=== PATIENT | female | born 1930 | race Two or more races ===

== ENCOUNTER 2017-07-27 09:27 | Emergency (ER) | payer MEDICARE, OTHER ==
[~2017-07-27] VITALS: Ht 157.5 cm; Wt 56.7 kg
[2017-07-27 10:30] VITALS: BP 159/69
[2017-07-27] MEDS ORDERED: INSULIN ASPART 300 UNITS/3 ML INSULN.PEN SQ STA (11:00)
--- NOTE | 2017-07-27 11:08 | PHYS DOC ---
Past Medical History Past Medical History: Diabetes-Type II, Hypertension Past Surgical History: No Surgical History Alcohol Use: None Drug Use: None Adult General Chief Complaint Chief Complaint: MEDICATION REFILL HPI HPI Patient is a 86 year old female with history of hypertension and diabetes type 2 who presents today requesting a NovoLog pen from the ED. Patient states she has a prescription for Novolog but ran out of the medication this morning. Patient has no symptoms. Blood sugar was 174 on arrival to the ED. Review of Systems Review of Systems Constitutional: Denies fever or chills [] Eyes: Denies change in visual acuity, redness, or eye pain [] HENT: Denies nasal congestion or sore throat [] Respiratory: Denies cough or shortness of breath [] Cardiovascular: No additional information not addressed in HPI [] GI: Denies abdominal pain, nausea, vomiting, bloody stools or diarrhea [] : Denies dysuria or hematuria [] Musculoskeletal: Denies back pain or joint pain [] Integument: Denies rash or skin lesions [] Neurologic: novolog refill Current Medications Current Medications Current Medications Medications (Trade) Dose Ordered Sig/Sudeep Start Time Stop Time Status Last Admin Dose Admin Insulin Aspart (NovoLOG) 6 units 1X STAT 07/27/17 11:00 07/27/17 11:01 UNV Allergies Allergies Allergies Coded Allergies Type Severity Reaction Last Updated Verified No Known Drug Allergies 07/27/17 No Physical Exam Physical Exam Constitutional: Well developed, well nourished, no acute distress, non-toxic appearance. [] HENT: Normocephalic, atraumatic, bilateral external ears normal, oropharynx moist, no oral exudates, nose normal. [] Eyes: PERRLA, EOMI, conjunctiva normal, no discharge. [] Neck: Normal range of motion, no tenderness, supple, no stridor. [] Cardiovascular:Heart rate regular rhythm, no murmur [] Lungs & Thorax: Bilateral breath sounds clear to auscultation [] Abdomen: Bowel sounds normal, soft, no tenderness, no masses, no pulsatile masses. [] Skin: Warm, dry, no erythema, no rash. [] Back: No tenderness, no CVA tenderness. [] Extremities: No tenderness, no cyanosis, no clubbing, ROM intact, no edema. [] Neurologic: Alert and oriented X 3, normal motor function, normal sensory function, no focal deficits noted. [] Psychologic: Affect normal, judgement normal, mood normal. [] Current Patient Data Vital Signs Vital Signs Date Time Temp Pulse Resp B/P (MAP) Pulse Ox O2 Delivery O2 Flow Rate FiO2 07/27/17 10:30 98.2 94 16 97 Room Air 98.2 Lab Values Laboratory Tests Test 07/27/17 10:22 Glucose (Fingerstick) 174 mg/dL (70-99) H EKG EKG [] Radiology/Procedures Radiology/Procedures [] Course & Med Decision Making Course & Med Decision Making Pertinent Labs and Imaging studies reviewed. (See chart for details) Patient is in the ED requesting a refill for NovoLog pen. She has a prescription with multiple refills but is not able to go to the pharmacy today. NovoLog pain was provided to this patient. She is to ensure she refills her medication before they ran out. BG was 174 in the Ed Dragon Disclaimer Dragon Disclaimer This electronic medical record was generated, in whole or in part, using a voice recognition dictation system. Departure Departure Impression: Primary Impression: Encounter for medication refill Disposition: HOME, SELF-CARE Condition: STABLE Referrals: YORDY HARTMAN MD (PCP) follow up with your doctor this week Patient Instructions: Diabetes Meal Planning Guide, Diabetes and Exercise- SportsMed Additional Instructions: We gave you NovoLog pen in the ED. Ensure you always refill your prescriptions prior to completing your medications. Follow-up with your doctor this week. ELLIOT ROMO APRN Jul 27, 2017 11:08
== END 2017-07-27 11:33 | disposition home or self-care (01) ==
LOC: ER 09:27
DX: Z76.0 Encounter for issue of repeat prescription (principal); E11.9 Type 2 diabetes mellitus without complications; I10 Essential (primary) hypertension; Z79.4 Long term (current) use of insulin
CPT/HCPCS: 82962; 96372; 99283; J1815

== ENCOUNTER 2019-06-07 01:36 | Inpatient (IN) | payer MEDICARE, OTHER ==
[~2019-06-07] VITALS: Ht 152.4 cm; Wt 62.8 kg
[2019-06-07] VITALS (16 sets, daily range): BP systolic 102–178; BP diastolic 43–74
[2019-06-07 02:25] LABS: BASO % 0 % (0-3); EOS % 0 % (0-3); HEMATOCRIT 29.9 % (36.0-47.0); HEMOGLOBIN 10.5 g/dL (12.0-15.5); LYMPH % 9 % (24-48); MEAN CORPUSCULAR HEMOGLOBIN 29 pg (25-35); MEAN CORPUSCULAR HGB CONC 35 g/dL (31-37); MEAN CORPUSCULAR VOLUME 83 fL (79-100); MONO # 0.8 x10^3/uL (0.0-1.1); MONO % 7 % (0-9); NEUT # 9.4 x10^3/uL (1.8-7.7); NEUT % 83 % (31-73); PLATELET COUNT 297 x10^3/uL (140-400); RED BLOOD COUNT 3.59 x10^6/uL (3.50-5.40); RED CELL DISTRIBUTION WIDTH 12.9 % (11.5-14.5); WHITE BLOOD COUNT 11.2 x10^3/uL (4.0-11.0)
[2019-06-07 02:38] LABS: CALCIUM 8.9 mg/dL (8.5-10.1); GFR 52.3; POTASSIUM 4.3 mmol/L (3.5-5.1)
[2019-06-07 02:44] LABS: ALBUMIN 3.4 g/dL (3.4-5.0); ALBUMIN/GLOBULIN RATIO 0.9 (1.0-1.7); TOTAL BILIRUBIN 0.5 mg/dL (0.2-1.0); TOTAL PROTEIN 7.1 g/dL (6.4-8.2)
--- NOTE | 2019-06-07 03:28 | RAD ---
EXAM: CT HEAD WITHOUT CONTRAST. HISTORY: Dizziness, vertigo. TECHNIQUE: Computed tomography of the head was performed without intravenous contrast. COMPARISON: None. FINDINGS: There is no intracranial hemorrhage. Hypoattenuation within the white matter indicates moderate to severe chronic microangiopathic change. Prominence of the lateral ventricles and hemispheric sulci indicates moderate atrophy. The visualized paranasal sinuses appear clear. There are changes of bilateral cataract surgery. The temporal bones are unremarkable. The calvarium reveals no suspicious lesions. There are atherosclerotic calcifications of the internal carotid and vertebral arteries. IMPRESSION: 1. No acute intracranial findings. 2. 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 *One or more of the following individualized dose reduction techniques were utilized for this examination: 1. Automated exposure control. 2. Adjustment of the mA and/or kV according to patient size. 3. Use of iterative reconstruction technique. Electronically signed by: Jackie Jeter MD (06/07/2019 3:25 AM) [facility]
[2019-06-07] MEDS ORDERED: ASPIRIN ENTERIC COATED 81 MG TABLET.DR. PO ONE (03:30)
[2019-06-07] MEDS ORDERED: METF10007 PO (04:11)
[2019-06-07] MEDS ORDERED: ASPI325T11 PO (04:13)
[2019-06-07] MEDS ORDERED: LISI-377 PO (04:13)
[2019-06-07] MEDS ORDERED: AMLO5TAB10 PO (04:13)
[2019-06-07] MEDS ORDERED: MULT-129 PO (04:19)
[2019-06-07] MEDS ORDERED: UBID100C26 PO (04:19)
[2019-06-07] MEDS ORDERED: ACET325T9 PO (04:19)
[2019-06-07] MEDS ORDERED: CALC-450 PO (04:19)
[2019-06-07] MEDS ORDERED: VITA100T5 PO (04:19)
[2019-06-07] MEDS ORDERED: INSU100I13 SQ (04:19)
[2019-06-07] MEDS ORDERED: INSU100I17 SQ ×2 (04:20)
--- NOTE | 2019-06-07 04:24 | PHYS DOC ---
Past Medical History Past Medical History: CAD, Diabetes-Type II, High Cholesterol, Hypertension Past Surgical History: Cholecystectomy Alcohol Use: None Drug Use: None Adult General Chief Complaint Chief Complaint: DIZZY/LIGHT HEADED HPI HPI Patient is a 88 year old female presents with multiple medical complaints. Pa tient complaints of posterior chest pressure, dizziness upon standing is resolved when supine. Patient denies change of vision, neck pain, palpitations, focal extremity weakness or loss of sensation. Denies history of CAD. Patient also reports partial numbness in left arm and nausea. No vomiting. No other acute symptoms or complaints. Symptoms began several hours prior to ED arrival. History obtained from the patient's son. [] Review of Systems Review of Systems Review symptoms as per history of present illness. All other review symptoms are negative. All other systems were reviewed and found to be within normal limits, except as documented in this note. Allergies Allergies Allergies Coded Allergies Type Severity Reaction Last Updated Verified No Known Drug Allergies 07/27/17 No Physical Exam Physical Exam Constitutional: Well developed, well nourished, no acute distress, non-toxic appearance. [] HENT: Normocephalic, atraumatic, bilateral external ears normal, oropharynx moist, no oral exudates, nose normal. [] Eyes: PERRLA, EOMI, conjunctiva normal, no discharge. [] Neck: Normal range of motion, no tenderness, supple, no stridor. [] Cardiovascular:Heart rate regular rhythm, no murmur [] Lungs & Thorax: Bilateral breath sounds clear to auscultation [] Abdomen: Bowel sounds normal, soft, no tenderness. [] Skin: Warm, dry. [] Back: No tenderness, no CVA tenderness. [] Extremities: No tenderness, no cyanosis, no clubbing, ROM intact, no edema. [] Neurologic: Alert and oriented X 3, renal nerves II through XII grossly intact, normal motor function, normal sensory function, no focal deficits noted. NIH of 0.[] Psychologic: Affect normal, judgement normal, mood normal. [] Current Patient Data Vital Signs Vital Signs Date Time Temp Pulse Resp B/P (MAP) Pulse Ox O2 Delivery O2 Flow Rate FiO2 06/07/19 03:00 65 14 98 06/07/19 01:53 98.4 181/75 (110) Room Air 98.4 Lab Values Laboratory Tests Test 06/07/19 02:15 White Blood Count 11.2 x10^3/uL (4.0-11.0) H Red Blood Count 3.59 x10^6/uL (3.50-5.40) Hemoglobin 10.5 g/dL (12.0-15.5) L Hematocrit 29.9 % (36.0-47.0) L Mean Corpuscular Volume 83 fL (79-100) Mean Corpuscular Hemoglobin 29 pg (25-35) Mean Corpuscular Hemoglobin Concent 35 g/dL (31-37) Red Cell Distribution Width 12.9 % (11.5-14.5) Platelet Count 297 x10^3/uL (140-400) Neutrophils (%) (Auto) 83 % (31-73) H Lymphocytes (%) (Auto) 9 % (24-48) L Monocytes (%) (Auto) 7 % (0-9) Eosinophils (%) (Auto) 0 % (0-3) Basophils (%) (Auto) 0 % (0-3) Neutrophils # (Auto) 9.4 x10^3/uL (1.8-7.7) H Lymphocytes # (Auto) 1.0 x10^3/uL (1.0-4.8) Monocytes # (Auto) 0.8 x10^3/uL (0.0-1.1) Eosinophils # (Auto) 0.0 x10^3/uL (0.0-0.7) Basophils # (Auto) 0.0 x10^3/uL (0.0-0.2) Sodium Level 125 mmol/L (136-145) L Potassium Level 4.3 mmol/L (3.5-5.1) Chloride Level 92 mmol/L (98-107) L Carbon Dioxide Level 25 mmol/L (21-32) Anion Gap 8 (6-14) Blood Urea Nitrogen 18 mg/dL (7-20) Creatinine 1.0 mg/dL (0.6-1.0) Estimated GFR (Cockcroft-Gault) 52.3 BUN/Creatinine Ratio 18 (6-20) Glucose Level 103 mg/dL (70-99) H Calcium Level 8.9 mg/dL (8.5-10.1) Total Bilirubin 0.5 mg/dL (0.2-1.0) Aspartate Amino Transferase (AST) 22 U/L (15-37) Alanine Aminotransferase (ALT) 22 U/L (14-59) Alkaline Phosphatase 68 U/L (46-116) Creatine Kinase 137 U/L (26-192) Troponin I Quantitative 0.334 ng/mL (0.000-0.055) RH-Wne-Q-Type Natriuretic Peptide 857 pg/mL (0-449) H Total Protein 7.1 g/dL (6.4-8.2) Albumin 3.4 g/dL (3.4-5.0) Albumin/Globulin Ratio 0.9 (1.0-1.7) L Thyroid Stimulating Hormone (TSH) 5.277 uIU/mL (0.358-3.74) H Laboratory Tests 06/07/19 02:15 Laboratory Tests 06/07/19 02:15 EKG EKG [EKG: Reviewed, rhythm, rate 73, nonspecific ST-T wave changes.] Radiology/Procedures Radiology/Procedures [CT head: NAD per radiology report CXR: NAD] Course & Med Decision Making Course & Med Decision Making Pertinent Labs and Imaging studies reviewed. (See chart for details) [Patient with multiple symptoms, elevated troponin, left arm numbness, no acute ST elevation on EKG. CT head negative, and I stroke score 0. Aspirin given. Sodium 125. No prior labs Will admit to the hospitalist service for further eval uation and treatment with cardiology consult.] Dragon Disclaimer Dragon Disclaimer This electronic medical record was generated, in whole or in part, using a voice recognition dictation system. Departure Departure Impression: Primary Impression: Elevated troponin Additional Impressions: Hyponatremia Dizziness Disposition: ADMITTED INPATIENT Condition: STABLE Referrals: YORDY HARTMAN MD (PCP) Problem Qualifiers ALIN CARMONA DO Jun 07, 2019 04:24
[2019-06-07] MEDS ORDERED: ONDANSETRON PF 4 MG/2 ML VIAL. IV PRN (04:30)
[2019-06-07] MEDS: IV NORMAL SALINE 1000ML BAG 1,000 ML IV SCH ×2 (04:41→12:05)
--- NOTE | 2019-06-07 05:00 | EKG ---
[facility] [address] [place] [address] Test Date: 2019-06-07 Test Time: 05:52:22 Pat Name: JHONATAN VELOZ Department: Room: 260 1 Gender: F Asset Card Clerk: [facility] : 1930 Requested By: ALIN CARMONA Order Number: [id number] Reading MD: Jacek Hernandez MD Measurements Intervals [place] Rate: 68 P: 59 MA: 188 QRS: -33 QRSD: 88 T: 68 QT: 414 QTc: 445 Interpretive Statements SINUS RHYTHM Electronically Signed On 06-11-2019 9:53:18 CDT by Jacek Hernandez MD
--- NOTE | 2019-06-07 05:10 | RAD ---
EXAM: CHEST ONE VIEW. HISTORY: Chest pain. COMPARISON: None. FINDINGS: A frontal view of the chest is obtained. There are no confluent infiltrates. The lungs are expanded to the 11th posterior interspaces. There is no pneumothorax or pleural effusion. The heart is not enlarged. There are atherosclerotic calcifications of the aorta. IMPRESSION: 1. Hyperinflation. Correlate for chronic obstructive pulmonary disease. No confluent infiltrates. Electronically signed by: Jackie Jeter MD (06/07/2019 5:07 AM) [facility]
--- NOTE | 2019-06-07 06:39 | NUR ---
Patient arrived to unit at 0340 accompanied by son and ED nurse. VS stable, Assessment complete. No complaints of pain at this time. Patient stated that she has two lumps on the back of her head that are new within the last couple days but has not had any type of fall. per patient she has been dizzy for the past two days. Resting comfortably on RA. bed in low locked position, call light in reach. will continue to monitor patient.
--- NOTE | 2019-06-07 06:59 | EKG ---
[facility] [address] [place] [address] Test Date: 2019-06-07 Test Time: 02:06:06 Pat Name: JHONATAN VELOZ Department: Room: 260 1 Gender: F Bow Rehairer: : 1930 Requested By: JEANNETTE UNGER Order Number: [id number] Reading MD: Jacek Hernandez MD Measurements Intervals [place] Rate: 72 P: 151 AL: 182 QRS: -146 QRSD: 88 T: 130 QT: 392 QTc: 435 Interpretive Statements SINUS RHYTHM LIMB LEAD MISPLACEMENT Electronically Signed On 06-11-2019 9:52:34 CDT by Jacek Hernandez MD
--- NOTE | 2019-06-07 08:00 | NUR ---
Attempted to call nurse practitioner cardiology phone x2 without answer.
--- NOTE | 2019-06-07 08:05 | NUR ---
Call to answering service to inform of consult and elevated troponin. No one non acoustic operator at this time because nurse practitioner expected. Information given to answering service.
--- NOTE | 2019-06-07 08:25 | NUR ---
Dr. Mcghee returned phone call. Informed him that the Trop was 0.33 and has went up to 1.305 this morning for the second draw and that there is some elevation in EKG. Instructed RN to wait until nurse practitioner rounds.
[2019-06-07] MEDS ORDERED: LIDOCAINE 1% PF 2 ML VIAL. ONE (09:30)
[2019-06-07] MEDS ORDERED: IOHEXOL 300 MG/ML 100ML VIAL. ONE ×2 (09:30→10:24)
--- NOTE | 2019-06-07 09:34 | PDOC2 ---
CONSULT Date of Consult Date of Consult DATE: 06/07/19 TIME: 09:34 Reason for Consult Reason for Consult: Elevated troponin level Referring Physician Referring Physician: Dr. Bui Identification/Chief Complaint Chief Complaint Dizziness and shortness of breath Source Source: Chart review, Patient History of Present Illness Reason for Visit: 88-year-old female presented complaining of dizziness, dyspnea and retrosternal chest tightness. She denied any orthopnea/PND, palpitations or syncope. She denied any previous cardiac history other than 'heart murmur'. Past Medical History Past Medical History Hypertension Hypercholesterolemia Diabetes mellitus type 2 Past Surgical History Past Surgical History Cholecystectomy Family History Family History Negative for premature coronary artery disease Social History Social History Denied any smoking, alcohol or drug use Current Medications Current Medications Current Medications Aspirin (Ecotrin) 324 mg 1X ONCE PO Last administered on 06/07/19at 03:10; S tart 06/07/19 at 03:30; Stop 06/07/19 at 03:31; Status DC Ondansetron HCl (Zofran) 4 mg PRN Q8HRS PRN IV NAUSEA/VOMITING 1ST CHOICE; Start 06/07/19 at 04:30; Stop 06/08/19 at 04:29 Sodium Chloride 1,000 ml @ 75 mls/hr [id number] IV Last administered on 06/07/19at 04:41; Start 06/07/19 at 05:00; Stop 06/08/19 at 04:59 Lidocaine HCl (Xylocaine-Mpf 1% 2ml Vial) 2 ml STK-MED ONCE .ROUTE ; Start 06/07/19 at 09:30; Stop 06/07/19 at 09:31; Status DC Iohexol (Omnipaque 300 Mg/ml) 100 ml STK-MED ONCE .ROUTE ; Start 06/07/19 at 09:30; Stop 06/07/19 at 09:31; Status DC Heparin Sodium/ Sodium Chloride 500 ml @ As Directed STK-MED ONCE .ROUTE ; Start 06/07/19 at 09:30; Stop 06/07/19 at 09:31; Status DC Active Scripts Active Reported Novolog Flexpen (Insulin Aspart) 100 Unit/1 Ml Insuln.pen 10 Unit SQ DAILYWSUP Novolog Flexpen (Insulin Aspart) 100 Unit/1 Ml Insuln.pen 5 Unit SQ DAILYWBKFT Vitamin E (Vitamin E Acid Succinate) 100 Unit Tablet 100 Unit PO DAILY Coq-10 (Ubidecarenone) 100 Mg Capsule 100 Mg PO DAILY Lantus Solostar (Insulin Glargine,Hum.rec.anlog) 100 Unit/1 Ml Insuln.pen 17 Unit SQ QHS Caltrate 600 + D Soft Chew Tab (Calcium Carbonate/Vitamin D3) 1 Each Tab.chew 1 Each PO DAILY One Daily For Women 50+ Adv Tb (Multivitamins-Min/Fa/Ginkgo) 1 Each Tablet 1 Each PO DAILY Tylenol (Acetaminophen) 325 Mg Tablet 325 Mg PO DAILY Aspirin Ec (Aspirin) 325 Mg Tablet.dr 325 Mg PO DAILY Amlodipine Besylate 5 Mg Tablet 5 Mg PO DAILY Zestril (Lisinopril) 10 Mg Tablet 10 Mg PO BID Metformin Hcl 1,000 Mg Tablet 1,000 Mg PO BIDWMEALS Allergies Allergies: Coded Allergies: No Known Drug Allergies (Unverified , 07/27/17) ROS PSYCHOLOGICAL ROS: No: Hallucinations Eyes: No Loss of vision HEENT: No: Epistaxis Respiratory: YES: Shortness of breath; No: Hemoptysis Cardiovascular: yes Chest Pain Genitourinary: No Hematuria Neurological: No Seizures Skin: No Rash Physical Exam General: Alert, Oriented X3 HEENT: Atraumatic, PERRLA Lungs: Clear to auscultation Heart: Regular rate, Other (ESM LUPSB) Abdomen: Soft, No tenderness Extremities: No edema Neuro: Normal speech Psych/Mental Status: Mood NL Vitals VITALS Vital Signs Date Time Temp Pulse Resp B/P (MAP) Pulse Ox O2 Delivery O2 Flow Rate FiO2 06/07/19 07:00 98.5 62 18 139/63 (88) 97 Room Air 98.5 Labs Labs Laboratory Tests Test 06/07/19 02:15 06/07/19 07:22 06/07/19 07:25 White Blood Count 11.2 x10^3/uL (4.0-11.0) Red Blood Count 3.59 x10^6/uL (3.50-5.40) Hemoglobin 10.5 g/dL (12.0-15.5) Hematocrit 29.9 % (36.0-47.0) Mean Corpuscular Volume 83 fL (79-100) Mean Corpuscular Hemoglobin 29 pg (25-35) Mean Corpuscular Hemoglobin Concent 35 g/dL (31-37) Red Cell Distribution Width 12.9 % (11.5-14.5) Platelet Count 297 x10^3/uL (140-400) Neutrophils (%) (Auto) 83 % (31-73) Lymphocytes (%) (Auto) 9 % (24-48) Monocytes (%) (Auto) 7 % (0-9) Eosinophils (%) (Auto) 0 % (0-3) Basophils (%) (Auto) 0 % (0-3) Neutrophils # (Auto) 9.4 x10^3/uL (1.8-7.7) Lymphocytes # (Auto) 1.0 x10^3/uL (1.0-4.8) Monocytes # (Auto) 0.8 x10^3/uL (0.0-1.1) Eosinophils # (Auto) 0.0 x10^3/uL (0.0-0.7) Basophils # (Auto) 0.0 x10^3/uL (0.0-0.2) Sodium Level 125 mmol/L (136-145) Potassium Level 4.3 mmol/L (3.5-5.1) Chloride Level 92 mmol/L (98-107) Carbon Dioxide Level 25 mmol/L (21-32) Anion Gap 8 (6-14) Blood Urea Nitrogen 18 mg/dL (7-20) Creatinine 1.0 mg/dL (0.6-1.0) Estimated GFR (Cockcroft-Gault) 52.3 BUN/Creatinine Ratio 18 (6-20) Glucose Level 103 mg/dL (70-99) Calcium Level 8.9 mg/dL (8.5-10.1) Total Bilirubin 0.5 mg/dL (0.2-1.0) Aspartate Amino Transf (AST/SGOT) 22 U/L (15-37) Alanine Aminotransferase (ALT/SGPT) 22 U/L (14-59) Alkaline Phosphatase 68 U/L (46-116) Creatine Kinase 137 U/L (26-192) Troponin I Quantitative 0.334 ng/mL (0.000-0.055) 1.305 ng/mL (0.000-0.055) OY-Xjs-J-Type Natriuretic Peptide 857 pg/mL (0-449) Total Protein 7.1 g/dL (6.4-8.2) Albumin 3.4 g/dL (3.4-5.0) Albumin/Globulin Ratio 0.9 (1.0-1.7) Thyroid Stimulating Hormone (TSH) 5.277 uIU/mL (0.358-3.74) Glucose (Fingerstick) 89 mg/dL (70-99) Laboratory Tests Test 06/07/19 02:15 06/07/19 07:22 06/07/19 07:25 White Blood Count 11.2 x10^3/uL (4.0-11.0) Red Blood Count 3.59 x10^6/uL (3.50-5.40) Hemoglobin 10.5 g/dL (12.0-15.5) Hematocrit 29.9 % (36.0-47.0) Mean Corpuscular Volume 83 fL (79-100) Mean Corpuscular Hemoglobin 29 pg (25-35) Mean Corpuscular Hemoglobin Concent 35 g/dL (31-37) Red Cell Distribution Width 12.9 % (11.5-14.5) Platelet Count 297 x10^3/uL (140-400) Neutrophils (%) (Auto) 83 % (31-73) Lymphocytes (%) (Auto) 9 % (24-48) Monocytes (%) (Auto) 7 % (0-9) Eosinophils (%) (Auto) 0 % (0-3) Basophils (%) (Auto) 0 % (0-3) Neutrophils # (Auto) 9.4 x10^3/uL (1.8-7.7) Lymphocytes # (Auto) 1.0 x10^3/uL (1.0-4.8) Monocytes # (Auto) 0.8 x10^3/uL (0.0-1.1) Eosinophils # (Auto) 0.0 x10^3/uL (0.0-0.7) Basophils # (Auto) 0.0 x10^3/uL (0.0-0.2) Sodium Level 125 mmol/L (136-145) Potassium Level 4.3 mmol/L (3.5-5.1) Chloride Level 92 mmol/L (98-107) Carbon Dioxide Level 25 mmol/L (21-32) Anion Gap 8 (6-14) Blood Urea Nitrogen 18 mg/dL (7-20) Creatinine 1.0 mg/dL (0.6-1.0) Estimated GFR (Cockcroft-Gault) 52.3 BUN/Creatinine Ratio 18 (6-20) Glucose Level 103 mg/dL (70-99) Calcium Level 8.9 mg/dL (8.5-10.1) Total Bilirubin 0.5 mg/dL (0.2-1.0) Aspartate Amino Transf (AST/SGOT) 22 U/L (15-37) Alanine Aminotransferase (ALT/SGPT) 22 U/L (14-59) Alkaline Phosphatase 68 U/L (46-116) Creatine Kinase 137 U/L (26-192) Troponin I Quantitative 0.334 ng/mL (0.000-0.055) 1.305 ng/mL (0.000-0.055) MP-Ujg-H-Type Natriuretic Peptide 857 pg/mL (0-449) Total Protein 7.1 g/dL (6.4-8.2) Albumin 3.4 g/dL (3.4-5.0) Albumin/Globulin Ratio 0.9 (1.0-1.7) Thyroid Stimulating Hormone (TSH) 5.277 uIU/mL (0.358-3.74) Glucose (Fingerstick) 89 mg/dL (70-99) Assessment/Plan Assessment/Plan 1. Acute non-STEMI. Patient's shortness of breath is also probably anginal equivalent. Chest x-ray did not show any evidence of congestive heart failure. The option of cardiac catheterization for definitive evaluation was discussed in detail and she is agreeable. 2. Accelerated hypertension: Better controlled since admission 3. Diabetes mellitus type 2: Treat per IM. Hold metformin for cardiac cath. Thank you for your consultation DEBRA VALLEJO MD Jun 07, 2019 09:34
[2019-06-07] MEDS ORDERED: fentaNYL PF VIAL 100 MCG/2 ML VIAL ONE (09:48)
[2019-06-07] MEDS ORDERED: NITROGLYCERIN 200 MCG/2 ML SYRINGE FOR CATH/VASC LAB. ONE (09:48)
[2019-06-07] MEDS ORDERED: MIDAZOLAM HCL/PF 2 MG/2 ML VIAL. ONE (09:48)
[2019-06-07] MEDS ORDERED: HEPARIN for IV BOLUS 10,000 UNIT/10 ML VIAL. ONE (09:48)
[2019-06-07] MEDS ORDERED: VERAPAMIL 5 MG/2 ML VIAL. ONE (09:48)
--- NOTE | 2019-06-07 10:36 | PDOC1 ---
History and Physical Date of Admission Date of Admission DATE: 06/07/19 TIME: 10:35 Identification/Chief Complaint Chief Complaint 88 year old female presents to er with multiple medical complaints. Patient complaints of posterior chest pressure, dizziness upon standing is resolved when supine. Patient denies change of vision, neck pain, palpitations, focal extremity weakness or loss of sensation. Denies history of CAD. Patient also reports partial numbness in left arm and nausea. No vomiting. No other acute symptoms or complaints. Symptoms began several hours prior to ED arrival. Past Medical History Past Medical History Past Medical History Past Medical History Past Medical History: CAD, Diabetes-Type II, High Cholesterol, Hypertension Past Surgical History: Cholecystectomy Alcohol Use: None Drug Use: None fhx hyperlipidemia Cardiovascular: HTN Hepatobiliary: No pertinent hx Endocrine: Diabetes Family History Family History Past Medical History Past Medical History Hypertension Hypercholesterolemia Diabetes mellitus type 2 Past Surgical History Past Surgical History Cholecystectomy Family History Family History Negative for premature coronary artery disease Social History Social History Denied any smoking, alcohol or drug use Family History: High Cholestrol Social History Smoke: No ALCOHOL: none Drugs: None Current Medications Current Medications Current Medications Aspirin (Ecotrin) 324 mg 1X ONCE PO Last administered on 06/07/19at 03:10; Start 06/07/19 at 03:30; Stop 06/07/19 at 03:31; Status DC Ondansetron HCl (Zofran) 4 mg PRN Q8HRS PRN IV NAUSEA/VOMITING 1ST CHOICE; Start 06/07/19 at 04:30; Stop 06/08/19 at 04:29 Sodium Chloride 1,000 ml @ 75 mls/hr [id number] IV Last administered on 06/07/19at 04:41; Start 06/07/19 at 05:00; Stop 06/08/19 at 04:59 Lidocaine HCl (Xylocaine-Mpf 1% 2ml Vial) 2 ml STK-MED ONCE .ROUTE ; Start 06/07/19 at 09:30; Stop 06/07/19 at 09:31; Status DC Iohexol (Omnipaque 300 Mg/ml) 100 ml STK-MED ONCE .ROUTE ; Start 06/07/19 at 09:30; Stop 06/07/19 at 09:31; Status DC Heparin Sodium/ Sodium Chloride 500 ml @ As Directed STK-MED ONCE .ROUTE ; Start 06/07/19 at 09:30; Stop 06/07/19 at 09:31; Status DC Fentanyl Citrate (Fentanyl 2ml Vial) 100 mcg STK-MED ONCE .ROUTE ; Start 06/07/19 at 09:48; Stop 06/07/19 at 09:48; Status DC Midazolam HCl (Versed) 2 mg STK-MED ONCE .ROUTE ; Start 06/07/19 at 09:48; Stop 06/07/19 at 09:48; Status DC Heparin Sodium (Porcine) (Heparin Sodium) 10,000 unit STK-MED ONCE .ROUTE ; Start 06/07/19 at 09:48; Stop 06/07/19 at 09:48; Status DC Verapamil HCl (Verapamil) 5 mg STK-MED ONCE .ROUTE ; Start 06/07/19 at 09:48; Stop 06/07/19 at 09:48; Status DC Nitroglycerin (Nitroglycerin) 200 mcg STK-MED ONCE .ROUTE ; Start 06/07/19 at 09:48; Stop 06/07/19 at 09:49; Status DC Iohexol (Omnipaque 300 Mg/ml) 100 ml STK-MED ONCE .ROUTE ; Start 06/07/19 at 10:24; Stop 06/07/19 at 10:24; Status DC Active Scripts Active Reported Novolog Flexpen (Insulin Aspart) 100 Unit/1 Ml Insuln.pen 10 Unit SQ DAILYWSUP Novolog Flexpen (Insulin Aspart) 100 Unit/1 Ml Insuln.pen 5 Unit SQ DAILYWBKFT Vitamin E (Vitamin E Acid Succinate) 100 Unit Tablet 100 Unit PO DAILY Coq-10 (Ubidecarenone) 100 Mg Capsule 100 Mg PO DAILY Lantus Solostar (Insulin Glargine,Hum.rec.anlog) 100 Unit/1 Ml Insuln.pen 17 Unit SQ QHS Caltrate 600 + D Soft Chew Tab (Calcium Carbonate/Vitamin D3) 1 Each Tab.chew 1 Each PO DAILY One Daily For Women 50+ Adv Tb (Multivitamins-Min/Fa/Ginkgo) 1 Each Tablet 1 Each PO DAILY Tylenol (Acetaminophen) 325 Mg Tablet 325 Mg PO DAILY Aspirin Ec (Aspirin) 325 Mg Tablet.dr 325 Mg PO DAILY Amlodipine Besylate 5 Mg Tablet 5 Mg PO DAILY Zestril (Lisinopril) 10 Mg Tablet 10 Mg PO BID Metformin Hcl 1,000 Mg Tablet 1,000 Mg PO BIDWMEALS Allergies Allergies: Coded Allergies: No Known Drug Allergies (Unverified , 07/27/17) ROS Review of System Review of Systems Review of Systems Review symptoms as per history of present illness. All other review symptoms are negative. General: YES: Fatigue PSYCHOLOGICAL ROS: No: Anxiety, Behavioral Disorder, Concentration difficultie, Decreased libido, Depression, Disorientation, Hallucinations, Hostility, Irritablity, Memory difficulties, Mood Swings, Obsessive thoughts, Physical abuse, Sexual abuse, Sleep disturbances, Suicidal ideation, Other HEENT: No: Heacaches, Visual Changes, Hearing change, Nasal congestion, Nasal discharge, Oral lesions, Sinus pain, Sore Throat, Epistaxis, Sneezing, Snoring, Tinnitus, Vertigo, Vocal changes, Other ALLERGY AND IMMUNOLOGY: No: Hives, Insect Bite Sensitivity, Itchy/Watery Eyes, Nasal Congestion, Post Nasal Drip, Seasonal Allergies, Other Hematological and Lymphatic: No: Bleeding Problems, Blood Clots, Blood Transfusions, Brusing, Night Sweats, Pallor, Swollen Lymph Nodes, Other ENDOCRINE: No: Breast Changes, Galactorrhea, Hair Pattern Changes, Hot Flashes, Malaise/lethargy, Mood Swings, Palpitations, Polydipsia/polyuria, Skin Changes, Temperature Intolerance, Unexpected Weight Changes, Other Respiratory: No: Cough, Hemoptysis, Orthopnea, Pleuritic Pain, Shortness of breath, SOB with excertion, Sputum Changes, Stridor, Tachypnea, Wheezing, Other Cardiovascular: yes Paroxysmal Noc. Dyspnea Gastrointestinal: Yes Nausea Musculoskeletal: Yes Joint Stiffness Neurological: Yes Confusion, Yes Gait Disturbance Physical Exam Physical Exam Physical Exam Physical Exam Constitutional: Well developed, well nourished, no acute distress, non-toxic appearance. [] HENT: Normocephalic, atraumatic, bilateral external ears normal, oropharynx moist, no oral exudates, nose normal. [] Eyes: PERRLA, EOMI, conjunctiva normal, no discharge. [] Neck: Normal range of motion, no tenderness, supple, no stridor. [] Cardiovascular:Heart rate regular rhythm, no murmur [] Lungs & Thorax: Bilateral breath sounds clear to auscultation [] Abdomen: Bowel sounds normal, soft, no tenderness. [] Skin: Warm, dry. [] Back: No tenderness, no CVA tenderness. [] Extremities: No tenderness, no cyanosis, no clubbing, ROM intact, no edema. [] Neurologic: Alert and oriented X 3, renal nerves II through XII grossly intact, normal motor function, normal sensory function, no focal deficits noted. NIH of 0.[] Psychologic: Affect normal, judgement normal, mood normal. [] General: No acute distress Breasts: Not examined Abdomen: Normal bowel sounds, Soft Rectal Exam: not examined PELVIC: Examination not indicated Extremities: No cyanosis Neuro: Cranial nerves 3-12 NL Vitals Vitals Vital Signs Date Time Temp Pulse Resp B/P (MAP) Pulse Ox O2 Delivery O2 Flow Rate FiO2 06/07/19 08:00 Room Air 06/07/19 07:00 98.5 62 18 139/63 (88) 97 98.5 Labs Labs Laboratory Tests Test 06/07/19 02:15 06/07/19 07:22 06/07/19 07:25 White Blood Count 11.2 x10^3/uL (4.0-11.0) Red Blood Count 3.59 x10^6/uL (3.50-5.40) Hemoglobin 10.5 g/dL (12.0-15.5) Hematocrit 29.9 % (36.0-47.0) Mean Corpuscular Volume 83 fL (79-100) Mean Corpuscular Hemoglobin 29 pg (25-35) Mean Corpuscular Hemoglobin Concent 35 g/dL (31-37) Red Cell Distribution Width 12.9 % (11.5-14.5) Platelet Count 297 x10^3/uL (140-400) Neutrophils (%) (Auto) 83 % (31-73) Lymphocytes (%) (Auto) 9 % (24-48) Monocytes (%) (Auto) 7 % (0-9) Eosinophils (%) (Auto) 0 % (0-3) Basophils (%) (Auto) 0 % (0-3) Neutrophils # (Auto) 9.4 x10^3/uL (1.8-7.7) Lymphocytes # (Auto) 1.0 x10^3/uL (1.0-4.8) Monocytes # (Auto) 0.8 x10^3/uL (0.0-1.1) Eosinophils # (Auto) 0.0 x10^3/uL (0.0-0.7) Basophils # (Auto) 0.0 x10^3/uL (0.0-0.2) Sodium Level 125 mmol/L (136-145) Potassium Level 4.3 mmol/L (3.5-5.1) Chloride Level 92 mmol/L (98-107) Carbon Dioxide Level 25 mmol/L (21-32) Anion Gap 8 (6-14) Blood Urea Nitrogen 18 mg/dL (7-20) Creatinine 1.0 mg/dL (0.6-1.0) Estimated GFR (Cockcroft-Gault) 52.3 BUN/Creatinine Ratio 18 (6-20) Glucose Level 103 mg/dL (70-99) Calcium Level 8.9 mg/dL (8.5-10.1) Total Bilirubin 0.5 mg/dL (0.2-1.0) Aspartate Amino Transf (AST/SGOT) 22 U/L (15-37) Alanine Aminotransferase (ALT/SGPT) 22 U/L (14-59) Alkaline Phosphatase 68 U/L (46-116) Creatine Kinase 137 U/L (26-192) Troponin I Quantitative 0.334 ng/mL (0.000-0.055) 1.305 ng/mL (0.000-0.055) HI-Xxf-H-Type Natriuretic Peptide 857 pg/mL (0-449) Total Protein 7.1 g/dL (6.4-8.2) Albumin 3.4 g/dL (3.4-5.0) Albumin/Globulin Ratio 0.9 (1.0-1.7) Thyroid Stimulating Hormone (TSH) 5.277 uIU/mL (0.358-3.74) Glucose (Fingerstick) 89 mg/dL (70-99) Laboratory Tests Test 06/07/19 02:15 06/07/19 07:22 06/07/19 07:25 White Blood Count 11.2 x10^3/uL (4.0-11.0) Red Blood Count 3.59 x10^6/uL (3.50-5.40) Hemoglobin 10.5 g/dL (12.0-15.5) Hematocrit 29.9 % (36.0-47.0) Mean Corpuscular Volume 83 fL (79-100) Mean Corpuscular Hemoglobin 29 pg (25-35) Mean Corpuscular Hemoglobin Concent 35 g/dL (31-37) Red Cell Distribution Width 12.9 % (11.5-14.5) Platelet Count 297 x10^3/uL (140-400) Neutrophils (%) (Auto) 83 % (31-73) Lymphocytes (%) (Auto) 9 % (24-48) Monocytes (%) (Auto) 7 % (0-9) Eosinophils (%) (Auto) 0 % (0-3) Basophils (%) (Auto) 0 % (0-3) Neutrophils # (Auto) 9.4 x10^3/uL (1.8-7.7) Lymphocytes # (Auto) 1.0 x10^3/uL (1.0-4.8) Monocytes # (Auto) 0.8 x10^3/uL (0.0-1.1) Eosinophils # (Auto) 0.0 x10^3/uL (0.0-0.7) Basophils # (Auto) 0.0 x10^3/uL (0.0-0.2) Sodium Level 125 mmol/L (136-145) Potassium Level 4.3 mmol/L (3.5-5.1) Chloride Level 92 mmol/L (98-107) Carbon Dioxide Level 25 mmol/L (21-32) Anion Gap 8 (6-14) Blood Urea Nitrogen 18 mg/dL (7-20) Creatinine 1.0 mg/dL (0.6-1.0) Estimated GFR (Cockcroft-Gault) 52.3 BUN/Creatinine Ratio 18 (6-20) Glucose Level 103 mg/dL (70-99) Calcium Level 8.9 mg/dL (8.5-10.1) Total Bilirubin 0.5 mg/dL (0.2-1.0) Aspartate Amino Transf (AST/SGOT) 22 U/L (15-37) Alanine Aminotransferase (ALT/SGPT) 22 U/L (14-59) Alkaline Phosphatase 68 U/L (46-116) Creatine Kinase 137 U/L (26-192) Troponin I Quantitative 0.334 ng/mL (0.000-0.055) 1.305 ng/mL (0.000-0.055) XZ-Xdp-N-Type Natriuretic Peptide 857 pg/mL (0-449) Total Protein 7.1 g/dL (6.4-8.2) Albumin 3.4 g/dL (3.4-5.0) Albumin/Globulin Ratio 0.9 (1.0-1.7) Thyroid Stimulating Hormone (TSH) 5.277 uIU/mL (0.358-3.74) Glucose (Fingerstick) 89 mg/dL (70-99) Images Images TDI Medial E' P. V 5.28cm/s E/Medial E' 22.6 Tricuspid Valve TR P. Velocity 238cm/s RAP ESTIMATE 3mmHg TR Peak Gr. 23mmHg RVSP 26mmHg LEFT VENTRICLE The left ventricle is normal size. There is mild concentric left ventricular hypertrophy. The left ventricle is hyperdynamic. The Ejection Fraction is >65%. There is normal LV segmental wall motion. Transmitral Doppler flow pattern is abnormal. RIGHT VENTRICLE The right ventricle is normal size. There is normal right ventricular wall thickness. The right ventricular systolic function is normal. ATRIA The left atrium size is normal. The right atrium size is normal. The interatrial septum is intact with no evidence for an atrial septal defect or patent foramen ovale as noted on 2-D or Doppler imaging. AORTIC VALVE The aortic valve is mildly calcified. The aortic valve is trileaflet. Doppler and Color Flow revealed no significant aortic regurgitation. There is mild valvular aortic stenosis. Calculated aortic valve area is 1.4 cm2 with maximum pressure gradient of 14 mmHg and mean pressure gradient of 10 mmHg. MITRAL VALVE Mitral annular calcification is moderate. There is no evidence of mitral valve prolapse. There is no mitral valve stenosis. Doppler and Color-flow revealed trace to mild mitral regurgitation. TRICUSPID VALVE The tricuspid valve is normal in structure and function. Doppler and Color Flow revealed trace tricuspid regurgitation. The PA pressure was estimated at 26 mmHg. There is no tricuspid valve prolapse or vegetation. There is no tricuspid valve stenosis. PULMONIC VALVE The pulmonic valve is not well visualized. GREAT VESSELS The aortic root is normal in size. The ascending aorta is normal in size. The IVC is normal in size and collapses >50% with inspiration. PERICARDIAL EFFUSION There is no evidence of significant pericardial effusion. Critical Notification Critical Value: No <Conclusion> The left ventricle is normal size. The left ventricle is hyperdynamic. The Ejection Fraction is >65%. There is mild concentric left ventricular hypertrophy. There is mild valvular aortic stenosis. Calculated aortic valve area is 1.4 cm2 with maximum pressure gradient of 14 mmHg and mean pressure gradient of 10 mmHg. Doppler and Color Flow revealed no significant aortic regurgitation. Doppler and Color-flow revealed trace to mild mitral regurgitation. Doppler and Color Flow revealed trace tricuspid regurgitation. The PA pressure was estimated at 26 mmHg. Signed by : Jeannette Caballero MD Electronically Approved : 06/07/2019 13:21:40 DICTATED and SIGNED BY: JEANNETTE CABALLERO MD DATE: 06/07/19 1313 PROCEDURE: CT HEAD WO CONTRAST EXAM: CT HEAD WITHOUT CONTRAST. HISTORY: Dizziness, vertigo. TECHNIQUE: Computed tomography of the head was performed without intravenous contrast. COMPARISON: None. FINDINGS: There is no intracranial hemorrhage. Hypoattenuation within the white matter indicates moderate to severe chronic microangiopathic change. Prominence of the lateral ventricles and hemispheric sulci indicates moderate atrophy. The visualized paranasal sinuses appear clear. There are changes of bilateral cataract surgery. The temporal bones are unremarkable. The calvarium reveals no suspicious lesions. There are atherosclerotic calcifications of the internal carotid and vertebral arteries. IMPRESSION: 1. No acute intracranial findings. 2. 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 *One or more of the following individualized dose reduction techniques were utilized for this examination: 1. Automated exposure control. 2. Adjustment of the mA and/or kV according to patient size. 3. Use of iterative reconstruction technique. Electronically signed by: Jackie Jeter MD (06/07/2019 3:25 AM Technologist: ALBERT SALDAÑA RTR Nurse: Zina Vasquez R.N. Procedure(s) performed: Left heart catheterization, selective coronary angiography and left ventriculography via right transradial approach MODERATE SEDATION TIME: 31 MINUTES FLUORO TIME: 4.1 MIN DOSE: 24.1 GYCM2 CONTRAST: 94 INDICATION The indication(s) include : non-STEMI . C[facility] Clinical Frailty Scale HA Clinical Frailty Scale: Mildly Frail Heart Failure Heart Failure: No PROCEDURE NARRATIVE After explaining the risks, benefits and alternative options, informed consent was obtained from patient. Patient was brought to the cardiac [employer] and right wrist was prepped and draped in the usual fashion after confirming a positive modified Aj's test. Arterial access was obtained in the right radial artery and a 6 Taiwanese sheath was inserted. 6 [place]ese Rico catheter and 6 Taiwanese JL 3.5 catheter were used to perform selective angiography of the right and left coronary arteries. 6 Taiwanese pigtail catheter was used to perform left ventriculography. Patient tolerated the procedure well. Hemostasis was achieved using TR band. There were no immediate complications. The following findings were noted. FINDINGS 1. Hemodynamics: Left ventricular end-diastolic pressure of 23 mmHg. No pullback gradient across the aortic valve. 2. Left ventriculography: Hyperdynamic left ventricle systolic function with ejection fraction estimated at 80%. No significant mitral regurgitation seen. 3. Coronary angiography: a. The left main coronary artery arose from the left sinus of Valsalva, gave rise to the left anterior descending and left circumflex arteries and did not show any significant stenosis. b. The left anterior descending artery showed 30% stenosis in the midsegment. c. The left circumflex artery did not show any significant stenosis. d. The right coronary artery was a large and dominant vessel arising from the right sinus of Valsalva that did showed 40% stenosis in the posterior descending branch. Conclusion 1. Nonobstructive coronary artery disease 2. Hyperdynamic left ventricle systolic function with ejection fraction estimated at 80% Recommendations Patient's non-STEMI is most probably type 2/demand ischemia. Recommend medical management. VTE Prophylaxis Ordered VTE Prophylaxis Devices: No VTE Pharmacological Prophylaxi: Yes Assessment/Plan Assessment/Plan impression 1. Nonobstructive coronary artery disease 2. Hyperdynamic left ventricle systolic function with ejection fraction estimated at 80% 3. non-STEMI is most probably type 2/demand ischemia. 4. 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 5. diabetes 6. hypertension 7. dizziness 8. dyspnea 9. on echo Ejection Fraction is >65%. 10.There is mild concentric left ventricular hypertrophy. 11. mild valvular aortic stenosis. 12. shortness of breath //probably anginal equivalent. Chest x-ray did not show any evidence of congestive heart failure. plan admit cvc cardiac cath medical management. accuchecks risk reduction mgt cardiology consulted pt/ot 78 min pt exam, chart review, > 50% of time spent with exam, chart review, pt care coordination KATHERYN HALL MD Jun 07, 2019 10:36
[2019-06-07] MEDS ORDERED: NITROGLYCERIN 200 MCG/2 ML SYRINGE FOR CATH/VASC LAB. IART ONE (10:45)
[2019-06-07] MEDS ORDERED: LIDOCAINE 1% PF 2 ML VIAL. INJ ONE (10:45)
[2019-06-07] MEDS ORDERED: HEPARIN for IV BOLUS 10,000 UNIT/10 ML VIAL. IART ONE (10:45)
[2019-06-07] MEDS ORDERED: fentaNYL PF VIAL 100 MCG/2 ML VIAL IV ONE (10:45)
[2019-06-07] MEDS ORDERED: VERAPAMIL 5 MG/2 ML VIAL. IART ONE (10:45)
[2019-06-07] MEDS ORDERED: IOHEXOL 300 MG/ML 100ML VIAL. IART ONE (10:45)
[2019-06-07] MEDS ORDERED: MIDAZOLAM HCL/PF 2 MG/2 ML VIAL. IV ONE (10:45)
--- NOTE | 2019-06-07 10:49 | PDOC ---
MODERATE SEDATION ASSESSMENT RISKS/ALTERNATIVES Risks/Alternatives Risks and alternatives of this type of sedation and procedure discussed with: RISK/ALTERNATIVES: Patient H & P ON CHART H & P H & P on chart and reviewed for co-morbid conditions and appropriate labs. H&P ON CHART: Yes STATUS PREG STATUS ASSESSED: N/A MEDS/ALLERGIES REVIEWED Meds/Allergies Reviewed Medications and Allergies including time and route of recently administered narcotics and sedatives. MEDS/ALLERGIES REVIEWED: Yes ASA RATING ASA RATING: III AIRWAY ASSESSMENT Airway Assessment Airway patency, oral function limitations, presence of caps, crowns, dentures, partials, and ability to extend neck assessed. AIRWAY ASSESSMENT: Yes MALLAMPATI SCORE MALLAMPATI SCORE: II PRE-SEDATION ASSESSMENT PRE-SEDATION ASSESSMENT: Yes DEBRA VALLEJO MD Jun 07, 2019 10:48
[2019-06-07] MEDS ORDERED: CONTRAST GIVEN. MC PRN (11:00)
[2019-06-07] MEDS ORDERED: NITROGLYCERIN SUBLINGUAL 0.4 MG BOTTLE OF 25. SL PRN (11:00)
--- NOTE | 2019-06-07 11:03 | CARD ---
MR#: [id number] Date of Study: 06/07/2019 Ordering Physician: DEBRA VALLEJO, Referring Physician: DEBRA VALLEJO Tech: ALBERT SALDAÑA RTR APPROVED REPORT Technologist: ALBERT SALDAÑA RTR Nurse: Zina Vasquez R.N. Procedure(s) performed: Left heart catheterization, selective coronary angiography and left ventricul ography via right transradial approach MODERATE SEDATION TIME: 31 MINUTES FLUORO TIME: 4.1 MIN DOSE: 24.1 GYCM2 CONTRAST: 94 INDICATION The indication(s) include : non-STEMI . [facility] Clinical Frailty Scale [facility] Clinical Frailty Scale: Mildly Frail Heart Failure Heart Failure: No PROCEDURE NARRATIVE After explaining the risks, benefits and alternative options, informed consent was obtained from ruel ent. Patient was brought to the cardiac Child Care [employer] Leader and right wrist was prepped and draped in the usual fashion after confirming a positive modified Aj's test. Arterial access was obtained in the [facility] t radial artery and a 6 Mozambican sheath was inserted. 6 [place] Rico catheter and 6 [place] JL 3.5 cat heter were used to perform selective angiography of the right and left coronary arteries. 6 [place] p igtail catheter was used to perform left ventriculography. Patient tolerated the procedure well. He mostasis was achieved using TR band. There were no immediate complications. The following findings were noted. FINDINGS 1. Hemodynamics: Left ventricular end-diastolic pressure of 23 mmHg. No pullback gradient across th e aortic valve. 2. Left ventriculography: Hyperdynamic left ventricle systolic function with ejection fraction estim ated at 80%. No significant mitral regurgitation seen. 3. Coronary angiography: a. The left main coronary artery arose from the left sinus of Valsalva, gave rise to the left anteri or descending and left circumflex arteries and did not show any significant stenosis. b. The left anterior descending artery showed 30% stenosis in the midsegment. c. The left circumflex artery did not show any significant stenosis. d. The right coronary artery was a large and dominant vessel arising from the right sinus of Valsalv a that did showed 40% stenosis in the posterior descending branch. Conclusion 1. Nonobstructive coronary artery disease 2. Hyperdynamic left ventricle systolic function with ejection fraction estimated at 80% Recommendations Patient's non-STEMI is most probably type 2/demand ischemia. Recommend medical management. Signed by : Debra Vallejo, Electronically Approved : 06/07/2019 11:03:29
[2019-06-07] MEDS: IV 1/2 NORMAL SALINE 1,000 ML IV SCH ×2 (12:18→20:49)
--- NOTE | 2019-06-07 13:22 | CARD ---
MR#: [id number] Date of Study: 06/07/2019 Ordering Physician: DEBRA VALLEJO, Referring Physician: DEBRA VALLEJO Tech: Char Nick RDCS APPROVED REPORT EXAM: Two-dimensional and M-mode echocardiogram with Doppler and color Doppler. Other Information Quality : AverageHR: 60bpm Rhythm : NSR INDICATION Non STEMI 2D DIMENSIONS RVDd2.0 (2.9-3.5cm)Left Atrium(2D)3.5 (1.6-4.0cm) IVSd1.1 (0.7-1.1cm)Aortic Root(2D)2.6 (2.0-3.7cm) LVDd3.9 (3.9-5.9cm)LVOT Diameter1.7 (1.8-2.4cm) PWd0.8 (0.7-1.1cm)LVDs2.2 (2.5-4.0cm) FS (%) 43.8 %SV50.6 ml M-Mode DIMENSIONS Left Atrium(MM)3.95 (2.5-4.0cm)Aortic Root2.58 (2.2-3.7cm) Aortic Valve AoV Peak Dwayne.188.8cm/sAoV VTI49.5cm AO Peak GR.14.3mmHgLVOT VTI 25.78cm AO Mean GR.10mmHgAVA (VTI)1.40cm2 Mitral Valve MV E Bcorxjae986.5cm/sMV E Peak Gr.8mmHg MV DECEL [id number] A Xxplwfvt215.8cm/s MV E Mean Gr.3mmHgE/A Ratio0.9 MV A [id number] TDI Medial E' P. V5.28cm/sE/Medial E'22.6 Tricuspid Valve TR P. [id number]/sRAP [id number] TR Peak Gr.61qbFyZOEG52mfCr LEFT VENTRICLE The left ventricle is normal size. There is mild concentric left ventricular hypertrophy. The left ve ntricle is hyperdynamic. The Ejection Fraction is >65%. There is normal LV segmental wall motion. Tra nsmitral Doppler flow pattern is abnormal. RIGHT VENTRICLE The right ventricle is normal size. There is normal right ventricular wall thickness. The right ventr icular systolic function is normal. ATRIA The left atrium size is normal. The right atrium size is normal. The interatrial septum is intact wit h no evidence for an atrial septal defect or patent foramen ovale as noted on 2-D or Doppler imaging. AORTIC VALVE The aortic valve is mildly calcified. The aortic valve is trileaflet. Doppler and Color Flow revealed no significant aortic regurgitation. There is mild valvular aortic stenosis. Calculated aortic valve area is 1.4 cm2 with maximum pressure gradient of 14 mmHg and mean pressure gradient of 10 mmHg. MITRAL VALVE Mitral annular calcification is moderate. There is no evidence of mitral valve prolapse. There is no mitral valve stenosis. Doppler and Color-flow revealed trace to mild mitral regurgitation. TRICUSPID VALVE The tricuspid valve is normal in structure and function. Doppler and Color Flow revealed trace tricus pid regurgitation. The PA pressure was estimated at 26 mmHg. There is no tricuspid valve prolapse or vegetation. There is no tricuspid valve stenosis. PULMONIC VALVE The pulmonic valve is not well visualized. GREAT VESSELS The aortic root is normal in size. The ascending aorta is normal in size. The IVC is normal in size a nd collapses >50% with inspiration. PERICARDIAL EFFUSION There is no evidence of significant pericardial effusion. Critical Notification Critical Value: No <Conclusion> The left ventricle is normal size. The left ventricle is hyperdynamic. The Ejection Fraction is >65%. There is mild concentric left ventricular hypertrophy. There is mild valvular aortic stenosis. Calculated aortic valve area is 1.4 cm2 with maximum pressure gradient of 14 mmHg and mean pressure g radient of 10 mmHg. Doppler and Color Flow revealed no significant aortic regurgitation. Doppler and Color-flow revealed trace to mild mitral regurgitation. Doppler and Color Flow revealed trace tricuspid regurgitation. The PA pressure was estimated at 26 mmHg. Signed by : Leonel Caballero MD Electronically Approved : 06/07/2019 13:21:40
--- NOTE | 2019-06-07 15:16 | PDOC2 ---
NEUROLOGY CONSULT Date of Admission Date of Admission DATE: 06/07/19 TIME: 15:12 Reason for Consult Reason for Consult: Syncope Referring Physician Referring Physician: Dr. Bui Source Source: Caregiver (son and [id number]), Chart review History of Present Illness History of Present Illness The patient is an 88-year-old right-handed female whose son went over to her apartment yesterday about 6 PM because she was complaining of dizziness. She felt she got up too fast. He helped her with dinner and left, but then she called him back at 1 AM complaining that she didn�t know where she was, felt faint, and had some right occipital head pain. There is no prior history of stroke, seizure, or head injury, but she has had several episodes of syncope in the past. She had some chest pressure and tightness as well. She had a cardiac catheterization today. She does not remember events from 6 PM to 1 AM, she still feels out of sorts. Past Medical History Cardiovascular: Syncope, Other (heart murmur) Psych: Anxiety, Depression Musculoskeletal: low back pain, Osteoarthritis Endocrine: Diabetes Past Surgical History Past Surgical History: Cholecystectomy, Cataract Removal Family History Family History: No pertinent hx Social History Social History , no tobacco or alcohol, retired Current Medications Current Medications Current Medications Aspirin (Ecotrin) 324 mg 1X ONCE PO Last administered on 06/07/19at 03:10; Start 06/07/19 at 03:30; Stop 06/07/19 at 03:31; Status DC Ondansetron HCl (Zofran) 4 mg PRN Q8HRS PRN IV NAUSEA/VOMITING 1ST CHOICE; Start 06/07/19 at 04:30; Stop 06/08/19 at 04:29 Sodium Chloride 1,000 ml @ 75 mls/hr [id number] IV Last administered on 06/07/19at 04:41; Start 06/07/19 at 05:00; Stop 06/08/19 at 04:59 Lidocaine HCl (Xylocaine-Mpf 1% 2ml Vial) 2 ml STK-MED ONCE .ROUTE ; Start 06/07/19 at 09:30; Stop 06/07/19 at 09:31; Status DC Iohexol (Omnipaque 300 Mg/ml) 100 ml STK-MED ONCE .ROUTE ; Start 06/07/19 at 09:30; Stop 06/07/19 at 09:31; Status DC Heparin Sodium/ Sodium Chloride 500 ml @ As Directed STK-MED ONCE .ROUTE ; Start 06/07/19 at 09:30; Stop 06/07/19 at 09:31; Status DC Fentanyl Citrate (Fentanyl 2ml Vial) 100 mcg STK-MED ONCE .ROUTE ; Start 06/07/19 at 09:48; Stop 06/07/19 at 09:48; Status DC Midazolam HCl (Versed) 2 mg STK-MED ONCE .ROUTE ; Start 06/07/19 at 09:48; Stop 06/07/19 at 09:48; Status DC Heparin Sodium (Porcine) (Heparin Sodium) 10,000 unit STK-MED ONCE .ROUTE ; Start 06/07/19 at 09:48; Stop 06/07/19 at 09:48; Status DC Verapamil HCl (Verapamil) 5 mg STK-MED ONCE .ROUTE ; Start 06/07/19 at 09:48; Stop 06/07/19 at 09:48; Status DC Nitroglycerin (Nitroglycerin) 200 mcg STK-MED ONCE .ROUTE ; Start 06/07/19 at 09:48; Stop 06/07/19 at 09:49; Status DC Iohexol (Omnipaque 300 Mg/ml) 100 ml STK-MED ONCE .ROUTE ; Start 06/07/19 at 10:24; Stop 06/07/19 at 10:24; Status DC Nitroglycerin (Nitroglycerin) 200 mcg 1X ONCE IART Last administered on 06/07/19at 10:54; Start 06/07/19 at 10:45; Stop 06/07/19 at 10:46; Status DC Verapamil HCl (Verapamil) 2.5 mg 1X ONCE IART Last administered on 06/07/19at 10:54; Start 06/07/19 at 10:45; Stop 06/07/19 at 10:46; Status DC Heparin Sodium (Porcine) (Heparin Sodium) 2,500 unit 1X ONCE IART Last administered on 06/07/19at 10:54; Start 06/07/19 at 10:45; Stop 06/07/19 at 10:46; Status DC Heparin Sodium/ Sodium Chloride (HEPARIN for ARTERIAL LINE FLUSH) 1,000 unit 1X ONCE IART Last administered on 06/07/19at 10:54; Start 06/07/19 at 10:45; Stop 06/07/19 at 10:46; Status DC Midazolam HCl (Versed) 2 mg 1X ONCE IV Last administered on 06/07/19at 10:54; Start 06/07/19 at 10:45; Stop 06/07/19 at 10:46; Status DC Fentanyl Citrate (Fentanyl 2ml Vial) 100 mcg 1X ONCE IV Last administered on 06/07/19at 10:54; Start 06/07/19 at 10:45; Stop 06/07/19 at 10:46; Status DC Iohexol (Omnipaque 300 Mg/ml) 100 ml 1X ONCE IART Last administered on 06/07/19at 10:54; Start 06/07/19 at 10:45; Stop 06/07/19 at 10:46; Status DC Lidocaine HCl (Xylocaine-Mpf 1% 2ml Vial) 2 ml 1X ONCE INJ Last administered on 06/07/19at 10:54; Start 06/07/19 at 10:45; Stop 06/07/19 at 10:46; Status DC Info (CONTRAST GIVEN -- Rx MONITORING) 1 each PRN DAILY PRN MC SEE COMMENTS; Start 06/07/19 at 11:00; Stop 06/09/19 at 10:59 Sodium Chloride 1,000 ml @ 100 mls/hr Q10H IV Last administered on 06/07/19at 12:18; Start 06/07/19 at 10:49 Nitroglycerin (Nitrostat) 0.4 mg PRN Q5MIN PRN SL CHEST PAIN; Start 06/07/19 at 11:00 Acetaminophen (Tylenol) 325 mg DAILY PO ; Start 06/08/19 at 09:00 Amlodipine Besylate (Norvasc) 5 mg DAILY PO ; Start 06/08/19 at 09:00 Aspirin (Ecotrin) 325 mg DAILY PO ; Start 06/08/19 at 09:00 Insulin Glargine (Lantus) 17 units QHS SQ ; Start 06/07/19 at 21:00 Lisinopril (Prinivil) 10 mg BID PO ; Start 06/07/19 at 21:00 Calcium/Vitamin D (Oscal D 500mg/ 200uts) 1 tab DAILY PO ; Start 06/08/19 at 09:00 Insulin Human Lispro (HumaLOG) 5 units DAILYWBKFT SQ ; Start 06/07/19 at 17:00 Insulin Human Lispro (HumaLOG) 10 units DAILYWSUP SQ ; Start 06/07/19 at 17:00 Multivitamins (Thera M Plus) 1 tab DAILY PO ; Start 06/08/19 at 09:00 Non-Formulary Medication (Ubidecarenone (Coq-10)) 100 mg DAILY PO ; Start 06/08/19 at 09:00; Status UNV Vitamin E 200 unit DAILY PO ; Start 06/08/19 at 09:00 Active Scripts Active Reported Novolog Flexpen (Insulin Aspart) 100 Unit/1 Ml Insuln.pen 10 Unit SQ DAILYWSUP Novolog Flexpen (Insulin Aspart) 100 Unit/1 Ml Insuln.pen 5 Unit SQ DAILYWBKFT Vitamin E (Vitamin E Acid Succinate) 100 Unit Tablet 100 Unit PO DAILY Coq-10 (Ubidecarenone) 100 Mg Capsule 100 Mg PO DAILY Lantus Solostar (Insulin Glargine,Hum.rec.anlog) 100 Unit/1 Ml Insuln.pen 17 Unit SQ QHS Caltrate 600 + D Soft Chew Tab (Calcium Carbonate/Vitamin D3) 1 Each Tab.chew 1 Each PO DAILY One Daily For Women 50+ Adv Tb (Multivitamins-Min/Fa/Ginkgo) 1 Each Tablet 1 Each PO DAILY Tylenol (Acetaminophen) 325 Mg Tablet 325 Mg PO DAILY Aspirin Ec (Aspirin) 325 Mg Tablet.dr 325 Mg PO DAILY Amlodipine Besylate 5 Mg Tablet 5 Mg PO DAILY Zestril (Lisinopril) 10 Mg Tablet 10 Mg PO BID Metformin Hcl 1,000 Mg Tablet 1,000 Mg PO BIDWMEALS Allergies Allergies: Coded Allergies: No Known Drug Allergies (Unverified , 07/27/17) ROS Review of System Negative for fever, chills, weight loss, shortness of breath, chest pain, indigestion, hematochezia, melena, and dysuria. Full 14-point review of systems is negative. Physical Exam Physical Examination General: Well-developed, well-nourished female in no acute distress HEENT: Normocephalic and�atraumatic. Temporal arteries�pulsatile and nontender.� Neck: Supple without bruit, no meningismus� Musculoskeletal: Stability:�see neurologic. Gait exam:�see neurologic. Tone:�see neurologic.�Strength:�see neurologic.� Neurological: Mental Status:�intact, orientation, memory, attention span/concentration, language, fund of knowledge normal. Cranial Nerves:�Pupils equal and reactive to light, extraocular movements are�intact, visual reyes are full to confrontation. Facial sensation is normal. There is no facial asymmetry. Vestibulo-ocular reflex is intact. Palate elevates and tongue protrudes in midline. All other cranial related problems are negative except as mentioned before.�Reflexes:�2+ and symmetric with flexor plantar responses. Motor:�5/5 strength with normal tone and bulk. Coordination:�Finger-nose finger and ubsy-bf-juzw testing are normal. Rapid alternating movements and fine finger movements are intact. Gait:�apraxic. Sensory:�Normal pinprick, vibration, light touch, proprioception.� Vitals VITALS Vital Signs Date Time Temp Pulse Resp B/P (MAP) Pulse Ox O2 Delivery O2 Flow Rate FiO2 06/07/19 11:15 97.7 63 18 118/56 (76) 92 Room Air 97.7 06/07/19 10:54 2.0 Labs Labs Laboratory Tests Test 06/07/19 02:15 06/07/19 07:22 06/07/19 07:25 06/07/19 10:00 White Blood Count 11.2 x10^3/uL (4.0-11.0) Red Blood Count 3.59 x10^6/uL (3.50-5.40) Hemoglobin 10.5 g/dL (12.0-15.5) Hematocrit 29.9 % (36.0-47.0) Mean Corpuscular Volume 83 fL (79-100) Mean Corpuscular Hemoglobin 29 pg (25-35) Mean Corpuscular Hemoglobin Concent 35 g/dL (31-37) Red Cell Distribution Width 12.9 % (11.5-14.5) Platelet Count 297 x10^3/uL (140-400) Neutrophils (%) (Auto) 83 % (31-73) Lymphocytes (%) (Auto) 9 % (24-48) Monocytes (%) (Auto) 7 % (0-9) Eosinophils (%) (Auto) 0 % (0-3) Basophils (%) (Auto) 0 % (0-3) Neutrophils # (Auto) 9.4 x10^3/uL (1.8-7.7) Lymphocytes # (Auto) 1.0 x10^3/uL (1.0-4.8) Monocytes # (Auto) 0.8 x10^3/uL (0.0-1.1) Eosinophils # (Auto) 0.0 x10^3/uL (0.0-0.7) Basophils # (Auto) 0.0 x10^3/uL (0.0-0.2) Sodium Level 125 mmol/L (136-145) Potassium Level 4.3 mmol/L (3.5-5.1) Chloride Level 92 mmol/L (98-107) Carbon Dioxide Level 25 mmol/L (21-32) Anion Gap 8 (6-14) Blood Urea Nitrogen 18 mg/dL (7-20) Creatinine 1.0 mg/dL (0.6-1.0) Estimated GFR (Cockcroft-Gault) 52.3 BUN/Creatinine Ratio 18 (6-20) Glucose Level 103 mg/dL (70-99) Calcium Level 8.9 mg/dL (8.5-10.1) Total Bilirubin 0.5 mg/dL (0.2-1.0) Aspartate Amino Transf (AST/SGOT) 22 U/L (15-37) Alanine Aminotransferase (ALT/SGPT) 22 U/L (14-59) Alkaline Phosphatase 68 U/L (46-116) Creatine Kinase 137 U/L (26-192) Troponin I Quantitative 0.334 ng/mL (0.000-0.055) 1.305 ng/mL (0.000-0.055) 1.506 ng/mL (0.000-0.055) RA-Mjr-R-Type Natriuretic Peptide 857 pg/mL (0-449) Total Protein 7.1 g/dL (6.4-8.2) Albumin 3.4 g/dL (3.4-5.0) Albumin/Globulin Ratio 0.9 (1.0-1.7) Thyroid Stimulating Hormone (TSH) 5.277 uIU/mL (0.358-3.74) Glucose (Fingerstick) 89 mg/dL (70-99) Test 06/07/19 12:30 Glucose (Fingerstick) 96 mg/dL (70-99) Laboratory Tests Test 06/07/19 02:15 06/07/19 07:22 06/07/19 07:25 06/07/19 10:00 White Blood Count 11.2 x10^3/uL (4.0-11.0) Red Blood Count 3.59 x10^6/uL (3.50-5.40) Hemoglobin 10.5 g/dL (12.0-15.5) Hematocrit 29.9 % (36.0-47.0) Mean Corpuscular Volume 83 fL (79-100) Mean Corpuscular Hemoglobin 29 pg (25-35) Mean Corpuscular Hemoglobin Concent 35 g/dL (31-37) Red Cell Distribution Width 12.9 % (11.5-14.5) Platelet Count 297 x10^3/uL (140-400) Neutrophils (%) (Auto) 83 % (31-73) Lymphocytes (%) (Auto) 9 % (24-48) Monocytes (%) (Auto) 7 % (0-9) Eosinophils (%) (Auto) 0 % (0-3) Basophils (%) (Auto) 0 % (0-3) Neutrophils # (Auto) 9.4 x10^3/uL (1.8-7.7) Lymphocytes # (Auto) 1.0 x10^3/uL (1.0-4.8) Monocytes # (Auto) 0.8 x10^3/uL (0.0-1.1) Eosinophils # (Auto) 0.0 x10^3/uL (0.0-0.7) Basophils # (Auto) 0.0 x10^3/uL (0.0-0.2) Sodium Level 125 mmol/L (136-145) Potassium Level 4.3 mmol/L (3.5-5.1) Chloride Level 92 mmol/L (98-107) Carbon Dioxide Level 25 mmol/L (21-32) Anion Gap 8 (6-14) Blood Urea Nitrogen 18 mg/dL (7-20) Creatinine 1.0 mg/dL (0.6-1.0) Estimated GFR (Cockcroft-Gault) 52.3 BUN/Creatinine Ratio 18 (6-20) Glucose Level 103 mg/dL (70-99) Calcium Level 8.9 mg/dL (8.5-10.1) Total Bilirubin 0.5 mg/dL (0.2-1.0) Aspartate Amino Transf (AST/SGOT) 22 U/L (15-37) Alanine Aminotransferase (ALT/SGPT) 22 U/L (14-59) Alkaline Phosphatase 68 U/L (46-116) Creatine Kinase 137 U/L (26-192) Troponin I Quantitative 0.334 ng/mL (0.000-0.055) 1.305 ng/mL (0.000-0.055) 1.506 ng/mL (0.000-0.055) QR-Yeg-H-Type Natriuretic Peptide 857 pg/mL (0-449) Total Protein 7.1 g/dL (6.4-8.2) Albumin 3.4 g/dL (3.4-5.0) Albumin/Globulin Ratio 0.9 (1.0-1.7) Thyroid Stimulating Hormone (TSH) 5.277 uIU/mL (0.358-3.74) Glucose (Fingerstick) 89 mg/dL (70-99) Test 06/07/19 12:30 Glucose (Fingerstick) 96 mg/dL (70-99) Images Images CT HEAD WITHOUT CONTRAST. HISTORY: Dizziness, vertigo. TECHNIQUE: Computed tomography of the head was performed without intravenous contrast. COMPARISON: None. FINDINGS: There is no intracranial hemorrhage. Hypoattenuation within the white matter indicates moderate to severe chronic microangiopathic change. Prominence of the lateral ventricles and hemispheric sulci indicates moderate atrophy. The visualized paranasal sinuses appear clear. There are changes of bilateral cataract surgery. The temporal bones are unremarkable. The calvarium reveals no suspicious lesions. There are atherosclerotic calcifications of the internal carotid and vertebral arteries. IMPRESSION: 1. No acute intracranial findings. 2. 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 Assessment/Plan Assessment/Plan Impression: I suspect vasovagal syncope, some component of hypertensive encephalopathy, she may have fallen and hit her head as well, but I don�t find any evidence of stro ke or seizure. Recommendations: She doesn�t feel herself, still, so reasonable to check an MRI and EEG Fully discussed with patient and her family. Thank you for letting me help with the patient�s care. HUGH CRAMER MD Jun 07, 2019 15:16
--- NOTE | 2019-06-07 15:31 | NUR ---
SS following for discharge planning. SS reviewed pt chart. Pt is from home and is currently on room air. PT/OT ordered. SS will await PT/OT evaluations and recommendations and will proceed accordingly with discharge planning.
[2019-06-07] MEDS: INSULIN LISPRO 300 UNITS/3 ML VIAL. SQ SCH ×2 (17:00→17:30)
[2019-06-07] MEDS: LISINOPRIL 10 MG TABLET PO SCH (20:08)
[2019-06-07] MEDS ORDERED: MORPHINE SULFATE 2 MG/ML VIAL. IV PRN (20:15)
[2019-06-07] MEDS: INSULIN GLARGINE 300 UNITS/3 ML INSULN.PEN. SQ SCH (20:21)
[2019-06-07] MEDS: traMADol 50 MG TABLET PO PRN (20:26)
[2019-06-07 21:54] LABS: BILIRUBIN,URINE NEGATIVE (NEG); CLARITY,URINE CLEAR; NITRITE,URINE NEGATIVE (NEG); PH,URINE 6.5; PROTEIN,URINE 30 mg/dL (NEG-TRACE); UROBILINOGEN,URINE 0.2 mg/dL (0.2 mg/dL)
[2019-06-07 22:05] LABS: COLOR,URINE STRAW
[2019-06-07 22:07] LABS: BACTERIA,URINE FEW /HPF (0-FEW); RBC,URINE 0 /HPF (0-2); SQUAMOUS EPITHELIAL CELL,UR FEW /LPF; WBC,URINE RARE /HPF (0-4)
[2019-06-08 03:20] VITALS: BP 154/64
--- NOTE | 2019-06-08 05:04 | NUR ---
IVP are d/cd a per MD order. pmrn
[2019-06-08] MEDS: IV 1/2 NORMAL SALINE 1,000 ML IV SCH ×2 (06:49→12:57)
[2019-06-08 07:00] VITALS: BP 149/66
[2019-06-08 07:01] LABS: BASO % 0 % (0-3); EOS # 0.1 x10^3/uL (0.0-0.7); EOS % 1 % (0-3); HEMATOCRIT 31.3 % (36.0-47.0); HEMOGLOBIN 10.8 g/dL (12.0-15.5); LYMPH % 20 % (24-48); MEAN CORPUSCULAR HEMOGLOBIN 29 pg (25-35); MEAN CORPUSCULAR HGB CONC 34 g/dL (31-37); MEAN CORPUSCULAR VOLUME 84 fL (79-100); MONO # 0.9 x10^3/uL (0.0-1.1); MONO % 9 % (0-9); NEUT % 69 % (31-73); PLATELET COUNT 308 x10^3/uL (140-400); RED BLOOD COUNT 3.72 x10^6/uL (3.50-5.40); RED CELL DISTRIBUTION WIDTH 13.3 % (11.5-14.5); WHITE BLOOD COUNT 10.1 x10^3/uL (4.0-11.0)
[2019-06-08 07:15] LABS: CALCIUM 8.8 mg/dL (8.5-10.1); CREATININE 0.9 mg/dL (0.6-1.0); GFR 59.1
[2019-06-08] MEDS: INSULIN LISPRO 300 UNITS/3 ML VIAL. SQ SCH ×4 (08:00→18:01)
[2019-06-08] MEDS: ACETAMINOPHEN 325 MG TABLET. PO SCH (09:00)
[2019-06-08] MEDS ORDERED: NON FORMULARY ITEM (Ubidecarenone (Coq-10) 100 MG) PO SCH (09:00)
[2019-06-08] MEDS: MULTIVITAMIN with MINERAL TABLET. PO SCH (09:34)
[2019-06-08] MEDS: CALCIUM CARB/VIT D3 500/200 TABLET. PO SCH (09:34)
[2019-06-08] MEDS: VITAMIN E 200 UNIT CAPSULE. PO SCH (09:34)
[2019-06-08] MEDS: amLODIPine BESYLATE 5 MG TABLET PO SCH (09:35)
[2019-06-08] MEDS: ASPIRIN ENTERIC COATED 325 MG TABLET.DR. PO SCH (09:35)
[2019-06-08] MEDS: LISINOPRIL 10 MG TABLET PO SCH ×2 (09:38→21:13)
[2019-06-08] MEDS: traMADol 50 MG TABLET PO PRN ×2 (09:41→21:13)
--- NOTE | 2019-06-08 10:36 | EEG ---
DATE OF SERVICE: 06/08/2019 OBJECTIVE: The patient is an 88-year-old female with a loss of consciousness and some confusion. DESCRIPTION: This is a digital study. Electrodes are placed according to the international 10-20 system. Bipolar and referential montages are available. Activation procedures typically include hyperventilation and intermittent photic stimulation. INTERPRETATION: The waking background consists of 8-9 Hz, 50-100 microvolt activity, symmetrically distributed over parietooccipital regions and reactive to eye opening. Hyperventilation and intermittent photic stimulation are noncontributory. Stage 1 sleep is achieved with normal electroencephalogram patterns. IMPRESSION: This electroencephalogram with the patient awake and asleep is within normal limits. There is no focal, paroxysmal, or epileptiform activity. Thank you for letting us help with the patient's care. HUGH CRAMER MD DR: OSMAN/[place] JOB#: [id number] / [id number] MAXIMINO Quinn MD
--- NOTE | 2019-06-08 10:53 | PDOC ---
PROGRESS NOTES Assessment Vasovagal syncope, component of hypertensive encephalopathy, possible concussion No evidence of stroke or seizure. EEG is negative Family stress as described below Plan Await MRI brain, cardiac workup Discussed with patient son Subjective Still feels a little off, better than yesterday. Note that patient has been under stress, her son suddenly two weeks ago, she had a big family reunion and family wedding soon after Objective Vital Signs Date Time Temp Pulse Resp B/P (MAP) Pulse Ox O2 Delivery O2 Flow Rate FiO2 06/08/19 10:49 14 97 Room Air 06/08/19 09:42 64 149/66 06/08/19 07:00 98.6 98.6 06/07/19 10:54 2.0 Intake and Output 06/08/19 06:59 Intake Total 250 ml Output Total 2150 ml Balance -1900 ml Intake Oral 250 ml Output Urine Total 2150 ml # Bowel Movements 1 PHYSICAL EXAM Alert. Oriented to time, place and person. PERRL. EOMI. CN: no focal findings. Muscle tone: normal. Muscle strength: 5/5 DTR: 2+ Plantar reflex: flexor Gait: not examined in bed. Sensory exam: no abnormal findings. No cerebellar signs elicited. Review of Relevant I have reviewed the following items randa (where applicable) has been applied. Labs Laboratory Tests Test 06/07/19 02:15 06/07/19 07:22 06/07/19 07:25 06/07/19 10:00 White Blood Count 11.2 x10^3/uL (4.0-11.0) Red Blood Count 3.59 x10^6/uL (3.50-5.40) Hemoglobin 10.5 g/dL (12.0-15.5) Hematocrit 29.9 % (36.0-47.0) Mean Corpuscular Volume 83 fL (79-100) Mean Corpuscular Hemoglobin 29 pg (25-35) Mean Corpuscular Hemoglobin Concent 35 g/dL (31-37) Red Cell Distribution Width 12.9 % (11.5-14.5) Platelet Count 297 x10^3/uL (140-400) Neutrophils (%) (Auto) 83 % (31-73) Lymphocytes (%) (Auto) 9 % (24-48) Monocytes (%) (Auto) 7 % (0-9) Eosinophils (%) (Auto) 0 % (0-3) Basophils (%) (Auto) 0 % (0-3) Neutrophils # (Auto) 9.4 x10^3/uL (1.8-7.7) Lymphocytes # (Auto) 1.0 x10^3/uL (1.0-4.8) Monocytes # (Auto) 0.8 x10^3/uL (0.0-1.1) Eosinophils # (Auto) 0.0 x10^3/uL (0.0-0.7) Basophils # (Auto) 0.0 x10^3/uL (0.0-0.2) Sodium Level 125 mmol/L (136-145) Potassium Level 4.3 mmol/L (3.5-5.1) Chloride Level 92 mmol/L (98-107) Carbon Dioxide Level 25 mmol/L (21-32) Anion Gap 8 (6-14) Blood Urea Nitrogen 18 mg/dL (7-20) Creatinine 1.0 mg/dL (0.6-1.0) Estimated GFR (Cockcroft-Gault) 52.3 BUN/Creatinine Ratio 18 (6-20) Glucose Level 103 mg/dL (70-99) Calcium Level 8.9 mg/dL (8.5-10.1) Total Bilirubin 0.5 mg/dL (0.2-1.0) Aspartate Amino Transf (AST/SGOT) 22 U/L (15-37) Alanine Aminotransferase (ALT/SGPT) 22 U/L (14-59) Alkaline Phosphatase 68 U/L (46-116) Creatine Kinase 137 U/L (26-192) Troponin I Quantitative 0.334 ng/mL (0.000-0.055) 1.305 ng/mL (0.000-0.055) 1.506 ng/mL (0.000-0.055) DH-Fgw-J-Type Natriuretic Peptide 857 pg/mL (0-449) Total Protein 7.1 g/dL (6.4-8.2) Albumin 3.4 g/dL (3.4-5.0) Albumin/Globulin Ratio 0.9 (1.0-1.7) Thyroid Stimulating Hormone (TSH) 5.277 uIU/mL (0.358-3.74) Glucose (Fingerstick) 89 mg/dL (70-99) Test 06/07/19 12:30 06/07/19 17:22 06/07/19 20:10 06/07/19 21:30 Glucose (Fingerstick) 96 mg/dL (70-99) 135 mg/dL (70-99) 85 mg/dL (70-99) Urine Collection Type Unknown Urine Color Straw Urine Clarity Clear Urine pH 6.5 Urine Specific [place] 1.010 Urine Protein 30 mg/dL (NEG-TRACE) Urine Glucose (UA) Negative mg/dL (NEG) Urine Ketones (Stick) Negative mg/dL (NEG) Urine Blood Negative (NEG) Urine Nitrite Negative (NEG) Urine Bilirubin Negative (NEG) Urine Urobilinogen Dipstick 0.2 mg/dL (0.2 mg/dL) Urine Leukocyte Esterase Negative (NEG) Urine RBC 0 /HPF (0-2) Urine WBC Rare /HPF (0-4) Urine Squamous Epithelial Cells Few /LPF Urine Bacteria Few /HPF (0-FEW) Test 06/08/19 06:15 06/08/19 06:25 06/08/19 07:22 Sodium Level 130 mmol/L (136-145) Potassium Level 4.0 mmol/L (3.5-5.1) Chloride Level 96 mmol/L (98-107) Carbon Dioxide Level 25 mmol/L (21-32) Anion Gap 9 (6-14) Blood Urea Nitrogen 15 mg/dL (7-20) Creatinine 0.9 mg/dL (0.6-1.0) Estimated GFR (Cockcroft-Gault) 59.1 Glucose Level 67 mg/dL (70-99) Calcium Level 8.8 mg/dL (8.5-10.1) White Blood Count 10.1 x10^3/uL (4.0-11.0) Red Blood Count 3.72 x10^6/uL (3.50-5.40) Hemoglobin 10.8 g/dL (12.0-15.5) Hematocrit 31.3 % (36.0-47.0) Mean Corpuscular Volume 84 fL (79-100) Mean Corpuscular Hemoglobin 29 pg (25-35) Mean Corpuscular Hemoglobin Concent 34 g/dL (31-37) Red Cell Distribution Width 13.3 % (11.5-14.5) Platelet Count 308 x10^3/uL (140-400) Neutrophils (%) (Auto) 69 % (31-73) Lymphocytes (%) (Auto) 20 % (24-48) Monocytes (%) (Auto) 9 % (0-9) Eosinophils (%) (Auto) 1 % (0-3) Basophils (%) (Auto) 0 % (0-3) Neutrophils # (Auto) 7.0 x10^3/uL (1.8-7.7) Lymphocytes # (Auto) 2.0 x10^3/uL (1.0-4.8) Monocytes # (Auto) 0.9 x10^3/uL (0.0-1.1) Eosinophils # (Auto) 0.1 x10^3/uL (0.0-0.7) Basophils # (Auto) 0.0 x10^3/uL (0.0-0.2) Glucose (Fingerstick) 74 mg/dL (70-99) Laboratory Tests Test 06/07/19 12:30 06/07/19 17:22 06/07/19 20:10 06/07/19 21:30 Glucose (Fingerstick) 96 mg/dL (70-99) 135 mg/dL (70-99) 85 mg/dL (70-99) Urine Collection Type Unknown Urine Color Straw Urine Clarity Clear Urine pH 6.5 Urine Specific [place] 1.010 Urine Protein 30 mg/dL (NEG-TRACE) Urine Glucose (UA) Negative mg/dL (NEG) Urine Ketones (Stick) Negative mg/dL (NEG) Urine Blood Negative (NEG) Urine Nitrite Negative (NEG) Urine Bilirubin Negative (NEG) Urine Urobilinogen Dipstick 0.2 mg/dL (0.2 mg/dL) Urine Leukocyte Esterase Negative (NEG) Urine RBC 0 /HPF (0-2) Urine WBC Rare /HPF (0-4) Urine Squamous Epithelial Cells Few /LPF Urine Bacteria Few /HPF (0-FEW) Test 06/08/19 06:15 06/08/19 06:25 06/08/19 07:22 Sodium Level 130 mmol/L (136-145) Potassium Level 4.0 mmol/L (3.5-5.1) Chloride Level 96 mmol/L (98-107) Carbon Dioxide Level 25 mmol/L (21-32) Anion Gap 9 (6-14) Blood Urea Nitrogen 15 mg/dL (7-20) Creatinine 0.9 mg/dL (0.6-1.0) Estimated GFR (Cockcroft-Gault) 59.1 Glucose Level 67 mg/dL (70-99) Calcium Level 8.8 mg/dL (8.5-10.1) White Blood Count 10.1 x10^3/uL (4.0-11.0) Red Blood Count 3.72 x10^6/uL (3.50-5.40) Hemoglobin 10.8 g/dL (12.0-15.5) Hematocrit 31.3 % (36.0-47.0) Mean Corpuscular Volume 84 fL (79-100) Mean Corpuscular Hemoglobin 29 pg (25-35) Mean Corpuscular Hemoglobin Concent 34 g/dL (31-37) Red Cell Distribution Width 13.3 % (11.5-14.5) Platelet Count 308 x10^3/uL (140-400) Neutrophils (%) (Auto) 69 % (31-73) Lymphocytes (%) (Auto) 20 % (24-48) Monocytes (%) (Auto) 9 % (0-9) Eosinophils (%) (Auto) 1 % (0-3) Basophils (%) (Auto) 0 % (0-3) Neutrophils # (Auto) 7.0 x10^3/uL (1.8-7.7) Lymphocytes # (Auto) 2.0 x10^3/uL (1.0-4.8) Monocytes # (Auto) 0.9 x10^3/uL (0.0-1.1) Eosinophils # (Auto) 0.1 x10^3/uL (0.0-0.7) Basophils # (Auto) 0.0 x10^3/uL (0.0-0.2) Glucose (Fingerstick) 74 mg/dL (70-99) Medications Current Medications Aspirin (Ecotrin) 324 mg 1X ONCE PO Last administered on 06/07/19at 03:10; Start 06/07/19 at 03:30; Stop 06/07/19 at 03:31; Status DC Ondansetron HCl (Zofran) 4 mg PRN Q8HRS PRN IV NAUSEA/VOMITING 1ST CHOICE; Start 06/07/19 at 04:30; Stop 06/08/19 at 04:29; Status DC Sodium Chloride 1,000 ml @ 75 mls/hr [id number] IV Last administered on 06/07/19at 04:41; Start 06/07/19 at 05:00; Stop 06/08/19 at 04:59; Status DC Lidocaine HCl (Xylocaine-Mpf 1% 2ml Vial) 2 ml STK-MED ONCE .ROUTE ; Start 06/07/19 at 09:30; Stop 06/07/19 at 09:31; Status DC Iohexol (Omnipaque 300 Mg/ml) 100 ml STK-MED ONCE .ROUTE ; Start 06/07/19 at 09:30; Stop 06/07/19 at 09:31; Status DC Heparin Sodium/ Sodium Chloride 500 ml @ As Directed STK-MED ONCE .ROUTE ; Start 06/07/19 at 09:30; Stop 06/07/19 at 09:31; Status DC Fentanyl Citrate (Fentanyl 2ml Vial) 100 mcg STK-MED ONCE .ROUTE ; Start 06/07/19 at 09:48; Stop 06/07/19 at 09:48; Status DC Midazolam HCl (Versed) 2 mg STK-MED ONCE .ROUTE ; Start 06/07/19 at 09:48; Stop 06/07/19 at 09:48; Status DC Heparin Sodium (Porcine) (Heparin Sodium) 10,000 unit STK-MED ONCE .ROUTE ; Start 06/07/19 at 09:48; Stop 06/07/19 at 09:48; Status DC Verapamil HCl (Verapamil) 5 mg STK-MED ONCE .ROUTE ; Start 06/07/19 at 09:48; Stop 06/07/19 at 09:48; Status DC Nitroglycerin (Nitroglycerin) 200 mcg STK-MED ONCE .ROUTE ; Start 06/07/19 at 09:48; Stop 06/07/19 at 09:49; Status DC Iohexol (Omnipaque 300 Mg/ml) 100 ml STK-MED ONCE .ROUTE ; Start 06/07/19 at 10:24; Stop 06/07/19 at 10:24; Status DC Nitroglycerin (Nitroglycerin) 200 mcg 1X ONCE IART Last administered on 06/07/19at 10:54; Start 06/07/19 at 10:45; Stop 06/07/19 at 10:46; Status DC Verapamil HCl (Verapamil) 2.5 mg 1X ONCE IART Last administered on 06/07/19 10:54; Start 06/07/19 at 10:45; Stop 06/07/19 at 10:46; Status DC Heparin Sodium (Porcine) (Heparin Sodium) 2,500 unit 1X ONCE IART Last administered on 06/07/19 10:54; Start 06/07/19 at 10:45; Stop 06/07/19 at 10:46; Status DC Heparin Sodium/ Sodium Chloride (HEPARIN for ARTERIAL LINE FLUSH) 1,000 unit 1X ONCE IART Last administered on 06/07/19 10:54; Start 06/07/19 at 10:45; Stop 06/07/19 at 10:46; Status DC Midazolam HCl (Versed) 2 mg 1X ONCE IV Last administered on 06/07/19 10:54; Start 06/07/19 at 10:45; Stop 06/07/19 at 10:46; Status DC Fentanyl Citrate (Fentanyl 2ml Vial) 100 mcg 1X ONCE IV Last administered on 06/07/19 10:54; Start 06/07/19 at 10:45; Stop 06/07/19 at 10:46; Status DC Iohexol (Omnipaque 300 Mg/ml) 100 ml 1X ONCE IART Last administered on 06/07/19 10:54; Start 06/07/19 at 10:45; Stop 06/07/19 at 10:46; Status DC Lidocaine HCl (Xylocaine-Mpf 1% 2ml Vial) 2 ml 1X ONCE INJ Last administered on 06/07/19 10:54; Start 06/07/19 at 10:45; Stop 06/07/19 at 10:46; Status DC Info (CONTRAST GIVEN -- Rx MONITORING) 1 each PRN DAILY PRN MC SEE COMMENTS; Start 06/07/19 at 11:00; Stop 06/09/19 at 10:59 Sodium Chloride 1,000 ml @ 100 mls/hr Q10H IV Last administered on 06/07/19at 12:18; Start 06/07/19 at 10:49 Nitroglycerin (Nitrostat) 0.4 mg PRN Q5MIN PRN SL CHEST PAIN; Start 06/07/19 at 11:00 Acetaminophen (Tylenol) 325 mg DAILY PO ; Start 06/08/19 at 09:00 Amlodipine Besylate (Norvasc) 5 mg DAILY PO Last administered on 06/08/19 09:42; Start 06/08/19 at 09:00 Aspirin (Ecotrin) 325 mg DAILY PO Last administered on 06/08/19 09:42; Start 06/08/19 at 09:00 Insulin Glargine (Lantus) 17 units QHS SQ Last administered on 06/07/19 20:23; Start 06/07/19 at 21:00 Lisinopril (Prinivil) 10 mg BID PO Last administered on 06/08/19 09:42; Start 06/07/19 at 21:00 Calcium/Vitamin D (Oscal D 500mg/ 200uts) 1 tab DAILY PO Last administered on 06/08/19 09:42; Start 06/08/19 at 09:00 Insulin Human Lispro (HumaLOG) 5 units DAILYWBKFT SQ ; Start 06/07/19 at 17:00 Insulin Human Lispro (HumaLOG) 10 units DAILYWSUP SQ Last administered on 06/07/19 17:30; Start 06/07/19 at 17:00 Multivitamins (Thera M Plus) 1 tab DAILY PO Last administered on 06/08/19 09:42; Start 06/08/19 at 09:00 Non-Formulary Medication (Ubidecarenone (Coq-10)) 100 mg DAILY PO ; Start 06/08/19 at 09:00; Status UNV Vitamin E 200 unit DAILY PO Last administered on 06/08/19 09:42; Start 06/08/19 at 09:00 Morphine Sulfate (Morphine Sulfate) 2 mg PRN Q4HRS PRN IV PAIN; Start 06/07/19 at 20:15 Tramadol HCl (Ultram) 50 mg PRN Q6HRS PRN PO PAIN Last administered on 06/08/19 09:42; Start 06/07/19 at 20:15 Active Scripts Active Reported Novolog Flexpen (Insulin Aspart) 100 Unit/1 Ml Insuln.pen 10 Unit SQ DAILYWSUP Novolog Flexpen (Insulin Aspart) 100 Unit/1 Ml Insuln.pen 5 Unit SQ DAILYWBKFT Vitamin E (Vitamin E Acid Succinate) 100 Unit Tablet 100 Unit PO DAILY Coq-10 (Ubidecarenone) 100 Mg Capsule 100 Mg PO DAILY Lantus Solostar (Insulin Glargine,Hum.rec.anlog) 100 Unit/1 Ml Insuln.pen 17 Unit SQ QHS Caltrate 600 + D Soft Chew Tab (Calcium Carbonate/Vitamin D3) 1 Each Tab.chew 1 Each PO DAILY One Daily For Women 50+ Adv Tb (Multivitamins-Min/Fa/Ginkgo) 1 Each Tablet 1 Each PO DAILY Tylenol (Acetaminophen) 325 Mg Tablet 325 Mg PO DAILY Aspirin Ec (Aspirin) 325 Mg Tablet.dr 325 Mg PO DAILY Amlodipine Besylate 5 Mg Tablet 5 Mg PO DAILY Zestril (Lisinopril) 10 Mg Tablet 10 Mg PO BID Metformin Hcl 1,000 Mg Tablet 1,000 Mg PO BIDWMEALS Vitals/I & O Vital Sign - Last 24 Hours 06/07/19 06/07/19 06/07/19 06/07/19 10:54 10:54 10:54 11:01 Pulse 66 66 65 Resp 14 16 B/P (MAP) 102/43 118/56 (76) Pulse Ox 92 92 O2 Delivery Nasal Cannula Nasal Cannula O2 Flow Rate 2.0 2.0 06/07/19 06/07/19 06/07/19 06/07/19 11:15 11:16 11:31 11:46 Temp 97.7 97.7 Pulse 63 60 58 56 Resp 18 B/P (MAP) 118/56 (76) 114/56 (75) 114/54 (74) 119/57 (77) Pulse Ox 92 O2 Delivery Room Air 06/07/19 06/07/19 06/07/19 06/07/19 12:01 12:31 13:01 13:31 Pulse 58 54 56 64 B/P (MAP) 139/62 (87) 132/62 (85) 126/59 (81) 149/65 (93) 06/07/19 06/07/19 06/07/19 06/07/19 14:31 15:00 19:40 19:45 Temp 98.1 97.6 98.1 97.6 Pulse 62 67 73 Resp 18 20 B/P (MAP) 144/63 (90) 144/63 (90) 178/74 (108) Pulse Ox 98 95 O2 Delivery Room Air Room Air Room Air 06/07/19 06/07/19 06/07/19 06/08/19 20:23 20:26 22:50 03:20 Temp 98.4 98.2 98.4 98.2 Pulse 71 73 68 Resp 18 18 B/P (MAP) 178/74 144/64 (90) 154/64 (94) Pulse Ox 96 96 O2 Delivery Room Air Room Air Room Air 06/08/19 06/08/19 06/08/19 06/08/19 07:00 08:00 09:42 09:42 Temp 98.6 98.6 Pulse 64 64 64 Resp 16 B/P (MAP) 149/66 (93) 149/66 149/66 Pulse Ox 97 O2 Delivery Room Air Room Air 06/08/19 06/08/19 09:42 10:49 Resp 14 Pulse Ox 97 97 O2 Delivery Room Air Room Air Intake and Output 06/07/19 06/07/19 06/08/19 14:59 22:59 06:59 Intake Total 50 ml 200 ml Output Total 800 ml 600 ml 750 ml Balance -800 ml -550 ml -550 ml HUGH CRAMER MD Jun 08, 2019 10:53
--- NOTE | 2019-06-08 10:55 | PDOC ---
PROGRESS NOTES History of Present Illness History of Present Illness VTE Prophylaxis Ordered VTE Prophylaxis Devices: No VTE Pharmacological Prophylaxi: Yes Assessment/Plan Assessment/Plan impression 1. Nonobstructive coronary artery disease 2. Hyperdynamic left ventricle systolic function with ejection fraction estimated at 80% 3. non-STEMI is most probably type 2/demand ischemia. 4. 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 5. diabetes 6. hypertension 7. dizziness 8. dyspnea 9. on echo Ejection Fraction is >65%. 10.There is mild concentric left ventricular hypertrophy. 11. mild valvular aortic stenosis. by echo . Calculated aortic valve area is 1.4 cm2 with maximum pressure gradient of 14 mm Hg and mean pressure gradient of 10 mmHg. 12. shortness of breath //probably anginal equivalent. Chest x-ray did not show any evidence of congestive heart failure. 13. new onset confusion, memory loss, metabolic encephalopathy 14. component of hypertensive encephalopathy, possible concussion plan admit cvc cardiac cath medical management. accuchecks risk reduction mgt cardiology consulted pt/ot neurology consult mri head 36 min pt exam, chart review, > 50% of time spent with exam, chart review, pt care coordination Vitals Vitals Vital Signs Date Time Temp Pulse Resp B/P (MAP) Pulse Ox O2 Delivery O2 Flow Rate FiO2 06/08/19 10:49 14 97 Room Air 06/08/19 09:42 64 149/66 06/08/19 07:00 98.6 98.6 06/07/19 10:54 2.0 Physical Exam General: Alert, Cooperative, No acute distress Heart: Regular rate, Normal S1, Other (ESM LUPSB) Lungs: Clear Abdomen: Normal bowel sounds, Soft, No tenderness Extremities: No cyanosis Skin: No significant lesion Labs LABS OBJECTIVE: The patient is an 88-year-old female with a loss of consciousness and some confusion. DESCRIPTION: This is a digital study. Electrodes are placed according to the international 10-20 system. Bipolar and referential montages are available. Activation procedures typically include hyperventilation and intermittent photic stimulation. INTERPRETATION: The waking background consists of 8-9 Hz, 50-100 microvolt activity, symmetrically distributed over parietooccipital regions and reactive to eye opening. Hyperventilation and intermittent photic stimulation are noncontributory. Stage 1 sleep is achieved with normal electroencephalogram patterns. IMPRESSION: This electroencephalogram with the patient awake and asleep is within normal limits. There is no focal, paroxysmal, or epileptiform activity. Thank you for letting us help with the patient's care. HUGH CRAMER MD DR: OSMAN/[place] JOB#: [id number] / [id number] Laboratory Tests Test 06/07/19 12:30 06/07/19 17:22 06/07/19 20:10 06/07/19 21:30 Glucose (Fingerstick) 96 mg/dL (70-99) 135 mg/dL (70-99) 85 mg/dL (70-99) Urine Collection Type Unknown Urine Color Straw Urine Clarity Clear Urine pH 6.5 Urine Specific [place] 1.010 Urine Protein 30 mg/dL (NEG-TRACE) Urine Glucose (UA) Negative mg/dL (NEG) Urine Ketones (Stick) Negative mg/dL (NEG) Urine Blood Negative (NEG) Urine Nitrite Negative (NEG) Urine Bilirubin Negative (NEG) Urine Urobilinogen Dipstick 0.2 mg/dL (0.2 mg/dL) Urine Leukocyte Esterase Negative (NEG) Urine RBC 0 /HPF (0-2) Urine WBC Rare /HPF (0-4) Urine Squamous Epithelial Cells Few /LPF Urine Bacteria Few /HPF (0-FEW) Test 06/08/19 06:15 06/08/19 06:25 06/08/19 07:22 Sodium Level 130 mmol/L (136-145) Potassium Level 4.0 mmol/L (3.5-5.1) Chloride Level 96 mmol/L (98-107) Carbon Dioxide Level 25 mmol/L (21-32) Anion Gap 9 (6-14) Blood Urea Nitrogen 15 mg/dL (7-20) Creatinine 0.9 mg/dL (0.6-1.0) Estimated GFR (Cockcroft-Gault) 59.1 Glucose Level 67 mg/dL (70-99) Calcium Level 8.8 mg/dL (8.5-10.1) White Blood Count 10.1 x10^3/uL (4.0-11.0) Red Blood Count 3.72 x10^6/uL (3.50-5.40) Hemoglobin 10.8 g/dL (12.0-15.5) Hematocrit 31.3 % (36.0-47.0) Mean Corpuscular Volume 84 fL (79-100) Mean Corpuscular Hemoglobin 29 pg (25-35) Mean Corpuscular Hemoglobin Concent 34 g/dL (31-37) Red Cell Distribution Width 13.3 % (11.5-14.5) Platelet Count 308 x10^3/uL (140-400) Neutrophils (%) (Auto) 69 % (31-73) Lymphocytes (%) (Auto) 20 % (24-48) Monocytes (%) (Auto) 9 % (0-9) Eosinophils (%) (Auto) 1 % (0-3) Basophils (%) (Auto) 0 % (0-3) Neutrophils # (Auto) 7.0 x10^3/uL (1.8-7.7) Lymphocytes # (Auto) 2.0 x10^3/uL (1.0-4.8) Monocytes # (Auto) 0.9 x10^3/uL (0.0-1.1) Eosinophils # (Auto) 0.1 x10^3/uL (0.0-0.7) Basophils # (Auto) 0.0 x10^3/uL (0.0-0.2) Glucose (Fingerstick) 74 mg/dL (70-99) Assessment and Plan Assessmemt and Plan Past Medical History Cardiovascular: Syncope, Other (heart murmur) Psych: Anxiety, Depression Musculoskeletal: low back pain, Osteoarthritis Endocrine: Diabetes Past Surgical History Past Surgical History: Cholecystectomy, Cataract Removal Family History Family History: No pertinent hx Social History Social History , no tobacco or alcohol, retired Comment Review of Relevant I have reviewed the following items randa (where applicable) has been applied. Labs Laboratory Tests Test 06/07/19 02:15 06/07/19 07:22 06/07/19 07:25 06/07/19 10:00 White Blood Count 11.2 x10^3/uL (4.0-11.0) Red Blood Count 3.59 x10^6/uL (3.50-5.40) Hemoglobin 10.5 g/dL (12.0-15.5) Hematocrit 29.9 % (36.0-47.0) Mean Corpuscular Volume 83 fL (79-100) Mean Corpuscular Hemoglobin 29 pg (25-35) Mean Corpuscular Hemoglobin Concent 35 g/dL (31-37) Red Cell Distribution Width 12.9 % (11.5-14.5) Platelet Count 297 x10^3/uL (140-400) Neutrophils (%) (Auto) 83 % (31-73) Lymphocytes (%) (Auto) 9 % (24-48) Monocytes (%) (Auto) 7 % (0-9) Eosinophils (%) (Auto) 0 % (0-3) Basophils (%) (Auto) 0 % (0-3) Neutrophils # (Auto) 9.4 x10^3/uL (1.8-7.7) Lymphocytes # (Auto) 1.0 x10^3/uL (1.0-4.8) Monocytes # (Auto) 0.8 x10^3/uL (0.0-1.1) Eosinophils # (Auto) 0.0 x10^3/uL (0.0-0.7) Basophils # (Auto) 0.0 x10^3/uL (0.0-0.2) Sodium Level 125 mmol/L (136-145) Potassium Level 4.3 mmol/L (3.5-5.1) Chloride Level 92 mmol/L (98-107) Carbon Dioxide Level 25 mmol/L (21-32) Anion Gap 8 (6-14) Blood Urea Nitrogen 18 mg/dL (7-20) Creatinine 1.0 mg/dL (0.6-1.0) Estimated GFR (Cockcroft-Gault) 52.3 BUN/Creatinine Ratio 18 (6-20) Glucose Level 103 mg/dL (70-99) Calcium Level 8.9 mg/dL (8.5-10.1) Total Bilirubin 0.5 mg/dL (0.2-1.0) Aspartate Amino Transf (AST/SGOT) 22 U/L (15-37) Alanine Aminotransferase (ALT/SGPT) 22 U/L (14-59) Alkaline Phosphatase 68 U/L (46-116) Creatine Kinase 137 U/L (26-192) Troponin I Quantitative 0.334 ng/mL (0.000-0.055) 1.305 ng/mL (0.000-0.055) 1.506 ng/mL (0.000-0.055) MV-Jiv-T-Type Natriuretic Peptide 857 pg/mL (0-449) Total Protein 7.1 g/dL (6.4-8.2) Albumin 3.4 g/dL (3.4-5.0) Albumin/Globulin Ratio 0.9 (1.0-1.7) Thyroid Stimulating Hormone (TSH) 5.277 uIU/mL (0.358-3.74) Glucose (Fingerstick) 89 mg/dL (70-99) Test 06/07/19 12:30 06/07/19 17:22 06/07/19 20:10 06/07/19 21:30 Glucose (Fingerstick) 96 mg/dL (70-99) 135 mg/dL (70-99) 85 mg/dL (70-99) Urine Collection Type Unknown Urine Color Straw Urine Clarity Clear Urine pH 6.5 Urine Specific [place] 1.010 Urine Protein 30 mg/dL (NEG-TRACE) Urine Glucose (UA) Negative mg/dL (NEG) Urine Ketones (Stick) Negative mg/dL (NEG) Urine Blood Negative (NEG) Urine Nitrite Negative (NEG) Urine Bilirubin Negative (NEG) Urine Urobilinogen Dipstick 0.2 mg/dL (0.2 mg/dL) Urine Leukocyte Esterase Negative (NEG) Urine RBC 0 /HPF (0-2) Urine WBC Rare /HPF (0-4) Urine Squamous Epithelial Cells Few /LPF Urine Bacteria Few /HPF (0-FEW) Test 06/08/19 06:15 06/08/19 06:25 06/08/19 07:22 Sodium Level 130 mmol/L (136-145) Potassium Level 4.0 mmol/L (3.5-5.1) Chloride Level 96 mmol/L (98-107) Carbon Dioxide Level 25 mmol/L (21-32) Anion Gap 9 (6-14) Blood Urea Nitrogen 15 mg/dL (7-20) Creatinine 0.9 mg/dL (0.6-1.0) Estimated GFR (Cockcroft-Gault) 59.1 Glucose Level 67 mg/dL (70-99) Calcium Level 8.8 mg/dL (8.5-10.1) White Blood Count 10.1 x10^3/uL (4.0-11.0) Red Blood Count 3.72 x10^6/uL (3.50-5.40) Hemoglobin 10.8 g/dL (12.0-15.5) Hematocrit 31.3 % (36.0-47.0) Mean Corpuscular Volume 84 fL (79-100) Mean Corpuscular Hemoglobin 29 pg (25-35) Mean Corpuscular Hemoglobin Concent 34 g/dL (31-37) Red Cell Distribution Width 13.3 % (11.5-14.5) Platelet Count 308 x10^3/uL (140-400) Neutrophils (%) (Auto) 69 % (31-73) Lymphocytes (%) (Auto) 20 % (24-48) Monocytes (%) (Auto) 9 % (0-9) Eosinophils (%) (Auto) 1 % (0-3) Basophils (%) (Auto) 0 % (0-3) Neutrophils # (Auto) 7.0 x10^3/uL (1.8-7.7) Lymphocytes # (Auto) 2.0 x10^3/uL (1.0-4.8) Monocytes # (Auto) 0.9 x10^3/uL (0.0-1.1) Eosinophils # (Auto) 0.1 x10^3/uL (0.0-0.7) Basophils # (Auto) 0.0 x10^3/uL (0.0-0.2) Glucose (Fingerstick) 74 mg/dL (70-99) Laboratory Tests Test 06/07/19 12:30 06/07/19 17:22 06/07/19 20:10 06/07/19 21:30 Glucose (Fingerstick) 96 mg/dL (70-99) 135 mg/dL (70-99) 85 mg/dL (70-99) Urine Collection Type Unknown Urine Color Straw Urine Clarity Clear Urine pH 6.5 Urine Specific [place] 1.010 Urine Protein 30 mg/dL (NEG-TRACE) Urine Glucose (UA) Negative mg/dL (NEG) Urine Ketones (Stick) Negative mg/dL (NEG) Urine Blood Negative (NEG) Urine Nitrite Negative (NEG) Urine Bilirubin Negative (NEG) Urine Urobilinogen Dipstick 0.2 mg/dL (0.2 mg/dL) Urine Leukocyte Esterase Negative (NEG) Urine RBC 0 /HPF (0-2) Urine WBC Rare /HPF (0-4) Urine Squamous Epithelial Cells Few /LPF Urine Bacteria Few /HPF (0-FEW) Test 06/08/19 06:15 06/08/19 06:25 06/08/19 07:22 Sodium Level 130 mmol/L (136-145) Potassium Level 4.0 mmol/L (3.5-5.1) Chloride Level 96 mmol/L (98-107) Carbon Dioxide Level 25 mmol/L (21-32) Anion Gap 9 (6-14) Blood Urea Nitrogen 15 mg/dL (7-20) Creatinine 0.9 mg/dL (0.6-1.0) Estimated GFR (Cockcroft-Gault) 59.1 Glucose Level 67 mg/dL (70-99) Calcium Level 8.8 mg/dL (8.5-10.1) White Blood Count 10.1 x10^3/uL (4.0-11.0) Red Blood Count 3.72 x10^6/uL (3.50-5.40) Hemoglobin 10.8 g/dL (12.0-15.5) Hematocrit 31.3 % (36.0-47.0) Mean Corpuscular Volume 84 fL (79-100) Mean Corpuscular Hemoglobin 29 pg (25-35) Mean Corpuscular Hemoglobin Concent 34 g/dL (31-37) Red Cell Distribution Width 13.3 % (11.5-14.5) Platelet Count 308 x10^3/uL (140-400) Neutrophils (%) (Auto) 69 % (31-73) Lymphocytes (%) (Auto) 20 % (24-48) Monocytes (%) (Auto) 9 % (0-9) Eosinophils (%) (Auto) 1 % (0-3) Basophils (%) (Auto) 0 % (0-3) Neutrophils # (Auto) 7.0 x10^3/uL (1.8-7.7) Lymphocytes # (Auto) 2.0 x10^3/uL (1.0-4.8) Monocytes # (Auto) 0.9 x10^3/uL (0.0-1.1) Eosinophils # (Auto) 0.1 x10^3/uL (0.0-0.7) Basophils # (Auto) 0.0 x10^3/uL (0.0-0.2) Glucose (Fingerstick) 74 mg/dL (70-99) Medications Current Medications Aspirin (Ecotrin) 324 mg 1X ONCE PO Last administered on 06/07/19at 03:10; Start 06/07/19 at 03:30; Stop 06/07/19 at 03:31; Status DC Ondansetron HCl (Zofran) 4 mg PRN Q8HRS PRN IV NAUSEA/VOMITING 1ST CHOICE; Start 06/07/19 at 04:30; Stop 06/08/19 at 04:29; Status DC Sodium Chloride 1,000 ml @ 75 mls/hr [id number] IV Last administered on 06/07/19at 04:41; Start 06/07/19 at 05:00; Stop 06/08/19 at 04:59; Status DC Lidocaine HCl (Xylocaine-Mpf 1% 2ml Vial) 2 ml STK-MED ONCE .ROUTE ; Start 06/07/19 at 09:30; Stop 06/07/19 at 09:31; Status DC Iohexol (Omnipaque 300 Mg/ml) 100 ml STK-MED ONCE .ROUTE ; Start 06/07/19 at 09:30; Stop 06/07/19 at 09:31; Status DC Heparin Sodium/ Sodium Chloride 500 ml @ As Directed STK-MED ONCE .ROUTE ; Start 06/07/19 at 09:30; Stop 06/07/19 at 09:31; Status DC Fentanyl Citrate (Fentanyl 2ml Vial) 100 mcg STK-MED ONCE .ROUTE ; Start 06/07/19 at 09:48; Stop 06/07/19 at 09:48; Status DC Midazolam HCl (Versed) 2 mg STK-MED ONCE .ROUTE ; Start 06/07/19 at 09:48; Stop 06/07/19 at 09:48; Status DC Heparin Sodium (Porcine) (Heparin Sodium) 10,000 unit STK-MED ONCE .ROUTE ; Start 06/07/19 at 09:48; Stop 06/07/19 at 09:48; Status DC Verapamil HCl (Verapamil) 5 mg STK-MED ONCE .ROUTE ; Start 06/07/19 at 09:48; Stop 06/07/19 at 09:48; Status DC Nitroglycerin (Nitroglycerin) 200 mcg STK-MED ONCE .ROUTE ; Start 06/07/19 at 09:48; Stop 06/07/19 at 09:49; Status DC Iohexol (Omnipaque 300 Mg/ml) 100 ml STK-MED ONCE .ROUTE ; Start 06/07/19 at 10:24; Stop 06/07/19 at 10:24; Status DC Nitroglycerin (Nitroglycerin) 200 mcg 1X ONCE IART Last administered on 06/07/19 10:54; Start 06/07/19 at 10:45; Stop 06/07/19 at 10:46; Status DC Verapamil HCl (Verapamil) 2.5 mg 1X ONCE IART Last administered on 06/07/19 10:54; Start 06/07/19 at 10:45; Stop 06/07/19 at 10:46; Status DC Heparin Sodium (Porcine) (Heparin Sodium) 2,500 unit 1X ONCE IART Last administered on 06/07/19 10:54; Start 06/07/19 at 10:45; Stop 06/07/19 at 10:46; Status DC Heparin Sodium/ Sodium Chloride (HEPARIN for ARTERIAL LINE FLUSH) 1,000 unit 1X ONCE IART Last administered on 06/07/19 10:54; Start 06/07/19 at 10:45; Stop 06/07/19 at 10:46; Status DC Midazolam HCl (Versed) 2 mg 1X ONCE IV Last administered on 06/07/19 10:54; Start 06/07/19 at 10:45; Stop 06/07/19 at 10:46; Status DC Fentanyl Citrate (Fentanyl 2ml Vial) 100 mcg 1X ONCE IV Last administered on 06/07/19 10:54; Start 06/07/19 at 10:45; Stop 06/07/19 at 10:46; Status DC Iohexol (Omnipaque 300 Mg/ml) 100 ml 1X ONCE IART Last administered on 06/07/19 10:54; Start 06/07/19 at 10:45; Stop 06/07/19 at 10:46; Status DC Lidocaine HCl (Xylocaine-Mpf 1% 2ml Vial) 2 ml 1X ONCE INJ Last administered on 06/07/19 10:54; Start 06/07/19 at 10:45; Stop 06/07/19 at 10:46; Status DC Info (CONTRAST GIVEN -- Rx MONITORING) 1 each PRN DAILY PRN MC SEE COMMENTS; Start 06/07/19 at 11:00; Stop 06/09/19 at 10:59 Sodium Chloride 1,000 ml @ 100 mls/hr Q10H IV Last administered on 06/07/19at 12:18; Start 06/07/19 at 10:49 Nitroglycerin (Nitrostat) 0.4 mg PRN Q5MIN PRN SL CHEST PAIN; Start 06/07/19 at 11:00 Acetaminophen (Tylenol) 325 mg DAILY PO ; Start 06/08/19 at 09:00 Amlodipine Besylate (Norvasc) 5 mg DAILY PO Last administered on 06/08/19 09:42; Start 06/08/19 at 09:00 Aspirin (Ecotrin) 325 mg DAILY PO Last administered on 06/08/19 09:42; Start 06/08/19 at 09:00 Insulin Glargine (Lantus) 17 units QHS SQ Last administered on 06/07/19 20:23; Start 06/07/19 at 21:00 Lisinopril (Prinivil) 10 mg BID PO Last administered on 06/08/19 09:42; Start 06/07/19 at 21:00 Calcium/Vitamin D (Oscal D 500mg/ 200uts) 1 tab DAILY PO Last administered on 06/08/19 09:42; Start 06/08/19 at 09:00 Insulin Human Lispro (HumaLOG) 5 units DAILYWBKFT SQ ; Start 06/07/19 at 17:00 Insulin Human Lispro (HumaLOG) 10 units DAILYWSUP SQ Last administered on 06/07/19at 17:30; Start 06/07/19 at 17:00 Multivitamins (Thera M Plus) 1 tab DAILY PO Last administered on 06/08/19 09:42; Start 06/08/19 at 09:00 Non-Formulary Medication (Ubidecarenone (Coq-10)) 100 mg DAILY PO ; Start 06/08/19 at 09:00; Status UNV Vitamin E 200 unit DAILY PO Last administered on 06/08/19at 09:42; Start 06/08/19 at 09:00 Morphine Sulfate (Morphine Sulfate) 2 mg PRN Q4HRS PRN IV PAIN; Start 06/07/19 at 20:15 Tramadol HCl (Ultram) 50 mg PRN Q6HRS PRN PO PAIN Last administered on 06/08/19at 09:42; Start 06/07/19 at 20:15 Active Scripts Active Reported Novolog Flexpen (Insulin Aspart) 100 Unit/1 Ml Insuln.pen 10 Unit SQ DAILYWSUP Novolog Flexpen (Insulin Aspart) 100 Unit/1 Ml Insuln.pen 5 Unit SQ DAILYWBKFT Vitamin E (Vitamin E Acid Succinate) 100 Unit Tablet 100 Unit PO DAILY Coq-10 (Ubidecarenone) 100 Mg Capsule 100 Mg PO DAILY Lantus Solostar (Insulin Glargine,Hum.rec.anlog) 100 Unit/1 Ml Insuln.pen 17 Unit SQ QHS Caltrate 600 + D Soft Chew Tab (Calcium Carbonate/Vitamin D3) 1 Each Tab.chew 1 Each PO DAILY One Daily For Women 50+ Adv Tb (Multivitamins-Min/Fa/Ginkgo) 1 Each Tablet 1 Each PO DAILY Tylenol (Acetaminophen) 325 Mg Tablet 325 Mg PO DAILY Aspirin Ec (Aspirin) 325 Mg Tablet.dr 325 Mg PO DAILY Amlodipine Besylate 5 Mg Tablet 5 Mg PO DAILY Zestril (Lisinopril) 10 Mg Tablet 10 Mg PO BID Metformin Hcl 1,000 Mg Tablet 1,000 Mg PO BIDWMEALS Vitals/I & O Vital Sign - Last 24 Hours 06/07/19 06/07/19 06/07/19 06/07/19 11:01 11:15 11:16 11:31 Temp 97.7 97.7 Pulse 65 63 60 58 Resp 18 B/P (MAP) 118/56 (76) 118/56 (76) 114/56 (75) 114/54 (74) Pulse Ox 92 O2 Delivery Room Air 06/07/19 06/07/19 06/07/19 06/07/19 11:46 12:01 12:31 13:01 Pulse 56 58 54 56 B/P (MAP) 119/57 (77) 139/62 (87) 132/62 (85) 126/59 (81) 06/07/19 06/07/19 06/07/19 06/07/19 13:31 14:31 15:00 19:40 Temp 98.1 98.1 Pulse 64 62 67 Resp 18 B/P (MAP) 149/65 (93) 144/63 (90) 144/63 (90) Pulse Ox 98 O2 Delivery Room Air Room Air 06/07/19 06/07/19 06/07/19 06/07/19 19:45 20:23 20:26 22:50 Temp 97.6 98.4 97.6 98.4 Pulse 73 71 73 Resp 20 18 B/P (MAP) 178/74 (108) 178/74 144/64 (90) Pulse Ox 95 96 O2 Delivery Room Air Room Air Room Air 06/08/19 06/08/19 06/08/19 06/08/19 03:20 07:00 08:00 09:42 Temp 98.2 98.6 98.2 98.6 Pulse 68 64 64 Resp 18 16 B/P (MAP) 154/64 (94) 149/66 (93) 149/66 Pulse Ox 96 97 O2 Delivery Room Air Room Air Room Air 06/08/19 06/08/19 06/08/19 09:42 09:42 10:49 Pulse 64 Resp 14 B/P (MAP) 149/66 Pulse Ox 97 97 O2 Delivery Room Air Room Air Intake and Output 06/07/19 06/07/19 06/08/19 14:59 22:59 06:59 Intake Total 50 ml 200 ml Output Total 800 ml 600 ml 750 ml Balance -800 ml -550 ml -550 ml KATHERYN HALL MD Jun 08, 2019 10:55
[2019-06-08 11:00] VITALS: BP_SYST 139; BP_SYST 149; BP_DIAS 63; BP_DIAS 67
[2019-06-08] MEDS ORDERED: DEXTROSE 50% 25 GM / 50ML DISP.SYRIN. IV PRN (12:15)
[2019-06-08] MEDS ORDERED: IV DEXTROSE 5% 250 ML BAG. IV PRN (12:15)
--- NOTE | 2019-06-08 14:39 | RAD ---
MRI Brain without contrast History: Syncope, confusion, decreased hearing Technique: Multiplanar, multisequential noncontrast MR imaging was performed of the brain. Comparison: None other than CT head exam June 07, 2019 Findings: There is focus of restricted diffusion of the anterior left cerebellum about 1 cm in size, corresponding T2 and FLAIR hyperintense signal. There is also small focus of restricted diffusion of the posterior medial left cerebellum about 0.6 cm in size, hypointense on ADC map. There could be a very small focus of restricted diffusion of the right occipital lobe about 0.4 cm although limited evaluation due to artifact in this region. There is a small focus of restricted diffusion of the left temporal lobe along the periventricular white matter about 0.5 cm. There is a 0.4 cm focus of restricted diffusion of the posterior right centrum semiovale. There is probable very small focus of restricted diffusion right parietal cortical surface about 0.2 cm otherwise difficult to characterize given small size. There is small 0.3 cm focus of somewhat faint restricted diffusion of the right frontal lobe and also separate small focus of the right frontal cortical surface about 0.3 cm in size. There is preservation of the major arterial intracranial flow voids the skull base. There is no midline shift or intra-axial mass effect. There are old lacunar infarcts of the left montes de oca radiata/centrum semiovale. There is other multifocal moderate to severe T2 and FLAIR hyperintense signal abnormality of the supratentorial parenchyma bilaterally. There is mild to moderate lateral ventriculomegaly and mild third ventriculomegaly probably due to atrophy as there is [id number] generalized atrophy present. There is no significant hemosiderin deposition of the brain parenchyma. Mastoid air cells are mostly aerated, small focus of fluid on the left. There is patchy minimal ethmoid air cell mucosal thickening. There has been lens surgery bilaterally. Cerebellar tonsils are normal in location. There is preservation of marrow signal of the clivus. There is no abnormality of pineal gland or pituitary gland. Impression: 1. There are some scattered small recent acute or subacute infarcts bilaterally as stated, largest of the anterior left cerebellum. Given bilateral distribution, embolic source should be considered. 2. Other scattered multifocal T2 and FLAIR hyperintense signal abnormality of the supratentorial parenchyma bilaterally is nonspecific, most commonly due to chronic microvascular ischemic disease in a patient this age. 3. There is [id number] generalized supratentorial atrophy. Findings discussed with patient's nurse Belkys at 06/08/2019 2:33 PM. FOR INTERNAL CODING PURPOSES RESULT CODE: (C) Electronically signed by: Anatoly Barton MD (06/08/2019 2:37 PM) [id number]
[2019-06-08] MEDS ORDERED: ASPIRIN RECTAL 300 MG SUPP. PR PRN (14:45)
[2019-06-08] MEDS ORDERED: ACETAMINOPHEN 325 MG TABLET. PO PRN (14:45)
[2019-06-08] MEDS ORDERED: ACETAMINOPHEN 650 MG SUPP.RECT. PR PRN (14:45)
[2019-06-08 15:00] VITALS: BP 146/67
--- NOTE | 2019-06-08 15:48 | RAD ---
EXAM: Carotid Doppler sonogram. HISTORY: Cerebral infarction. TECHNIQUE: Dowd scale and color Doppler sonographic evaluation of the neck with spectral waveform analysis was performed and static images are submitted for review. FINDINGS: The peak systolic velocity within the right common carotid artery is 75 cm/sec. The peak systolic velocity within the right internal carotid artery is 111 cm/sec and the end diastolic velocity within the right internal carotid artery is 27 cm/sec. The right ICA/CCA ratio is 1.50. The peak systolic velocity within the left common carotid artery is 1 heart and 14 cm/sec. The peak systolic velocity within the left internal carotid artery is 98 cm/sec and the end diastolic velocity within the left internal carotid artery is 20 cm/sec. The left ICA/CCA ratio is 1.05. There is normal antegrade flow within both vertebral arteries. IMPRESSION: No Doppler evidence of hemodynamically significant stenosis within the carotid or vertebral arteries. PQRS Compliance Statement - Stenosis calculations for CT, MR and conventional angiography are based upon measurement of the distal ICA diameter in accordance with the NASCET methodology. Stenosis calculations for carotid ultrasound studies are derived from validated velocity criteria which are known to correlate with the NASCET methodology. Electronically signed by: Karen Wilson MD (06/08/2019 3:45 PM) [place] [id number]
--- NOTE | 2019-06-08 16:36 | PDOC ---
PROGRESS NOTES Subjective Subjective Feeling slightly better today. Denied any chest pain. Objective Objective Vital Signs Date Time Temp Pulse Resp B/P (MAP) Pulse Ox O2 Delivery O2 Flow Rate FiO2 06/08/19 15:00 97.9 60 16 146/67 (93) 95 Room Air 97.9 06/07/19 10:54 2.0 Intake and Output 06/08/19 06:59 Intake Total 250 ml Output Total 2150 ml Balance -1900 ml Intake Oral 250 ml Output Urine Total 2150 ml # Bowel Movements 1 Physical Exam Abdomen: Normal bowel sounds, Soft, No tenderness Heart: Regular rate, Normal S1, Other (ESM LUPSB) Extremities: No cyanosis General: Alert, Cooperative, No acute distress HEENT: Atraumatic, PERRLA Lungs: Clear to auscultation Neck: No JVD Psych/Mental Status: Mood NL Skin: No significant lesion Assessment Assessment 1. Non-STEMI most probably type 2/demand ischemia secondary to uncontrolled hypertension. Cardiac catheterization showed nonobstructive coronary disease. 2- D echo showed hyperdynamic left ventricle systolic function. 2. Accelerated hypertension: Better controlled since admission 3. Diabetes mellitus type 2: Treat per IM. 4. 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 Neurology team following. Comment Review of Relevant I have reviewed the following items randa (where applicable) has been applied. Labs Laboratory Tests Test 06/07/19 17:22 06/07/19 20:10 06/07/19 21:30 06/08/19 06:15 Glucose (Fingerstick) 135 mg/dL (70-99) 85 mg/dL (70-99) Urine Collection Type Unknown Urine Color Straw Urine Clarity Clear Urine pH 6.5 Urine Specific [place] 1.010 Urine Protein 30 mg/dL (NEG-TRACE) Urine Glucose (UA) Negative mg/dL (NEG) Urine Ketones (Stick) Negative mg/dL (NEG) Urine Blood Negative (NEG) Urine Nitrite Negative (NEG) Urine Bilirubin Negative (NEG) Urine Urobilinogen Dipstick 0.2 mg/dL (0.2 mg/dL) Urine Leukocyte Esterase Negative (NEG) Urine RBC 0 /HPF (0-2) Urine WBC Rare /HPF (0-4) Urine Squamous Epithelial Cells Few /LPF Urine Bacteria Few /HPF (0-FEW) Sodium Level 130 mmol/L (136-145) Potassium Level 4.0 mmol/L (3.5-5.1) Chloride Level 96 mmol/L (98-107) Carbon Dioxide Level 25 mmol/L (21-32) Anion Gap 9 (6-14) Blood Urea Nitrogen 15 mg/dL (7-20) Creatinine 0.9 mg/dL (0.6-1.0) Estimated GFR (Cockcroft-Gault) 59.1 Glucose Level 67 mg/dL (70-99) Calcium Level 8.8 mg/dL (8.5-10.1) Test 06/08/19 06:25 06/08/19 07:22 06/08/19 11:36 White Blood Count 10.1 x10^3/uL (4.0-11.0) Red Blood Count 3.72 x10^6/uL (3.50-5.40) Hemoglobin 10.8 g/dL (12.0-15.5) Hematocrit 31.3 % (36.0-47.0) Mean Corpuscular Volume 84 fL (79-100) Mean Corpuscular Hemoglobin 29 pg (25-35) Mean Corpuscular Hemoglobin Concent 34 g/dL (31-37) Red Cell Distribution Width 13.3 % (11.5-14.5) Platelet Count 308 x10^3/uL (140-400) Neutrophils (%) (Auto) 69 % (31-73) Lymphocytes (%) (Auto) 20 % (24-48) Monocytes (%) (Auto) 9 % (0-9) Eosinophils (%) (Auto) 1 % (0-3) Basophils (%) (Auto) 0 % (0-3) Neutrophils # (Auto) 7.0 x10^3/uL (1.8-7.7) Lymphocytes # (Auto) 2.0 x10^3/uL (1.0-4.8) Monocytes # (Auto) 0.9 x10^3/uL (0.0-1.1) Eosinophils # (Auto) 0.1 x10^3/uL (0.0-0.7) Basophils # (Auto) 0.0 x10^3/uL (0.0-0.2) Glucose (Fingerstick) 74 mg/dL (70-99) 249 mg/dL (70-99) Medications Current Medications Acetaminophen (Tylenol Supp) 650 mg PRN Q4HRS PRN [place] TEMP > 100.4F; Start 06/08/19 at 14:45 Acetaminophen (Tylenol) 325 mg DAILY PO ; Start 06/08/19 at 09:00 Acetaminophen (Tylenol) 650 mg PRN Q6HRS PRN PO TEMP > 100.4F; Start 06/08/19 at 14:45 Amlodipine Besylate (Norvasc) 5 mg DAILY PO Last administered on 06/08/19at 09:42; Start 06/08/19 at 09:00 Aspirin (Aspirin Rectal Supp) 300 mg PRN DAILY PRN [place] IF UNABLE TO TAKE PO; Start 06/08/19 at 14:45 Aspirin (Ecotrin) 325 mg DAILY PO Last administered on 06/08/19at 09:42; Start 06/08/19 at 09:00 Aspirin (Ecotrin) 325 mg DAILYWBKFT PO ; Start 06/09/19 at 08:00; Status Cancel Calcium/Vitamin D (Oscal D 500mg/ 200uts) 1 tab DAILY PO Last administered on 06/08/19 09:42; Start 06/08/19 at 09:00 Dextrose 250 ml PRN Q15MIN PRN IV SEE COMMENTS; Start 06/08/19 at 12:15; Stop 06/08/19 at 12:11; Status DC Dextrose (Dextrose 50%-Water Syringe) 12.5 gm PRN Q15MIN PRN IV SEE COMMENTS; Start 06/08/19 at 12:15 Insulin Glargine (Lantus) 17 units QHS SQ Last administered on 06/07/19at 20:23; Start 06/07/19 at 21:00 Insulin Human Lispro (HumaLOG) 0-5 UNITS TIDWMEALS SQ Last administered on 06/08/19at 12:15; Start 06/08/19 at 12:00 Insulin Human Lispro (HumaLOG) 5 units DAILYWBKFT SQ ; Start 06/07/19 at 17:00 Insulin Human Lispro (HumaLOG) 10 units DAILYWSUP SQ Last administered on at 17:30; Start 06/07/19 at 17:00 Lisinopril (Prinivil) 10 mg BID PO Last administered on 06/08/19at 09:42; Start 06/07/19 at 21:00 Morphine Sulfate (Morphine Sulfate) 2 mg PRN Q4HRS PRN IV PAIN; Start 06/07/19 at 20:15 Multivitamins (Thera M Plus) 1 tab DAILY PO Last administered on 06/08/19 09:42; Start 06/08/19 at 09:00 Non-Formulary Medication (Ubidecarenone (Coq-10)) 100 mg DAILY PO ; Start 06/08/19 at 09:00; Status UNV Tramadol HCl (Ultram) 50 mg PRN Q6HRS PRN PO PAIN Last administered on 09:42; Start 06/07/19 at 20:15 Vitamin E 200 unit DAILY PO Last administered on 06/08/19 09:42; Start 06/08/19 at 09:00 Vitals/I & O Vital Sign - Last 24 Hours 06/07/19 06/07/19 06/07/19 06/07/19 19:40 19:45 20:23 20:26 Temp 97.6 97.6 Pulse 73 71 Resp 20 B/P (MAP) 178/74 (108) 178/74 Pulse Ox 95 O2 Delivery Room Air Room Air Room Air 06/07/19 06/08/19 06/08/19 06/08/19 22:50 03:20 07:00 08:00 Temp 98.4 98.2 98.6 98.4 98.2 98.6 Pulse 73 68 64 Resp 18 18 16 B/P (MAP) 144/64 (90) 154/64 (94) 149/66 (93) Pulse Ox 96 96 97 O2 Delivery Room Air Room Air Room Air Room Air 06/08/19 06/08/19 06/08/19 06/08/19 09:42 09:42 09:42 10:49 Pulse 64 64 Resp 14 B/P (MAP) 149/66 149/66 Pulse Ox 97 97 O2 Delivery Room Air Room Air 06/08/19 06/08/19 11:00 15:00 Temp 98.2 97.9 98.2 97.9 Pulse 75 60 Resp 16 16 B/P (MAP) 139/63 (88) 146/67 (93) Pulse Ox 96 95 O2 Delivery Room Air Room Air Intake and Output 8/19/19 8/19/19 8/20/19 14:59 22:59 06:59 Intake Total 50 ml 200 ml Output Total 800 ml 600 ml 750 ml Balance -800 ml -550 ml -550 ml DEBRA VALLEJO MD Jun 08, 2019 16:36
[2019-06-08 19:15] VITALS: BP 148/67
[2019-06-08] MEDS: INSULIN GLARGINE 300 UNITS/3 ML INSULN.PEN. SQ SCH (21:19)
[2019-06-08 22:55] VITALS: BP 148/67
[2019-06-09] VITALS (7 sets, daily range): BP systolic 135–167; BP diastolic 61–74
[2019-06-09] MEDS: IV 1/2 NORMAL SALINE 1,000 ML IV SCH ×2 (02:49→10:45)
[2019-06-09 04:58] LABS: BASO % 0 % (0-3); EOS # 0.2 x10^3/uL (0.0-0.7); EOS % 2 % (0-3); HEMATOCRIT 30.9 % (36.0-47.0); HEMOGLOBIN 10.6 g/dL (12.0-15.5); LYMPH # 1.7 x10^3/uL (1.0-4.8); LYMPH % 20 % (24-48); MEAN CORPUSCULAR HEMOGLOBIN 29 pg (25-35); MEAN CORPUSCULAR HGB CONC 34 g/dL (31-37); MEAN CORPUSCULAR VOLUME 84 fL (79-100); MONO # 0.8 x10^3/uL (0.0-1.1); MONO % 10 % (0-9); NEUT # 5.8 x10^3/uL (1.8-7.7); NEUT % 68 % (31-73); PLATELET COUNT 292 x10^3/uL (140-400); RED BLOOD COUNT 3.69 x10^6/uL (3.50-5.40); RED CELL DISTRIBUTION WIDTH 13.2 % (11.5-14.5); WHITE BLOOD COUNT 8.6 x10^3/uL (4.0-11.0)
[2019-06-09 05:24] LABS: ALBUMIN/GLOBULIN RATIO 0.8 (1.0-1.7); CALCIUM 8.7 mg/dL (8.5-10.1); GFR 52.3; POTASSIUM 3.9 mmol/L (3.5-5.1); TOTAL BILIRUBIN 0.5 mg/dL (0.2-1.0); TOTAL PROTEIN 6.6 g/dL (6.4-8.2)
[2019-06-09 05:25] LABS: CHOLESTEROL/HDL RATIO 3.7
[2019-06-09] MEDS: INSULIN LISPRO 300 UNITS/3 ML VIAL. SQ SCH ×5 (07:48→18:04)
[2019-06-09] MEDS ORDERED: ASPIRIN ENTERIC COATED 325 MG TABLET.DR. PO SCH ×2 (08:00→09:00)
[2019-06-09] MEDS: ACETAMINOPHEN 325 MG TABLET. PO SCH (08:13)
[2019-06-09] MEDS: ASPIRIN ENTERIC COATED 325 MG TABLET.DR. PO SCH (08:16)
[2019-06-09] MEDS: traMADol 50 MG TABLET PO PRN ×2 (08:16→21:20)
[2019-06-09] MEDS: MULTIVITAMIN with MINERAL TABLET. PO SCH (08:16)
[2019-06-09] MEDS: VITAMIN E 200 UNIT CAPSULE. PO SCH (08:16)
[2019-06-09] MEDS: CALCIUM CARB/VIT D3 500/200 TABLET. PO SCH (08:16)
[2019-06-09] MEDS: LISINOPRIL 10 MG TABLET PO SCH ×2 (08:17→21:20)
[2019-06-09] MEDS: amLODIPine BESYLATE 5 MG TABLET PO SCH (08:17)
--- NOTE | 2019-06-09 08:43 | PDOC ---
PROGRESS NOTES Assessment Problems Medical Problems: (1) Diabetes Status: Chronic (2) Dyspnea Status: Acute (3) HTN (hypertension) Status: Chronic (4) Hypertensive encephalopathy Status: Acute (5) Metabolic encephalopathy Status: Acute (6) NSTEMI (non-ST elevated myocardial infarction) Status: Acute (7) Valvular stenosis, aortic Status: Chronic Multiple embolic strokes: anterior left cerebellum, posterior medial left cerebellum, right occipital lobe, left temporal lobe, posterior right centrum semiovale, right parietal cortical surface, right frontal lobe, right frontal cortical surface. Vasovagal syncope, component of hypertensive encephalopathy, possible concussion No evidence of seizure, EEG is negative Family stress Note hyperlipidemia, is on a statin Plan Discussed with cardiology, needs event monitor, possible [place] Add clopidogrel, discontinue aspirin after a week Possible discharge today Follow up with neurology PRN Follow up with PCP re cholesterol Discussed with patient son, especially stroke precautions. Subjective No complaints, now adds that she had some left hand numbness on 06/06 Objective Vital Signs Date Time Temp Pulse Resp B/P (MAP) Pulse Ox O2 Delivery O2 Flow Rate FiO2 06/09/19 08:19 67 135/61 06/09/19 08:19 96 Room Air 2.0 06/09/19 07:00 97.9 16 97.9 Intake and Output 06/09/19 06:59 Intake Total 200 ml Output Total 550 ml Balance -350 ml Intake Oral 200 ml Output Urine Total 550 ml # Voids 1 PHYSICAL EXAM Alert. Oriented to time, place and person. PERRL. EOMI. CN: no focal findings. Muscle tone: normal. Muscle strength: 5/5 DTR: 2+ Plantar reflex: flexor Gait: not examined in bed. Sensory exam: no abnormal findings. No cerebellar signs elicited. Review of Relevant I have reviewed the following items randa (where applicable) has been applied. Labs Laboratory Tests Test 06/07/19 10:00 06/07/19 12:30 06/07/19 17:22 06/07/19 20:10 Troponin I Quantitative 1.506 ng/mL (0.000-0.055) Glucose (Fingerstick) 96 mg/dL (70-99) 135 mg/dL (70-99) 85 mg/dL (70-99) Test 06/07/19 21:30 06/08/19 06:15 8/20/19 06:25 06/08/19 07:22 Urine Collection Type Unknown Urine Color Straw Urine Clarity Clear Urine pH 6.5 Urine Specific Diamond 1.010 Urine Protein 30 mg/dL (NEG-TRACE) Urine Glucose (UA) Negative mg/dL (NEG) Urine Ketones (Stick) Negative mg/dL (NEG) Urine Blood Negative (NEG) Urine Nitrite Negative (NEG) Urine Bilirubin Negative (NEG) Urine Urobilinogen Dipstick 0.2 mg/dL (0.2 mg/dL) Urine Leukocyte Esterase Negative (NEG) Urine RBC 0 /HPF (0-2) Urine WBC Rare /HPF (0-4) Urine Squamous Epithelial Cells Few /LPF Urine Bacteria Few /HPF (0-FEW) Sodium Level 130 mmol/L (136-145) Potassium Level 4.0 mmol/L (3.5-5.1) Chloride Level 96 mmol/L (98-107) Carbon Dioxide Level 25 mmol/L (21-32) Anion Gap 9 (6-14) Blood Urea Nitrogen 15 mg/dL (7-20) Creatinine 0.9 mg/dL (0.6-1.0) Estimated GFR (Cockcroft-Gault) 59.1 Glucose Level 67 mg/dL (70-99) Calcium Level 8.8 mg/dL (8.5-10.1) White Blood Count 10.1 x10^3/uL (4.0-11.0) Red Blood Count 3.72 x10^6/uL (3.50-5.40) Hemoglobin 10.8 g/dL (12.0-15.5) Hematocrit 31.3 % (36.0-47.0) Mean Corpuscular Volume 84 fL (79-100) Mean Corpuscular Hemoglobin 29 pg (25-35) Mean Corpuscular Hemoglobin Concent 34 g/dL (31-37) Red Cell Distribution Width 13.3 % (11.5-14.5) Platelet Count 308 x10^3/uL (140-400) Neutrophils (%) (Auto) 69 % (31-73) Lymphocytes (%) (Auto) 20 % (24-48) Monocytes (%) (Auto) 9 % (0-9) Eosinophils (%) (Auto) 1 % (0-3) Basophils (%) (Auto) 0 % (0-3) Neutrophils # (Auto) 7.0 x10^3/uL (1.8-7.7) Lymphocytes # (Auto) 2.0 x10^3/uL (1.0-4.8) Monocytes # (Auto) 0.9 x10^3/uL (0.0-1.1) Eosinophils # (Auto) 0.1 x10^3/uL (0.0-0.7) Basophils # (Auto) 0.0 x10^3/uL (0.0-0.2) Glucose (Fingerstick) 74 mg/dL (70-99) Test 06/08/19 11:36 06/08/19 16:35 06/08/19 17:17 06/08/19 21:05 Glucose (Fingerstick) 249 mg/dL (70-99) 178 mg/dL (70-99) 148 mg/dL (70-99) Urine Random Sodium <60 mmol/L (Not Estab.) Test 06/09/19 04:30 06/09/19 07:38 White Blood Count 8.6 x10^3/uL (4.0-11.0) Red Blood Count 3.69 x10^6/uL (3.50-5.40) Hemoglobin 10.6 g/dL (12.0-15.5) Hematocrit 30.9 % (36.0-47.0) Mean Corpuscular Volume 84 fL (79-100) Mean Corpuscular Hemoglobin 29 pg (25-35) Mean Corpuscular Hemoglobin Concent 34 g/dL (31-37) Red Cell Distribution Width 13.2 % (11.5-14.5) Platelet Count 292 x10^3/uL (140-400) Neutrophils (%) (Auto) 68 % (31-73) Lymphocytes (%) (Auto) 20 % (24-48) Monocytes (%) (Auto) 10 % (0-9) Eosinophils (%) (Auto) 2 % (0-3) Basophils (%) (Auto) 0 % (0-3) Neutrophils # (Auto) 5.8 x10^3/uL (1.8-7.7) Lymphocytes # (Auto) 1.7 x10^3/uL (1.0-4.8) Monocytes # (Auto) 0.8 x10^3/uL (0.0-1.1) Eosinophils # (Auto) 0.2 x10^3/uL (0.0-0.7) Basophils # (Auto) 0.0 x10^3/uL (0.0-0.2) Sodium Level 130 mmol/L (136-145) Potassium Level 3.9 mmol/L (3.5-5.1) Chloride Level 96 mmol/L (98-107) Carbon Dioxide Level 25 mmol/L (21-32) Anion Gap 9 (6-14) Blood Urea Nitrogen 19 mg/dL (7-20) Creatinine 1.0 mg/dL (0.6-1.0) Estimated GFR (Cockcroft-Gault) 52.3 BUN/Creatinine Ratio 19 (6-20) Glucose Level 119 mg/dL (70-99) Calcium Level 8.7 mg/dL (8.5-10.1) Total Bilirubin 0.5 mg/dL (0.2-1.0) Aspartate Amino Transf (AST/SGOT) 20 U/L (15-37) Alanine Aminotransferase (ALT/SGPT) 21 U/L (14-59) Alkaline Phosphatase 65 U/L (46-116) Total Protein 6.6 g/dL (6.4-8.2) Albumin 3.0 g/dL (3.4-5.0) Albumin/Globulin Ratio 0.8 (1.0-1.7) Triglycerides Level 134 mg/dL (0-150) Cholesterol Level 183 mg/dL (0-200) LDL Cholesterol, Calculated 107 mg/dL (0-100) VLDL Cholesterol, Calculated 27 mg/dL (0-40) Non-HDL Cholesterol Calculated 134 mg/dL (0-129) HDL Cholesterol 49 mg/dL (40-60) Cholesterol/HDL Ratio 3.7 Glucose (Fingerstick) 113 mg/dL (70-99) Laboratory Tests Test 06/08/19 11:36 06/08/19 16:35 06/08/19 17:17 06/08/19 21:05 Glucose (Fingerstick) 249 mg/dL (70-99) 178 mg/dL (70-99) 148 mg/dL (70-99) Urine Random Sodium <60 mmol/L (Not Estab.) Test 06/09/19 04:30 06/09/19 07:38 White Blood Count 8.6 x10^3/uL (4.0-11.0) Red Blood Count 3.69 x10^6/uL (3.50-5.40) Hemoglobin 10.6 g/dL (12.0-15.5) Hematocrit 30.9 % (36.0-47.0) Mean Corpuscular Volume 84 fL (79-100) Mean Corpuscular Hemoglobin 29 pg (25-35) Mean Corpuscular Hemoglobin Concent 34 g/dL (31-37) Red Cell Distribution Width 13.2 % (11.5-14.5) Platelet Count 292 x10^3/uL (140-400) Neutrophils (%) (Auto) 68 % (31-73) Lymphocytes (%) (Auto) 20 % (24-48) Monocytes (%) (Auto) 10 % (0-9) Eosinophils (%) (Auto) 2 % (0-3) Basophils (%) (Auto) 0 % (0-3) Neutrophils # (Auto) 5.8 x10^3/uL (1.8-7.7) Lymphocytes # (Auto) 1.7 x10^3/uL (1.0-4.8) Monocytes # (Auto) 0.8 x10^3/uL (0.0-1.1) Eosinophils # (Auto) 0.2 x10^3/uL (0.0-0.7) Basophils # (Auto) 0.0 x10^3/uL (0.0-0.2) Sodium Level 130 mmol/L (136-145) Potassium Level 3.9 mmol/L (3.5-5.1) Chloride Level 96 mmol/L (98-107) Carbon Dioxide Level 25 mmol/L (21-32) Anion Gap 9 (6-14) Blood Urea Nitrogen 19 mg/dL (7-20) Creatinine 1.0 mg/dL (0.6-1.0) Estimated GFR (Cockcroft-Gault) 52.3 BUN/Creatinine Ratio 19 (6-20) Glucose Level 119 mg/dL (70-99) Calcium Level 8.7 mg/dL (8.5-10.1) Total Bilirubin 0.5 mg/dL (0.2-1.0) Aspartate Amino Transf (AST/SGOT) 20 U/L (15-37) Alanine Aminotransferase (ALT/SGPT) 21 U/L (14-59) Alkaline Phosphatase 65 U/L (46-116) Total Protein 6.6 g/dL (6.4-8.2) Albumin 3.0 g/dL (3.4-5.0) Albumin/Globulin Ratio 0.8 (1.0-1.7) Triglycerides Level 134 mg/dL (0-150) Cholesterol Level 183 mg/dL (0-200) LDL Cholesterol, Calculated 107 mg/dL (0-100) VLDL Cholesterol, Calculated 27 mg/dL (0-40) Non-HDL Cholesterol Calculated 134 mg/dL (0-129) HDL Cholesterol 49 mg/dL (40-60) Cholesterol/HDL Ratio 3.7 Glucose (Fingerstick) 113 mg/dL (70-99) Medications Current Medications Aspirin (Ecotrin) 324 mg 1X ONCE PO Last administered on 06/07/19at 03:10; Start 06/07/19 at 03:30; Stop 06/07/19 at 03:31; Status DC Ondansetron HCl (Zofran) 4 mg PRN Q8HRS PRN IV NAUSEA/VOMITING 1ST CHOICE; Start 06/07/19 at 04:30; Stop 06/08/19 at 04:29; Status DC Sodium Chloride 1,000 ml @ 75 mls/hr [id number] IV Last administered on 06/07/19at 04:41; Start 06/07/19 at 05:00; Stop 06/08/19 at 04:59; Status DC Lidocaine HCl (Xylocaine-Mpf 1% 2ml Vial) 2 ml STK-MED ONCE .ROUTE ; Start 06/07/19 at 09:30; Stop 06/07/19 at 09:31; Status DC Iohexol (Omnipaque 300 Mg/ml) 100 ml STK-MED ONCE .ROUTE ; Start 06/07/19 at 09:30; Stop 06/07/19 at 09:31; Status DC Heparin Sodium/ Sodium Chloride 500 ml @ As Directed STK-MED ONCE .ROUTE ; Start 06/07/19 at 09:30; Stop 06/07/19 at 09:31; Status DC Fentanyl Citrate (Fentanyl 2ml Vial) 100 mcg STK-MED ONCE .ROUTE ; Start 06/07/19 at 09:48; Stop 06/07/19 at 09:48; Status DC Midazolam HCl (Versed) 2 mg STK-MED ONCE .ROUTE ; Start 06/07/19 at 09:48; Stop 06/07/19 at 09:48; Status DC Heparin Sodium (Porcine) (Heparin Sodium) 10,000 unit STK-MED ONCE .ROUTE ; Start 06/07/19 at 09:48; Stop 06/07/19 at 09:48; Status DC Verapamil HCl (Verapamil) 5 mg STK-MED ONCE .ROUTE ; Start 06/07/19 at 09:48; Stop 06/07/19 at 09:48; Status DC Nitroglycerin (Nitroglycerin) 200 mcg STK-MED ONCE .ROUTE ; Start 06/07/19 at 09:48; Stop 06/07/19 at 09:49; Status DC Iohexol (Omnipaque 300 Mg/ml) 100 ml STK-MED ONCE .ROUTE ; Start 06/07/19 at 10:24; Stop 06/07/19 at 10:24; Status DC Nitroglycerin (Nitroglycerin) 200 mcg 1X ONCE IART Last administered on 10:54; Start 06/07/19 at 10:45; Stop 06/07/19 at 10:46; Status DC Verapamil HCl (Verapamil) 2.5 mg 1X ONCE IART Last administered on 06/07/19 10:54; Start 06/07/19 at 10:45; Stop 06/07/19 at 10:46; Status DC Heparin Sodium (Porcine) (Heparin Sodium) 2,500 unit 1X ONCE IART Last administered on 06/07/19 10:54; Start 06/07/19 at 10:45; Stop 06/07/19 at 10:46; Status DC Heparin Sodium/ Sodium Chloride (HEPARIN for ARTERIAL LINE FLUSH) 1,000 unit 1X ONCE IART Last administered on 06/07/19 10:54; Start 06/07/19 at 10:45; Stop 06/07/19 at 10:46; Status DC Midazolam HCl (Versed) 2 mg 1X ONCE IV Last administered on 06/07/19 10:54; Start 06/07/19 at 10:45; Stop 06/07/19 at 10:46; Status DC Fentanyl Citrate (Fentanyl 2ml Vial) 100 mcg 1X ONCE IV Last administered on 8/19/19at 10:54; Start 06/07/19 at 10:45; Stop 06/07/19 at 10:46; Status DC Iohexol (Omnipaque 300 Mg/ml) 100 ml 1X ONCE IART Last administered on 06/07/19at 10:54; Start 06/07/19 at 10:45; Stop 06/07/19 at 10:46; Status DC Lidocaine HCl (Xylocaine-Mpf 1% 2ml Vial) 2 ml 1X ONCE INJ Last administered on 06/07/19at 10:54; Start 06/07/19 at 10:45; Stop 06/07/19 at 10:46; Status DC Info (CONTRAST GIVEN -- Rx MONITORING) 1 each PRN DAILY PRN MC SEE COMMENTS; Start 06/07/19 at 11:00; Stop 06/09/19 at 10:59 Sodium Chloride 1,000 ml @ 100 mls/hr Q10H IV Last administered on 06/07/19at 12:18; Start 06/07/19 at 10:49 Nitroglycerin (Nitrostat) 0.4 mg PRN Q5MIN PRN SL CHEST PAIN; Start 06/07/19 at 11:00 Acetaminophen (Tylenol) 325 mg DAILY PO ; Start 06/08/19 at 09:00 Amlodipine Besylate (Norvasc) 5 mg DAILY PO Last administered on 06/09/19at 08:19; Start 06/08/19 at 09:00 Aspirin (Ecotrin) 325 mg DAILY PO Last administered on 06/09/19at 08:19; Start 06/08/19 at 09:00 Insulin Glargine (Lantus) 17 units QHS SQ Last administered on 06/08/19at 21:19; Start 06/07/19 at 21:00 Lisinopril (Prinivil) 10 mg BID PO Last administered on 06/09/19at 08:19; Start 06/07/19 at 21:00 Calcium/Vitamin D (Oscal D 500mg/ 200uts) 1 tab DAILY PO Last administered on 06/09/19at 08:19; Start 06/08/19 at 09:00 Insulin Human Lispro (HumaLOG) 5 units DAILYWBKFT SQ ; Start 06/07/19 at 17:00 Insulin Human Lispro (HumaLOG) 10 units DAILYWSUP SQ Last administered on 06/08/19at 18:01; Start 06/07/19 at 17:00 Multivitamins (Thera M Plus) 1 tab DAILY PO Last administered on 06/09/19at 08:19; Start 06/08/19 at 09:00 Non-Formulary Medication (Ubidecarenone (Coq-10)) 100 mg DAILY PO ; Start 06/08/19 at 09:00; Status UNV Vitamin E 200 unit DAILY PO Last administered on 06/09/19at 08:19; Start 06/08/19 at 09:00 Morphine Sulfate (Morphine Sulfate) 2 mg PRN Q4HRS PRN IV PAIN; Start 06/07/19 at 20:15 Tramadol HCl (Ultram) 50 mg PRN Q6HRS PRN PO PAIN Last administered on 06/09/19at 08:19; Start 06/07/19 at 20:15 Insulin Human Lispro (HumaLOG) 0-5 UNITS TIDWMEALS SQ Last administered on 06/08/19at 18:01; Start 06/08/19 at 12:00 Dextrose (Dextrose 50%-Water Syringe) 12.5 gm PRN Q15MIN PRN IV SEE COMMENTS; Start 06/08/19 at 12:15 Dextrose 250 ml PRN Q15MIN PRN IV SEE COMMENTS; Start 06/08/19 at 12:15; Stop 06/08/19 at 12:11; Status DC Acetaminophen (Tylenol) 650 mg PRN Q6HRS PRN PO TEMP > 100.4F; Start 06/08/19 at 14:45 Acetaminophen (Tylenol Supp) 650 mg PRN Q4HRS PRN TN TEMP > 100.4F; Start 06/08/19 at 14:45 Aspirin (Ecotrin) 325 mg DAILYWBKFT PO ; Start 06/09/19 at 08:00; Status Cancel Aspirin (Aspirin Rectal Supp) 300 mg PRN DAILY PRN TN IF UNABLE TO TAKE PO; Start 06/08/19 at 14:45 Atorvastatin Calcium (Lipitor) 20 mg QHS PO ; Start 06/09/19 at 21:00 Active Scripts Active Reported Novolog Flexpen (Insulin Aspart) 100 Unit/1 Ml Insuln.pen 10 Unit SQ DAILYWSUP Novolog Flexpen (Insulin Aspart) 100 Unit/1 Ml Insuln.pen 5 Unit SQ DAILYWBKFT Vitamin E (Vitamin E Acid Succinate) 100 Unit Tablet 100 Unit PO DAILY Coq-10 (Ubidecarenone) 100 Mg Capsule 100 Mg PO DAILY Lantus Solostar (Insulin Glargine,Hum.rec.anlog) 100 Unit/1 Ml Insuln.pen 17 Unit SQ QHS Caltrate 600 + D Soft Chew Tab (Calcium Carbonate/Vitamin D3) 1 Each Tab.chew 1 Each PO DAILY One Daily For Women 50+ Adv Tb (Multivitamins-Min/Fa/Ginkgo) 1 Each Tablet 1 Each PO DAILY Tylenol (Acetaminophen) 325 Mg Tablet 325 Mg PO DAILY Aspirin Ec (Aspirin) 325 Mg Tablet.dr 325 Mg PO DAILY Amlodipine Besylate 5 Mg Tablet 5 Mg PO DAILY Zestril (Lisinopril) 10 Mg Tablet 10 Mg PO BID Metformin Hcl 1,000 Mg Tablet 1,000 Mg PO BIDWMEALS Vitals/I & O Vital Sign - Last 24 Hours 06/08/19 06/08/19 06/08/19 06/08/19 09:42 09:42 09:42 10:49 Pulse 64 64 Resp 14 B/P (MAP) 149/66 149/66 Pulse Ox 97 97 O2 Delivery Room Air Room Air 06/08/19 06/08/19 06/08/19 06/08/19 11:00 15:00 19:15 19:45 Temp 98.2 97.9 98.3 98.2 97.9 98.3 Pulse 75 60 83 Resp 16 16 20 B/P (MAP) 139/63 (88) 146/67 (93) 148/67 (94) Pulse Ox 96 95 96 O2 Delivery Room Air Room Air Room Air Room Air 06/08/19 06/08/19 06/09/19 06/09/19 21:19 22:55 01:22 03:11 Temp 98.6 98.3 98.6 98.3 Pulse 86 75 72 Resp 18 20 B/P (MAP) 148/67 148/67 (94) 138/65 (89) Pulse Ox 96 96 O2 Delivery Room Air Room Air Room Air 06/09/19 06/09/19 06/09/19 06/09/19 07:00 08:19 08:19 08:19 Temp 97.9 97.9 Pulse 67 67 67 Resp 16 B/P (MAP) 135/61 (85) 135/61 135/61 Pulse Ox 96 O2 Delivery Room Air Room Air O2 Flow Rate 2.0 Intake and Output 06/08/19 06/08/19 06/09/19 14:59 22:59 06:59 Intake Total 200 ml Output Total 200 ml 150 ml 200 ml Balance -200 ml -150 ml 0 ml Images MRI Brain without contrast History: Syncope, confusion, decreased hearing Technique: Multiplanar, multisequential noncontrast MR imaging was performed of the brain. Comparison: None other than CT head exam June 07, 2019 Findings: There is focus of restricted diffusion of the anterior left cerebellum about 1 cm in size, corresponding T2 and FLAIR hyperintense signal. There is also small focus of restricted diffusion of the posterior medial left cerebellum about 0.6 cm in size, hypointense on ADC map. There could be a very small focus of restricted diffusion of the right occipital lobe about 0.4 cm although limited evaluation due to artifact in this region. There is a small focus of restricted diffusion of the left temporal lobe along the periventricular white matter about 0.5 cm. There is a 0.4 cm focus of restricted diffusion of the posterior right centrum semiovale. There is probable very small focus of restricted diffusion right parietal cortical surface about 0.2 cm otherwise difficult to characterize given small size. There is small 0.3 cm focus of somewhat faint restricted diffusion of the right frontal lobe and also separate small focus of the right frontal cortical surface about 0.3 cm in size. There is preservation of the major arterial intracranial flow voids the skull base. There is no midline shift or intra-axial mass effect. There are old lacunar infarcts of the left montes de oca radiata/centrum semiovale. There is other multifocal moderate to severe T2 and FLAIR hyperintense signal abnormality of the supratentorial parenchyma bilaterally. There is mild to moderate lateral ventriculomegaly and mild third ventriculomegaly probably due to atrophy as there is [id number] generalized atrophy present. There is no significant hemosiderin deposition of the brain parenchyma. Mastoid air cells are mostly aerated, small focus of fluid on the left. There is patchy minimal ethmoid air cell mucosal thickening. There has been lens surgery bilaterally. Cerebellar tonsils are normal in location. There is preservation of marrow signal of the clivus. There is no abnormality of pineal gland or pituitary gland. Impression: 1. There are some scattered small recent acute or subacute infarcts bilaterally as stated, largest of the anterior left cerebellum. Given bilateral distribution, embolic source should be considered. 2. Other scattered multifocal T2 and FLAIR hyperintense signal abnormality of the supratentorial parenchyma bilaterally is nonspecific, most commonly due to chronic microvascular ischemic disease in a patient this age. 3. There is [id number] generalized supratentorial atrophy. Carotids: The peak systolic velocity within the right common carotid artery is 75 cm/sec. The peak systolic velocity within the right internal carotid artery is 111 cm/sec and the end diastolic velocity within the right internal carotid artery is 27 cm/sec. The right ICA/CCA ratio is 1.50. The peak systolic velocity within the left common carotid artery is 1 heart and 14 cm/sec. The peak systolic velocity within the left internal carotid artery is 98 cm/sec and the end diastolic velocity within the left internal carotid artery is 20 cm/sec. The left ICA/CCA ratio is 1.05. There is normal antegrade flow within both vertebral arteries. IMPRESSION: No Doppler evidence of hemodynamically significant stenosis within the carotid or vertebral arteries. Echo: LEFT VENTRICLE The left ventricle is normal size. There is mild concentric left ventricular hypertrophy. The left ventricle is hyperdynamic. The Ejection Fraction is >65%. There is normal LV segmental wall motion. Transmitral Doppler flow pattern is abnormal. RIGHT VENTRICLE The right ventricle is normal size. There is normal right ventricular wall thickness. The right ventricular systolic function is normal. ATRIA The left atrium size is normal. The right atrium size is normal. The interatrial septum is intact with no evidence for an atrial septal defect or patent foramen ovale as noted on 2-D or Doppler imaging. AORTIC VALVE The aortic valve is mildly calcified. The aortic valve is trileaflet. Doppler and Color Flow revealed no significant aortic regurgitation. There is mild valvular aortic stenosis. Calculated aortic valve area is 1.4 cm2 with maximum pressure gradient of 14 mmHg and mean pressure gradient of 10 mmHg. MITRAL VALVE Mitral annular calcification is moderate. There is no evidence of mitral valve prolapse. There is no mitral valve stenosis. Doppler and Color-flow revealed trace to mild mitral regurgitation. TRICUSPID VALVE The tricuspid valve is normal in structure and function. Doppler and Color Flow revealed trace tricuspid regurgitation. The PA pressure was estimated at 26 mmHg. There is no tricuspid valve prolapse or vegetation. There is no tricuspid valve stenosis. PULMONIC VALVE The pulmonic valve is not well visualized. GREAT VESSELS The aortic root is normal in size. The ascending aorta is normal in size. The IVC is normal in size and collapses >50% with inspiration. PERICARDIAL EFFUSION There is no evidence of significant pericardial effusion. Critical Notification Critical Value: No <Conclusion> The left ventricle is normal size. The left ventricle is hyperdynamic. The Ejection Fraction is >65%. There is mild concentric left ventricular hypertrophy. There is mild valvular aortic stenosis. Calculated aortic valve area is 1.4 cm2 with maximum pressure gradient of 14 mmHg and mean pressure gradient of 10 mmHg. Doppler and Color Flow revealed no significant aortic regurgitation. Doppler and Color-flow revealed trace to mild mitral regurgitation. Doppler and Color Flow revealed trace tricuspid regurgitation. The PA pressure was estimated at 26 mmHg. HUGH CRAMER MD Jun 09, 2019 08:43
[2019-06-09] MEDS: CLOPIDOGREL BISULFATE 75 MG TABLET PO SCH (09:18)
[2019-06-09] MEDS ORDERED: LIDOCAINE 2% TOPICAL JELLY 30GM TUBE. TP ONE ×2 (10:15→14:54)
[2019-06-09] MEDS ORDERED: BENZOCAINE ONE 20% MUCOSAL SPRAY. MM (10:15)
[2019-06-09] MEDS ORDERED: LIDOCAINE 2% VISCOUS 15 ML SOLUTION. SWSW ONE (10:15)
--- NOTE | 2019-06-09 10:33 | NUR ---
SS following up with discharge planning. PT/OT recommending [facility]. SS met with pt to discuss discharge planning and [facility]. Pt deferred SS to her son, Devon, for decision making. SS contacted pt's son Devon and discussed [facility] and discharge planning. SS discussed [facility]. Pt's son declined [facility] as a first choice and stated that he wants the referral to be phoned and faxed to [facility], ; fax [phone]. He stated that if they cannot accept he would consider other options. SS phoned and faxed referral. SS will await acceptance decision and will proceed accordingly.
[2019-06-09] MEDS ORDERED: IV RINGERS,LACTATED 1000ML 1,000 ML IV SCH (10:41)
[2019-06-09] MEDS ORDERED: MORPHINE SULFATE 2 MG/ML VIAL. IV PRN (10:45)
[2019-06-09] MEDS ORDERED: HYDROmorphone 2 MG/ML VIAL IV PRN (10:45)
[2019-06-09] MEDS ORDERED: ONDANSETRON PF 4 MG/2 ML VIAL. IV PRN (10:45)
[2019-06-09] MEDS ORDERED: LIDOCAINE 1% PF 2 ML VIAL. ID PRN (10:45)
[2019-06-09] MEDS ORDERED: fentaNYL PF VIAL 100 MCG/2 ML VIAL IV PRN ×2 (10:45)
[2019-06-09] MEDS ORDERED: PROCHLORPERAZINE 10 MG/2 ML VIAL. IV PRN (10:45)
--- NOTE | 2019-06-09 11:11 | PDOC ---
PROGRESS NOTES History of Present Illness History of Present Illness VTE Prophylaxis Ordered VTE Prophylaxis Devices: No VTE Pharmacological Prophylaxi: Yes Assessment/Plan Assessment/Plan impression 1. Nonobstructive coronary artery disease 2. Hyperdynamic left ventricle systolic function with ejection fraction estimated at 80% 3. non-STEMI is most probably type 2/demand ischemia. 4. 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 5. diabetes 6. hypertension 7. dizziness 8. dyspnea 9. on echo Ejection Fraction is >65%. 10.There is mild concentric left ventricular hypertrophy. 11. mild valvular aortic stenosis. by echo . Calculated aortic valve area is 1.4 cm2 with maximum pressure gradient of 14 mm Hg and mean pressure gradient of 10 mmHg. 12. shortness of breath //probably anginal equivalent. Chest x-ray did not show any evidence of congestive heart failure. 13. new onset confusion, memory loss, metabolic encephalopathy 14. component of hypertensive encephalopathy, possible concussion 15, CVA, MULTIPLE areas focus of restricted diffusion of the anterior left cerebellum about 1 cm in size, corresponding T2 and FLAIR hyperintense signal. There is also small focus of restricted diffusion of the posterior medial left cerebellum about 0.6 cm in size, hypointense on ADC map. There could be a very small focus of restricted diffusion of the right occipital lobe about 0.4 cm although limited evaluation due to artifact in this region. There is a small focus of restricted diffusion of the left temporal lobe along the periventricular white matter about 0.5 cm. There is a 0.4 cm focus of restricted diffusion of the posterior right centrum semiovale. There is probable very small focus of restricted diffusion right parietal cortical surface about 0.2 cm otherwise difficult to characterize given small size. There is small 0.3 cm focus of somewhat faint restricted diffusion of the right frontal lobe and also separate small focus of the right frontal cortical surface about 0.3 cm in size. plan cont cvc cardiac cath reviewed medical management. accuchecks risk reduction mgt cardiology consulted pt/ot neurology consult mri head event monitor, possible [facility] Add clopidogrel, discontinue aspirin after a week Discharge Recommendations * Residential Unit 41 min pt exam, chart review, > 50% of time spent with exam, chart review, pt care coordination Vitals Vitals Vital Signs Date Time Temp Pulse Resp B/P (MAP) Pulse Ox O2 Delivery O2 Flow Rate FiO2 06/09/19 10:52 98.0 71 16 167/74 (105) 95 Room Air 98.0 06/09/19 09:21 2.0 Physical Exam General: Alert, Cooperative, No acute distress Heart: Regular rate, Normal S1, Other (ESM LUPSB) Lungs: Clear Abdomen: Normal bowel sounds, Soft, No tenderness Extremities: No cyanosis Skin: No significant lesion Labs LABS Laboratory Tests Test 06/08/19 11:36 06/08/19 16:35 06/08/19 17:17 06/08/19 21:05 Glucose (Fingerstick) 249 mg/dL (70-99) 178 mg/dL (70-99) 148 mg/dL (70-99) Urine Random Sodium <60 mmol/L (Not Estab.) Test 06/09/19 04:30 06/09/19 07:38 White Blood Count 8.6 x10^3/uL (4.0-11.0) Red Blood Count 3.69 x10^6/uL (3.50-5.40) Hemoglobin 10.6 g/dL (12.0-15.5) Hematocrit 30.9 % (36.0-47.0) Mean Corpuscular Volume 84 fL (79-100) Mean Corpuscular Hemoglobin 29 pg (25-35) Mean Corpuscular Hemoglobin Concent 34 g/dL (31-37) Red Cell Distribution Width 13.2 % (11.5-14.5) Platelet Count 292 x10^3/uL (140-400) Neutrophils (%) (Auto) 68 % (31-73) Lymphocytes (%) (Auto) 20 % (24-48) Monocytes (%) (Auto) 10 % (0-9) Eosinophils (%) (Auto) 2 % (0-3) Basophils (%) (Auto) 0 % (0-3) Neutrophils # (Auto) 5.8 x10^3/uL (1.8-7.7) Lymphocytes # (Auto) 1.7 x10^3/uL (1.0-4.8) Monocytes # (Auto) 0.8 x10^3/uL (0.0-1.1) Eosinophils # (Auto) 0.2 x10^3/uL (0.0-0.7) Basophils # (Auto) 0.0 x10^3/uL (0.0-0.2) Sodium Level 130 mmol/L (136-145) Potassium Level 3.9 mmol/L (3.5-5.1) Chloride Level 96 mmol/L (98-107) Carbon Dioxide Level 25 mmol/L (21-32) Anion Gap 9 (6-14) Blood Urea Nitrogen 19 mg/dL (7-20) Creatinine 1.0 mg/dL (0.6-1.0) Estimated GFR (Cockcroft-Gault) 52.3 BUN/Creatinine Ratio 19 (6-20) Glucose Level 119 mg/dL (70-99) Calcium Level 8.7 mg/dL (8.5-10.1) Total Bilirubin 0.5 mg/dL (0.2-1.0) Aspartate Amino Transf (AST/SGOT) 20 U/L (15-37) Alanine Aminotransferase (ALT/SGPT) 21 U/L (14-59) Alkaline Phosphatase 65 U/L (46-116) Total Protein 6.6 g/dL (6.4-8.2) Albumin 3.0 g/dL (3.4-5.0) Albumin/Globulin Ratio 0.8 (1.0-1.7) Triglycerides Level 134 mg/dL (0-150) Cholesterol Level 183 mg/dL (0-200) LDL Cholesterol, Calculated 107 mg/dL (0-100) VLDL Cholesterol, Calculated 27 mg/dL (0-40) Non-HDL Cholesterol Calculated 134 mg/dL (0-129) HDL Cholesterol 49 mg/dL (40-60) Cholesterol/HDL Ratio 3.7 Glucose (Fingerstick) 113 mg/dL (70-99) Assessment and Plan Assessmemt and Plan Problems Medical Problems: (1) Diabetes Status: Chronic (2) Dyspnea Status: Acute (3) HTN (hypertension) Status: Chronic (4) Hypertensive encephalopathy Status: Acute (5) Metabolic encephalopathy Status: Acute (6) NSTEMI (non-ST elevated myocardial infarction) Status: Acute (7) Valvular stenosis, aortic Status: Chronic * Yes Patient condition at conclusion of therapy * Pt in bed * Bed alarm on * Call light in reach * PtIn no apparent distress * Pt denies further needs * Visitor with patient Communicated Patient Care With (Name, Title) * Belkys RN; TOMMY Joe Goal 1 - Bed Mobility Assistance Required * Independent Goal 2 - Transfers Assistance Required * Independent Goal 2 - Transfer Type * Sit to Stand Goal 3 - Ambulation Assistance Required * Independent Goal 3 - Ambulation Distance * 250' Goal 3 - Ambulation Device * Cane Goal 4 - Stairs Assistance Required * Independent Goal 4 - Number of Stairs * 2-4 Goal 4 - Device on Stairs * Cane Treatment Plan * Therapeutic Exercise * Bed Mobility Training * Transfer training * Gait Training * Dynamic Balance Training Frequency of Treatment Expected * 10 visits/week Duration of Treatment Expected * 2 weeks Discharge Recommendations * Residential Unit Comment Review of Relevant I have reviewed the following items randa (where applicable) has been applied. Labs Laboratory Tests Test 06/07/19 12:30 06/07/19 17:22 06/07/19 20:10 06/07/19 21:30 Glucose (Fingerstick) 96 mg/dL (70-99) 135 mg/dL (70-99) 85 mg/dL (70-99) Urine Collection Type Unknown Urine Color Straw Urine Clarity Clear Urine pH 6.5 Urine Specific [place] 1.010 Urine Protein 30 mg/dL (NEG-TRACE) Urine Glucose (UA) Negative mg/dL (NEG) Urine Ketones (Stick) Negative mg/dL (NEG) Urine Blood Negative (NEG) Urine Nitrite Negative (NEG) Urine Bilirubin Negative (NEG) Urine Urobilinogen Dipstick 0.2 mg/dL (0.2 mg/dL) Urine Leukocyte Esterase Negative (NEG) Urine RBC 0 /HPF (0-2) Urine WBC Rare /HPF (0-4) Urine Squamous Epithelial Cells Few /LPF Urine Bacteria Few /HPF (0-FEW) Test 06/08/19 06:15 06/08/19 06:25 06/08/19 07:22 06/08/19 11:36 Sodium Level 130 mmol/L (136-145) Potassium Level 4.0 mmol/L (3.5-5.1) Chloride Level 96 mmol/L (98-107) Carbon Dioxide Level 25 mmol/L (21-32) Anion Gap 9 (6-14) Blood Urea Nitrogen 15 mg/dL (7-20) Creatinine 0.9 mg/dL (0.6-1.0) Estimated GFR (Cockcroft-Gault) 59.1 Glucose Level 67 mg/dL (70-99) Calcium Level 8.8 mg/dL (8.5-10.1) White Blood Count 10.1 x10^3/uL (4.0-11.0) Red Blood Count 3.72 x10^6/uL (3.50-5.40) Hemoglobin 10.8 g/dL (12.0-15.5) Hematocrit 31.3 % (36.0-47.0) Mean Corpuscular Volume 84 fL (79-100) Mean Corpuscular Hemoglobin 29 pg (25-35) Mean Corpuscular Hemoglobin Concent 34 g/dL (31-37) Red Cell Distribution Width 13.3 % (11.5-14.5) Platelet Count 308 x10^3/uL (140-400) Neutrophils (%) (Auto) 69 % (31-73) Lymphocytes (%) (Auto) 20 % (24-48) Monocytes (%) (Auto) 9 % (0-9) Eosinophils (%) (Auto) 1 % (0-3) Basophils (%) (Auto) 0 % (0-3) Neutrophils # (Auto) 7.0 x10^3/uL (1.8-7.7) Lymphocytes # (Auto) 2.0 x10^3/uL (1.0-4.8) Monocytes # (Auto) 0.9 x10^3/uL (0.0-1.1) Eosinophils # (Auto) 0.1 x10^3/uL (0.0-0.7) Basophils # (Auto) 0.0 x10^3/uL (0.0-0.2) Glucose (Fingerstick) 74 mg/dL (70-99) 249 mg/dL (70-99) Test 06/08/19 16:35 06/08/19 17:17 06/08/19 21:05 06/09/19 04:30 Urine Random Sodium <60 mmol/L (Not Estab.) Glucose (Fingerstick) 178 mg/dL (70-99) 148 mg/dL (70-99) White Blood Count 8.6 x10^3/uL (4.0-11.0) Red Blood Count 3.69 x10^6/uL (3.50-5.40) Hemoglobin 10.6 g/dL (12.0-15.5) Hematocrit 30.9 % (36.0-47.0) Mean Corpuscular Volume 84 fL (79-100) Mean Corpuscular Hemoglobin 29 pg (25-35) Mean Corpuscular Hemoglobin Concent 34 g/dL (31-37) Red Cell Distribution Width 13.2 % (11.5-14.5) Platelet Count 292 x10^3/uL (140-400) Neutrophils (%) (Auto) 68 % (31-73) Lymphocytes (%) (Auto) 20 % (24-48) Monocytes (%) (Auto) 10 % (0-9) Eosinophils (%) (Auto) 2 % (0-3) Basophils (%) (Auto) 0 % (0-3) Neutrophils # (Auto) 5.8 x10^3/uL (1.8-7.7) Lymphocytes # (Auto) 1.7 x10^3/uL (1.0-4.8) Monocytes # (Auto) 0.8 x10^3/uL (0.0-1.1) Eosinophils # (Auto) 0.2 x10^3/uL (0.0-0.7) Basophils # (Auto) 0.0 x10^3/uL (0.0-0.2) Sodium Level 130 mmol/L (136-145) Potassium Level 3.9 mmol/L (3.5-5.1) Chloride Level 96 mmol/L (98-107) Carbon Dioxide Level 25 mmol/L (21-32) Anion Gap 9 (6-14) Blood Urea Nitrogen 19 mg/dL (7-20) Creatinine 1.0 mg/dL (0.6-1.0) Estimated GFR (Cockcroft-Gault) 52.3 BUN/Creatinine Ratio 19 (6-20) Glucose Level 119 mg/dL (70-99) Calcium Level 8.7 mg/dL (8.5-10.1) Total Bilirubin 0.5 mg/dL (0.2-1.0) Aspartate Amino Transf (AST/SGOT) 20 U/L (15-37) Alanine Aminotransferase (ALT/SGPT) 21 U/L (14-59) Alkaline Phosphatase 65 U/L (46-116) Total Protein 6.6 g/dL (6.4-8.2) Albumin 3.0 g/dL (3.4-5.0) Albumin/Globulin Ratio 0.8 (1.0-1.7) Triglycerides Level 134 mg/dL (0-150) Cholesterol Level 183 mg/dL (0-200) LDL Cholesterol, Calculated 107 mg/dL (0-100) VLDL Cholesterol, Calculated 27 mg/dL (0-40) Non-HDL Cholesterol Calculated 134 mg/dL (0-129) HDL Cholesterol 49 mg/dL (40-60) Cholesterol/HDL Ratio 3.7 Test 06/09/19 07:38 Glucose (Fingerstick) 113 mg/dL (70-99) Laboratory Tests Test 06/08/19 11:36 06/08/19 16:35 06/08/19 17:17 06/08/19 21:05 Glucose (Fingerstick) 249 mg/dL (70-99) 178 mg/dL (70-99) 148 mg/dL (70-99) Urine Random Sodium <60 mmol/L (Not Estab.) Test 06/09/19 04:30 06/09/19 07:38 White Blood Count 8.6 x10^3/uL (4.0-11.0) Red Blood Count 3.69 x10^6/uL (3.50-5.40) Hemoglobin 10.6 g/dL (12.0-15.5) Hematocrit 30.9 % (36.0-47.0) Mean Corpuscular Volume 84 fL (79-100) Mean Corpuscular Hemoglobin 29 pg (25-35) Mean Corpuscular Hemoglobin Concent 34 g/dL (31-37) Red Cell Distribution Width 13.2 % (11.5-14.5) Platelet Count 292 x10^3/uL (140-400) Neutrophils (%) (Auto) 68 % (31-73) Lymphocytes (%) (Auto) 20 % (24-48) Monocytes (%) (Auto) 10 % (0-9) Eosinophils (%) (Auto) 2 % (0-3) Basophils (%) (Auto) 0 % (0-3) Neutrophils # (Auto) 5.8 x10^3/uL (1.8-7.7) Lymphocytes # (Auto) 1.7 x10^3/uL (1.0-4.8) Monocytes # (Auto) 0.8 x10^3/uL (0.0-1.1) Eosinophils # (Auto) 0.2 x10^3/uL (0.0-0.7) Basophils # (Auto) 0.0 x10^3/uL (0.0-0.2) Sodium Level 130 mmol/L (136-145) Potassium Level 3.9 mmol/L (3.5-5.1) Chloride Level 96 mmol/L (98-107) Carbon Dioxide Level 25 mmol/L (21-32) Anion Gap 9 (6-14) Blood Urea Nitrogen 19 mg/dL (7-20) Creatinine 1.0 mg/dL (0.6-1.0) Estimated GFR (Cockcroft-Gault) 52.3 BUN/Creatinine Ratio 19 (6-20) Glucose Level 119 mg/dL (70-99) Calcium Level 8.7 mg/dL (8.5-10.1) Total Bilirubin 0.5 mg/dL (0.2-1.0) Aspartate Amino Transf (AST/SGOT) 20 U/L (15-37) Alanine Aminotransferase (ALT/SGPT) 21 U/L (14-59) Alkaline Phosphatase 65 U/L (46-116) Total Protein 6.6 g/dL (6.4-8.2) Albumin 3.0 g/dL (3.4-5.0) Albumin/Globulin Ratio 0.8 (1.0-1.7) Triglycerides Level 134 mg/dL (0-150) Cholesterol Level 183 mg/dL (0-200) LDL Cholesterol, Calculated 107 mg/dL (0-100) VLDL Cholesterol, Calculated 27 mg/dL (0-40) Non-HDL Cholesterol Calculated 134 mg/dL (0-129) HDL Cholesterol 49 mg/dL (40-60) Cholesterol/HDL Ratio 3.7 Glucose (Fingerstick) 113 mg/dL (70-99) Medications Current Medications Aspirin (Ecotrin) 324 mg 1X ONCE PO Last administered on 06/07/19at 03:10; Start 06/07/19 at 03:30; Stop 06/07/19 at 03:31; Status DC Ondansetron HCl (Zofran) 4 mg PRN Q8HRS PRN IV NAUSEA/VOMITING 1ST CHOICE; Start 06/07/19 at 04:30; Stop 06/08/19 at 04:29; Status DC Sodium Chloride 1,000 ml @ 75 mls/hr [id number] IV Last administered on 06/07/19at 04:41; Start 06/07/19 at 05:00; Stop 06/08/19 at 04:59; Status DC Lidocaine HCl (Xylocaine-Mpf 1% 2ml Vial) 2 ml STK-MED ONCE .ROUTE ; Start 06/07/19 at 09:30; Stop 06/07/19 at 09:31; Status DC Iohexol (Omnipaque 300 Mg/ml) 100 ml STK-MED ONCE .ROUTE ; Start 06/07/19 at 09:30; Stop 06/07/19 at 09:31; Status DC Heparin Sodium/ Sodium Chloride 500 ml @ As Directed STK-MED ONCE .ROUTE ; Start 06/07/19 at 09:30; Stop 06/07/19 at 09:31; Status DC Fentanyl Citrate (Fentanyl 2ml Vial) 100 mcg STK-MED ONCE .ROUTE ; Start 06/07/19 at 09:48; Stop 06/07/19 at 09:48; Status DC Midazolam HCl (Versed) 2 mg STK-MED ONCE .ROUTE ; Start 06/07/19 at 09:48; Stop 06/07/19 at 09:48; Status DC Heparin Sodium (Porcine) (Heparin Sodium) 10,000 unit STK-MED ONCE .ROUTE ; Start 06/07/19 at 09:48; Stop 06/07/19 at 09:48; Status DC Verapamil HCl (Verapamil) 5 mg STK-MED ONCE .ROUTE ; Start 06/07/19 at 09:48; Stop 06/07/19 at 09:48; Status DC Nitroglycerin (Nitroglycerin) 200 mcg STK-MED ONCE .ROUTE ; Start 06/07/19 at 09:48; Stop 06/07/19 at 09:49; Status DC Iohexol (Omnipaque 300 Mg/ml) 100 ml STK-MED ONCE .ROUTE ; Start 06/07/19 at 10:24; Stop 06/07/19 at 10:24; Status DC Nitroglycerin (Nitroglycerin) 200 mcg 1X ONCE IART Last administered on 06/07/19at 10:54; Start 06/07/19 at 10:45; Stop 06/07/19 at 10:46; Status DC Verapamil HCl (Verapamil) 2.5 mg 1X ONCE IART Last administered on 06/07/19 10:54; Start 06/07/19 at 10:45; Stop 06/07/19 at 10:46; Status DC Heparin Sodium (Porcine) (Heparin Sodium) 2,500 unit 1X ONCE IART Last administered on 06/07/19 10:54; Start 06/07/19 at 10:45; Stop 06/07/19 at 10:46; Status DC Heparin Sodium/ Sodium Chloride (HEPARIN for ARTERIAL LINE FLUSH) 1,000 unit 1X ONCE IART Last administered on 06/07/19 10:54; Start 06/07/19 at 10:45; Stop 06/07/19 at 10:46; Status DC Midazolam HCl (Versed) 2 mg 1X ONCE IV Last administered on 06/07/19 10:54; Start 06/07/19 at 10:45; Stop 06/07/19 at 10:46; Status DC Fentanyl Citrate (Fentanyl 2ml Vial) 100 mcg 1X ONCE IV Last administered on 06/07/19 10:54; Start 06/07/19 at 10:45; Stop 06/07/19 at 10:46; Status DC Iohexol (Omnipaque 300 Mg/ml) 100 ml 1X ONCE IART Last administered on 06/07/19 10:54; Start 06/07/19 at 10:45; Stop 06/07/19 at 10:46; Status DC Lidocaine HCl (Xylocaine-Mpf 1% 2ml Vial) 2 ml 1X ONCE INJ Last administered on 06/07/19 10:54; Start 06/07/19 at 10:45; Stop 06/07/19 at 10:46; Status DC Info (CONTRAST GIVEN -- Rx MONITORING) 1 each PRN DAILY PRN MC SEE COMMENTS; Start 06/07/19 at 11:00; Stop 06/09/19 at 10:59; Status DC Sodium Chloride 1,000 ml @ 100 mls/hr Q10H IV Last administered on 06/07/19at 12:18; Start 06/07/19 at 10:49 Nitroglycerin (Nitrostat) 0.4 mg PRN Q5MIN PRN SL CHEST PAIN; Start 06/07/19 at 11:00 Acetaminophen (Tylenol) 325 mg DAILY PO ; Start 06/08/19 at 09:00 Amlodipine Besylate (Norvasc) 5 mg DAILY PO Last administered on 06/09/19 08:19; Start 06/08/19 at 09:00 Aspirin (Ecotrin) 325 mg DAILY PO Last administered on 06/09/19 08:19; Start 06/08/19 at 09:00; Stop 06/09/19 at 09:00; Status DC Insulin Glargine (Lantus) 17 units QHS SQ Last administered on 06/08/19 21:19; Start 06/07/19 at 21:00 Lisinopril (Prinivil) 10 mg BID PO Last administered on 06/09/19 08:19; Start 06/07/19 at 21:00 Calcium/Vitamin D (Oscal D 500mg/ 200uts) 1 tab DAILY PO Last administered on 06/09/19 08:19; Start 06/08/19 at 09:00 Insulin Human Lispro (HumaLOG) 5 units DAILYWBKFT SQ ; Start 06/07/19 at 17:00 Insulin Human Lispro (HumaLOG) 10 units DAILYWSUP SQ Last administered on 06/08/19at 18:01; Start 06/07/19 at 17:00 Multivitamins (Thera M Plus) 1 tab DAILY PO Last administered on 06/09/19 08:19; Start 06/08/19 at 09:00 Non-Formulary Medication (Ubidecarenone (Coq-10)) 100 mg DAILY PO ; Start 06/08/19 at 09:00; Status UNV Vitamin E 200 unit DAILY PO Last administered on 06/09/19at 08:19; Start 06/08/19 at 09:00 Morphine Sulfate (Morphine Sulfate) 2 mg PRN Q4HRS PRN IV PAIN; Start 06/07/19 at 20:15 Tramadol HCl (Ultram) 50 mg PRN Q6HRS PRN PO PAIN Last administered on 06/09/19at 08:19; Start 06/07/19 at 20:15 Insulin Human Lispro (HumaLOG) 0-5 UNITS TIDWMEALS SQ Last administered on 06/08/19at 18:01; Start 06/08/19 at 12:00 Dextrose (Dextrose 50%-Water Syringe) 12.5 gm PRN Q15MIN PRN IV SEE COMMENTS; Start 06/08/19 at 12:15 Dextrose 250 ml PRN Q15MIN PRN IV SEE COMMENTS; Start 06/08/19 at 12:15; Stop 06/08/19 at 12:11; Status DC Acetaminophen (Tylenol) 650 mg PRN Q6HRS PRN PO TEMP > 100.4F; Start 06/08/19 at 14:45 Acetaminophen (Tylenol Supp) 650 mg PRN Q4HRS PRN RI TEMP > 100.4F; Start 06/08/19 at 14:45 Aspirin (Ecotrin) 325 mg DAILYWBKFT PO ; Start 06/09/19 at 08:00; Status Cancel Aspirin (Aspirin Rectal Supp) 300 mg PRN DAILY PRN RI IF UNABLE TO TAKE PO; Start 06/08/19 at 14:45; Stop 06/09/19 at 09:00; Status DC Atorvastatin Calcium (Lipitor) 20 mg QHS PO ; Start 06/09/19 at 21:00 Aspirin (Ecotrin) 81 mg DAILY PO ; Start 06/09/19 at 09:00 Clopidogrel Bisulfate (Plavix) 75 mg DAILYWBKFT PO Last administered on 06/09/19at 09:21; Start 06/09/19 at 09:00 Benzocaine (Hurricaine One) 3 spray 1X ONCE MM ; Start 06/09/19 at 10:15; Stop 06/09/19 at 10:19; Status DC Lidocaine HCl (Xylocaine 2% Topical 30gm Tube) 1 cricket 1X ONCE TP ; Start 06/09/19 at 10:15; Stop 06/09/19 at 10:19; Status DC Lidocaine HCl (Viscous Lidocaine) 15 ml 1X ONCE SWSW ; Start 06/09/19 at 10:15; Stop 06/09/19 at 10:19; Status DC Ondansetron HCl (Zofran) 4 mg PRN Q6HRS PRN IV NAUSEA/VOMITING; Start 06/09/19 at 10:45; Stop 06/10/19 at 10:44 Fentanyl Citrate (Fentanyl 2ml Vial) 25 mcg PRN Q5MIN PRN IV MILD PAIN 1-3; Start 06/09/19 at 10:45; Stop 06/10/19 at 10:44 Fentanyl Citrate (Fentanyl 2ml Vial) 50 mcg PRN Q5MIN PRN IV MODERATE TO SEVERE PAIN; Start 06/09/19 at 10:45; Stop 06/10/19 at 10:44 Morphine Sulfate (Morphine Sulfate) 1 mg PRN Q10MIN PRN IV SEVERE PAIN 7-10; Start 06/09/19 at 10:45; Stop 06/10/19 at 10:44 Ringer's Solution 1,000 ml @ 30 mls/hr Q24H IV ; Start 06/09/19 at 10:41; Stop 06/09/19 at 22:40 Lidocaine HCl (Xylocaine-Mpf 1% 2ml Vial) 2 ml PRN 1X PRN ID PRIOR TO IV START; Start 06/09/19 at 10:45; Stop 06/10/19 at 10:44 Hydromorphone HCl (Dilaudid) 0.5 mg PRN Q10MIN PRN IV SEV PAIN, Second choice; Start 06/09/19 at 10:45; Stop 06/10/19 at 10:44 Prochlorperazine Edisylate (Compazine) 5 mg PACU PRN PRN IV NAUSEA, MRX1; Start 06/09/19 at 10:45; Stop 06/10/19 at 10:44 Active Scripts Active Reported Novolog Flexpen (Insulin Aspart) 100 Unit/1 Ml Insuln.pen 10 Unit SQ DAILYWSUP Novolog Flexpen (Insulin Aspart) 100 Unit/1 Ml Insuln.pen 5 Unit SQ DAILYWBKFT Vitamin E (Vitamin E Acid Succinate) 100 Unit Tablet 100 Unit PO DAILY Coq-10 (Ubidecarenone) 100 Mg Capsule 100 Mg PO DAILY Lantus Solostar (Insulin Glargine,Hum.rec.anlog) 100 Unit/1 Ml Insuln.pen 17 Unit SQ QHS Caltrate 600 + D Soft Chew Tab (Calcium Carbonate/Vitamin D3) 1 Each Tab.chew 1 Each PO DAILY One Daily For Women 50+ Adv Tb (Multivitamins-Min/Fa/Ginkgo) 1 Each Tablet 1 Each PO DAILY Tylenol (Acetaminophen) 325 Mg Tablet 325 Mg PO DAILY Aspirin Ec (Aspirin) 325 Mg Tablet.dr 325 Mg PO DAILY Amlodipine Besylate 5 Mg Tablet 5 Mg PO DAILY Zestril (Lisinopril) 10 Mg Tablet 10 Mg PO BID Metformin Hcl 1,000 Mg Tablet 1,000 Mg PO BIDWMEALS Vitals/I & O Vital Sign - Last 24 Hours 06/08/19 06/08/19 06/08/19 06/08/19 15:00 19:15 19:45 21:19 Temp 97.9 98.3 97.9 98.3 Pulse 60 83 86 Resp 16 20 B/P (MAP) 146/67 (93) 148/67 (94) 148/67 Pulse Ox 95 96 O2 Delivery Room Air Room Air Room Air 06/08/19 06/09/19 06/09/19 06/09/19 22:55 01:22 03:11 07:00 Temp 98.6 98.3 97.9 98.6 98.3 97.9 Pulse 75 72 67 Resp 18 20 16 B/P (MAP) 148/67 (94) 138/65 (89) 135/61 (85) Pulse Ox 96 96 O2 Delivery Room Air Room Air Room Air Room Air 06/09/19 06/09/19 06/09/19 06/09/19 08:00 08:19 08:19 08:19 Pulse 67 67 B/P (MAP) 135/61 135/61 Pulse Ox 96 O2 Delivery Room Air Room Air O2 Flow Rate 2.0 2.0 06/09/19 06/09/19 09:21 10:52 Temp 98.0 98.0 Pulse 71 Resp 16 B/P (MAP) 167/74 (105) Pulse Ox 96 95 O2 Delivery Room Air Room Air O2 Flow Rate 2.0 Intake and Output 06/08/19 06/08/19 06/09/19 15:00 23:00 07:00 Intake Total 200 ml Output Total 200 ml 150 ml 200 ml Balance -200 ml -150 ml 0 ml KATHERYN HALL MD Jun 09, 2019 11:11
--- NOTE | 2019-06-09 12:20 | PDOC ---
Provider Note Provider Note [facility] this afternoon to rule out any cardiac source in regards to his stroke.. Risks and benefits explained and agreeable top proceed. FARIBA FERNANDEZ ENGAGEMENT MANAGER Jun 09, 2019 12:20
--- NOTE | 2019-06-09 12:31 | NUR ---
SS following up with discharge planning. Pt accepted at [facility]. SS will continue to follow for discharge planning.
[2019-06-09] MEDS ORDERED: BENZOCAINE ONE 20% MUCOSAL SPRAY. (14:53)
[2019-06-09] MEDS ORDERED: LIDOCAINE 2% VISCOUS 15 ML SOLUTION. ONE (14:53)
[2019-06-09] MEDS ORDERED: PROPOFOL 20 ML IV ONE ×2 (15:12)
[2019-06-09] MEDS ORDERED: LIDOCAINE 2% PF 5 ML VIAL. ONE (15:12)
--- NOTE | 2019-06-09 16:37 | PDOC ---
Provider Note Provider Note Transesophageal echocardiogram did not show any evidence of intracardiac thro mbus. Plan for event monitor to rule out atrial fibrillation as an outpatient. DEBRA VALLEJO MD Jun 09, 2019 16:37
[2019-06-09] MEDS ORDERED: ATORVASTATIN CALCIUM 20 MG TABLET PO SCH (21:00)
[2019-06-09] MEDS: INSULIN GLARGINE 300 UNITS/3 ML INSULN.PEN. SQ SCH (21:19)
[2019-06-10 03:33] VITALS: BP 152/67
[2019-06-10 03:59] LABS: BASO % 0 % (0-3); EOS # 0.1 x10^3/uL (0.0-0.7); EOS % 2 % (0-3); HEMATOCRIT 30.7 % (36.0-47.0); HEMOGLOBIN 10.6 g/dL (12.0-15.5); LYMPH # 1.1 x10^3/uL (1.0-4.8); LYMPH % 14 % (24-48); MEAN CORPUSCULAR HEMOGLOBIN 29 pg (25-35); MEAN CORPUSCULAR HGB CONC 35 g/dL (31-37); MEAN CORPUSCULAR VOLUME 84 fL (79-100); MONO # 0.7 x10^3/uL (0.0-1.1); MONO % 9 % (0-9); NEUT # 5.8 x10^3/uL (1.8-7.7); NEUT % 75 % (31-73); PLATELET COUNT 292 x10^3/uL (140-400); RED BLOOD COUNT 3.65 x10^6/uL (3.50-5.40); RED CELL DISTRIBUTION WIDTH 13.3 % (11.5-14.5); WHITE BLOOD COUNT 7.8 x10^3/uL (4.0-11.0)
[2019-06-10 04:16] LABS: ALBUMIN/GLOBULIN RATIO 0.8 (1.0-1.7); CALCIUM 8.6 mg/dL (8.5-10.1); GFR 52.3; POTASSIUM 4.1 mmol/L (3.5-5.1); TOTAL BILIRUBIN 0.5 mg/dL (0.2-1.0); TOTAL PROTEIN 6.6 g/dL (6.4-8.2)
[2019-06-10 07:00] VITALS: BP 150/65
--- NOTE | 2019-06-10 07:01 | CARD ---
MR#: [id number] Date of Study: 06/09/2019 Ordering Physician: FARIBA FERNANDEZ, Referring Physician: FARIBA FERNANDEZ, Tech: Ruby Bill APPROVED REPORT EXAM: Transesophageal echocardiogram with color flow Doppler. INDICATION CVA/TIA Mitral Valve Disease Mitral Valve MV DECEL [id number] E Mean Gr.4mmHg MV [id number] (PHT)3.04cm2 Reason For Test : Rule out Intracardiac Thrombus. PROCEDURE After obtaining informed consent, patient underwent transesophageal echo in the PACU. Type of Sedation : General Anesthesia Sedation was administered by Mercedes Johnson CRNA. Sedation was achieved with Propofol 100mg intravenously. Transesophageal probe was inserted and advanced into esophagus by Josh Mcghee MD. The TRINITY was performed without complications. Throughout the procedure, the blood pressure, pulse oximetry, cardiac rhythm, and rate were monitored . The patient tolerated the procedure without adverse effects. Recovery from general anesthesia was une ventful and vital signs were stable. LEFT VENTRICLE The left ventricle is normal size. There is mild concentric left ventricular hypertrophy. The left ve ntricular systolic function is hyperdynamic. The ejection fraction is >65%. There is normal LV segmen rony wall motion. No left ventricle thrombus noted on this study. RIGHT VENTRICLE The right ventricle is normal size. There is normal right ventricular wall thickness. The right ventr icular systolic function is normal. ATRIA The left atrium size is normal. The right atrium size is normal. The interatrial septum is intact wit h no evidence for an atrial septal defect or patent foramen ovale as noted on 2-D or Doppler imaging. There is no thrombus noted in the left atrial appendage. AORTIC VALVE The aortic valve is mildly calcified. Doppler and Color Flow revealed no significant aortic regurgita tion. MITRAL VALVE Mitral annular calcification is mild to moderate. There is no evidence of mitral valve prolapse. Ther e is a mean pressure gradient of 4 mmHg. Doppler and Color-flow revealed trace to mild mitral regurgi tation. TRICUSPID VALVE The tricuspid valve is normal in structure and function. Doppler and Color Flow revealed trace tricus pid regurgitation. There is no tricuspid valve stenosis. PULMONIC VALVE The pulmonary valve is normal in structure and function. Doppler and Color Flow revealed trace to mil d pulmonic valvular regurgitation. GREAT VESSELS The aortic root is normal in size. Normal pulmonary venous flow (Doppler). PERICARDIAL EFFUSION There is no evidence of significant pericardial effusion. Critical Notification Critical Value: No <Conclusion> The left ventricular systolic function is hyperdynamic. The ejection fraction is >65%. There is normal LV segmental wall motion. Trace to mild mitral regurgitation. Trace tricuspid regurgitation. There is no evidence of significant pericardial effusion. No intracardiac vegetation or thrombus. Signed by : Josh Mcghee, Electronically Approved : 06/10/2019 07:01:11
[2019-06-10] MEDS ORDERED: ASPIRIN ENTERIC COATED 81 MG TABLET.DR. PO SCH (08:00)
[2019-06-10] MEDS: INSULIN LISPRO 300 UNITS/3 ML VIAL. SQ SCH ×3 (08:00→12:36)
[2019-06-10] MEDS: CLOPIDOGREL BISULFATE 75 MG TABLET PO SCH (08:49)
[2019-06-10] MEDS: VITAMIN E 200 UNIT CAPSULE. PO SCH (08:49)
[2019-06-10] MEDS: CALCIUM CARB/VIT D3 500/200 TABLET. PO SCH (08:49)
[2019-06-10] MEDS: amLODIPine BESYLATE 5 MG TABLET PO SCH (08:50)
[2019-06-10] MEDS: MULTIVITAMIN with MINERAL TABLET. PO SCH (08:50)
[2019-06-10] MEDS: ACETAMINOPHEN 325 MG TABLET. PO SCH (08:50)
[2019-06-10] MEDS: LISINOPRIL 10 MG TABLET PO SCH (08:51)
[2019-06-10] MEDS: IV 1/2 NORMAL SALINE 1,000 ML IV SCH (08:52)
[2019-06-10] MEDS: traMADol 50 MG TABLET PO PRN (08:55)
--- NOTE | 2019-06-10 10:23 | PDOC ---
PROGRESS NOTES History of Present Illness History of Present Illness VTE Prophylaxis Ordered VTE Prophylaxis Devices: No VTE Pharmacological Prophylaxi: Yes discharge dx Assessment/Plan impression 1. Nonobstructive coronary artery disease 2. Hyperdynamic left ventricle systolic function with ejection fraction estimated at 80% 3. non-STEMI is most probably type 2/demand ischemia. 4. 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 5. diabetes 6. hypertension 7. dizziness 8. dyspnea 9. on echo Ejection Fraction is >65%. 10.There is mild concentric left ventricular hypertrophy. 11. mild valvular aortic stenosis. by echo . Calculated aortic valve area is 1.4 cm2 with maximum pressure gradient of 14 mmHg and mean pressure gradient of 10 mmHg. 12. shortness of breath //probably anginal equivalent. Chest x-ray did not show any evidence of congestive heart failure. 13. new onset confusion, memory loss, metabolic encephalopathy 14. component of hypertensive encephalopathy, possible concussion 15, CVA, MULTIPLE areas focus of restricted diffusion of the anterior left cerebellum about 1 cm in size, corresponding T2 and FLAIR hyperintense signal. There is also small focus of restricted diffusion of the posterior medial left cerebellum about 0.6 cm in size, hypointense on ADC map. There could be a very small focus of restricted diffusion of the right occipital lobe about 0.4 cm although limited evaluation due to artifact in this region. There is a small focus of restricted diffusion of the left temporal lobe along the periventricular white matter about 0.5 cm. There is a 0.4 cm focus of restricted diffusion of the posterior right centrum semiovale. There is probable very small focus of restricted diffusion right parietal cortical surface about 0.2 cm otherwise difficult to characterize given small size. There is small 0.3 cm focus of somewhat faint restricted diffusion of the right frontal lobe and also separate small focus of the right frontal cortical surface about 0.3 cm in size. plan cont cvc cardiac cath reviewed medical management. accuchecks risk reduction mgt cardiology consulted pt/ot neurology consult mri head event monitor, possible TRINITY Add clopidogrel, discontinue aspirin after a week Discharge Recommendations * Jail [facility] 31 min pt exam, chart review d/c planning , > 50% of time spent with exam, chart review, pt care coordination Vitals Vitals Vital Signs Date Time Temp Pulse Resp B/P (MAP) Pulse Ox O2 Delivery O2 Flow Rate FiO2 06/10/19 08:59 97 Room Air 06/10/19 08:59 77 150/65 06/10/19 07:00 97.8 18 97.8 06/09/19 16:31 2.0 Physical Exam General: Alert, Cooperative, No acute distress Heart: Regular rate, Normal S1, Normal S2, Other (ESM LUPSB) Lungs: Clear Abdomen: Normal bowel sounds, Soft, No tenderness Extremities: No clubbing, No cyanosis Skin: No significant lesion Labs LABS Laboratory Tests Test 06/09/19 12:41 06/09/19 17:36 06/09/19 20:47 06/10/19 03:40 Glucose (Fingerstick) 162 mg/dL (70-99) 160 mg/dL (70-99) 144 mg/dL (70-99) White Blood Count 7.8 x10^3/uL (4.0-11.0) Red Blood Count 3.65 x10^6/uL (3.50-5.40) Hemoglobin 10.6 g/dL (12.0-15.5) Hematocrit 30.7 % (36.0-47.0) Mean Corpuscular Volume 84 fL (79-100) Mean Corpuscular Hemoglobin 29 pg (25-35) Mean Corpuscular Hemoglobin Concent 35 g/dL (31-37) Red Cell Distribution Width 13.3 % (11.5-14.5) Platelet Count 292 x10^3/uL (140-400) Neutrophils (%) (Auto) 75 % (31-73) Lymphocytes (%) (Auto) 14 % (24-48) Monocytes (%) (Auto) 9 % (0-9) Eosinophils (%) (Auto) 2 % (0-3) Basophils (%) (Auto) 0 % (0-3) Neutrophils # (Auto) 5.8 x10^3/uL (1.8-7.7) Lymphocytes # (Auto) 1.1 x10^3/uL (1.0-4.8) Monocytes # (Auto) 0.7 x10^3/uL (0.0-1.1) Eosinophils # (Auto) 0.1 x10^3/uL (0.0-0.7) Basophils # (Auto) 0.0 x10^3/uL (0.0-0.2) Test 06/10/19 03:45 06/10/19 07:22 Sodium Level 134 mmol/L (136-145) Potassium Level 4.1 mmol/L (3.5-5.1) Chloride Level 100 mmol/L (98-107) Carbon Dioxide Level 25 mmol/L (21-32) Anion Gap 9 (6-14) Blood Urea Nitrogen 19 mg/dL (7-20) Creatinine 1.0 mg/dL (0.6-1.0) Estimated GFR (Cockcroft-Gault) 52.3 BUN/Creatinine Ratio 19 (6-20) Glucose Level 118 mg/dL (70-99) Calcium Level 8.6 mg/dL (8.5-10.1) Total Bilirubin 0.5 mg/dL (0.2-1.0) Aspartate Amino Transf (AST/SGOT) 21 U/L (15-37) Alanine Aminotransferase (ALT/SGPT) 20 U/L (14-59) Alkaline Phosphatase 64 U/L (46-116) Total Protein 6.6 g/dL (6.4-8.2) Albumin 3.0 g/dL (3.4-5.0) Albumin/Globulin Ratio 0.8 (1.0-1.7) Glucose (Fingerstick) 121 mg/dL (70-99) Assessment and Plan Assessmemt and Plan Problems Medical Problems: (1) Diabetes Status: Chronic (2) Dyspnea Status: Acute (3) HTN (hypertension) Status: Chronic (4) Hypertensive encephalopathy Status: Acute (5) Metabolic encephalopathy Status: Acute (6) NSTEMI (non-ST elevated myocardial infarction) Status: Acute (7) Valvular stenosis, aortic Status: Chronic Comment Review of Relevant I have reviewed the following items randa (where applicable) has been applied. Labs Laboratory Tests Test 06/08/19 11:36 06/08/19 16:35 06/08/19 17:17 06/08/19 21:05 Glucose (Fingerstick) 249 mg/dL (70-99) 178 mg/dL (70-99) 148 mg/dL (70-99) Urine Random Sodium <60 mmol/L (Not Estab.) Test 06/09/19 04:30 06/09/19 07:38 06/09/19 12:41 06/09/19 17:36 White Blood Count 8.6 x10^3/uL (4.0-11.0) Red Blood Count 3.69 x10^6/uL (3.50-5.40) Hemoglobin 10.6 g/dL (12.0-15.5) Hematocrit 30.9 % (36.0-47.0) Mean Corpuscular Volume 84 fL (79-100) Mean Corpuscular Hemoglobin 29 pg (25-35) Mean Corpuscular Hemoglobin Concent 34 g/dL (31-37) Red Cell Distribution Width 13.2 % (11.5-14.5) Platelet Count 292 x10^3/uL (140-400) Neutrophils (%) (Auto) 68 % (31-73) Lymphocytes (%) (Auto) 20 % (24-48) Monocytes (%) (Auto) 10 % (0-9) Eosinophils (%) (Auto) 2 % (0-3) Basophils (%) (Auto) 0 % (0-3) Neutrophils # (Auto) 5.8 x10^3/uL (1.8-7.7) Lymphocytes # (Auto) 1.7 x10^3/uL (1.0-4.8) Monocytes # (Auto) 0.8 x10^3/uL (0.0-1.1) Eosinophils # (Auto) 0.2 x10^3/uL (0.0-0.7) Basophils # (Auto) 0.0 x10^3/uL (0.0-0.2) Sodium Level 130 mmol/L (136-145) Potassium Level 3.9 mmol/L (3.5-5.1) Chloride Level 96 mmol/L (98-107) Carbon Dioxide Level 25 mmol/L (21-32) Anion Gap 9 (6-14) Blood Urea Nitrogen 19 mg/dL (7-20) Creatinine 1.0 mg/dL (0.6-1.0) Estimated GFR (Cockcroft-Gault) 52.3 BUN/Creatinine Ratio 19 (6-20) Glucose Level 119 mg/dL (70-99) Calcium Level 8.7 mg/dL (8.5-10.1) Total Bilirubin 0.5 mg/dL (0.2-1.0) Aspartate Amino Transf (AST/SGOT) 20 U/L (15-37) Alanine Aminotransferase (ALT/SGPT) 21 U/L (14-59) Alkaline Phosphatase 65 U/L (46-116) Total Protein 6.6 g/dL (6.4-8.2) Albumin 3.0 g/dL (3.4-5.0) Albumin/Globulin Ratio 0.8 (1.0-1.7) Triglycerides Level 134 mg/dL (0-150) Cholesterol Level 183 mg/dL (0-200) LDL Cholesterol, Calculated 107 mg/dL (0-100) VLDL Cholesterol, Calculated 27 mg/dL (0-40) Non-HDL Cholesterol Calculated 134 mg/dL (0-129) HDL Cholesterol 49 mg/dL (40-60) Cholesterol/HDL Ratio 3.7 Glucose (Fingerstick) 113 mg/dL (70-99) 162 mg/dL (70-99) 160 mg/dL (70-99) Test 06/09/19 20:47 06/10/19 03:40 06/10/19 03:45 06/10/19 07:22 Glucose (Fingerstick) 144 mg/dL (70-99) 121 mg/dL (70-99) White Blood Count 7.8 x10^3/uL (4.0-11.0) Red Blood Count 3.65 x10^6/uL (3.50-5.40) Hemoglobin 10.6 g/dL (12.0-15.5) Hematocrit 30.7 % (36.0-47.0) Mean Corpuscular Volume 84 fL (79-100) Mean Corpuscular Hemoglobin 29 pg (25-35) Mean Corpuscular Hemoglobin Concent 35 g/dL (31-37) Red Cell Distribution Width 13.3 % (11.5-14.5) Platelet Count 292 x10^3/uL (140-400) Neutrophils (%) (Auto) 75 % (31-73) Lymphocytes (%) (Auto) 14 % (24-48) Monocytes (%) (Auto) 9 % (0-9) Eosinophils (%) (Auto) 2 % (0-3) Basophils (%) (Auto) 0 % (0-3) Neutrophils # (Auto) 5.8 x10^3/uL (1.8-7.7) Lymphocytes # (Auto) 1.1 x10^3/uL (1.0-4.8) Monocytes # (Auto) 0.7 x10^3/uL (0.0-1.1) Eosinophils # (Auto) 0.1 x10^3/uL (0.0-0.7) Basophils # (Auto) 0.0 x10^3/uL (0.0-0.2) Sodium Level 134 mmol/L (136-145) Potassium Level 4.1 mmol/L (3.5-5.1) Chloride Level 100 mmol/L (98-107) Carbon Dioxide Level 25 mmol/L (21-32) Anion Gap 9 (6-14) Blood Urea Nitrogen 19 mg/dL (7-20) Creatinine 1.0 mg/dL (0.6-1.0) Estimated GFR (Cockcroft-Gault) 52.3 BUN/Creatinine Ratio 19 (6-20) Glucose Level 118 mg/dL (70-99) Calcium Level 8.6 mg/dL (8.5-10.1) Total Bilirubin 0.5 mg/dL (0.2-1.0) Aspartate Amino Transf (AST/SGOT) 21 U/L (15-37) Alanine Aminotransferase (ALT/SGPT) 20 U/L (14-59) Alkaline Phosphatase 64 U/L (46-116) Total Protein 6.6 g/dL (6.4-8.2) Albumin 3.0 g/dL (3.4-5.0) Albumin/Globulin Ratio 0.8 (1.0-1.7) Laboratory Tests Test 06/09/19 12:41 06/09/19 17:36 06/09/19 20:47 06/10/19 03:40 Glucose (Fingerstick) 162 mg/dL (70-99) 160 mg/dL (70-99) 144 mg/dL (70-99) White Blood Count 7.8 x10^3/uL (4.0-11.0) Red Blood Count 3.65 x10^6/uL (3.50-5.40) Hemoglobin 10.6 g/dL (12.0-15.5) Hematocrit 30.7 % (36.0-47.0) Mean Corpuscular Volume 84 fL (79-100) Mean Corpuscular Hemoglobin 29 pg (25-35) Mean Corpuscular Hemoglobin Concent 35 g/dL (31-37) Red Cell Distribution Width 13.3 % (11.5-14.5) Platelet Count 292 x10^3/uL (140-400) Neutrophils (%) (Auto) 75 % (31-73) Lymphocytes (%) (Auto) 14 % (24-48) Monocytes (%) (Auto) 9 % (0-9) Eosinophils (%) (Auto) 2 % (0-3) Basophils (%) (Auto) 0 % (0-3) Neutrophils # (Auto) 5.8 x10^3/uL (1.8-7.7) Lymphocytes # (Auto) 1.1 x10^3/uL (1.0-4.8) Monocytes # (Auto) 0.7 x10^3/uL (0.0-1.1) Eosinophils # (Auto) 0.1 x10^3/uL (0.0-0.7) Basophils # (Auto) 0.0 x10^3/uL (0.0-0.2) Test 06/10/19 03:45 06/10/19 07:22 Sodium Level 134 mmol/L (136-145) Potassium Level 4.1 mmol/L (3.5-5.1) Chloride Level 100 mmol/L (98-107) Carbon Dioxide Level 25 mmol/L (21-32) Anion Gap 9 (6-14) Blood Urea Nitrogen 19 mg/dL (7-20) Creatinine 1.0 mg/dL (0.6-1.0) Estimated GFR (Cockcroft-Gault) 52.3 BUN/Creatinine Ratio 19 (6-20) Glucose Level 118 mg/dL (70-99) Calcium Level 8.6 mg/dL (8.5-10.1) Total Bilirubin 0.5 mg/dL (0.2-1.0) Aspartate Amino Transf (AST/SGOT) 21 U/L (15-37) Alanine Aminotransferase (ALT/SGPT) 20 U/L (14-59) Alkaline Phosphatase 64 U/L (46-116) Total Protein 6.6 g/dL (6.4-8.2) Albumin 3.0 g/dL (3.4-5.0) Albumin/Globulin Ratio 0.8 (1.0-1.7) Glucose (Fingerstick) 121 mg/dL (70-99) Medications Current Medications Aspirin (Ecotrin) 324 mg 1X ONCE PO Last administered on 06/07/19at 03:10; Start 06/07/19 at 03:30; Stop 06/07/19 at 03:31; Status DC Ondansetron HCl (Zofran) 4 mg PRN Q8HRS PRN IV NAUSEA/VOMITING 1ST CHOICE; Start 06/07/19 at 04:30; Stop 06/08/19 at 04:29; Status DC Sodium Chloride 1,000 ml @ 75 mls/hr [id number] IV Last administered on 06/07/19at 04:41; Start 06/07/19 at 05:00; Stop 06/08/19 at 04:59; Status DC Lidocaine HCl (Xylocaine-Mpf 1% 2ml Vial) 2 ml STK-MED ONCE .ROUTE ; Start 05/20 07/08 at 09:30; Stop 06/07/19 at 09:31; Status DC Iohexol (Omnipaque 300 Mg/ml) 100 ml STK-MED ONCE .ROUTE ; Start 06/07/19 at 0 9:30; Stop 06/07/19 at 09:31; Status DC Heparin Sodium/ Sodium Chloride 500 ml @ As Directed STK-MED ONCE .ROUTE ; Start 06/07/19 at 09:30; Stop 06/07/19 at 09:31; Status DC Fentanyl Citrate (Fentanyl 2ml Vial) 100 mcg STK-MED ONCE .ROUTE ; Start at 09:48; Stop 06/07/19 at 09:48; Status DC Midazolam HCl (Versed) 2 mg STK-MED ONCE .ROUTE ; Start 06/07/19 at 09:48; Stop 06/07/19 at 09:48; Status DC Heparin Sodium (Porcine) (Heparin Sodium) 10,000 unit STK-MED ONCE .ROUTE ; Start 06/07/19 at 09:48; Stop 06/07/19 at 09:48; Status DC Verapamil HCl (Verapamil) 5 mg STK-MED ONCE .ROUTE ; Start 06/07/19 at 09:48; Stop 06/07/19 at 09:48; Status DC Nitroglycerin (Nitroglycerin) 200 mcg STK-MED ONCE .ROUTE ; Start 06/07/19 at 09:48; Stop 06/07/19 at 09:49; Status DC Iohexol (Omnipaque 300 Mg/ml) 100 ml STK-MED ONCE .ROUTE ; Start 06/07/19 at 10:24; Stop 06/07/19 at 10:24; Status DC Nitroglycerin (Nitroglycerin) 200 mcg 1X ONCE IART Last administered on 06/07/19 10:54; Start 06/07/19 at 10:45; Stop 06/07/19 at 10:46; Status DC Verapamil HCl (Verapamil) 2.5 mg 1X ONCE IART Last administered on 06/07/19 10:54; Start 06/07/19 at 10:45; Stop 06/07/19 at 10:46; Status DC Heparin Sodium (Porcine) (Heparin Sodium) 2,500 unit 1X ONCE IART Last administered on 06/07/19 10:54; Start 06/07/19 at 10:45; Stop 06/07/19 at 10:46; Status DC Heparin Sodium/ Sodium Chloride (HEPARIN for ARTERIAL LINE FLUSH) 1,000 unit 1X ONCE IART Last administered on 06/07/19 10:54; Start 06/07/19 at 10:45; Stop 06/07/19 at 10:46; Status DC Midazolam HCl (Versed) 2 mg 1X ONCE IV Last administered on 06/07/19 10:54; Start 06/07/19 at 10:45; Stop 06/07/19 at 10:46; Status DC Fentanyl Citrate (Fentanyl 2ml Vial) 100 mcg 1X ONCE IV Last administered on 06/07/19 10:54; Start 06/07/19 at 10:45; Stop 06/07/19 at 10:46; Status DC Iohexol (Omnipaque 300 Mg/ml) 100 ml 1X ONCE IART Last administered on 06/07/19 10:54; Start 06/07/19 at 10:45; Stop 06/07/19 at 10:46; Status DC Lidocaine HCl (Xylocaine-Mpf 1% 2ml Vial) 2 ml 1X ONCE INJ Last administered on 06/07/19 10:54; Start 06/07/19 at 10:45; Stop 06/07/19 at 10:46; Status DC Info (CONTRAST GIVEN -- Rx MONITORING) 1 each PRN DAILY PRN MC SEE COMMENTS; Start 06/07/19 at 11:00; Stop 06/09/19 at 10:59; Status DC Sodium Chloride 1,000 ml @ 100 mls/hr Q10H IV Last administered on 06/10/19 08:59; Start 06/07/19 at 10:49 Nitroglycerin (Nitrostat) 0.4 mg PRN Q5MIN PRN SL CHEST PAIN; Start 06/07/19 at 11:00 Acetaminophen (Tylenol) 325 mg DAILY PO Last administered on 06/10/19 08:59; Start 06/08/19 at 09:00 Amlodipine Besylate (Norvasc) 5 mg DAILY PO Last administered on 06/10/19 08:59; Start 06/08/19 at 09:00 Aspirin (Ecotrin) 325 mg DAILY PO Last administered on 06/09/19 08:19; Start 06/08/19 at 09:00; Stop 06/09/19 at 09:00; Status DC Insulin Glargine (Lantus) 17 units QHS SQ Last administered on 06/09/19 21:20; Start 06/07/19 at 21:00 Lisinopril (Prinivil) 10 mg BID PO Last administered on 06/10/19 08:59; Start 06/07/19 at 21:00 Calcium/Vitamin D (Oscal D 500mg/ 200uts) 1 tab DAILY PO Last administered on 06/10/19 08:59; Start 06/08/19 at 09:00 Insulin Human Lispro (HumaLOG) 5 units DAILYWBKFT SQ Last administered on 06/10/19 09:10; Start 06/07/19 at 17:00 Insulin Human Lispro (HumaLOG) 10 units DAILYWSUP SQ Last administered on 06/09/19 18:04; Start 06/07/19 at 17:00 Multivitamins (Thera M Plus) 1 tab DAILY PO Last administered on 06/10/19 08:59; Start 06/08/19 at 09:00 Non-Formulary Medication (Ubidecarenone (Coq-10)) 100 mg DAILY PO ; Start 06/08/19 at 09:00; Status UNV Vitamin E 200 unit DAILY PO Last administered on 8/22/19at 08:59; Start 06/08/19 at 09:00 Morphine Sulfate (Morphine Sulfate) 2 mg PRN Q4HRS PRN IV PAIN; Start 06/07/19 at 20:15 Tramadol HCl (Ultram) 50 mg PRN Q6HRS PRN PO PAIN Last administered on 06/10/19at 08:59; Start 06/07/19 at 20:15 Insulin Human Lispro (HumaLOG) 0-5 UNITS TIDWMEALS SQ Last administered on 06/09/19at 18:04; Start 06/08/19 at 12:00 Dextrose (Dextrose 50%-Water Syringe) 12.5 gm PRN Q15MIN PRN IV SEE COMMENTS; Start 06/08/19 at 12:15 Dextrose 250 ml PRN Q15MIN PRN IV SEE COMMENTS; Start 06/08/19 at 12:15; Stop 06/08/19 at 12:11; Status DC Acetaminophen (Tylenol) 650 mg PRN Q6HRS PRN PO TEMP > 100.4F; Start 06/08/19 at 14:45 Acetaminophen (Tylenol Supp) 650 mg PRN Q4HRS PRN [place] TEMP > 100.4F; Start 06/08/19 at 14:45 Aspirin (Ecotrin) 325 mg DAILYWBKFT PO ; Start 06/09/19 at 08:00; Status Cancel Aspirin (Aspirin Rectal Supp) 300 mg PRN DAILY PRN [place] IF UNABLE TO TAKE PO; Start 06/08/19 at 14:45; Stop 06/09/19 at 09:00; Status DC Atorvastatin Calcium (Lipitor) 20 mg QHS PO Last administered on 06/09/19at 21:20; Start 06/09/19 at 21:00 Aspirin (Ecotrin) 81 mg DAILY PO ; Start 06/09/19 at 09:00; Stop 06/09/19 at 12:51; Status DC Clopidogrel Bisulfate (Plavix) 75 mg DAILYWBKFT PO Last administered on 06/10/19at 08:59; Start 06/09/19 at 09:00 Benzocaine (Hurricaine One) 3 spray 1X ONCE MM Last administered on 06/09/19at 15:45; Start 06/09/19 at 10:15; Stop 06/09/19 at 10:19; Status DC Lidocaine HCl (Xylocaine 2% Topical 30gm Tube) 1 cricket 1X ONCE TP Last administered on 06/09/19at 15:45; Start 06/09/19 at 10:15; Stop 06/09/19 at 10:19; Status DC Lidocaine HCl (Viscous Lidocaine) 15 ml 1X ONCE SWSW ; Start 06/09/19 at 10:15; Stop 06/09/19 at 10:19; Status DC Ondansetron HCl (Zofran) 4 mg PRN Q6HRS PRN IV NAUSEA/VOMITING; Start 06/09/19 at 10:45; Stop 06/10/19 at 10:44 Fentanyl Citrate (Fentanyl 2ml Vial) 25 mcg PRN Q5MIN PRN IV MILD PAIN 1-3; Start 06/09/19 at 10:45; Stop 06/10/19 at 10:44 Fentanyl Citrate (Fentanyl 2ml Vial) 50 mcg PRN Q5MIN PRN IV MODERATE TO SEVERE PAIN; Start 06/09/19 at 10:45; Stop 06/10/19 at 10:44 Morphine Sulfate (Morphine Sulfate) 1 mg PRN Q10MIN PRN IV SEVERE PAIN 7-10; Start 06/09/19 at 10:45; Stop 06/10/19 at 10:44 Ringer's Solution 1,000 ml @ 30 mls/hr Q24H IV Last administered on 06/09/19at 15:47; Start 06/09/19 at 10:41; Stop 06/09/19 at 22:40; Status DC Lidocaine HCl (Xylocaine-Mpf 1% 2ml Vial) 2 ml PRN 1X PRN ID PRIOR TO IV START; Start 06/09/19 at 10:45; Stop 06/10/19 at 10:44 Hydromorphone HCl (Dilaudid) 0.5 mg PRN Q10MIN PRN IV SEV PAIN, Second choice; Start 06/09/19 at 10:45; Stop 06/10/19 at 10:44 Prochlorperazine Edisylate (Compazine) 5 mg PACU PRN PRN IV NAUSEA, MRX1; Start 06/09/19 at 10:45; Stop 06/10/19 at 10:44 Aspirin (Ecotrin) 81 mg DAILYWBKFT PO Last administered on 06/10/19at 08:59; Start 06/10/19 at 08:00 Lidocaine HCl (Viscous Lidocaine) 15 ml STK-MED ONCE .ROUTE ; Start 06/09/19 at 14:53; Stop 06/09/19 at 14:53; Status DC Benzocaine (Hurricaine One) 1 spray STK-MED ONCE .ROUTE ; Start 06/09/19 at 14:53; Stop 06/09/19 at 14:54; Status DC Lidocaine HCl (Xylocaine 2% Topical 30gm Tube) 30 cricket STK-MED ONCE TP ; Start 06/09/19 at 14:54; Stop 06/09/19 at 14:55; Status DC Propofol 20 ml @ As Directed STK-MED ONCE IV ; Start 06/09/19 at 15:12; Stop 06/09/19 at 15:13; Status DC Propofol 20 ml @ As Directed STK-MED ONCE IV ; Start 06/09/19 at 15:12; Stop 06/09/19 at 15:13; Status DC Lidocaine HCl (Lidocaine Pf 2% Vial) 5 ml STK-MED ONCE .ROUTE ; Start 06/09/19 at 15:12; Stop 06/09/19 at 15:13; Status DC Active Scripts Active Reported Novolog Flexpen (Insulin Aspart) 100 Unit/1 Ml Insuln.pen 10 Unit SQ DAILYWSUP Novolog Flexpen (Insulin Aspart) 100 Unit/1 Ml Insuln.pen 5 Unit SQ DAILYWBKFT Vitamin E (Vitamin E Acid Succinate) 100 Unit Tablet 100 Unit PO DAILY Coq-10 (Ubidecarenone) 100 Mg Capsule 100 Mg PO DAILY Lantus Solostar (Insulin Glargine,Hum.rec.anlog) 100 Unit/1 Ml Insuln.pen 17 Unit SQ QHS Caltrate 600 + D Soft Chew Tab (Calcium Carbonate/Vitamin D3) 1 Each Tab.chew 1 Each PO DAILY One Daily For Women 50+ Adv Tb (Multivitamins-Min/Fa/Ginkgo) 1 Each Tablet 1 Each PO DAILY Tylenol (Acetaminophen) 325 Mg Tablet 325 Mg PO DAILY Aspirin Ec (Aspirin) 325 Mg Tablet.dr 325 Mg PO DAILY Amlodipine Besylate 5 Mg Tablet 5 Mg PO DAILY Zestril (Lisinopril) 10 Mg Tablet 10 Mg PO BID Metformin Hcl 1,000 Mg Tablet 1,000 Mg PO BIDWMEALS Vitals/I & O Vital Sign - Last 24 Hours 8/21/19 8/21/19 8/21/19 8/21/19 10:52 15:00 15:09 15:53 Temp 98.0 98.0 97.6 98.0 98.0 97.6 Pulse 71 68 68 60 Resp 16 15 20 18 B/P (MAP) 167/74 (105) 160/67 (98) 173/67 132/52 Pulse Ox 95 100 99 O2 Delivery Room Air Room Air Room Air Simple Mask Nasal Cannula O2 Flow Rate 2 12 06/09/19 06/09/19 06/09/19 06/09/19 15:53 16:00 16:15 16:31 Temp 97.6 97.6 98.5 97.6 97.6 98.5 Pulse 60 68 16 Resp 18 18 16 B/P (MAP) 118/44 156/59 150/69 (96) Pulse Ox 99 98 98 O2 Delivery Mask Nasal Cannula Nasal Cannula Nasal Cannula O2 Flow Rate 12 3 3 2.0 06/09/19 06/09/19 06/09/19 06/09/19 19:50 20:20 21:20 21:20 Temp 98.1 98.1 Pulse 73 73 Resp 19 B/P (MAP) 157/70 (99) 157/70 Pulse Ox 97 O2 Delivery Room Air Room Air Nasal Cannula 06/09/19 06/09/19 06/10/19 06/10/19 23:45 23:50 03:33 07:00 Temp 98.3 98.1 97.8 98.3 98.1 97.8 Pulse 70 81 66 Resp 18 19 18 B/P (MAP) 152/66 (94) 152/67 (95) 150/65 (93) Pulse Ox 96 96 97 O2 Delivery Room Air Room Air Room Air Room Air 06/10/19 06/10/19 06/10/19 08:59 08:59 08:59 Pulse 77 77 B/P (MAP) 150/65 150/65 Pulse Ox 97 O2 Delivery Room Air Intake and Output 06/09/19 06/09/19 06/10/19 14:59 22:59 06:59 Intake Total 160 ml 300 ml Output Total 200 ml 250 ml Balance -40 ml 50 ml KATHERYN HALL MD Jun 10, 2019 10:23
[2019-06-10 10:56] VITALS: BP 152/58
[2019-06-10 15:00] VITALS: BP 161/59
[2019-06-10] MEDS ORDERED: ASPI-612 PO (15:44)
[2019-06-10] MEDS ORDERED: CLOP75TA PO (15:44)
[2019-06-10] MEDS ORDERED: ATOR20TA58 PO (15:44)
--- NOTE | 2019-06-10 15:46 | SNU/HH DC ---
DISCHARGE ORDERS DISCHARGE INFORMATION: FINAL DIAGNOSIS Problems Medical Problems: (1) Diabetes Status: Chronic (2) Dyspnea Status: Acute (3) HTN (hypertension) Status: Chronic (4) Hypertensive encephalopathy Status: Acute (5) Metabolic encephalopathy Status: Acute (6) NSTEMI (non-ST elevated myocardial infarction) Status: Acute (7) Valvular stenosis, aortic Status: Chronic CONDITION ON DISCHARGE: Stable CODE STATUS: Code Status: Full PENITENTIARY: SNF STAY <30 DAYS: Yes HOSPICE: HOSPICE: No HOSPICE EVAL & TREAT: No LTAC: ADMIT TO LTAC: No TREATMENT/EQUIPMENT ORDERS: ADAPTIVE EQUIPMENT NEEDED: Front wheeled walker Physical Therapy For: Evalulation/Treatment Occupational Therapy For: Evaluation/Treatment Speech Language Pathology For: Evaluation/Treatment DISCHARGE MEDICATIONS: Home Meds Active Scripts Aspirin (ASPIRIN EC) 81 Mg Tablet.dr, 81 MG PO DAILYWBKFT for cva for 30 Days, #30 TAB.SR Prov:KATHERYN HALL MD 06/10/19 Atorvastatin Calcium (ATORVASTATIN CALCIUM) 20 Mg Tablet, 20 MG PO QHS for cholesterol for 30 Days, #30 TAB Prov:KATHERYN HALL MD 06/10/19 Clopidogrel Bisulfate (CLOPIDOGREL) 75 Mg Tablet, 75 MG PO DAILYWBKFT for cva for 30 Days, #30 TAB Prov:KATHERYN HALL MD 06/10/19 Reported Medications Insulin Aspart (NOVOLOG FLEXPEN) 100 Unit/1 Ml Insuln.pen, 10 UNIT SQ DAILYWSUP for , SYR 06/07/19 Insulin Aspart (NOVOLOG FLEXPEN) 100 Unit/1 Ml Insuln.pen, 5 UNIT SQ DAILYWBKFT for , SYR 06/07/19 Vitamin E Acid Succinate (VITAMIN E) 100 Unit Tablet, 100 UNIT PO DAILY for , TAB 06/07/19 Ubidecarenone (COQ-10) 100 Mg Capsule, 100 MG PO DAILY for , CAP 06/07/19 Insulin Glargine,Hum.rec.anlog (LANTUS SOLOSTAR) 100 Unit/1 Ml Insuln.pen, 17 UNIT SQ QHS for , #15 ML 3 Refills 06/07/19 Calcium Carbonate/Vitamin D3 (CALTRATE 600 + D SOFT CHEW TAB) 1 Each Tab.chew, 1 EACH PO DAILY for , TAB.CHEW 06/07/19 Multivitamins-Min/Fa/Ginkgo (ONE DAILY FOR WOMEN 50+ ADV TB) 1 Each Tablet, 1 EACH PO DAILY for , TAB 06/07/19 Acetaminophen (TYLENOL) 325 Mg Tablet, 325 MG PO DAILY for , TAB 06/07/19 Amlodipine Besylate (AMLODIPINE BESYLATE) 5 Mg Tablet, 5 MG PO DAILY for , TAB 06/07/19 Lisinopril (ZESTRIL) 10 Mg Tablet, 10 MG PO BID for FOR HYPERTENSION, #30 TAB 0 Refills 06/07/19 Discontinued Reported Medications Aspirin (ASPIRIN EC) 325 Mg Tablet., 325 MG PO DAILY for , TAB.SR 06/07/19 Metformin Hcl (METFORMIN HCL) 1,000 Mg Tablet, 1000 MG PO BIDWMEALS for , TAB 06/07/19 KATHERYN HALL MD Jun 10, 2019 15:45
--- NOTE | 2019-06-10 15:49 | PDOC ---
PROGRESS NOTES Assessment Problems Medical Problems: (1) Diabetes Status: Chronic (2) Dyspnea Status: Acute (3) HTN (hypertension) Status: Chronic (4) Hypertensive encephalopathy Status: Acute (5) Metabolic encephalopathy Status: Acute (6) NSTEMI (non-ST elevated myocardial infarction) Status: Acute (7) Valvular stenosis, aortic Status: Chronic Multiple embolic strokes: anterior left cerebellum, posterior medial left cerebellum, right occipital lobe, left temporal lobe, posterior right centrum semiovale, right parietal cortical surface, right frontal lobe, right frontal cortical surface. Vasovagal syncope, component of hypertensive encephalopathy, possible concussion No evidence of seizure, EEG is negative Family stress Note hyperlipidemia, is on a statin Plan Event monitor, possible TRINITY Add clopidogrel, discontinue aspirin after a week Discharge to [facility] given gait disorder Follow up with neurology PRN Follow up with PCP re cholesterol Discussed with patient son, especially stroke precautions. Subjective Feels back to herself Objective Vital Signs Date Time Temp Pulse Resp B/P (MAP) Pulse Ox O2 Delivery O2 Flow Rate FiO2 06/10/19 15:00 98.0 75 18 161/59 (93) 97 Room Air 98.0 06/09/19 16:31 2.0 Intake and Output 06/10/19 07:00 Intake Total 460 ml Output Total 450 ml Balance 10 ml Intake Oral 360 ml IV Total 100 ml Output Urine Total 450 ml PHYSICAL EXAM Alert. Oriented to time, place and person. PERRL. EOMI. CN: no focal findings. Muscle tone: normal. Muscle strength: 5/5 DTR: 2+ Plantar reflex: flexor Gait: not examined in bed. Sensory exam: no abnormal findings. No cerebellar signs elicited. Review of Relevant I have reviewed the following items randa (where applicable) has been applied. Labs Laboratory Tests Test 06/08/19 16:35 06/08/19 17:17 06/08/19 21:05 06/09/19 04:30 Urine Random Sodium <60 mmol/L (Not Estab.) Glucose (Fingerstick) 178 mg/dL (70-99) 148 mg/dL (70-99) White Blood Count 8.6 x10^3/uL (4.0-11.0) Red Blood Count 3.69 x10^6/uL (3.50-5.40) Hemoglobin 10.6 g/dL (12.0-15.5) Hematocrit 30.9 % (36.0-47.0) Mean Corpuscular Volume 84 fL (79-100) Mean Corpuscular Hemoglobin 29 pg (25-35) Mean Corpuscular Hemoglobin Concent 34 g/dL (31-37) Red Cell Distribution Width 13.2 % (11.5-14.5) Platelet Count 292 x10^3/uL (140-400) Neutrophils (%) (Auto) 68 % (31-73) Lymphocytes (%) (Auto) 20 % (24-48) Monocytes (%) (Auto) 10 % (0-9) Eosinophils (%) (Auto) 2 % (0-3) Basophils (%) (Auto) 0 % (0-3) Neutrophils # (Auto) 5.8 x10^3/uL (1.8-7.7) Lymphocytes # (Auto) 1.7 x10^3/uL (1.0-4.8) Monocytes # (Auto) 0.8 x10^3/uL (0.0-1.1) Eosinophils # (Auto) 0.2 x10^3/uL (0.0-0.7) Basophils # (Auto) 0.0 x10^3/uL (0.0-0.2) Sodium Level 130 mmol/L (136-145) Potassium Level 3.9 mmol/L (3.5-5.1) Chloride Level 96 mmol/L (98-107) Carbon Dioxide Level 25 mmol/L (21-32) Anion Gap 9 (6-14) Blood Urea Nitrogen 19 mg/dL (7-20) Creatinine 1.0 mg/dL (0.6-1.0) Estimated GFR (Cockcroft-Gault) 52.3 BUN/Creatinine Ratio 19 (6-20) Glucose Level 119 mg/dL (70-99) Calcium Level 8.7 mg/dL (8.5-10.1) Total Bilirubin 0.5 mg/dL (0.2-1.0) Aspartate Amino Transf (AST/SGOT) 20 U/L (15-37) Alanine Aminotransferase (ALT/SGPT) 21 U/L (14-59) Alkaline Phosphatase 65 U/L (46-116) Total Protein 6.6 g/dL (6.4-8.2) Albumin 3.0 g/dL (3.4-5.0) Albumin/Globulin Ratio 0.8 (1.0-1.7) Triglycerides Level 134 mg/dL (0-150) Cholesterol Level 183 mg/dL (0-200) LDL Cholesterol, Calculated 107 mg/dL (0-100) VLDL Cholesterol, Calculated 27 mg/dL (0-40) Non-HDL Cholesterol Calculated 134 mg/dL (0-129) HDL Cholesterol 49 mg/dL (40-60) Cholesterol/HDL Ratio 3.7 Test 06/09/19 07:38 06/09/19 12:41 06/09/19 17:36 06/09/19 20:47 Glucose (Fingerstick) 113 mg/dL (70-99) 162 mg/dL (70-99) 160 mg/dL (70-99) 144 mg/dL (70-99) Test 06/10/19 03:40 06/10/19 03:45 06/10/19 07:22 06/10/19 11:46 White Blood Count 7.8 x10^3/uL (4.0-11.0) Red Blood Count 3.65 x10^6/uL (3.50-5.40) Hemoglobin 10.6 g/dL (12.0-15.5) Hematocrit 30.7 % (36.0-47.0) Mean Corpuscular Volume 84 fL (79-100) Mean Corpuscular Hemoglobin 29 pg (25-35) Mean Corpuscular Hemoglobin Concent 35 g/dL (31-37) Red Cell Distribution Width 13.3 % (11.5-14.5) Platelet Count 292 x10^3/uL (140-400) Neutrophils (%) (Auto) 75 % (31-73) Lymphocytes (%) (Auto) 14 % (24-48) Monocytes (%) (Auto) 9 % (0-9) Eosinophils (%) (Auto) 2 % (0-3) Basophils (%) (Auto) 0 % (0-3) Neutrophils # (Auto) 5.8 x10^3/uL (1.8-7.7) Lymphocytes # (Auto) 1.1 x10^3/uL (1.0-4.8) Monocytes # (Auto) 0.7 x10^3/uL (0.0-1.1) Eosinophils # (Auto) 0.1 x10^3/uL (0.0-0.7) Basophils # (Auto) 0.0 x10^3/uL (0.0-0.2) Sodium Level 134 mmol/L (136-145) Potassium Level 4.1 mmol/L (3.5-5.1) Chloride Level 100 mmol/L (98-107) Carbon Dioxide Level 25 mmol/L (21-32) Anion Gap 9 (6-14) Blood Urea Nitrogen 19 mg/dL (7-20) Creatinine 1.0 mg/dL (0.6-1.0) Estimated GFR (Cockcroft-Gault) 52.3 BUN/Creatinine Ratio 19 (6-20) Glucose Level 118 mg/dL (70-99) Calcium Level 8.6 mg/dL (8.5-10.1) Total Bilirubin 0.5 mg/dL (0.2-1.0) Aspartate Amino Transf (AST/SGOT) 21 U/L (15-37) Alanine Aminotransferase (ALT/SGPT) 20 U/L (14-59) Alkaline Phosphatase 64 U/L (46-116) Total Protein 6.6 g/dL (6.4-8.2) Albumin 3.0 g/dL (3.4-5.0) Albumin/Globulin Ratio 0.8 (1.0-1.7) Glucose (Fingerstick) 121 mg/dL (70-99) 212 mg/dL (70-99) Laboratory Tests Test 06/09/19 17:36 06/09/19 20:47 06/10/19 03:40 06/10/19 03:45 Glucose (Fingerstick) 160 mg/dL (70-99) 144 mg/dL (70-99) White Blood Count 7.8 x10^3/uL (4.0-11.0) Red Blood Count 3.65 x10^6/uL (3.50-5.40) Hemoglobin 10.6 g/dL (12.0-15.5) Hematocrit 30.7 % (36.0-47.0) Mean Corpuscular Volume 84 fL (79-100) Mean Corpuscular Hemoglobin 29 pg (25-35) Mean Corpuscular Hemoglobin Concent 35 g/dL (31-37) Red Cell Distribution Width 13.3 % (11.5-14.5) Platelet Count 292 x10^3/uL (140-400) Neutrophils (%) (Auto) 75 % (31-73) Lymphocytes (%) (Auto) 14 % (24-48) Monocytes (%) (Auto) 9 % (0-9) Eosinophils (%) (Auto) 2 % (0-3) Basophils (%) (Auto) 0 % (0-3) Neutrophils # (Auto) 5.8 x10^3/uL (1.8-7.7) Lymphocytes # (Auto) 1.1 x10^3/uL (1.0-4.8) Monocytes # (Auto) 0.7 x10^3/uL (0.0-1.1) Eosinophils # (Auto) 0.1 x10^3/uL (0.0-0.7) Basophils # (Auto) 0.0 x10^3/uL (0.0-0.2) Sodium Level 134 mmol/L (136-145) Potassium Level 4.1 mmol/L (3.5-5.1) Chloride Level 100 mmol/L (98-107) Carbon Dioxide Level 25 mmol/L (21-32) Anion Gap 9 (6-14) Blood Urea Nitrogen 19 mg/dL (7-20) Creatinine 1.0 mg/dL (0.6-1.0) Estimated GFR (Cockcroft-Gault) 52.3 BUN/Creatinine Ratio 19 (6-20) Glucose Level 118 mg/dL (70-99) Calcium Level 8.6 mg/dL (8.5-10.1) Total Bilirubin 0.5 mg/dL (0.2-1.0) Aspartate Amino Transf (AST/SGOT) 21 U/L (15-37) Alanine Aminotransferase (ALT/SGPT) 20 U/L (14-59) Alkaline Phosphatase 64 U/L (46-116) Total Protein 6.6 g/dL (6.4-8.2) Albumin 3.0 g/dL (3.4-5.0) Albumin/Globulin Ratio 0.8 (1.0-1.7) Test 06/10/19 07:22 06/10/19 11:46 Glucose (Fingerstick) 121 mg/dL (70-99) 212 mg/dL (70-99) Medications Current Medications Aspirin (Ecotrin) 324 mg 1X ONCE PO Last administered on 06/07/19at 03:10; Start 06/07/19 at 03:30; Stop 06/07/19 at 03:31; Status DC Ondansetron HCl (Zofran) 4 mg PRN Q8HRS PRN IV NAUSEA/VOMITING 1ST CHOICE; Start 06/07/19 at 04:30; Stop 06/08/19 at 04:29; Status DC Sodium Chloride 1,000 ml @ 75 mls/hr [id number] IV Last administered on 06/07/19at 04:41; Start 06/07/19 at 05:00; Stop 06/08/19 at 04:59; Status DC Lidocaine HCl (Xylocaine-Mpf 1% 2ml Vial) 2 ml STK-MED ONCE .ROUTE ; Start 06/07/19 at 09:30; Stop 06/07/19 at 09:31; Status DC Iohexol (Omnipaque 300 Mg/ml) 100 ml STK-MED ONCE .ROUTE ; Start 06/07/19 at 09:30; Stop 06/07/19 at 09:31; Status DC Heparin Sodium/ Sodium Chloride 500 ml @ As Directed STK-MED ONCE .ROUTE ; Start 06/07/19 at 09:30; Stop 06/07/19 at 09:31; Status DC Fentanyl Citrate (Fentanyl 2ml Vial) 100 mcg STK-MED ONCE .ROUTE ; Start 06/07/19 at 09:48; Stop 06/07/19 at 09:48; Status DC Midazolam HCl (Versed) 2 mg STK-MED ONCE .ROUTE ; Start 06/07/19 at 09:48; Stop 06/07/19 at 09:48; Status DC Heparin Sodium (Porcine) (Heparin Sodium) 10,000 unit STK-MED ONCE .ROUTE ; Start 06/07/19 at 09:48; Stop 06/07/19 at 09:48; Status DC Verapamil HCl (Verapamil) 5 mg STK-MED ONCE .ROUTE ; Start 06/07/19 at 09:48; Stop 06/07/19 at 09:48; Status DC Nitroglycerin (Nitroglycerin) 200 mcg STK-MED ONCE .ROUTE ; Start 06/07/19 at 09:48; Stop 06/07/19 at 09:49; Status DC Iohexol (Omnipaque 300 Mg/ml) 100 ml STK-MED ONCE .ROUTE ; Start 06/07/19 at 10:24; Stop 06/07/19 at 10:24; Status DC Nitroglycerin (Nitroglycerin) 200 mcg 1X ONCE IART Last administered on 06/07/19at 10:54; Start 06/07/19 at 10:45; Stop 06/07/19 at 10:46; Status DC Verapamil HCl (Verapamil) 2.5 mg 1X ONCE IART Last administered on 06/07/19 10:54; Start 06/07/19 at 10:45; Stop 06/07/19 at 10:46; Status DC Heparin Sodium (Porcine) (Heparin Sodium) 2,500 unit 1X ONCE IART Last administered on 06/07/19 10:54; Start 06/07/19 at 10:45; Stop 06/07/19 at 10:46; Status DC Heparin Sodium/ Sodium Chloride (HEPARIN for ARTERIAL LINE FLUSH) 1,000 unit 1X ONCE IART Last administered on 06/07/19 10:54; Start 06/07/19 at 10:45; Stop 06/07/19 at 10:46; Status DC Midazolam HCl (Versed) 2 mg 1X ONCE IV Last administered on 06/07/19 10:54; Start 06/07/19 at 10:45; Stop 06/07/19 at 10:46; Status DC Fentanyl Citrate (Fentanyl 2ml Vial) 100 mcg 1X ONCE IV Last administered on 06/07/19 10:54; Start 06/07/19 at 10:45; Stop 06/07/19 at 10:46; Status DC Iohexol (Omnipaque 300 Mg/ml) 100 ml 1X ONCE IART Last administered on 06/07/19at 10:54; Start 06/07/19 at 10:45; Stop 06/07/19 at 10:46; Status DC Lidocaine HCl (Xylocaine-Mpf 1% 2ml Vial) 2 ml 1X ONCE INJ Last administered on 06/07/19 10:54; Start 06/07/19 at 10:45; Stop 06/07/19 at 10:46; Status DC Info (CONTRAST GIVEN -- Rx MONITORING) 1 each PRN DAILY PRN MC SEE COMMENTS; Start 06/07/19 at 11:00; Stop 06/09/19 at 10:59; Status DC Sodium Chloride 1,000 ml @ 100 mls/hr Q10H IV Last administered on 06/10/19 08:59; Start 06/07/19 at 10:49; Stop 06/10/19 at 10:59; Status DC Nitroglycerin (Nitrostat) 0.4 mg PRN Q5MIN PRN SL CHEST PAIN; Start 06/07/19 at 11:00 Acetaminophen (Tylenol) 325 mg DAILY PO Last administered on 06/10/19 08:59; Start 06/08/19 at 09:00 Amlodipine Besylate (Norvasc) 5 mg DAILY PO Last administered on 06/10/19 08:59; Start 06/08/19 at 09:00 Aspirin (Ecotrin) 325 mg DAILY PO Last administered on 06/09/19 08:19; Start 06/08/19 at 09:00; Stop 06/09/19 at 09:00; Status DC Insulin Glargine (Lantus) 17 units QHS SQ Last administered on 06/09/19 21:20; Start 06/07/19 at 21:00 Lisinopril (Prinivil) 10 mg BID PO Last administered on 06/10/19 08:59; Start 06/07/19 at 21:00 Calcium/Vitamin D (Oscal D 500mg/ 200uts) 1 tab DAILY PO Last administered on 06/10/19 08:59; Start 06/08/19 at 09:00 Insulin Human Lispro (HumaLOG) 5 units DAILYWBKFT SQ Last administered on 06/10/19 09:10; Start 06/07/19 at 17:00 Insulin Human Lispro (HumaLOG) 10 units DAILYWSUP SQ Last administered on 06/09/19 18:04; Start 06/07/19 at 17:00 Multivitamins (Thera M Plus) 1 tab DAILY PO Last administered on 06/10/19 08 :59; Start 06/08/19 at 09:00 Non-Formulary Medication (Ubidecarenone (Coq-10)) 100 mg DAILY PO ; Start 06/08/19 at 09:00; Status UNV Vitamin E 200 unit DAILY PO Last administered on 06/10/19 08:59; Start 06/08/19 at 09:00 Morphine Sulfate (Morphine Sulfate) 2 mg PRN Q4HRS PRN IV PAIN; Start 06/07/19 at 20:15 Tramadol HCl (Ultram) 50 mg PRN Q6HRS PRN PO PAIN Last administered on 06/10/19at 08:59; Start 06/07/19 at 20:15 Insulin Human Lispro (HumaLOG) 0-5 UNITS TIDWMEALS SQ Last administered on 06/10/19at 12:37; Start 06/08/19 at 12:00 Dextrose (Dextrose 50%-Water Syringe) 12.5 gm PRN Q15MIN PRN IV SEE COMMENTS; Start 06/08/19 at 12:15 Dextrose 250 ml PRN Q15MIN PRN IV SEE COMMENTS; Start 06/08/19 at 12:15; Stop 06/08/19 at 12:11; Status DC Acetaminophen (Tylenol) 650 mg PRN Q6HRS PRN PO TEMP > 100.4F; Start 06/08/19 at 14:45 Acetaminophen (Tylenol Supp) 650 mg PRN Q4HRS PRN LA TEMP > 100.4F; Start 06/08/19 at 14:45 Aspirin (Ecotrin) 325 mg DAILYWBKFT PO ; Start 06/09/19 at 08:00; Status Cancel Aspirin (Aspirin Rectal Supp) 300 mg PRN DAILY PRN LA IF UNABLE TO TAKE PO; Start 06/08/19 at 14:45; Stop 06/09/19 at 09:00; Status DC Atorvastatin Calcium (Lipitor) 20 mg QHS PO Last administered on 06/09/19at 21:20; Start 06/09/19 at 21:00 Aspirin (Ecotrin) 81 mg DAILY PO ; Start 06/09/19 at 09:00; Stop 06/09/19 at 12:51; Status DC Clopidogrel Bisulfate (Plavix) 75 mg DAILYWBKFT PO Last administered on 06/10/19at 08:59; Start 06/09/19 at 09:00 Benzocaine (Hurricaine One) 3 spray 1X ONCE MM Last administered on 06/09/19at 15:45; Start 06/09/19 at 10:15; Stop 06/09/19 at 10:19; Status DC Lidocaine HCl (Xylocaine 2% Topical 30gm Tube) 1 cricket 1X ONCE TP Last administered on 06/09/19at 15:45; Start 06/09/19 at 10:15; Stop 06/09/19 at 10:19; Status DC Lidocaine HCl (Viscous Lidocaine) 15 ml 1X ONCE SWSW ; Start 06/09/19 at 10:15; Stop 06/09/19 at 10:19; Status DC Ondansetron HCl (Zofran) 4 mg PRN Q6HRS PRN IV NAUSEA/VOMITING; Start 06/09/19 at 10:45; Stop 06/10/19 at 10:44; Status DC Fentanyl Citrate (Fentanyl 2ml Vial) 25 mcg PRN Q5MIN PRN IV MILD PAIN 1-3; Start 06/09/19 at 10:45; Stop 06/10/19 at 10:44; Status DC Fentanyl Citrate (Fentanyl 2ml Vial) 50 mcg PRN Q5MIN PRN IV MODERATE TO SEVERE PAIN; Start 06/09/19 at 10:45; Stop 06/10/19 at 10:44; Status DC Morphine Sulfate (Morphine Sulfate) 1 mg PRN Q10MIN PRN IV SEVERE PAIN 7-10; Start 06/09/19 at 10:45; Stop 06/10/19 at 10:44; Status DC Ringer's Solution 1,000 ml @ 30 mls/hr Q24H IV Last administered on 06/09/19at 15:47; Start 06/09/19 at 10:41; Stop 06/09/19 at 22:40; Status DC Lidocaine HCl (Xylocaine-Mpf 1% 2ml Vial) 2 ml PRN 1X PRN ID PRIOR TO IV START; Start 06/09/19 at 10:45; Stop 06/10/19 at 10:44; Status DC Hydromorphone HCl (Dilaudid) 0.5 mg PRN Q10MIN PRN IV SEV PAIN, Second choice; Start 06/09/19 at 10:45; Stop 06/10/19 at 10:44; Status DC Prochlorperazine Edisylate (Compazine) 5 mg PACU PRN PRN IV NAUSEA, MRX1; Start 06/09/19 at 10:45; Stop 06/10/19 at 10:44; Status DC Aspirin (Ecotrin) 81 mg DAILYWBKFT PO Last administered on 06/10/19at 08:59; Start 06/10/19 at 08:00 Lidocaine HCl (Viscous Lidocaine) 15 ml STK-MED ONCE .ROUTE ; Start 06/09/19 at 14:53; Stop 06/09/19 at 14:53; Status DC Benzocaine (Hurricaine One) 1 spray STK-MED ONCE .ROUTE ; Start 06/09/19 at 14:53; Stop 06/09/19 at 14:54; Status DC Lidocaine HCl (Xylocaine 2% Topical 30gm Tube) 30 cricket STK-MED ONCE TP ; Start 06/09/19 at 14:54; Stop 06/09/19 at 14:55; Status DC Propofol 20 ml @ As Directed STK-MED ONCE IV ; Start 06/09/19 at 15:12; Stop 06/09/19 at 15:13; Status DC Propofol 20 ml @ As Directed STK-MED ONCE IV ; Start 06/09/19 at 15:12; Stop 06/09/19 at 15:13; Status DC Lidocaine HCl (Lidocaine Pf 2% Vial) 5 ml STK-MED ONCE .ROUTE ; Start 06/09/19 at 15:12; Stop 06/09/19 at 15:13; Status DC Active Scripts Active Aspirin Ec (Aspirin) 81 Mg Tablet.dr 81 Mg PO DAILYWBKFT 30 Days Atorvastatin Calcium 20 Mg Tablet 20 Mg PO QHS 30 Days Clopidogrel (Clopidogrel Bisulfate) 75 Mg Tablet 75 Mg PO DAILYWBKFT 30 Days Reported Novolog Flexpen (Insulin Aspart) 100 Unit/1 Ml Insuln.pen 10 Unit SQ DAILYWSUP Novolog Flexpen (Insulin Aspart) 100 Unit/1 Ml Insuln.pen 5 Unit SQ DAILYWBKFT Vitamin E (Vitamin E Acid Succinate) 100 Unit Tablet 100 Unit PO DAILY Coq-10 (Ubidecarenone) 100 Mg Capsule 100 Mg PO DAILY Lantus Solostar (Insulin Glargine,Hum.rec.anlog) 100 Unit/1 Ml Insuln.pen 17 Unit SQ QHS Caltrate 600 + D Soft Chew Tab (Calcium Carbonate/Vitamin D3) 1 Each Tab.chew 1 Each PO DAILY One Daily For Women 50+ Adv Tb (Multivitamins-Min/Fa/Ginkgo) 1 Each Tablet 1 Each PO DAILY Tylenol (Acetaminophen) 325 Mg Tablet 325 Mg PO DAILY Amlodipine Besylate 5 Mg Tablet 5 Mg PO DAILY Zestril (Lisinopril) 10 Mg Tablet 10 Mg PO BID Vitals/I & O Vital Sign - Last 24 Hours 06/09/19 06/09/19 06/09/19 06/09/19 15:53 15:53 16:00 16:15 Temp 97.6 97.6 97.6 97.6 97.6 97.6 Pulse 60 60 68 Resp 18 18 18 B/P (MAP) 132/52 118/44 156/59 Pulse Ox 99 99 98 O2 Delivery Simple Mask Mask Nasal Cannula Nasal Cannula O2 Flow Rate 12 12 3 3 06/09/19 06/09/19 06/09/19 06/09/19 16:31 19:50 20:20 21:20 Temp 98.5 98.1 98.5 98.1 Pulse 16 73 73 Resp 16 19 B/P (MAP) 150/69 (96) 157/70 (99) 157/70 Pulse Ox 98 97 O2 Delivery Nasal Cannula Room Air Room Air O2 Flow Rate 2.0 06/09/19 06/09/19 06/09/19 06/10/19 21:20 23:45 23:50 03:33 Temp 98.3 98.1 98.3 98.1 Pulse 70 81 Resp 19 B/P (MAP) 152/66 (94) 152/67 (95) Pulse Ox 96 96 O2 Delivery Nasal Cannula Room Air Room Air Room Air 06/10/19 06/10/19 06/10/19 06/10/19 07:00 08:00 08:59 08:59 Temp 97.8 97.8 Pulse 66 77 77 Resp 18 B/P (MAP) 150/65 (93) 150/65 150/65 Pulse Ox 97 O2 Delivery Room Air Room Air 06/10/19 06/10/19 06/10/19 06/10/19 08:59 10:56 11:23 15:00 Temp 98.2 98.0 98.2 98.0 Pulse 78 75 Resp 18 18 B/P (MAP) 152/58 (89) 161/59 (93) Pulse Ox 97 97 97 O2 Delivery Room Air Room Air Room Air Room Air Intake and Output 06/09/19 06/09/19 06/10/19 15:00 23:00 07:00 Intake Total 160 ml 300 ml Output Total 200 ml 250 ml Balance -40 ml 50 ml Images TRINITY: LEFT VENTRICLE The left ventricle is normal size. There is mild concentric left ventricular hypertrophy. The left ventricular systolic function is hyperdynamic. The ejection fraction is >65%. There is normal LV segmental wall motion. No left ventricle thrombus noted on this study. RIGHT VENTRICLE The right ventricle is normal size. There is normal right ventricular wall thickness. The right ventricular systolic function is normal. ATRIA The left atrium size is normal. The right atrium size is normal. The interatrial septum is intact with no evidence for an atrial septal defect or patent foramen ovale as noted on 2-D or Doppler imaging. There is no thrombus noted in the left atrial appendage. AORTIC VALVE The aortic valve is mildly calcified. Doppler and Color Flow revealed no significant aortic regurgitation. MITRAL VALVE Mitral annular calcification is mild to moderate. There is no evidence of mitral valve prolapse. There is a mean pressure gradient of 4 mmHg. Doppler and Color- flow revealed trace to mild mitral regurgitation. TRICUSPID VALVE The tricuspid valve is normal in structure and function. Doppler and Color Flow revealed trace tricuspid regurgitation. There is no tricuspid valve stenosis. PULMONIC VALVE The pulmonary valve is normal in structure and function. Doppler and Color Flow revealed trace to mild pulmonic valvular regurgitation. GREAT VESSELS The aortic root is normal in size. Normal pulmonary venous flow (Doppler). PERICARDIAL EFFUSION There is no evidence of significant pericardial effusion. Critical Notification Critical Value: No <Conclusion> The left ventricular systolic function is hyperdynamic. The ejection fraction is >65%. There is normal LV segmental wall motion. Trace to mild mitral regurgitation. Trace tricuspid regurgitation. There is no evidence of significant pericardial effusion. No intracardiac vegetation or thrombus. HUGH CRAMER MD Jun 10, 2019 15:49
--- NOTE | 2019-06-10 16:03 | NUR ---
SS following up with discharge planning. Discharge orders received for long term unit. SS phoned and faxed discharge orders to [facility], ; fax [phone]. Pt will discharge today and go to [facility] between 1730 and 1800. Pt, pt's son, and pt's RN notified.
--- NOTE | 2019-06-10 17:28 | NUR ---
Discharge Note: COSME VELOZ [facility] Discharge instructions and discharge home medications reviewed with Other facility and a copy given. All questions have been answered and understanding verbalized. The following instructions and handouts were given: Patient package given to facility transport. Discontinued iv lines and catheter intact. Patient discharged to [facility] with with assist care.
[2019-06-10] MEDS ORDERED: DEXTROSE 25% 10 ML DISP.SYRIN. IV ONE (19:00)
--- NOTE | 2019-06-11 08:21 | PDOC ---
PROGRESS NOTES History of Present Illness History of Present Illness VTE Prophylaxis Ordered VTE Prophylaxis Devices: No VTE Pharmacological Prophylaxi: Yes discharge dx Assessment/Plan impression 1. Nonobstructive coronary artery disease 2. Hyperdynamic left ventricle systolic function with ejection fraction estimated at 80% 3. non-STEMI is most probably type 2/demand ischemia. 4. 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 5. diabetes 6. hypertension 7. dizziness 8. dyspnea 9. on echo Ejection Fraction is >65%. 10.There is mild concentric left ventricular hypertrophy. 11. mild valvular aortic stenosis. by echo . Calculated aortic valve area is 1.4 cm2 with maximum pressure gradient of 14 mmHg and mean pressure gradient of 10 mmHg. 12. shortness of breath //probably anginal equivalent. Chest x-ray did not show any evidence of congestive heart failure. 13. new onset confusion, memory loss, metabolic encephalopathy 14. component of hypertensive encephalopathy, possible concussion 15, CVA, MULTIPLE areas focus of restricted diffusion of the anterior left cerebellum about 1 cm in size, corresponding T2 and FLAIR hyperintense signal. There is also small focus of restricted diffusion of the posterior medial left cerebellum about 0.6 cm in size, hypointense on ADC map. There could be a very small focus of restricted diffusion of the right occipital lobe about 0.4 cm although limited evaluation due to artifact in this region. There is a small focus of restricted diffusion of the left temporal lobe along the periventricular white matter about 0.5 cm. There is a 0.4 cm focus of restricted diffusion of the posterior right centrum semiovale. There is probable very small focus of restricted diffusion right parietal cortical surface about 0.2 cm otherwise difficult to characterize given small size. There is small 0.3 cm focus of somewhat faint restricted diffusion of the right frontal lobe and also separate small focus of the right frontal cortical surface about 0.3 cm in size. plan cont cvc cardiac cath reviewed medical management. accuchecks risk reduction mgt cardiology consulted pt/ot neurology consult mri head event monitor, possible [facility] Add clopidogrel, discontinue aspirin after a week Discharge Recommendations * [facility] 13 min pt exam, chart review d/c planning , > 50% of time spent with exam, chart review, pt care coordination Vitals Vitals Vital Signs Date Time Temp Pulse Resp B/P (MAP) Pulse Ox O2 Delivery O2 Flow Rate FiO2 06/10/19 15:00 98.0 75 18 161/59 (93) 97 Room Air 98.0 Physical Exam General: Alert, Cooperative, No acute distress Heart: Regular rate, Normal S1, Normal S2, Other (ESM LUPSB) Lungs: Clear Abdomen: Normal bowel sounds, Soft, No tenderness Extremities: No clubbing, No cyanosis Skin: No significant lesion Labs LABS Laboratory Tests Test 06/10/19 11:46 Glucose (Fingerstick) 212 mg/dL (70-99) Assessment and Plan Assessmemt and Plan Problems Medical Problems: (1) Diabetes Status: Chronic (2) Dyspnea Status: Acute (3) HTN (hypertension) Status: Chronic (4) Hypertensive encephalopathy Status: Acute (5) Metabolic encephalopathy Status: Acute (6) NSTEMI (non-ST elevated myocardial infarction) Status: Acute (7) Valvular stenosis, aortic Status: Chronic Comment Review of Relevant I have reviewed the following items randa (where applicable) has been applied. Labs Laboratory Tests Test 06/09/19 12:41 06/09/19 17:36 06/09/19 20:47 06/10/19 03:40 Glucose (Fingerstick) 162 mg/dL (70-99) 160 mg/dL (70-99) 144 mg/dL (70-99) White Blood Count 7.8 x10^3/uL (4.0-11.0) Red Blood Count 3.65 x10^6/uL (3.50-5.40) Hemoglobin 10.6 g/dL (12.0-15.5) Hematocrit 30.7 % (36.0-47.0) Mean Corpuscular Volume 84 fL (79-100) Mean Corpuscular Hemoglobin 29 pg (25-35) Mean Corpuscular Hemoglobin Concent 35 g/dL (31-37) Red Cell Distribution Width 13.3 % (11.5-14.5) Platelet Count 292 x10^3/uL (140-400) Neutrophils (%) (Auto) 75 % (31-73) Lymphocytes (%) (Auto) 14 % (24-48) Monocytes (%) (Auto) 9 % (0-9) Eosinophils (%) (Auto) 2 % (0-3) Basophils (%) (Auto) 0 % (0-3) Neutrophils # (Auto) 5.8 x10^3/uL (1.8-7.7) Lymphocytes # (Auto) 1.1 x10^3/uL (1.0-4.8) Monocytes # (Auto) 0.7 x10^3/uL (0.0-1.1) Eosinophils # (Auto) 0.1 x10^3/uL (0.0-0.7) Basophils # (Auto) 0.0 x10^3/uL (0.0-0.2) Test 06/10/19 03:45 06/10/19 07:22 06/10/19 11:46 Sodium Level 134 mmol/L (136-145) Potassium Level 4.1 mmol/L (3.5-5.1) Chloride Level 100 mmol/L (98-107) Carbon Dioxide Level 25 mmol/L (21-32) Anion Gap 9 (6-14) Blood Urea Nitrogen 19 mg/dL (7-20) Creatinine 1.0 mg/dL (0.6-1.0) Estimated GFR (Cockcroft-Gault) 52.3 BUN/Creatinine Ratio 19 (6-20) Glucose Level 118 mg/dL (70-99) Calcium Level 8.6 mg/dL (8.5-10.1) Total Bilirubin 0.5 mg/dL (0.2-1.0) Aspartate Amino Transf (AST/SGOT) 21 U/L (15-37) Alanine Aminotransferase (ALT/SGPT) 20 U/L (14-59) Alkaline Phosphatase 64 U/L (46-116) Total Protein 6.6 g/dL (6.4-8.2) Albumin 3.0 g/dL (3.4-5.0) Albumin/Globulin Ratio 0.8 (1.0-1.7) Glucose (Fingerstick) 121 mg/dL (70-99) 212 mg/dL (70-99) Laboratory Tests Test 06/10/19 11:46 Glucose (Fingerstick) 212 mg/dL (70-99) Medications Current Medications Aspirin (Ecotrin) 324 mg 1X ONCE PO Last administered on 06/07/19at 03:10; Start 06/07/19 at 03:30; Stop 06/07/19 at 03:31; Status DC Ondansetron HCl (Zofran) 4 mg PRN Q8HRS PRN IV NAUSEA/VOMITING 1ST CHOICE; Start 06/07/19 at 04:30; Stop 06/08/19 at 04:29; Status DC Sodium Chloride 1,000 ml @ 75 mls/hr [id number] IV Last administered on 06/07/19at 04:41; Start 06/07/19 at 05:00; Stop 06/08/19 at 04:59; Status DC Lidocaine HCl (Xylocaine-Mpf 1% 2ml Vial) 2 ml STK-MED ONCE .ROUTE ; Start 06/07 at 09:30; Stop 06/07/19 at 09:31; Status DC Iohexol (Omnipaque 300 Mg/ml) 100 ml STK-MED ONCE .ROUTE ; Start 06/07/19 at 09 :30; Stop 06/07/19 at 09:31; Status DC Heparin Sodium/ Sodium Chloride 500 ml @ As Directed STK-MED ONCE .ROUTE ; Start 06/07/19 at 09:30; Stop 06/07/19 at 09:31; Status DC Fentanyl Citrate (Fentanyl 2ml Vial) 100 mcg STK-MED ONCE .ROUTE ; Start 9 at 09:48; Stop 06/07/19 at 09:48; Status DC Midazolam HCl (Versed) 2 mg STK-MED ONCE .ROUTE ; Start 06/07/19 at 09:48; Stop 06/07/19 at 09:48; Status DC Heparin Sodium (Porcine) (Heparin Sodium) 10,000 unit STK-MED ONCE .ROUTE ; Start 06/07/19 at 09:48; Stop 06/07/19 at 09:48; Status DC Verapamil HCl (Verapamil) 5 mg STK-MED ONCE .ROUTE ; Start 06/07/19 at 09:48; Stop 06/07/19 at 09:48; Status DC Nitroglycerin (Nitroglycerin) 200 mcg STK-MED ONCE .ROUTE ; Start 06/07/19 at 09:48; Stop 06/07/19 at 09:49; Status DC Iohexol (Omnipaque 300 Mg/ml) 100 ml STK-MED ONCE .ROUTE ; Start 06/07/19 at 10:24; Stop 06/07/19 at 10:24; Status DC Nitroglycerin (Nitroglycerin) 200 mcg 1X ONCE IART Last administered on 06/07/19 10:54; Start 06/07/19 at 10:45; Stop 06/07/19 at 10:46; Status DC Verapamil HCl (Verapamil) 2.5 mg 1X ONCE IART Last administered on 06/07/19 10:54; Start 06/07/19 at 10:45; Stop 06/07/19 at 10:46; Status DC Heparin Sodium (Porcine) (Heparin Sodium) 2,500 unit 1X ONCE IART Last administered on 06/07/19 10:54; Start 06/07/19 at 10:45; Stop 06/07/19 at 10:46; Status DC Heparin Sodium/ Sodium Chloride (HEPARIN for ARTERIAL LINE FLUSH) 1,000 unit 1X ONCE IART Last administered on 06/07/19 10:54; Start 06/07/19 at 10:45; Stop 06/07/19 at 10:46; Status DC Midazolam HCl (Versed) 2 mg 1X ONCE IV Last administered on 06/07/19 10:54; Start 06/07/19 at 10:45; Stop 06/07/19 at 10:46; Status DC Fentanyl Citrate (Fentanyl 2ml Vial) 100 mcg 1X ONCE IV Last administered on 06/07/19 10:54; Start 06/07/19 at 10:45; Stop 06/07/19 at 10:46; Status DC Iohexol (Omnipaque 300 Mg/ml) 100 ml 1X ONCE IART Last administered on 06/07/19 10:54; Start 06/07/19 at 10:45; Stop 06/07/19 at 10:46; Status DC Lidocaine HCl (Xylocaine-Mpf 1% 2ml Vial) 2 ml 1X ONCE INJ Last administered on 06/07/19 10:54; Start 06/07/19 at 10:45; Stop 06/07/19 at 10:46; Status DC Info (CONTRAST GIVEN -- Rx MONITORING) 1 each PRN DAILY PRN MC SEE COMMENTS; Start 06/07/19 at 11:00; Stop 06/09/19 at 10:59; Status DC Sodium Chloride 1,000 ml @ 100 mls/hr Q10H IV Last administered on 06/10/19at 08:59; Start 06/07/19 at 10:49; Stop 06/10/19 at 10:59; Status DC Nitroglycerin (Nitrostat) 0.4 mg PRN Q5MIN PRN SL CHEST PAIN; Start 06/07/19 at 11:00 Acetaminophen (Tylenol) 325 mg DAILY PO Last administered on 06/10/19 08:59; Start 06/08/19 at 09:00 Amlodipine Besylate (Norvasc) 5 mg DAILY PO Last administered on 06/10/19 08:59; Start 06/08/19 at 09:00 Aspirin (Ecotrin) 325 mg DAILY PO Last administered on 06/09/19 08:19; Start 06/08/19 at 09:00; Stop 06/09/19 at 09:00; Status DC Insulin Glargine (Lantus) 17 units QHS SQ Last administered on 06/09/19 21:20; Start 06/07/19 at 21:00 Lisinopril (Prinivil) 10 mg BID PO Last administered on 06/10/19 08:59; Start 06/07/19 at 21:00 Calcium/Vitamin D (Oscal D 500mg/ 200uts) 1 tab DAILY PO Last administered on 06/10/19 08:59; Start 06/08/19 at 09:00 Insulin Human Lispro (HumaLOG) 5 units DAILYWBKFT SQ Last administered on 06/10/19 09:10; Start 06/07/19 at 17:00 Insulin Human Lispro (HumaLOG) 10 units DAILYWSUP SQ Last administered on 06/09/19 18:04; Start 06/07/19 at 17:00 Multivitamins (Thera M Plus) 1 tab DAILY PO Last administered on 06/10/19 08:59; Start 06/08/19 at 09:00 Non-Formulary Medication (Ubidecarenone (Coq-10)) 100 mg DAILY PO ; Start 06/08/19 at 09:00; Status UNV Vitamin E 200 unit DAILY PO Last administered on 06/10/19 08:59; Start 06/08/19 at 09:00 Morphine Sulfate (Morphine Sulfate) 2 mg PRN Q4HRS PRN IV PAIN; Start 06/07/19 at 20:15 Tramadol HCl (Ultram) 50 mg PRN Q6HRS PRN PO PAIN Last administered on 8/22/19at 08:59; Start 06/07/19 at 20:15 Insulin Human Lispro (HumaLOG) 0-5 UNITS TIDWMEALS SQ Last administered on 06/10/19at 12:37; Start 06/08/19 at 12:00 Dextrose (Dextrose 50%-Water Syringe) 12.5 gm PRN Q15MIN PRN IV SEE COMMENTS; Start 06/08/19 at 12:15 Dextrose 250 ml PRN Q15MIN PRN IV SEE COMMENTS; Start 06/08/19 at 12:15; Stop 06/08/19 at 12:11; Status DC Acetaminophen (Tylenol) 650 mg PRN Q6HRS PRN PO TEMP > 100.4F; Start 06/08/19 at 14:45 Acetaminophen (Tylenol Supp) 650 mg PRN Q4HRS PRN NV TEMP > 100.4F; Start 06/08/19 at 14:45 Aspirin (Ecotrin) 325 mg DAILYWBKFT PO ; Start 06/09/19 at 08:00; Status Cancel Aspirin (Aspirin Rectal Supp) 300 mg PRN DAILY PRN NV IF UNABLE TO TAKE PO; Start 06/08/19 at 14:45; Stop 06/09/19 at 09:00; Status DC Atorvastatin Calcium (Lipitor) 20 mg QHS PO Last administered on 06/09/19at 21:20; Start 06/09/19 at 21:00 Aspirin (Ecotrin) 81 mg DAILY PO ; Start 06/09/19 at 09:00; Stop 06/09/19 at 12:51; Status DC Clopidogrel Bisulfate (Plavix) 75 mg DAILYWBKFT PO Last administered on 06/10/19at 08:59; Start 06/09/19 at 09:00 Benzocaine (Hurricaine One) 3 spray 1X ONCE MM Last administered on 06/09/19at 15:45; Start 06/09/19 at 10:15; Stop 06/09/19 at 10:19; Status DC Lidocaine HCl (Xylocaine 2% Topical 30gm Tube) 1 cricket 1X ONCE TP Last administered on 06/09/19at 15:45; Start 06/09/19 at 10:15; Stop 06/09/19 at 10:19; Status DC Lidocaine HCl (Viscous Lidocaine) 15 ml 1X ONCE SWSW ; Start 06/09/19 at 10:15; Stop 06/09/19 at 10:19; Status DC Ondansetron HCl (Zofran) 4 mg PRN Q6HRS PRN IV NAUSEA/VOMITING; Start 06/09/19 at 10:45; Stop 06/10/19 at 10:44; Status DC Fentanyl Citrate (Fentanyl 2ml Vial) 25 mcg PRN Q5MIN PRN IV MILD PAIN 1-3; Start 06/09/19 at 10:45; Stop 06/10/19 at 10:44; Status DC Fentanyl Citrate (Fentanyl 2ml Vial) 50 mcg PRN Q5MIN PRN IV MODERATE TO SEVERE PAIN; Start 06/09/19 at 10:45; Stop 06/10/19 at 10:44; Status DC Morphine Sulfate (Morphine Sulfate) 1 mg PRN Q10MIN PRN IV SEVERE PAIN 7-10; Start 06/09/19 at 10:45; Stop 06/10/19 at 10:44; Status DC Ringer's Solution 1,000 ml @ 30 mls/hr Q24H IV Last administered on 06/09/19at 15:47; Start 06/09/19 at 10:41; Stop 06/09/19 at 22:40; Status DC Lidocaine HCl (Xylocaine-Mpf 1% 2ml Vial) 2 ml PRN 1X PRN ID PRIOR TO IV START; Start 06/09/19 at 10:45; Stop 06/10/19 at 10:44; Status DC Hydromorphone HCl (Dilaudid) 0.5 mg PRN Q10MIN PRN IV SEV PAIN, Second choice; Start 06/09/19 at 10:45; Stop 06/10/19 at 10:44; Status DC Prochlorperazine Edisylate (Compazine) 5 mg PACU PRN PRN IV NAUSEA, MRX1; Start 06/09/19 at 10:45; Stop 06/10/19 at 10:44; Status DC Aspirin (Ecotrin) 81 mg DAILYWBKFT PO Last administered on 06/10/19at 08:59; Start 06/10/19 at 08:00 Lidocaine HCl (Viscous Lidocaine) 15 ml STK-MED ONCE .ROUTE ; Start 06/09/19 at 14:53; Stop 06/09/19 at 14:53; Status DC Benzocaine (Hurricaine One) 1 spray STK-MED ONCE .ROUTE ; Start 06/09/19 at 14:53; Stop 06/09/19 at 14:54; Status DC Lidocaine HCl (Xylocaine 2% Topical 30gm Tube) 30 cricket STK-MED ONCE TP ; Start 06/09/19 at 14:54; Stop 06/09/19 at 14:55; Status DC Propofol 20 ml @ As Directed STK-MED ONCE IV ; Start 06/09/19 at 15:12; Stop 06/09/19 at 15:13; Status DC Propofol 20 ml @ As Directed STK-MED ONCE IV ; Start 06/09/19 at 15:12; Stop 06/09/19 at 15:13; Status DC Lidocaine HCl (Lidocaine Pf 2% Vial) 5 ml STK-MED ONCE .ROUTE ; Start 06/09/19 at 15:12; Stop 06/09/19 at 15:13; Status DC Active Scripts Active Aspirin Ec (Aspirin) 81 Mg Tablet.dr 81 Mg PO DAILYWBKFT 30 Days Atorvastatin Calcium 20 Mg Tablet 20 Mg PO QHS 30 Days Clopidogrel (Clopidogrel Bisulfate) 75 Mg Tablet 75 Mg PO DAILYWBKFT 30 Days Reported Novolog Flexpen (Insulin Aspart) 100 Unit/1 Ml Insuln.pen 10 Unit SQ DAILYWSUP Novolog Flexpen (Insulin Aspart) 100 Unit/1 Ml Insuln.pen 5 Unit SQ DAILYWBKFT Vitamin E (Vitamin E Acid Succinate) 100 Unit Tablet 100 Unit PO DAILY Coq-10 (Ubidecarenone) 100 Mg Capsule 100 Mg PO DAILY Lantus Solostar (Insulin Glargine,Hum.rec.anlog) 100 Unit/1 Ml Insuln.pen 17 Unit SQ QHS Caltrate 600 + D Soft Chew Tab (Calcium Carbonate/Vitamin D3) 1 Each Tab.chew 1 Each PO DAILY One Daily For Women 50+ Adv Tb (Multivitamins-Min/Fa/Ginkgo) 1 Each Tablet 1 Each PO DAILY Tylenol (Acetaminophen) 325 Mg Tablet 325 Mg PO DAILY Amlodipine Besylate 5 Mg Tablet 5 Mg PO DAILY Zestril (Lisinopril) 10 Mg Tablet 10 Mg PO BID Vitals/I & O Vital Sign - Last 24 Hours 06/10/19 06/10/19 06/10/19 06/10/19 08:59 08:59 08:59 10:56 Temp 98.2 98.2 Pulse 77 77 78 Resp 18 B/P (MAP) 150/65 150/65 152/58 (89) Pulse Ox 97 97 O2 Delivery Room Air Room Air 06/10/19 06/10/19 11:23 15:00 Temp 98.0 98.0 Pulse 75 Resp 18 B/P (MAP) 161/59 (93) Pulse Ox 97 O2 Delivery Room Air Room Air Intake and Output 06/10/19 06/10/19 06/11/19 15:00 23:00 07:00 Output Total 200 ml Balance -200 ml KATHERYN HALL MD Jun 11, 2019 08:21
== END 2019-06-10 17:15 | DRG 64 ==
LOC: ER 01:36 → 2 SOUTH 03:20
PROVIDERS: ADMIT Internal Medicine; ATTEND Internal Medicine
PROC: 4A023N7 Measurement of Cardiac Sampling and Pressure, Left Heart, Percutaneous Approach (ICD-10-PCS; principal; 2019-06-07)
PROC: B2111ZZ Fluoroscopy of Multiple Coronary Arteries using Low Osmolar Contrast (ICD-10-PCS; 2019-06-07)
PROC: B2151ZZ Fluoroscopy of Left Heart using Low Osmolar Contrast (ICD-10-PCS; 2019-06-07)
DX: I63.40 Cerebral infarction due to embolism of unspecified cerebral artery (principal); I21.A1 Myocardial infarction type 2; G93.41 Metabolic encephalopathy; E87.1 Hypo-osmolality and hyponatremia; E78.00 Pure hypercholesterolemia, unspecified; E78.5 Hyperlipidemia, unspecified; I10 Essential (primary) hypertension; I25.10 Atherosclerotic heart disease of native coronary artery without angina pectoris; I35.0 Nonrheumatic aortic (valve) stenosis; E11.9 Type 2 diabetes mellitus without complications; F32.9 Major depressive disorder, single episode, unspecified; F41.9 Anxiety disorder, unspecified; Z90.49 Acquired absence of other specified parts of digestive tract
CPT/HCPCS: 36415; 70450; 70551; 71045; 80048; 80053; 80061; 81001; 82550; 82962; 83880; 84300; 84443; 84484; 85025; 93005; 93306; 93312; 93320; 93325; 93458; 93880; 95816; 99152; 99153; C1769; C1892; J1644; J1815; J2001; J2250; J2704; J3010; J3490; J7030; J7120; Q9967; 92610; 97110; 97116; 97530; 97535; 99285-25; G0378

== ENCOUNTER 2019-08-13 11:17 | Emergency (ER) | payer MEDICARE, OTHER ==
[~2019-08-13] VITALS: Ht 152.4 cm; Wt 58.1 kg
[~2019-08-13 11:17] MED LIST: ACET325T9 PO; AMLO5TAB10 PO; ASPI-612 PO; ASPI325T11 PO; ATOR20TA58 PO; CALC-450 PO; CLOP75TA PO; INSU100I13 SQ; INSU100I17 SQ; LISI-377 PO; METF10007 PO; MULT-129 PO; UBID100C26 PO; VITA100T5 PO
--- NOTE | 2019-08-13 11:38 | PHYS DOC ---
Past Medical History Past Medical History: CAD, Diabetes-Type II, High Cholesterol, Hypertension Past Surgical History: Cholecystectomy Alcohol Use: None Drug Use: None Adult General Chief Complaint Chief Complaint: MECHANICAL FALL HPI HPI 88-year-old female presents to the emergency Department complaints of fall. Kimi ent has a history of diabetes, hypertension, history of urinary tract infection. She was seen her primary care physician's office today and referred to the emergency department for further evaluation. Patient fell yesterday hitting her head, unknown loss of consciousness. She's had increasing drowsiness over the last 24 hours compared to normal. She denies any chest pain, shortness of breath, nausea or vomiting. She does complain of headache. Review of Systems Review of Systems Constitutional: Denies fever or chills [] Respiratory: Denies cough or shortness of breath [] Cardiovascular: No additional information not addressed in HPI [] GI: Denies abdominal pain, nausea, vomiting, bloody stools or diarrhea [] : Denies dysuria or hematuria [] Musculoskeletal: Denies back pain or joint pain [] Integument: Denies rash or skin lesions [] Neurologic: Denies headache, focal weakness or sensory changes [] All other systems were reviewed and found to be within normal limits, except as documented in this note. Allergies Allergies Allergies Coded Allergies Type Severity Reaction Last Updated Verified No Known Drug Allergies 07/27/17 No Physical Exam Physical Exam Constitutional: Well developed, well nourished, no acute distress, non-toxic appearance. [] HENT: Normocephalic, atraumatic, bilateral external ears normal, oropharynx moist, no oral exudates, nose normal. [] Eyes: PERRLA, EOMI, conjunctiva normal, no discharge. [] Neck: Normal range of motion, no tenderness, supple, no stridor. [] Cardiovascular:Heart rate regular rhythm, no murmur [] Lungs & Thorax: Bilateral breath sounds clear to auscultation [] Abdomen: Bowel sounds normal, soft, no pulsatile masses. [] Skin: Warm, dry, no erythema, no rash. [] Back: No tenderness, no CVA tenderness. [] Extremities: No tenderness, no edema. [] Neurologic: Alert and oriented X 3, no focal deficits noted. [] Psychologic: Affect normal, judgement normal, mood normal. [] Current Patient Data Vital Signs Vital Signs Date Time Temp Pulse Resp B/P (MAP) Pulse Ox O2 Delivery O2 Flow Rate FiO2 08/13/19 11:32 98.9 80 18 167/69 (101) 99 Room Air 98.9 Lab Values Laboratory Tests Test 08/13/19 11:55 08/13/19 12:05 Urine Collection Type Unknown Urine Color Yellow Urine Clarity Clear Urine pH 6.0 Urine Specific [place] 1.015 Urine Protein 100 mg/dL (NEG-TRACE) Urine Glucose (UA) Negative mg/dL (NEG) Urine Ketones (Stick) Negative mg/dL (NEG) Urine Blood Negative (NEG) Urine Nitrite Negative (NEG) Urine Bilirubin Negative (NEG) Urine Urobilinogen Dipstick 1.0 mg/dL (0.2 mg/dL) Urine Leukocyte Esterase Trace (NEG) Urine RBC 0 /HPF (0-2) Urine WBC 5-10 /HPF (0-4) Urine Squamous Epithelial Cells Mod /LPF Urine Transitional Epithelial Cells Few /LPF Urine Bacteria Few /HPF (0-FEW) Urine Mucus Mod /LPF White Blood Count 10.8 x10^3/uL (4.0-11.0) Red Blood Count 3.73 x10^6/uL (3.50-5.40) Hemoglobin 10.8 g/dL (12.0-15.5) L Hematocrit 30.5 % (36.0-47.0) L Mean Corpuscular Volume 82 fL (79-100) Mean Corpuscular Hemoglobin 29 pg (25-35) Mean Corpuscular Hemoglobin Concent 35 g/dL (31-37) Red Cell Distribution Width 12.9 % (11.5-14.5) Platelet Count 376 x10^3/uL (140-400) Neutrophils (%) (Auto) 86 % (31-73) H Lymphocytes (%) (Auto) 7 % (24-48) L Monocytes (%) (Auto) 7 % (0-9) Eosinophils (%) (Auto) 0 % (0-3) Basophils (%) (Auto) 0 % (0-3) Neutrophils # (Auto) 9.3 x10^3/uL (1.8-7.7) H Lymphocytes # (Auto) 0.8 x10^3/uL (1.0-4.8) L Monocytes # (Auto) 0.7 x10^3/uL (0.0-1.1) Eosinophils # (Auto) 0.0 x10^3/uL (0.0-0.7) Basophils # (Auto) 0.0 x10^3/uL (0.0-0.2) Segmented Neutrophils % 82 % (35-66) H Band Neutrophils % 3 % (0-9) Lymphocytes % 7 % (24-48) L Atypical Lymphocytes % (Manual) 1 % (0-0) H Monocytes % 7 % (0-10) Platelet Estimate Adequate (ADEQUATE) Sodium Level 127 mmol/L (136-145) L Potassium Level 4.5 mmol/L (3.5-5.1) Chloride Level 90 mmol/L (98-107) L Carbon Dioxide Level 26 mmol/L (21-32) Anion Gap 11 (6-14) Blood Urea Nitrogen 18 mg/dL (7-20) Creatinine 0.9 mg/dL (0.6-1.0) Estimated GFR (Cockcroft-Gault) 59.1 BUN/Creatinine Ratio 20 (6-20) Glucose Level 131 mg/dL (70-99) H Calcium Level 9.7 mg/dL (8.5-10.1) Total Bilirubin 0.9 mg/dL (0.2-1.0) Aspartate Amino Transferase (AST) 20 U/L (15-37) Alanine Aminotransferase (ALT) 22 U/L (14-59) Alkaline Phosphatase 69 U/L (46-116) Total Protein 7.6 g/dL (6.4-8.2) Albumin 3.6 g/dL (3.4-5.0) Albumin/Globulin Ratio 0.9 (1.0-1.7) L Laboratory Tests 08/13/19 12:05 Laboratory Tests 08/13/19 12:05 EKG EKG [] Radiology/Procedures Radiology/Procedures [facility] [address] [place] [address] IMAGING REPORT Signed PATIENT: JHONATAN VELOZ ACCOUNT: [id number] : 1930 LOCATION: ER AGE: 88 SEX: F EXAM STATUS: REG ER ORD. PHYSICIAN: DEBI HARPER MD REASON: fall, head injury PROCEDURE: CT HEAD WO CONTRAST CT HEAD WO CONTRAST History: Fall. Head injury. Comparison: June 07, 2019 Technique: Noncontrast CT imaging was performed of the head. Exposure: One or more of the following individualized dose reduction techniques were utilized for this examination: 1. Automated exposure control 2. Adjustment of the mA and/or kV according to patient size 3. Use of iterative reconstruction technique. Findings: No intracranial hemorrhage. No mass effect. Mild brain parenchymal volume loss. Mildly prominent lateral ventricles, likely related to central brain parenchymal volume loss. Moderate foci of decreased attenuation within the hemispheric white matter, most often due to chronic microvascular ischemia. Imaged orbits are unremarkable. Imaged paranasal sinuses and mastoid air cells are clear. No acute calvarial fracture. Impression: 1. No acute intracranial abnormality. 2. Moderate sequela chronic microvascular ischemia. 3. Mild brain parenchymal volume loss. Electronically signed by: Bello Bell DO (08/13/2019 12:25 PM) [facility] DICTATED and SIGNED BY: BELLO BELL DO DATE: 08/13/19 1225 [] Course & Med Decision Making Course & Med Decision Making Pertinent Labs and Imaging studies reviewed. (See chart for details) []88-year-old female presents to the emergency Department complaints of fall. Patient has a history of diabetes, hypertension, history of urinary tract infection. She was seen her primary care physician's office today and referred to the emergency department for further evaluation. Patient fell yesterday hitting her head, unknown loss of consciousness. She's had increasing drowsiness over the last 24 hours compared to normal. She denies any chest pain, shortness of breath, nausea or vomiting. She does complain of headache. Labs/Imaging reviewed No UTI appreciated Discussed dc with patient and family at bedside Dragon Disclaimer Dragon Disclaimer This electronic medical record was generated, in whole or in part, using a voice recognition dictation system. Departure Departure Impression: Primary Impression: Fall Additional Impression: Hyponatremia Disposition: 01 HOME, SELF-CARE Condition: STABLE Referrals: YORDY HARTMAN MD (PCP) Patient Instructions: Fall Prevention and Home Safety, [id number], Hyponatremia, [id number] Additional Instructions: Recommend follow up with PCP 3 - 5 days Return to the ER with worsening symptoms, intractable pain, fever, altered mental status Tylenol/Motrin as needed for pain Take salt tabs daily x 3 days Take steroid rx as prescribed for 5 days Scripts [prednisone] No Conflict Check TAB PO DAILY for 10 Days Prov: DEBI HARPER MD 08/13/19 [sodium chloride] No Conflict Check GM PO DAILY for 3 Days, #3 Prov: DEBI HARPER MD 08/13/19 [sodium] No Conflict Check Prov: DEBI HARPER MD 08/13/19 Problem Qualifiers Primary Impression: Fall Encounter type: initial encounter Qualified Codes: W19.XXXA - Unspecified fall, initial encounter DEBI HARPER MD Aug 13, 2019 11:38
[2019-08-13 12:04] LABS: BILIRUBIN,URINE NEGATIVE (NEG); CLARITY,URINE CLEAR; COLOR,URINE YELLOW; NITRITE,URINE NEGATIVE (NEG); PROTEIN,URINE 100 mg/dL (NEG-TRACE)
[2019-08-13 12:10] LABS: BACTERIA,URINE FEW /HPF (0-FEW); RBC,URINE 0 /HPF (0-2); SQUAMOUS EPITHELIAL CELL,UR MOD /LPF
[2019-08-13 12:13] LABS: BASO % 0 % (0-3); EOS % 0 % (0-3); HEMATOCRIT 30.5 % (36.0-47.0); HEMOGLOBIN 10.8 g/dL (12.0-15.5); LYMPH # 0.8 x10^3/uL (1.0-4.8); LYMPH % 7 % (24-48); MEAN CORPUSCULAR HEMOGLOBIN 29 pg (25-35); MEAN CORPUSCULAR HGB CONC 35 g/dL (31-37); MEAN CORPUSCULAR VOLUME 82 fL (79-100); MONO # 0.7 x10^3/uL (0.0-1.1); MONO % 7 % (0-9); NEUT # 9.3 x10^3/uL (1.8-7.7); NEUT % 86 % (31-73); PLATELET COUNT 376 x10^3/uL (140-400); RED BLOOD COUNT 3.73 x10^6/uL (3.50-5.40); RED CELL DISTRIBUTION WIDTH 12.9 % (11.5-14.5); WHITE BLOOD COUNT 10.8 x10^3/uL (4.0-11.0)
[2019-08-13 12:25] LABS: CALCIUM 9.7 mg/dL (8.5-10.1); CREATININE 0.9 mg/dL (0.6-1.0); GFR 59.1; POTASSIUM 4.5 mmol/L (3.5-5.1)
--- NOTE | 2019-08-13 12:27 | RAD ---
CT HEAD WO CONTRAST History: Fall. Head injury. Comparison: June 07, 2019 Technique: Noncontrast CT imaging was performed of the head. Exposure: One or more of the following individualized dose reduction techniques were utilized for this examination: 1. Automated exposure control 2. Adjustment of the mA and/or kV according to patient size 3. Use of iterative reconstruction technique. Findings: No intracranial hemorrhage. No mass effect. Mild brain parenchymal volume loss. Mildly prominent lateral ventricles, likely related to central brain parenchymal volume loss. Moderate foci of decreased attenuation within the hemispheric white matter, most often due to chronic microvascular ischemia. Imaged orbits are unremarkable. Imaged paranasal sinuses and mastoid air cells are clear. No acute calvarial fracture. Impression: 1. No acute intracranial abnormality. 2. Moderate sequela chronic microvascular ischemia. 3. Mild brain parenchymal volume loss. Electronically signed by: Bello Bell DO (08/13/2019 12:25 PM) [facility]
[2019-08-13 12:30] LABS: ALBUMIN 3.6 g/dL (3.4-5.0); ALBUMIN/GLOBULIN RATIO 0.9 (1.0-1.7); TOTAL BILIRUBIN 0.9 mg/dL (0.2-1.0); TOTAL PROTEIN 7.6 g/dL (6.4-8.2)
[2019-08-13 13:00] LABS: % ATYL 1 % (0-0); % BANDS 3 % (0-9); % LYMPHS 7 % (24-48); % MONOS 7 % (0-10); % SEGS 82 % (35-66); PLT ESTIMATE ADEQUATE (ADEQUATE)
[2019-08-13] MEDS ORDERED: sodium (13:17)
[2019-08-13] MEDS ORDERED: sodium chloride PO (13:17)
[2019-08-13] MEDS ORDERED: prednisone PO (13:18)
[2019-08-13 13:54] VITALS: BP 162/66
== END 2019-08-13 13:56 | disposition home or self-care (01) ==
LOC: ER 11:17
DX: E87.1 Hypo-osmolality and hyponatremia (principal); R51 Headache; R42 Dizziness and giddiness; E11.9 Type 2 diabetes mellitus without complications; I25.10 Atherosclerotic heart disease of native coronary artery without angina pectoris; E78.00 Pure hypercholesterolemia, unspecified; Z90.49 Acquired absence of other specified parts of digestive tract; W18.39XA Other fall on same level, initial encounter; Y93.89 Activity, other specified; Y92.89 Other specified places as the place of occurrence of the external cause; Y99.8 Other external cause status
CPT/HCPCS: 36415; 70450; 80053; 81001; 85007; 85025; 87086; 99285-25

== ENCOUNTER 2019-08-22 01:36 | Inpatient (IN) | payer MEDICARE, OTHER ==
[~2019-08-22] VITALS: Ht 152.4 cm; Wt 54.0 kg
[~2019-08-22 01:36] MED LIST changes: +prednisone PO; +sodium; +sodium chloride PO
--- NOTE | 2019-08-22 02:06 | PHYS DOC ---
Past Medical History Past Medical History: CAD, CVA, Depression, Diabetes-Type II, High Cholesterol, Hypertension, UTI Additional Past Medical Histor: HEART MURMUR Past Surgical History: Cholecystectomy Alcohol Use: None Drug Use: None Adult General Chief Complaint Chief Complaint: ALTERED MENTAL STATUS HPI HPI 88-year-old female presents to the emergency department with increased confusion, family states she's been confused between day and night. She's had no fever, nausea, vomiting, diarrhea. She slowly respond has had evidence of weakness as well as gait disturbance. Patient's underlying history of hypertension, hyperlipidemia, chronic hyponatremia. She is responding appropriately to questions however is slow to respond. She denies any acute complaints of pain on examination. Family is concerned about acute infection at this time. She has recently been evaluated per her primary care physician on Friday and was doing well. They recently has changes over the last 1-2 days. Review of Systems Review of Systems Constitutional: Denies fever or chills [] Respiratory: Denies cough or shortness of breath [] Cardiovascular: No additional information not addressed in HPI [] GI: Denies abdominal pain, nausea, vomiting, bloody stools or diarrhea [] : Denies dysuria or hematuria [] Neurologic: Denies headache, focal weakness or sensory changes [] All other systems were reviewed and found to be within normal limits, except as documented in this note. Allergies Allergies Allergies Coded Allergies Type Severity Reaction Last Updated Verified No Known Drug Allergies 07/27/17 No Physical Exam Physical Exam Constitutional: Well developed, well nourished, no acute distress, non-toxic appearance. [] HENT: Normocephalic, atraumatic, bilateral external ears normal, oropharynx [address], no oral exudates, nose normal. [] Eyes: PERRLA, EOMI, conjunctiva normal, no discharge. [] Cardiovascular:Heart rate regular rhythm, no murmur [] Lungs & Thorax: Bilateral breath sounds clear to auscultation [] Abdomen: Bowel sounds normal, soft, no tenderness, no masses, no pulsatile masses. [] Skin: Warm, dry, no erythema, no rash. [] Back: No tenderness, no CVA tenderness. [] Extremities: No tenderness, no edema. [] Neurologic: Alert and oriented X 3, no focal deficits noted. [] Psychologic: Affect normal, judgement normal, mood normal. [] Current Patient Data Vital Signs Vital Signs Date Time Temp Pulse Resp B/P (MAP) Pulse Ox O2 Delivery O2 Flow Rate FiO2 08/22/19 01:40 97.8 77 22 173/75 (107) 99 Room Air 97.8 Lab Values Laboratory Tests Test 08/22/19 02:05 08/22/19 02:15 White Blood Count 9.4 x10^3/uL (4.0-11.0) Red Blood Count 3.64 x10^6/uL (3.50-5.40) Hemoglobin 10.5 g/dL (12.0-15.5) L Hematocrit 30.3 % (36.0-47.0) L Mean Corpuscular Volume 83 fL (79-100) Mean Corpuscular Hemoglobin 29 pg (25-35) Mean Corpuscular Hemoglobin Concent 35 g/dL (31-37) Red Cell Distribution Width 13.2 % (11.5-14.5) Platelet Count 439 x10^3/uL (140-400) H Neutrophils (%) (Auto) 77 % (31-73) H Lymphocytes (%) (Auto) 13 % (24-48) L Monocytes (%) (Auto) 9 % (0-9) Eosinophils (%) (Auto) 1 % (0-3) Basophils (%) (Auto) 1 % (0-3) Neutrophils # (Auto) 7.2 x10^3/uL (1.8-7.7) Lymphocytes # (Auto) 1.2 x10^3/uL (1.0-4.8) Monocytes # (Auto) 0.8 x10^3/uL (0.0-1.1) Eosinophils # (Auto) 0.1 x10^3/uL (0.0-0.7) Basophils # (Auto) 0.0 x10^3/uL (0.0-0.2) Sodium Level 134 mmol/L (136-145) L Potassium Level 3.9 mmol/L (3.5-5.1) Chloride Level 97 mmol/L (98-107) L Carbon Dioxide Level 29 mmol/L (21-32) Anion Gap 8 (6-14) Blood Urea Nitrogen 22 mg/dL (7-20) H Creatinine 0.8 mg/dL (0.6-1.0) Estimated GFR (Cockcroft-Gault) 67.7 BUN/Creatinine Ratio 28 (6-20) H Glucose Level 55 mg/dL (70-99) L Calcium Level 9.0 mg/dL (8.5-10.1) Total Bilirubin 0.5 mg/dL (0.2-1.0) Aspartate Amino Transferase (AST) 18 U/L (15-37) Alanine Aminotransferase (ALT) 20 U/L (14-59) Alkaline Phosphatase 65 U/L (46-116) Ammonia < 10 mcmol/L (11-34) L Total Protein 7.2 g/dL (6.4-8.2) Albumin 3.6 g/dL (3.4-5.0) Albumin/Globulin Ratio 1.0 (1.0-1.7) Urine Collection Type U cath Urine Color Yellow Urine Clarity Clear Urine pH 6.5 Urine Specific [place] 1.010 Urine Protein 100 mg/dL (NEG-TRACE) Urine Glucose (UA) Negative mg/dL (NEG) Urine Ketones (Stick) Negative mg/dL (NEG) Urine Blood Negative (NEG) Urine Nitrite Negative (NEG) Urine Bilirubin Negative (NEG) Urine Urobilinogen Dipstick 1.0 mg/dL (0.2 mg/dL) Urine Leukocyte Esterase Negative (NEG) Urine RBC 1-2 /HPF (0-2) Urine WBC 1-4 /HPF (0-4) Urine Squamous Epithelial Cells Mod /LPF Urine Bacteria Few /HPF (0-FEW) Urine Hyaline Casts Occasional /HPF Laboratory Tests 08/22/19 02:05 Laboratory Tests 08/22/19 02:05 EKG EKG [] Radiology/Procedures Radiology/Procedures [] Course & Med Decision Making Course & Med Decision Making Pertinent Labs and Imaging studies reviewed. (See chart for details) []88-year-old female presents to the emergency department with increased confusion, family states she's been confused between day and night. She's had no fever, nausea, vomiting, diarrhea. She slowly respond has had evidence of weakness as well as gait disturbance. Patient's underlying history of hypertension, hyperlipidemia, chronic hyponatremia. She is responding appropriately to questions however is slow to respond. She denies any acute complaints of pain on examination. Family is concerned about acute infection at this time. She has recently been evaluated per her primary care physician on Friday and was doing well. They recently has changes over the last 1-2 days. Labs/imaging reviewed. Patient with evidence of hyponatremia however currently 134. CT reveals no evidence of acute intracranial process. Given patient's confusion, altered mental status, gait disturbance will plan admission and further evaluation neuro consultation. Discussed with family at bedside and they agree. Dragon Disclaimer Dragon Disclaimer This electronic medical record was generated, in whole or in part, using a voice recognition dictation system. NIHSS Stroke Scale NIH Stroke Scale: NIH Stroke Scale Response (Comments) Value Level of Consciousness: 0 Alert/Responsive 0 LOC Questions: 0 Answers both correctly 0 LOC Commands: 0 Performs both tasks 0 Best Gaze: 0 Normal 0 Visual: 0 No visual loss 0 Facial Palsy: 0 Normal, symmetrical 0 Motor - Left Arm 0 No drift 0 Motor - Right Arm 0 No drift 0 Motor - Left Leg 0 No drift 0 Motor: Right Leg 0 No drift 0 Limb Ataxia: 0 Absent 0 Sensory: 0 No loss 0 Best Language: 0 Normal 0 Dysathria: 0 Normal 0 Extinction and Inattention: 0 Normal 0 Total 0 Departure Departure Impression: Primary Impression: Altered mental status Additional Impression: Gait disturbance Disposition: ADMITTED INPATIENT Admitting Physician: NEAL Condition: STABLE Referrals: YORDY HARTMAN MD (PCP) Problem Qualifiers Primary Impression: Altered mental status Altered mental status type: unspecified Qualified Codes: R41.82 - Altered mental status, unspecified DEBI HARPER MD Aug 22, 2019 02:06
[2019-08-22 02:26] LABS: BASO % 1 % (0-3); EOS # 0.1 x10^3/uL (0.0-0.7); EOS % 1 % (0-3); HEMATOCRIT 30.3 % (36.0-47.0); HEMOGLOBIN 10.5 g/dL (12.0-15.5); LYMPH # 1.2 x10^3/uL (1.0-4.8); LYMPH % 13 % (24-48); MEAN CORPUSCULAR HEMOGLOBIN 29 pg (25-35); MEAN CORPUSCULAR HGB CONC 35 g/dL (31-37); MEAN CORPUSCULAR VOLUME 83 fL (79-100); MONO # 0.8 x10^3/uL (0.0-1.1); MONO % 9 % (0-9); NEUT # 7.2 x10^3/uL (1.8-7.7); NEUT % 77 % (31-73); PLATELET COUNT 439 x10^3/uL (140-400); RED BLOOD COUNT 3.64 x10^6/uL (3.50-5.40); RED CELL DISTRIBUTION WIDTH 13.2 % (11.5-14.5); WHITE BLOOD COUNT 9.4 x10^3/uL (4.0-11.0)
[2019-08-22 02:30] LABS: BILIRUBIN,URINE NEGATIVE (NEG); CLARITY,URINE CLEAR; COLOR,URINE YELLOW; NITRITE,URINE NEGATIVE (NEG); PH,URINE 6.5; PROTEIN,URINE 100 mg/dL (NEG-TRACE)
--- NOTE | 2019-08-22 02:42 | RAD ---
CT brain without contrast. HISTORY: Confusion, unsteady gait CT scan of brain was done without contrast. Comparison is made with a study from August 13. There is mild diffuse atrophy. There is no intracranial hemorrhage or subdural hematoma. There is no mass or shift of the midline. Ventricles are mildly dilated probably related to atrophy without change. There is decreased density in the periventricular white matter suggesting chronic microvascular changes. IMPRESSION: 1. Atrophy and chronic white matter changes. 2. No intracranial hemorrhage or acute CVA noted. RS Compliance Statement: One or more of the following individualized dose reduction techniques were utilized for this examination: 1. Automated exposure control 2. Adjustment of the mA and/or kV according to patient size 3. Use of iterative reconstruction technique Electronically signed by: Niles Monk MD (08/22/2019 2:39 AM) [facility]
[2019-08-22 02:43] LABS: CREATININE 0.8 mg/dL (0.6-1.0); GFR 67.7; POTASSIUM 3.9 mmol/L (3.5-5.1)
[2019-08-22 02:46] LABS: BACTERIA,URINE FEW /HPF (0-FEW); HYALINE CASTS, URINE OCCASIONAL /HPF; SQUAMOUS EPITHELIAL CELL,UR MOD /LPF
[2019-08-22 02:51] LABS: ALBUMIN 3.6 g/dL (3.4-5.0); TOTAL BILIRUBIN 0.5 mg/dL (0.2-1.0); TOTAL PROTEIN 7.2 g/dL (6.4-8.2)
--- NOTE | 2019-08-22 05:00 | NUR ---
ADMIT NOTE The patient, JHONATAN VELOZ, 88 y/o, F admitted by MAXIMINO MATA MD, was given written information regarding hospital policies, unit procedures and contact persons. Patient A&O x2, afebrile, with elevated BP upon admission, all other vitals stable. Admit packet, home medication list, allergy list, and plan of care discussed with patient and family. Patient's admission assessment complete, call light within reach, and bed in lowest/locked position, will continue to monitor.
[2019-08-22 05:30] VITALS: BP 165/57
[2019-08-22 07:00] VITALS: BP 152/51
[2019-08-22] MEDS ORDERED: CHOL100014 PO (07:16)
[2019-08-22] MEDS ORDERED: ESCITALOPRAM OX10 MG PO (07:16)
[2019-08-22] MEDS ORDERED: METF500T16 PO (07:16)
[2019-08-22] MEDS ORDERED: CALC600T4 PO (07:16)
[2019-08-22] MEDS ORDERED: LISI10TA2 PO (07:16)
[2019-08-22] MEDS ORDERED: INSU100I13 SQ (07:16)
[2019-08-22] MEDS ORDERED: INSU100I17 SQ ×2 (07:16)
[2019-08-22] MEDS ORDERED: ACETAMINOPHEN 500 MG TABLET PO PRN (08:15)
[2019-08-22] MEDS ORDERED: ACETAMINOPHEN/CODEINE 300/30MG TABLET. PO PRN (08:15)
[2019-08-22] MEDS ORDERED: cloNIDine HCL 0.1 MG TABLET PO PRN (08:15)
[2019-08-22] MEDS ORDERED: DEXTROSE 50% 25 GM / 50ML DISP.SYRIN. IV PRN (08:15)
[2019-08-22] MEDS ORDERED: CALCIUM CARBONATE 500 MG TAB.CHEW PO PRN (08:15)
[2019-08-22] MEDS ORDERED: ONDANSETRON PF 4 MG/2 ML VIAL. IVP PRN (08:15)
[2019-08-22] MEDS: INSULIN LISPRO 300 UNITS/3 ML VIAL. SQ SCH ×4 (08:30→17:00)
[2019-08-22] MEDS ORDERED: NON FORMULARY ITEM (Ubidecarenone (Coq-10) 100 MG) PO SCH (09:00)
[2019-08-22] MEDS: metFORMIN 500 MG TABLET PO SCH ×2 (09:08→17:00)
[2019-08-22] MEDS: ASPIRIN ENTERIC COATED 81 MG TABLET.DR. PO SCH (09:08)
[2019-08-22] MEDS: CHOLECALCIFEROL (VITAMIN D3) 1,000 UNIT TABLET PO SCH (09:08)
[2019-08-22] MEDS: CLOPIDOGREL BISULFATE 75 MG TABLET PO SCH (09:08)
[2019-08-22] MEDS: CITALOPRAM 20 MG TABLET. PO SCH (09:09)
[2019-08-22] MEDS: amLODIPine BESYLATE 5 MG TABLET PO SCH (09:09)
[2019-08-22] MEDS: CALCIUM CARBONATE 500 MG TABLET PO SCH (09:09)
[2019-08-22] MEDS: LISINOPRIL 10 MG TABLET PO SCH (09:13)
--- NOTE | 2019-08-22 10:35 | PDOC1 ---
History and Physical Date of Admission Date of Admission DATE: 08/22/19 TIME: 10:29 Identification/Chief Complaint Chief Complaint confusion at home Source Source: Caregiver, Chart review, Patient History of Present Illness History of Present Illness SHe lives at home and has family, she has normal BMI< confusion that family got concerned, SHe seems back to baseline, oriented to place and self but still feels "off". There were reports of gait instability, she has not ambulated here yet. HEr labs are reassuring including imaging,. I consulted neuro who has ordered CT cervical spine, I also added echo bec pt claims she syncopized but th e details are unclear, She is not the best historian and no family at bedside, I added some TSH, cpk, esr and blood tests, FULL CODE BP was a little bit high on arrival, Past Medical History Cardiovascular: HTN, Syncope, Other Hepatobiliary: No pertinent hx Psych: Anxiety, Depression Musculoskeletal: low back pain, Osteoarthritis Endocrine: Diabetes Past Surgical History Past Surgical History: Cholecystectomy, Cataract Removal Family History Family History: High Cholestrol Social History Smoke: No ALCOHOL: none Drugs: None Current Problem List Problem List Problems Medical Problems: (1) Altered mental status Status: Acute (2) Gait disturbance Status: Acute Current Medications Current Medications Current Medications Clonidine HCl (Catapres) 0.1 mg PRN Q1HR PRN PO HYPERTENSION; Start 08/22/19 at 08:15 Acetaminophen (Tylenol) 500 mg PRN Q6HRS PRN PO MILD PAIN / TEMP; Start 08/22/19 at 08:15 Acetaminophen/ Codeine Phosphate (Tylenol #3) 1 tab PRN Q6HRS PRN PO MODERATE PAIN; Start 08/22/19 at 08:15 Ondansetron HCl (Zofran) 4 mg PRN Q6HRS PRN IVP NAUSEA/VOMITING; Start 08/22/19 at 08:15 Calcium Carbonate/ Glycine (Tums) 500 mg PRN AFTMEALHC PRN PO INDIGESTION; Start 08/22/19 at 08:15 Amlodipine Besylate (Norvasc) 5 mg DAILY PO Last administered on 08/22/19at 09:09; Start 08/22/19 at 09:00 Aspirin (Ecotrin) 81 mg DAILYWBKFT PO Last administered on 08/22/19at 09:08; Start 08/22/19 at 08:30 Atorvastatin Calcium (Lipitor) 20 mg QHS PO ; Start 08/22/19 at 21:00 Clopidogrel Bisulfate (Plavix) 75 mg DAILYWBKFT PO Last administered on 08/22/19at 09:08; Start 08/22/19 at 08:30 Lisinopril (Prinivil) 10 mg DAILY PO Last administered on 08/22/19at 09:13; Start 08/22/19 at 09:00 Metformin HCl (Glucophage) 500 mg BIDWMEALS PO Last administered on 08/22/19at 09:08; Start 08/22/19 at 08:30 Calcium Carbonate/ Glycine (Oscal) 500 mg DAILY PO Last administered on 08/22/19at 09:09; Start 08/22/19 at 09:00 Vitamin D (Vitamin D3) 1,000 unit DAILY PO Last administered on 08/22/19at 09:08; Start 08/22/19 at 09:00 Citalopram Hydrobromide (CeleXA) 20 mg DAILY PO Last administered on 08/22/19at 09:09; Start 08/22/19 at 09:00 Insulin Human Lispro (HumaLOG) 4 units DAILYWBKFT SQ ; Start 08/22/19 at 08:30 Insulin Human Lispro (HumaLOG) 7 units DAILYWSUP SQ ; Start 08/22/19 at 17:00 Insulin Glargine (Lantus Syringe) 12 unit QHS SQ ; Start 08/22/19 at 21:00 Non-Formulary Medication (Ubidecarenone (Coq-10)) 100 mg DAILY PO ; Start 08/22/19 at 09:00; Status UNV Insulin Human Lispro (HumaLOG) 0-9 UNITS TIDWMEALS SQ ; Start 08/22/19 at 12:00 Dextrose (Dextrose 50%-Water Syringe) 12.5 gm PRN Q15MIN PRN IV SEE COMMENTS; Start 08/22/19 at 08:15 Active Scripts Active Aspirin Ec (Aspirin) 81 Mg Tablet. 81 Mg PO DAILYWBKFT 30 Days Atorvastatin Calcium 20 Mg Tablet 20 Mg PO QHS 30 Days Clopidogrel (Clopidogrel Bisulfate) 75 Mg Tablet 75 Mg PO DAILYWBKFT 30 Days Reported Lantus Solostar (Insulin Glargine,Hum.rec.anlog) 100 Unit/1 Ml Insuln.pen 12 Unit SQ QHS Novolog Flexpen (Insulin Aspart) 100 Unit/1 Ml Insuln.pen 7 Unit SQ DAILYWSUP Novolog Flexpen (Insulin Aspart) 100 Unit/1 Ml Insuln.pen 4 Unit SQ DAILYWBKFT Calcium (Calcium Carbonate) 600 Mg Tablet 600 Mg PO DAILY Escitalopram Oxalate 10 Mg Tablet 1 Tab PO DAILY Vitamin D3 (Cholecalciferol (Vitamin D3)) 1,000 Unit Capsule 1 Cap PO DAILY 30 Days Lisinopril 10 Mg Tablet 1 Tab PO DAILY Metformin Hcl 500 Mg Tablet 500 Mg PO BIDWMEALS Coq-10 (Ubidecarenone) 100 Mg Capsule 100 Mg PO DAILY Amlodipine Besylate 5 Mg Tablet 5 Mg PO DAILY Allergies Allergies: Coded Allergies: No Known Drug Allergies (Unverified , 07/27/17) ROS Review of System weak, "off" all else is neg Physical Exam General: Alert, Oriented X3, Cooperative, No acute distress, Other (weak looking but not in distress) HEENT: Atraumatic, PERRLA, EOMI Lungs: Clear to auscultation, Normal air movement Heart: S1S2, RRR, no thrills, no rubs, no gallops, no murmurs Cardiovascular: S1 Breasts: Normal, Rt breast nml w/o mass, Lt breast nml w/o mass, Nipples normal Abdomen: Normal bowel sounds, Soft, No tenderness, No hepatosplenomegaly, No masses Rectal Exam: not examined PELVIC: Nml ext genitalia Extremities: No clubbing, No cyanosis, No edema, Normal pulses, No tenderness/swelling Skin: No rashes, No breakdown, No significant lesion Neuro: Normal gait, Normal speech, Strength at 5/5 X4 ext, Normal tone, Sensation intact, Cranial nerves 3-12 NL, Reflexes 2+ Psych/Mental Status: Mental status NL, Mood NL Vitals Vitals Vital Signs Date Time Temp Pulse Resp B/P (MAP) Pulse Ox O2 Delivery O2 Flow Rate FiO2 08/22/19 09:13 92 152/51 08/22/19 08:00 Room Air 08/22/19 07:00 97.8 16 98 97.8 Labs Labs Laboratory Tests Test 08/22/19 02:05 08/22/19 02:15 08/22/19 04:18 White Blood Count 9.4 x10^3/uL (4.0-11.0) Red Blood Count 3.64 x10^6/uL (3.50-5.40) Hemoglobin 10.5 g/dL (12.0-15.5) Hematocrit 30.3 % (36.0-47.0) Mean Corpuscular Volume 83 fL (79-100) Mean Corpuscular Hemoglobin 29 pg (25-35) Mean Corpuscular Hemoglobin Concent 35 g/dL (31-37) Red Cell Distribution Width 13.2 % (11.5-14.5) Platelet Count 439 x10^3/uL (140-400) Neutrophils (%) (Auto) 77 % (31-73) Lymphocytes (%) (Auto) 13 % (24-48) Monocytes (%) (Auto) 9 % (0-9) Eosinophils (%) (Auto) 1 % (0-3) Basophils (%) (Auto) 1 % (0-3) Neutrophils # (Auto) 7.2 x10^3/uL (1.8-7.7) Lymphocytes # (Auto) 1.2 x10^3/uL (1.0-4.8) Monocytes # (Auto) 0.8 x10^3/uL (0.0-1.1) Eosinophils # (Auto) 0.1 x10^3/uL (0.0-0.7) Basophils # (Auto) 0.0 x10^3/uL (0.0-0.2) Sodium Level 134 mmol/L (136-145) Potassium Level 3.9 mmol/L (3.5-5.1) Chloride Level 97 mmol/L (98-107) Carbon Dioxide Level 29 mmol/L (21-32) Anion Gap 8 (6-14) Blood Urea Nitrogen 22 mg/dL (7-20) Creatinine 0.8 mg/dL (0.6-1.0) Estimated GFR (Cockcroft-Gault) 67.7 BUN/Creatinine Ratio 28 (6-20) Glucose Level 55 mg/dL (70-99) Calcium Level 9.0 mg/dL (8.5-10.1) Total Bilirubin 0.5 mg/dL (0.2-1.0) Aspartate Amino Transf (AST/SGOT) 18 U/L (15-37) Alanine Aminotransferase (ALT/SGPT) 20 U/L (14-59) Alkaline Phosphatase 65 U/L (46-116) Ammonia < 10 mcmol/L (11-34) Total Protein 7.2 g/dL (6.4-8.2) Albumin 3.6 g/dL (3.4-5.0) Albumin/Globulin Ratio 1.0 (1.0-1.7) Urine Collection Type U cath Urine Color Yellow Urine Clarity Clear Urine pH 6.5 Urine Specific [place] 1.010 Urine Protein 100 mg/dL (NEG-TRACE) Urine Glucose (UA) Negative mg/dL (NEG) Urine Ketones (Stick) Negative mg/dL (NEG) Urine Blood Negative (NEG) Urine Nitrite Negative (NEG) Urine Bilirubin Negative (NEG) Urine Urobilinogen Dipstick 1.0 mg/dL (0.2 mg/dL) Urine Leukocyte Esterase Negative (NEG) Urine RBC 1-2 /HPF (0-2) Urine WBC 1-4 /HPF (0-4) Urine Squamous Epithelial Cells Mod /LPF Urine Bacteria Few /HPF (0-FEW) Urine Hyaline Casts Occasional /HPF Glucose (Fingerstick) 92 mg/dL (70-99) Laboratory Tests Test 08/22/19 02:05 08/22/19 02:15 08/22/19 04:18 White Blood Count 9.4 x10^3/uL (4.0-11.0) Red Blood Count 3.64 x10^6/uL (3.50-5.40) Hemoglobin 10.5 g/dL (12.0-15.5) Hematocrit 30.3 % (36.0-47.0) Mean Corpuscular Volume 83 fL (79-100) Mean Corpuscular Hemoglobin 29 pg (25-35) Mean Corpuscular Hemoglobin Concent 35 g/dL (31-37) Red Cell Distribution Width 13.2 % (11.5-14.5) Platelet Count 439 x10^3/uL (140-400) Neutrophils (%) (Auto) 77 % (31-73) Lymphocytes (%) (Auto) 13 % (24-48) Monocytes (%) (Auto) 9 % (0-9) Eosinophils (%) (Auto) 1 % (0-3) Basophils (%) (Auto) 1 % (0-3) Neutrophils # (Auto) 7.2 x10^3/uL (1.8-7.7) Lymphocytes # (Auto) 1.2 x10^3/uL (1.0-4.8) Monocytes # (Auto) 0.8 x10^3/uL (0.0-1.1) Eosinophils # (Auto) 0.1 x10^3/uL (0.0-0.7) Basophils # (Auto) 0.0 x10^3/uL (0.0-0.2) Sodium Level 134 mmol/L (136-145) Potassium Level 3.9 mmol/L (3.5-5.1) Chloride Level 97 mmol/L (98-107) Carbon Dioxide Level 29 mmol/L (21-32) Anion Gap 8 (6-14) Blood Urea Nitrogen 22 mg/dL (7-20) Creatinine 0.8 mg/dL (0.6-1.0) Estimated GFR (Cockcroft-Gault) 67.7 BUN/Creatinine Ratio 28 (6-20) Glucose Level 55 mg/dL (70-99) Calcium Level 9.0 mg/dL (8.5-10.1) Total Bilirubin 0.5 mg/dL (0.2-1.0) Aspartate Amino Transf (AST/SGOT) 18 U/L (15-37) Alanine Aminotransferase (ALT/SGPT) 20 U/L (14-59) Alkaline Phosphatase 65 U/L (46-116) Ammonia < 10 mcmol/L (11-34) Total Protein 7.2 g/dL (6.4-8.2) Albumin 3.6 g/dL (3.4-5.0) Albumin/Globulin Ratio 1.0 (1.0-1.7) Urine Collection Type U cath Urine Color Yellow Urine Clarity Clear Urine pH 6.5 Urine Specific [place] 1.010 Urine Protein 100 mg/dL (NEG-TRACE) Urine Glucose (UA) Negative mg/dL (NEG) Urine Ketones (Stick) Negative mg/dL (NEG) Urine Blood Negative (NEG) Urine Nitrite Negative (NEG) Urine Bilirubin Negative (NEG) Urine Urobilinogen Dipstick 1.0 mg/dL (0.2 mg/dL) Urine Leukocyte Esterase Negative (NEG) Urine RBC 1-2 /HPF (0-2) Urine WBC 1-4 /HPF (0-4) Urine Squamous Epithelial Cells Mod /LPF Urine Bacteria Few /HPF (0-FEW) Urine Hyaline Casts Occasional /HPF Glucose (Fingerstick) 92 mg/dL (70-99) VTE Prophylaxis Ordered VTE Prophylaxis Devices: Yes VTE Pharmacological Prophylaxi: Yes Assessment/Plan Assessment/Plan TRAnsient confusion - added neuro, esr, b12, tsh check etc reported syncope, - NO evidence acute CVA or infection HTN, accelerated pOA - i resumed home bp meds and added prn cloniidine DM 2 on OHA plus insulin - resumed Depression nos on meds OA- chronic stable FULL CODE PLAN: 2 mN, non tele bed Add pt ot COntrol BP CT cervical spine check echo re "syncope" I have resumed meds FUll code further recs pending above REGGIE JUAREZ MD Aug 22, 2019 10:35
[2019-08-22 11:00] VITALS: BP 197/70
[2019-08-22] MEDS ORDERED: CYCLOBENZAPRINE 10 MG TABLET. PO PRN (12:45)
[2019-08-22] MEDS ORDERED: ACETAMINOPHEN 325 MG TABLET. PO PRN (12:45)
--- NOTE | 2019-08-22 13:31 | RAD ---
CT cervical spine without contrast PQRS statement: CT scans at this facility use dose reduction including either automated exposure control, iterative reconstructions, and /or weight based radiation dosing via mA and kV modification when appropriate to reduce radiation dose to as low as reasonably achievable. HISTORY: Gait instability. FINDINGS: Craniocervical junction intact. Cervical vertebral body height and alignment intact. No fracture of the cervical spine. Asymmetric enlargement of the left lower thyroid lobe could represent an isodense 3 cm nodule. Paraspinal tissues and lung apices are unremarkable. There are multiple levels of disc protrusions as well as endplate spurring and uncovertebral and facet spurring with spinal canal and neural foraminal stenoses. Particularly there is a large disc protrusion contributing to severe spinal canal stenosis at C3-C4 although there are likely moderate to severe spinal canal stenoses at the lower levels of C4-C5 through C6-C7 as well. There are multiple levels of neural foraminal stenoses with the greatest extent of foraminal stenotic disease a moderate to severe at the left C3-C4 foramen and the bilateral C5-C6 and C6-C7 foramina. IMPRESSION: No acute osseous injury of the cervical spine. Cervical disc disease and arthritic change as described above. Asymmetric enlargement left thyroid lobe could be due to a heterogeneous isodense 3 cm nodule. Electronically signed by: Luc Gaspar MD (08/22/2019 1:28 PM) [facility]
[2019-08-22] MEDS ORDERED: quiNINE 324 MG CAPSULE. PO PRN (14:00)
--- NOTE | 2019-08-22 14:22 | PDOC ---
PROGRESS NOTES Assessment Assessment IMPRESSION: Metabolic encephalopathy. Confusion x 2 days. Gait problem. Generalized weakness. HTN. HLD. DM. CAD. Anxiety. 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 Continue Lipitor HS. Brain MRI w/o contrast. EEG. Lab: see orders. OT/PT. Discussed with her son and [id number] at bedside on 08/22/19. History of Present Illness This is an 88-year-old [place] origin female patient with above medical diseases and stroke in 06/07. She was noted to have mental status changes, confusion, decreased speech and decreased activity for about 2 days to be brought to the ER of [facility] for further evaluation. She also was noted gait problems. She had stroke in 06/07 and had rehab and she covered well post stroke, but her mentation, speech and gait changed since the day before yesterday per her family. Past Medical History Cardiovascular: HTN, Syncope, HLD, CAD. Hepatobiliary: No pertinent hx Psych: Anxiety, Depression Musculoskeletal: low back pain, Osteoarthritis Endocrine: Diabetes Past Surgical History Cholecystectomy, Cataract Removal Family History High Cholesterol ALLERGY: NKDA MEDICATIONS: Refer to MAR SOCIAL HISTORY: Lives at home with her son and [id number]. Denies smoking, drinking, and illicit drug use. REVIEW OF SYSTEMS: Constitutional: No malnutrition, weight loss, cachexia. Head: No traumatic brain or head injury. Skin: No edema, or rash. Ear: No infection. Eyes: No vision loss or color blindness. Nose: No bleeding or purulent discharges. Hearing: No hearing decrease. Neck: No injury. Breast: No history of cancer, masses,or discharges. Cardiac: CAD, HTN, HLD. Pulmonary: No COPD. GI: No GI ulcer, GI bleeding. Urinary/genital: UTI. Endocrinologic: Diabetes Mellitus. Skeletomuscular: Generalized weakness. Neurological: see HP. Psychiatric: Denies drug use/abuse. Otherwise, not [id number] review of systems. PHYSICAL EXAMINATION: General appearance is in subacute distress. HEENT: Normocephalic and nontraumatic. Eyes, nose, ears, and throat are unremarkable. Neck is supple. No lymphadenopathy. No bruits are heard over the carotid artery. No crepitus. Cardiovascular: S1, S2, regular rate and rhythm. Pulmonary: Clear to auscultation bilaterally. Abdomen: Bowel sounds are positive. Abdomen is soft, nontender, and nondistended. Extremities: No rash, lesions, or edema. No restriction of range of motion NEUROLOGICAL EXAMINATION: Alert Not oriented to time, place but knew person. PERRL. EOMI. CN: no focal findings. Muscle tone: within normal. Muscle strength: 4+ DTR: 2 Plantar reflex: Flexor response bilaterally Gait: not examined in bed. Sensory exam: no abnormal findings. No cerebellar signs elicited. F-T-N test fine. Objective Objective Vital Signs Date Time Temp Pulse Resp B/P (MAP) Pulse Ox O2 Delivery O2 Flow Rate FiO2 08/22/19 11:00 98.6 114 20 197/70 (112) 96 Room Air 98.6 Intake and Output 08/22/19 07:00 # Voids 2 Vitals Signs Vitals VS - Last 72 Hours, by Label Date Time Temp Pulse Resp B/P (MAP) Pulse Ox O2 Delivery O2 Flow Rate FiO2 08/22/19 11:00 98.6 114 20 197/70 (112) 96 Room Air 98.6 08/22/19 09:13 92 152/51 08/22/19 09:09 92 152/51 08/22/19 08:00 Room Air 08/22/19 07:00 97.8 92 16 152/51 (84) 98 Room Air 97.8 08/22/19 05:30 98.1 84 16 165/57 (93) 96 Room Air 98.1 08/22/19 04:30 Room Air 08/22/19 04:26 98.5 84 16 97 98.5 08/22/19 01:40 97.8 77 22 173/75 (107) 99 Room Air 97.8 Laboratory Laboratory Laboratory Tests Test 08/22/19 02:05 08/22/19 02:15 08/22/19 04:18 08/22/19 08:13 White Blood Count 9.4 x10^3/uL (4.0-11.0) Red Blood Count 3.64 x10^6/uL (3.50-5.40) Hemoglobin 10.5 g/dL (12.0-15.5) Hematocrit 30.3 % (36.0-47.0) Mean Corpuscular Volume 83 fL (79-100) Mean Corpuscular Hemoglobin 29 pg (25-35) Mean Corpuscular Hemoglobin Concent 35 g/dL (31-37) Red Cell Distribution Width 13.2 % (11.5-14.5) Platelet Count 439 x10^3/uL (140-400) Neutrophils (%) (Auto) 77 % (31-73) Lymphocytes (%) (Auto) 13 % (24-48) Monocytes (%) (Auto) 9 % (0-9) Eosinophils (%) (Auto) 1 % (0-3) Basophils (%) (Auto) 1 % (0-3) Neutrophils # (Auto) 7.2 x10^3/uL (1.8-7.7) Lymphocytes # (Auto) 1.2 x10^3/uL (1.0-4.8) Monocytes # (Auto) 0.8 x10^3/uL (0.0-1.1) Eosinophils # (Auto) 0.1 x10^3/uL (0.0-0.7) Basophils # (Auto) 0.0 x10^3/uL (0.0-0.2) Sodium Level 134 mmol/L (136-145) Potassium Level 3.9 mmol/L (3.5-5.1) Chloride Level 97 mmol/L (98-107) Carbon Dioxide Level 29 mmol/L (21-32) Anion Gap 8 (6-14) Blood Urea Nitrogen 22 mg/dL (7-20) Creatinine 0.8 mg/dL (0.6-1.0) Estimated GFR (Cockcroft-Gault) 67.7 BUN/Creatinine Ratio 28 (6-20) Glucose Level 55 mg/dL (70-99) Calcium Level 9.0 mg/dL (8.5-10.1) Total Bilirubin 0.5 mg/dL (0.2-1.0) Aspartate Amino Transf (AST/SGOT) 18 U/L (15-37) Alanine Aminotransferase (ALT/SGPT) 20 U/L (14-59) Alkaline Phosphatase 65 U/L (46-116) Ammonia < 10 mcmol/L (11-34) Total Protein 7.2 g/dL (6.4-8.2) Albumin 3.6 g/dL (3.4-5.0) Albumin/Globulin Ratio 1.0 (1.0-1.7) Urine Collection Type U cath Urine Color Yellow Urine Clarity Clear Urine pH 6.5 Urine Specific [place] 1.010 Urine Protein 100 mg/dL (NEG-TRACE) Urine Glucose (UA) Negative mg/dL (NEG) Urine Ketones (Stick) Negative mg/dL (NEG) Urine Blood Negative (NEG) Urine Nitrite Negative (NEG) Urine Bilirubin Negative (NEG) Urine Urobilinogen Dipstick 1.0 mg/dL (0.2 mg/dL) Urine Leukocyte Esterase Negative (NEG) Urine RBC 1-2 /HPF (0-2) Urine WBC 1-4 /HPF (0-4) Urine Squamous Epithelial Cells Mod /LPF Urine Bacteria Few /HPF (0-FEW) Urine Hyaline Casts Occasional /HPF Glucose (Fingerstick) 92 mg/dL (70-99) 109 mg/dL (70-99) Test 08/22/19 09:30 08/22/19 11:01 Erythrocyte Sedimentation Rate 31 (0-25) Magnesium Level 1.5 mg/dL (1.8-2.4) Creatine Kinase 79 U/L (26-192) Thyroid Stimulating Hormone (TSH) 0.045 uIU/mL (0.358-3.74) Glucose (Fingerstick) 264 mg/dL (70-99) Medication Medications Current Medications Acetaminophen (Tylenol) 500 mg PRN Q6HRS PRN PO MILD PAIN / TEMP Last administered on 08/22/19at 13:01; Start 08/22/19 at 08:15 Acetaminophen (Tylenol) 650 mg PRN Q6HRS PRN PO PAIN; Start 08/22/19 at 12:45 Acetaminophen/ Codeine Phosphate (Tylenol #3) 1 tab PRN Q6HRS PRN PO MODERATE PAIN; Start 08/22/19 at 08:15 Amlodipine Besylate (Norvasc) 5 mg DAILY PO Last administered on 08/22/19at 09:09; Start 08/22/19 at 09:00 Aspirin (Ecotrin) 81 mg DAILYWBKFT PO Last administered on 08/22/19at 09:08; Start 08/22/19 at 08:30 Atorvastatin Calcium (Lipitor) 20 mg QHS PO ; Start 08/22/19 at 21:00 Calcium Carbonate/ Glycine (Oscal) 500 mg DAILY PO Last administered on 08/22/19at 09:09; Start 08/22/19 at 09:00 Calcium Carbonate/ Glycine (Tums) 500 mg PRN AFTMEALHC PRN PO INDIGESTION; Start 08/22/19 at 08:15 Citalopram Hydrobromide (CeleXA) 20 mg DAILY PO Last administered on 08/22/19at 09:09; Start 08/22/19 at 09:00 Clonidine HCl (Catapres) 0.1 mg PRN Q1HR PRN PO HYPERTENSION; Start 08/22/19 at 08:15 Clopidogrel Bisulfate (Plavix) 75 mg DAILYWBKFT PO Last administered on 08/22/19at 09:08; Start 08/22/19 at 08:30 Cyclobenzaprine HCl (Flexeril) 10 mg PRN Q6HRS PRN PO MUSCLE SPASMS Last administered on 08/22/19at 13:01; Start 08/22/19 at 12:45 Dextrose (Dextrose 50%-Water Syringe) 12.5 gm PRN Q15MIN PRN IV SEE COMMENTS; Start 08/22/19 at 08:15 Insulin Glargine (Lantus Syringe) 12 unit QHS SQ ; Start 08/22/19 at 21:00 Insulin Human Lispro (HumaLOG) 0-9 UNITS TIDWMEALS SQ Last administered on 08/22/19at 13:08; Start 08/22/19 at 12:00 Insulin Human Lispro (HumaLOG) 4 units DAILYWBKFT SQ ; Start 08/22/19 at 08:30 Insulin Human Lispro (HumaLOG) 7 units DAILYWSUP SQ ; Start 08/22/19 at 17:00 Lisinopril (Prinivil) 10 mg DAILY PO Last administered on 08/22/19at 09:13; Start 08/22/19 at 09:00 Metformin HCl (Glucophage) 500 mg BIDWMEALS PO Last administered on 08/22/19at 09:08; Start 08/22/19 at 08:30 Non-Formulary Medication (Ubidecarenone (Coq-10)) 100 mg DAILY PO ; Start 08/22/19 at 09:00; Status UNV Ondansetron HCl (Zofran) 4 mg PRN Q6HRS PRN IVP NAUSEA/VOMITING; Start 08/22/19 at 08:15 Quinine Sulfate (Qualaquin) 324 mg PRN Q8HRS PRN PO MUSCLE CRAMPS; Start 08/22/19 at 14:00 Vitamin D (Vitamin D3) 1,000 unit DAILY PO Last administered on 08/22/19at 09:08; Start 08/22/19 at 09:00 Comment Review of Relevant I have reviewed the following items randa (where applicable) has been applied. ANDI ZHANG MD Aug 22, 2019 14:22
[2019-08-22] MEDS ORDERED: MAGNESIUM SULFATE 1GM 100 ML IV ONE (14:30)
[2019-08-22 15:00] VITALS: BP 157/58
[2019-08-22 15:53] LABS: INFLUENZA A PATIENT NEGATIVE (NEGATIVE); INFLUENZA B PATIENT NEGATIVE (NEGATIVE)
[2019-08-22 19:00] VITALS: BP 156/61
[2019-08-22] MEDS: ATORVASTATIN CALCIUM 20 MG TABLET PO SCH (21:06)
[2019-08-22] MEDS: INSULIN GLARGINE SYRINGE. SQ SCH (21:10)
[2019-08-22 23:00] VITALS: BP 144/58
[2019-08-22 23:08] LABS: HEMOGLOBIN A1C 6.8 % (4.8-5.6)
[2019-08-23 03:00] VITALS: BP 149/71
[2019-08-23 07:00] VITALS: BP 149/62
[2019-08-23] MEDS: metFORMIN 500 MG TABLET PO SCH ×2 (08:00→17:37)
[2019-08-23] MEDS: INSULIN LISPRO 300 UNITS/3 ML VIAL. SQ SCH ×5 (08:00→17:40)
[2019-08-23] MEDS ORDERED: MAGN400T5 PO (08:14)
[2019-08-23] MEDS ORDERED: CYCL10TA2 PO (08:14)
--- NOTE | 2019-08-23 08:15 | SNU/HH DC ---
DISCHARGE ORDERS DISCHARGE INFORMATION: DISCHARGE DATE: Aug 23, 2019 FINAL DIAGNOSIS Problems Medical Problems: (1) Altered mental status Status: Acute (2) Anxiety Status: Acute (3) CAD (coronary artery disease) Status: Chronic (4) Depression Status: Chronic (5) Gait abnormality Status: Chronic (6) Gait disturbance Status: Acute (7) Generalized weakness Status: Acute (8) HLD (hyperlipidemia) Status: Chronic (9) HTN (hypertension) Status: Chronic (10) Metabolic encephalopathy Status: Chronic (11) Syncope Status: Acute (12) T2DM (type 2 diabetes mellitus) Status: Chronic (13) Transient confusion Status: Acute CONDITION ON DISCHARGE: Stable CODE STATUS: Code Status: Full HALF-WAY: SNF STAY <30 DAYS: Yes HOSPICE: HOSPICE: No HOSPICE EVAL & TREAT: No LTAC: ADMIT TO LTAC: No POST DISCHARGE ORDERS: ACTIVITY ORDERS: Resume previous activity DIET AFTER DISCHARGE: Regular CHECKS AFTER DISCHARGE: CHECKS AFTER DISCHARGE: Check blood press - daily FOLLOW-UP: PHYSICIAN FOLLOW-UP: pcp upon snu dc for regular check up TREATMENT/EQUIPMENT ORDERS: ADAPTIVE EQUIPMENT NEEDED: Front wheeled walker Physical Therapy For: Evalulation/Treatment Occupational Therapy For: Evaluation/Treatment Speech Language Pathology For: Evaluation/Treatment DISCHARGE MEDICATIONS: Home Meds Active Scripts Magnesium Oxide (MAGNESIUM OXIDE) 400 Mg Tablet, 400 MG PO DAILY for low mag for 14 Days, #14 TAB Prov:REGGIE JUAREZ MD 08/23/19 Cyclobenzaprine Hcl (CYCLOBENZAPRINE HCL) 10 Mg Tablet, 10 MG PO PRN Q6HRS PRN for MUSCLE SPASMS, #30 TAB Prov:REGGIE JUAREZ MD 08/23/19 Aspirin (ASPIRIN EC) 81 Mg Tablet.dr, 81 MG PO DAILYWBKFT for cva for 30 Days, #30 TAB.SR Prov:KATHERYN HALL MD 06/10/19 Atorvastatin Calcium (ATORVASTATIN CALCIUM) 20 Mg Tablet, 20 MG PO QHS for cholesterol for 30 Days, #30 TAB Prov:KATHERYN HALL MD 06/10/19 Clopidogrel Bisulfate (CLOPIDOGREL) 75 Mg Tablet, 75 MG PO DAILYWBKFT for cva for 30 Days, #30 TAB Prov:KATHERYN HALL MD 06/10/19 Reported Medications Insulin Glargine,Hum.rec.anlog (LANTUS SOLOSTAR) 100 Unit/1 Ml Insuln.pen, 12 UNIT SQ QHS for antidiabetic, #15 ML 3 Refills 08/22/19 Insulin Aspart (NOVOLOG FLEXPEN) 100 Unit/1 Ml Insuln.pen, 7 UNIT SQ DAILYWSUP for antidiabetic, SYR 08/22/19 Insulin Aspart (NOVOLOG FLEXPEN) 100 Unit/1 Ml Insuln.pen, 4 UNIT SQ DAILYWBKFT for antidiabetic, SYR 08/22/19 Calcium Carbonate (CALCIUM) 600 Mg Tablet, 600 MG PO DAILY for supplement, TAB 08/22/19 Escitalopram Oxalate (ESCITALOPRAM OXALATE) 10 Mg Tablet, 1 TAB PO DAILY for depression, #30 TAB 3 Refills 08/22/19 Cholecalciferol (Vitamin D3) (VITAMIN D3) 1,000 Unit Capsule, 1 CAP PO DAILY for SUPPLEMENT for 30 Days, #30 CAP 0 Refills 08/22/19 Lisinopril (LISINOPRIL) 10 Mg Tablet, 1 TAB PO DAILY for HTN, #30 TAB 5 Refills 08/22/19 Metformin Hcl (METFORMIN HCL) 500 Mg Tablet, 500 MG PO BIDWMEALS for ANTI-DIABE TIC, TAB 0 Refills 08/22/19 Ubidecarenone (COQ-10) 100 Mg Capsule, 100 MG PO DAILY for , CAP 06/07/19 Amlodipine Besylate (AMLODIPINE BESYLATE) 5 Mg Tablet, 5 MG PO DAILY for , TAB 06/07/19 Discontinued Reported Medications Insulin Aspart (NOVOLOG FLEXPEN) 100 Unit/1 Ml Insuln.pen, 10 UNIT SQ DAILYWSUP for , SYR 06/07/19 Insulin Aspart (NOVOLOG FLEXPEN) 100 Unit/1 Ml Insuln.pen, 5 UNIT SQ DAILYWBKFT for , SYR 06/07/19 Vitamin E Acid Succinate (VITAMIN E) 100 Unit Tablet, 100 UNIT PO DAILY for , TAB 06/07/19 Insulin Glargine,Hum.rec.anlog (LANTUS SOLOSTAR) 100 Unit/1 Ml Insuln.pen, 17 UNIT SQ QHS for , #15 ML 3 Refills 06/07/19 Calcium Carbonate/Vitamin D3 (CALTRATE 600 + D SOFT CHEW TAB) 1 Each Tab.chew, 1 EACH PO DAILY for , TAB.CHEW 06/07/19 Multivitamins-Min/Fa/Ginkgo (ONE DAILY FOR WOMEN 50+ ADV TB) 1 Each Tablet, 1 EACH PO DAILY for , TAB 06/07/19 Acetaminophen (TYLENOL) 325 Mg Tablet, 325 MG PO DAILY for , TAB 06/07/19 Lisinopril (ZESTRIL) 10 Mg Tablet, 10 MG PO BID for FOR HYPERTENSION, #30 TAB 0 Refills 06/07/19 REGGIE JUAREZ MD Aug 23, 2019 08:15
[2019-08-23] MEDS: LISINOPRIL 10 MG TABLET PO SCH (10:27)
[2019-08-23] MEDS: CHOLECALCIFEROL (VITAMIN D3) 1,000 UNIT TABLET PO SCH (10:27)
[2019-08-23] MEDS: CALCIUM CARBONATE 500 MG TABLET PO SCH (10:27)
[2019-08-23] MEDS: CLOPIDOGREL BISULFATE 75 MG TABLET PO SCH (10:27)
[2019-08-23] MEDS: amLODIPine BESYLATE 5 MG TABLET PO SCH (10:27)
[2019-08-23] MEDS: ASPIRIN ENTERIC COATED 81 MG TABLET.DR. PO SCH (10:28)
[2019-08-23] MEDS: CITALOPRAM 20 MG TABLET. PO SCH (10:28)
--- NOTE | 2019-08-23 10:31 | PDOC ---
PROGRESS NOTES Chief Complaint Chief Complaint TRAnsient confusion - added neuro, esr, b12, tsh check etc reported syncope, - NO evidence acute CVA or infection HTN, accelerated pOA - i resumed home bp meds and added prn cloniidine DM 2 on OHA plus insulin - resumed Depression nos on meds OA- chronic stable HYpomagnesemia FULL CODE History of Present Illness History of Present Illness Oriented to self and place, needed coaxing re time/day of the week Citizen of [place] descent CT cervical spine unimpressive FOr EEG and mRI brain today per neuro. CT head ok PT resc SNU - i consulted SW FAmily requested some herbal mag supplements yesterday and that is fine MAg low yesterday - i replaced IV NOw mag is normal 1.,8 PLAN: SNU MRI brain, EEG TRaget dc to snu tmr FULL CODE COnt other supportive meds Fall risk Vitals Vitals Vital Signs Date Time Temp Pulse Resp B/P (MAP) Pulse Ox O2 Delivery O2 Flow Rate FiO2 08/23/19 07:10 Room Air 08/23/19 07:00 98.0 84 18 149/62 (91) 97 98.0 Physical Exam General: Alert, Oriented X3, Cooperative, No acute distress, Other (weak looking but not in distress) Lungs: Clear Abdomen: Normal bowel sounds, Soft, No tenderness, No hepatosplenomegaly, No masses Extremities: No clubbing, No cyanosis, No edema, Normal pulses, No tenderness/swelling Skin: No rashes, No breakdown, No significant lesion Labs LABS Laboratory Tests Test 08/22/19 11:01 08/22/19 15:30 08/22/19 17:06 08/22/19 19:29 Glucose (Fingerstick) 264 mg/dL (70-99) 66 mg/dL (70-99) 140 mg/dL (70-99) Influenza Type A Antigen Negative (NEGATIVE) Influenza Type B Antigen Negative (NEGATIVE) Test 08/22/19 20:25 08/23/19 03:35 08/23/19 07:26 Glucose (Fingerstick) 151 mg/dL (70-99) 120 mg/dL (70-99) Magnesium Level 1.8 mg/dL (1.8-2.4) Review of Systems Review of Systems weak, calm, all else she denies 14 pt Assessment and Plan Assessmemt and Plan Problems Medical Problems: (1) Altered mental status Status: Acute (2) Anxiety Status: Acute (3) CAD (coronary artery disease) Status: Chronic (4) Depression Status: Chronic (5) Gait abnormality Status: Chronic (6) Gait disturbance Status: Acute (7) Generalized weakness Status: Acute (8) HLD (hyperlipidemia) Status: Chronic (9) HTN (hypertension) Status: Chronic (10) Metabolic encephalopathy Status: Chronic (11) Syncope Status: Acute (12) T2DM (type 2 diabetes mellitus) Status: Chronic (13) Transient confusion Status: Acute Comment Review of Relevant I have reviewed the following items randa (where applicable) has been applied. Labs Laboratory Tests Test 08/22/19 02:05 08/22/19 02:15 08/22/19 04:18 08/22/19 04:46 White Blood Count 9.4 x10^3/uL (4.0-11.0) Red Blood Count 3.64 x10^6/uL (3.50-5.40) Hemoglobin 10.5 g/dL (12.0-15.5) Hematocrit 30.3 % (36.0-47.0) Mean Corpuscular Volume 83 fL (79-100) Mean Corpuscular Hemoglobin 29 pg (25-35) Mean Corpuscular Hemoglobin Concent 35 g/dL (31-37) Red Cell Distribution Width 13.2 % (11.5-14.5) Platelet Count 439 x10^3/uL (140-400) Neutrophils (%) (Auto) 77 % (31-73) Lymphocytes (%) (Auto) 13 % (24-48) Monocytes (%) (Auto) 9 % (0-9) Eosinophils (%) (Auto) 1 % (0-3) Basophils (%) (Auto) 1 % (0-3) Neutrophils # (Auto) 7.2 x10^3/uL (1.8-7.7) Lymphocytes # (Auto) 1.2 x10^3/uL (1.0-4.8) Monocytes # (Auto) 0.8 x10^3/uL (0.0-1.1) Eosinophils # (Auto) 0.1 x10^3/uL (0.0-0.7) Basophils # (Auto) 0.0 x10^3/uL (0.0-0.2) Sodium Level 134 mmol/L (136-145) Potassium Level 3.9 mmol/L (3.5-5.1) Chloride Level 97 mmol/L (98-107) Carbon Dioxide Level 29 mmol/L (21-32) Anion Gap 8 (6-14) Blood Urea Nitrogen 22 mg/dL (7-20) Creatinine 0.8 mg/dL (0.6-1.0) Estimated GFR (Cockcroft-Gault) 67.7 BUN/Creatinine Ratio 28 (6-20) Glucose Level 55 mg/dL (70-99) Hemoglobin A1c 6.8 % (4.8-5.6) Calcium Level 9.0 mg/dL (8.5-10.1) Total Bilirubin 0.5 mg/dL (0.2-1.0) Aspartate Amino Transf (AST/SGOT) 18 U/L (15-37) Alanine Aminotransferase (ALT/SGPT) 20 U/L (14-59) Alkaline Phosphatase 65 U/L (46-116) Ammonia < 10 mcmol/L (11-34) Total Protein 7.2 g/dL (6.4-8.2) Albumin 3.6 g/dL (3.4-5.0) Albumin/Globulin Ratio 1.0 (1.0-1.7) Vitamin B12 Level 267 pg/mL (247-911) Urine Collection Type U cath Urine Color Yellow Urine Clarity Clear Urine pH 6.5 Urine Specific [place] 1.010 Urine Protein 100 mg/dL (NEG-TRACE) Urine Glucose (UA) Negative mg/dL (NEG) Urine Ketones (Stick) Negative mg/dL (NEG) Urine Blood Negative (NEG) Urine Nitrite Negative (NEG) Urine Bilirubin Negative (NEG) Urine Urobilinogen Dipstick 1.0 mg/dL (0.2 mg/dL) Urine Leukocyte Esterase Negative (NEG) Urine RBC 1-2 /HPF (0-2) Urine WBC 1-4 /HPF (0-4) Urine Squamous Epithelial Cells Mod /LPF Urine Bacteria Few /HPF (0-FEW) Urine Hyaline Casts Occasional /HPF Glucose (Fingerstick) 92 mg/dL (70-99) 109 mg/dL (70-99) Test 08/22/19 08:13 08/22/19 09:30 08/22/19 11:01 08/22/19 15:30 Glucose (Fingerstick) 109 mg/dL (70-99) 264 mg/dL (70-99) Erythrocyte Sedimentation Rate 31 (0-25) Magnesium Level 1.5 mg/dL (1.8-2.4) Creatine Kinase 79 U/L (26-192) Thyroid Stimulating Hormone (TSH) 0.045 uIU/mL (0.358-3.74) Thyroxine (T4) 10.9 ug/dL (4.5-12.0) Free Triiodothyronine (T3) pg/mL 2.59 pg/mL (2.18-3.98) Influenza Type A Antigen Negative (NEGATIVE) Influenza Type B Antigen Negative (NEGATIVE) Test 08/22/19 17:06 08/22/19 19:29 08/22/19 20:25 08/23/19 03:35 Glucose (Fingerstick) 66 mg/dL (70-99) 140 mg/dL (70-99) 151 mg/dL (70-99) Magnesium Level 1.8 mg/dL (1.8-2.4) Test 08/23/19 07:26 Glucose (Fingerstick) 120 mg/dL (70-99) Laboratory Tests Test 08/22/19 11:01 08/22/19 15:30 08/22/19 17:06 08/22/19 19:29 Glucose (Fingerstick) 264 mg/dL (70-99) 66 mg/dL (70-99) 140 mg/dL (70-99) Influenza Type A Antigen Negative (NEGATIVE) Influenza Type B Antigen Negative (NEGATIVE) Test 08/22/19 20:25 08/23/19 03:35 08/23/19 07:26 Glucose (Fingerstick) 151 mg/dL (70-99) 120 mg/dL (70-99) Magnesium Level 1.8 mg/dL (1.8-2.4) Medications Current Medications Clonidine HCl (Catapres) 0.1 mg PRN Q1HR PRN PO HYPERTENSION; Start 08/22/19 at 08:15 Acetaminophen (Tylenol) 500 mg PRN Q6HRS PRN PO MILD PAIN / TEMP Last administered on 08/22/19at 13:01; Start 08/22/19 at 08:15 Acetaminophen/ Codeine Phosphate (Tylenol #3) 1 tab PRN Q6HRS PRN PO SEVERE PAIN; Start 08/22/19 at 08:15 Ondansetron HCl (Zofran) 4 mg PRN Q6HRS PRN IVP NAUSEA/VOMITING; Start 08/22/19 at 08:15 Calcium Carbonate/ Glycine (Tums) 500 mg PRN AFTMEALHC PRN PO INDIGESTION; Start 08/22/19 at 08:15 Amlodipine Besylate (Norvasc) 5 mg DAILY PO Last administered on 08/22/19 09:09; Start 08/22/19 at 09:00 Aspirin (Ecotrin) 81 mg DAILYWBKFT PO Last administered on 08/22/19 09:08; Start 08/22/19 at 08:30 Atorvastatin Calcium (Lipitor) 20 mg QHS PO Last administered on 08/22/19 21 :06; Start 08/22/19 at 21:00 Clopidogrel Bisulfate (Plavix) 75 mg DAILYWBKFT PO Last administered on 08/22/19 09:08; Start 08/22/19 at 08:30 Lisinopril (Prinivil) 10 mg DAILY PO Last administered on 08/22/19 09:13; Start 08/22/19 at 09:00 Metformin HCl (Glucophage) 500 mg BIDWMEALS PO Last administered on 08/22/19 09:08; Start 08/22/19 at 08:30 Calcium Carbonate/ Glycine (Oscal) 500 mg DAILY PO Last administered on 08/22/19 09:09; Start 08/22/19 at 09:00 Vitamin D (Vitamin D3) 1,000 unit DAILY PO Last administered on 08/22/19 09:08; Start 08/22/19 at 09:00 Citalopram Hydrobromide (CeleXA) 20 mg DAILY PO Last administered on 08/22/19 09:09; Start 08/22/19 at 09:00 Insulin Human Lispro (HumaLOG) 4 units DAILYWBKFT SQ ; Start 08/22/19 at 08:30 Insulin Human Lispro (HumaLOG) 7 units DAILYWSUP SQ ; Start 08/22/19 at 17:00 Insulin Glargine (Lantus Syringe) 12 unit QHS SQ Last administered on 08/22/19 21:10; Start 08/22/19 at 21:00 Non-Formulary Medication (Ubidecarenone (Coq-10)) 100 mg DAILY PO ; Start 08/22/19 at 09:00; Status UNV Insulin Human Lispro (HumaLOG) 0-9 UNITS TIDWMEALS SQ Last administered on 08/22/19at 13:08; Start 08/22/19 at 12:00 Dextrose (Dextrose 50%-Water Syringe) 12.5 gm PRN Q15MIN PRN IV SEE COMMENTS; Start 08/22/19 at 08:15 Quinine Sulfate (Qualaquin) 324 mg PRN Q8HRS PRN PO MUSCLE CRAMPS Last administered on 08/22/19at 15:25; Start 08/22/19 at 14:00 Cyclobenzaprine HCl (Flexeril) 10 mg PRN Q6HRS PRN PO MUSCLE SPASMS Last administered on 08/22/19at 13:01; Start 08/22/19 at 12:45 Acetaminophen (Tylenol) 650 mg PRN Q6HRS PRN PO MODERATE PAIN; Start 08/22/19 at 12:45 Magnesium Sulfate/ Dextrose 100 ml @ 100 mls/hr 1X ONCE IV Last administered on 08/22/19at 15:04; Start 08/22/19 at 14:30; Stop 08/22/19 at 15:29; Status DC Active Scripts Active Magnesium Oxide 400 Mg Tablet 400 Mg PO DAILY 14 Days Cyclobenzaprine Hcl 10 Mg Tablet 10 Mg PO PRN Q6HRS PRN Aspirin Ec (Aspirin) 81 Mg Tablet.dr 81 Mg PO DAILYWBKFT 30 Days Atorvastatin Calcium 20 Mg Tablet 20 Mg PO QHS 30 Days Clopidogrel (Clopidogrel Bisulfate) 75 Mg Tablet 75 Mg PO DAILYWBKFT 30 Days Reported Lantus Solostar (Insulin Glargine,Hum.rec.anlog) 100 Unit/1 Ml Insuln.pen 12 Unit SQ QHS Novolog Flexpen (Insulin Aspart) 100 Unit/1 Ml Insuln.pen 4 Unit SQ DAILYWBKFT Calcium (Calcium Carbonate) 600 Mg Tablet 600 Mg PO DAILY Escitalopram Oxalate 10 Mg Tablet 1 Tab PO DAILY Vitamin D3 (Cholecalciferol (Vitamin D3)) 1,000 Unit Capsule 1 Cap PO DAILY 30 Days Lisinopril 10 Mg Tablet 1 Tab PO DAILY Metformin Hcl 500 Mg Tablet 500 Mg PO BIDWMEALS Coq-10 (Ubidecarenone) 100 Mg Capsule 100 Mg PO DAILY Amlodipine Besylate 5 Mg Tablet 5 Mg PO DAILY Vitals/I & O Vital Sign - Last 24 Hours 08/22/19 08/22/19 08/22/19 08/22/19 11:00 15:00 19:00 19:35 Temp 98.6 98.1 98.6 98.1 Pulse 114 87 93 Resp 20 18 18 B/P (MAP) 197/70 (112) 157/58 (91) 156/61 (92) Pulse Ox 96 97 97 O2 Delivery Room Air Room Air Room Air Room Air 08/22/19 08/23/19 08/23/19 08/23/19 23:00 03:00 07:00 07:10 Temp 98.9 98.0 98.0 98.9 98.0 98.0 Pulse 88 84 84 Resp 18 18 18 B/P (MAP) 144/58 (86) 149/71 (97) 149/62 (91) Pulse Ox 97 98 97 O2 Delivery Room Air Room Air Room Air Room Air Intake and Output 08/22/19 08/22/19 08/23/19 15:00 23:00 07:00 Intake Total 250 ml 120 ml 60 ml Output Total 450 ml Balance 250 ml -330 ml 60 ml REGGIE JUAREZ MD Aug 23, 2019 10:31
[2019-08-23 11:00] VITALS: BP 142/53
--- NOTE | 2019-08-23 12:44 | CARD ---
MR#: [id number] Date of Study: 08/23/2019 Ordering Physician: REGGIE JUAREZ, Referring Physician: REGGIE JUAREZ Tech: Ruby Bill APPROVED REPORT EXAM: Two-dimensional and M-mode echocardiogram with Doppler and color Doppler. Other Information Quality : AverageHR: 80bpm Technically limited study due to body habitus. INDICATION Syncope 2D DIMENSIONS RVDd2.0 (2.9-3.5cm)Left Atrium(2D)2.6 (1.6-4.0cm) IVSd0.9 (0.7-1.1cm)Aortic Root(2D)2.6 (2.0-3.7cm) LVDd3.9 (3.9-5.9cm)LVOT Diameter1.9 (1.8-2.4cm) PWd1.0 (0.7-1.1cm)LVDs2.5 (2.5-4.0cm) FS (%) 37.1 %SV45.1 ml LVEF(%)67.7 (>50%) Aortic Valve AoV Peak Dwayne.202.3cm/sAoV VTI43.5cm AO Peak GR.16.4mmHgAO Mean GR.11mmHg Mitral Valve MV E Uommsuir189.3cm/sMV E Peak Gr.153mmHg MV DECEL [id number] A Hjsinuyj385.5cm/s MV E Mean Gr.6mmHgE/A Ratio0.8 TDI Lateral E' P. V7.72cm/sMedial E' P. V4.83cm/s E/Lateral E'16.5E/Medial E'26.4 Tricuspid Valve TR P. Jluscwvy6fh/sRAP [id number] TR Peak Gr.98hnNeZNUG01doPs Pulmonary Vein S1 Rglwbxih85.9cm/sS2 Zevlmcnb62.65cm/s D2 Rzsmhvje05.6cm/sPVa bpwkbocd02odcn LEFT VENTRICLE The left ventricle is normal size. There is normal left ventricular wall thickness. The left ventricu lar systolic function is normal and the ejection fraction is within normal range. The Ejection Fracti on is 60-65%. There is normal LV segmental wall motion. Transmitral Doppler flow pattern is Grade I-a bnormal relaxation pattern. RIGHT VENTRICLE The right ventricle is normal size. There is normal right ventricular wall thickness. The right ventr icular systolic function is normal. ATRIA The left atrium size is normal. The right atrium size is normal. The interatrial septum is intact wit h no evidence for an atrial septal defect or patent foramen ovale as noted on 2-D or Doppler imaging. AORTIC VALVE The aortic valve is calcified with restricted leaflet motion. Doppler and Color Flow revealed no sign ificant aortic regurgitation. There is no significant aortic valvular stenosis. MITRAL VALVE Mitral annular calcification is moderate. There is no evidence of mitral valve prolapse. There is a m kaylee pressure gradient of 6 mmHg. There is moderate mitral valve stenosis. Doppler and Color-flow reve aled trace to mild mitral regurgitation. TRICUSPID VALVE The tricuspid valve is normal in structure and function. Doppler and Color Flow revealed trace tricus pid regurgitation with an estimated PAP of 48 mmHg. There is no tricuspid valve prolapse or vegetatio n. There is no tricuspid valve stenosis. PULMONIC VALVE The pulmonic valve is not well visualized. Doppler and Color Flow revealed trace to mild pulmonic lindy vular regurgitation. There is no pulmonic valvular stenosis. GREAT VESSELS The aortic root is normal in size. The IVC is normal in size and collapses >50% with inspiration. PERICARDIAL EFFUSION There is no evidence of significant pericardial effusion. Critical Notification Critical Value: No <Conclusion> The left ventricular systolic function is normal and the ejection fraction is within normal range. Th e Ejection Fraction is 60-65%. There is normal LV segmental wall motion. There is a mean pressure gradient of 6 mmHg. There is moderate mitral valve stenosis. Doppler and Color Flow revealed trace tricuspid regurgitation with an estimated PAP of 48 mmHg. Signed by : Jacek Hernandez, Electronically Approved : 08/23/2019 12:44:21
--- NOTE | 2019-08-23 13:10 | RAD ---
MRI of the brain without contrast 08/23/2019 Clinical History: Mental status changes. Technique: Unenhanced T1-weighted sagittal and axial, T2-weighted axial and coronal and FLAIR, gradient echo and diffusion-weighted axial images of the brain were obtained. Findings: Comparison study is dated 06/08/2019. Some of the images are degraded by patient motion. There is generalized parenchymal atrophy. Patchy, confluent and multiple focal areas of increased signal intensity are seen within the periventricular and subcortical white matter of both cerebral hemispheres on the FLAIR and T2-weighted images consistent with areas of extensive small vessel ischemic disease. No acute parenchymal abnormality is seen. No extra-axial fluid collection is seen. There is no MRI evidence of acute ischemia/infarction. The paranasal sinuses are essentially clear. Normal flow voids are seen within the major vascular structures surrounding the brain parenchyma. There are small bilateral mastoid effusions, left greater than right. Impression: No acute parenchymal abnormality is seen. Electronically signed by: Parviz Hernandez MD (08/23/2019 1:07 PM) [facility]
--- NOTE | 2019-08-23 14:30 | NUR ---
LUANN following for discharge planning. Chart reviewed, discussed with RN. Pt is from home with son. PT/OT recommending SNU. LUANN attempted to contact pt's son, Devon ([phone]). LUANN left a voicemail requesting a call back. LUANN will continue to follow. Addendum: 08/23/19 at 1532 by TIAGO KONG Devon contacted LUANN back. Family agreeable to SNU. Would like referral sent to [facility] (ph: [phone], fax: [phone]). LUANN phoned and faxed referral. Awaiting acceptance decision.
[2019-08-23 15:00] VITALS: BP 146/62
--- NOTE | 2019-08-23 15:49 | PDOC ---
PROGRESS NOTES Assessment Assessment Metabolic encephalopathy. Confusion. Gait problem. Generalized weakness. HTN. HLD. DM. CAD. Anxiety. 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 RECOMMENDATIONS/PLAN: Continue Plavix 75 mg daily. Continue Lipitor HS.. OT/PT. EEG pending. History of Present Illness This is an 88-year-old Croatian origin female patient with above medical diseases and stroke in 06/07. She was noted to have mental status changes, confusion, decreased speech and decreased activity for about 2 days to be brought to the ER of [facility] for further evaluation. She also was noted gait problem s. She had stroke in 06/07 and had rehab and she covered well post stroke, but her mentation, speech and gait changed since the day before yesterday per her family. 08/23/19: MS improved. Past Medical History Cardiovascular: HTN, Syncope, HLD, CAD. Hepatobiliary: No pertinent hx Psych: Anxiety, Depression Musculoskeletal: low back pain, Osteoarthritis Endocrine: Diabetes Past Surgical History Cholecystectomy, Cataract Removal Family History High Cholesterol ALLERGY: NKDA MEDICATIONS: Refer to MAR SOCIAL HISTORY: Lives at home with her son and blnjpxzv-oh-bal. Denies smoking, drinking, and illicit drug use. REVIEW OF SYSTEMS: Constitutional: No malnutrition, weight loss, cachexia. Head: No traumatic brain or head injury. Skin: No edema, or rash. Ear: No infection. Eyes: No vision loss or color blindness. Nose: No bleeding or purulent discharges. Hearing: No hearing decrease. Neck: No injury. Breast: No history of cancer, masses,or discharges. Cardiac: CAD, HTN, HLD. Pulmonary: No COPD. GI: No GI ulcer, GI bleeding. Urinary/genital: UTI. Endocrinologic: Diabetes Mellitus. Skeletomuscular: Generalized weakness. Neurological: see HP. Psychiatric: Denies drug use/abuse. Otherwise, not [id number]-[id number] review of systems. PHYSICAL EXAMINATION: General appearance is in subacute distress. HEENT: Normocephalic and nontraumatic. Eyes, nose, ears, and throat are unremarkable. Neck is supple. No lymphadenopathy. No bruits are heard over the carotid artery. No crepitus. Cardiovascular: S1, S2, regular rate and rhythm. Pulmonary: Clear to auscultation bilaterally. Abdomen: Bowel sounds are positive. Abdomen is soft, nontender, and nondistended. Extremities: No rash, lesions, or edema. No restriction of range of motion NEUROLOGICAL EXAMINATION: Alert Not oriented to time, place but knew person. PERRL. EOMI. CN: no focal findings. Muscle tone: within normal. Muscle strength: 5- DTR: 2 Plantar reflex: Flexor response bilaterally Gait: not examined in bed. Sensory exam: no abnormal findings. No cerebellar signs elicited. F-T-N test fine. Objective Objective Vital Signs Date Time Temp Pulse Resp B/P (MAP) Pulse Ox O2 Delivery O2 Flow Rate FiO2 08/23/19 11:00 98.2 88 18 142/53 (82) 97 Room Air 98.2 Intake and Output 08/23/19 07:00 Intake Total 430 ml Output Total 450 ml Balance -20 ml Intake Oral 430 ml Output Urine Total 450 ml # Voids 7 # Bowel Movements 1 Vitals Signs Vitals VS - Last 72 Hours, by Label Date Time Temp Pulse Resp B/P (MAP) Pulse Ox O2 Delivery O2 Flow Rate FiO2 08/23/19 11:00 98.2 88 18 142/53 (82) 97 Room Air 98.2 08/23/19 10:27 84 149/62 08/23/19 10:27 84 149/62 08/23/19 07:10 Room Air 08/23/19 07:00 98.0 84 18 149/62 (91) 97 Room Air 98.0 08/23/19 03:00 98.0 84 18 149/71 (97) 98 Room Air 98.0 08/22/19 23:00 98.9 88 18 144/58 (86) 97 Room Air 98.9 08/22/19 19:35 Room Air 08/22/19 19:00 98.1 93 18 156/61 (92) 97 Room Air 98.1 08/22/19 15:00 87 18 157/58 (91) 97 Room Air 08/22/19 11:00 98.6 114 20 197/70 (112) 96 Room Air 98.6 08/22/19 09:13 92 152/51 08/22/19 09:09 92 152/51 08/22/19 08:00 Room Air 08/22/19 07:00 97.8 92 16 152/51 (84) 98 Room Air 97.8 Laboratory Laboratory Laboratory Tests Test 08/22/19 17:06 08/22/19 19:29 08/22/19 20:25 08/23/19 03:35 Glucose (Fingerstick) 66 mg/dL (70-99) 140 mg/dL (70-99) 151 mg/dL (70-99) Magnesium Level 1.8 mg/dL (1.8-2.4) Test 08/23/19 07:26 08/23/19 12:56 Glucose (Fingerstick) 120 mg/dL (70-99) 155 mg/dL (70-99) Medication Medications Current Medications Atorvastatin Calcium (Lipitor) 20 mg QHS PO Last administered on 08/22/19at 21:06; Start 08/22/19 at 21:00 Insulin Glargine (Lantus Syringe) 12 unit QHS SQ Last administered on 08/22/19at 21:10; Start 08/22/19 at 21:00 Insulin Human Lispro (HumaLOG) 7 units DAILYWSUP SQ ; Start 08/22/19 at 17:00 Comment Review of Relevant I have reviewed the following items randa (where applicable) has been applied. ANDI ZHANG MD Aug 23, 2019 15:49
[2019-08-23 19:00] VITALS: BP 148/85
--- NOTE | 2019-08-23 19:53 | EEG ---
DATE OF SERVICE: 08/23/2019 EEG NUMBER: [id number]. OBJECTIVE: This is an 88-year-old Belarusian origin female patient with symptoms of mental status changes as confusion and speech problem. EEG was requested to evaluate cerebral activity. METHODS: Twenty electrodes were applied according to the international 10-20 electrode placement system. EKG monitoring, hyperventilation, intermittent photic stimulation, monopolar and bipolar montages are routinely utilized. The record was obtained on a digital system with video monitoring. FINDINGS: 1. Background: The patient was recorded in the awake and drowsy states. No actual sleep state was recorded. The overall background amplitude is 10-25 microvolts. A posterior dominant rhythm of 8 Hz is observed. 2. Abnormalities: No specific epileptiform discharge or electrographic seizure is seen. No focal or diffuse slowing. 3. Activation: Hyperventilation was performed with good efforts and normal response. Intermittent photic stimulation was performed with photic driving. IMPRESSION: This EEG is a normal study for the awake and drowsy states. No sleep state was recorded. No focal, lateralizing, specific epileptiform discharge or electrographic seizure is seen. ANDI ZHANG MD DR: JUANA/keny JOB#: [id number] / [id number] MARYANNE
[2019-08-23] MEDS: INSULIN GLARGINE SYRINGE. SQ SCH (21:00)
[2019-08-23] MEDS: ATORVASTATIN CALCIUM 20 MG TABLET PO SCH (21:09)
[2019-08-23 23:00] VITALS: BP 156/64
[2019-08-24 03:00] VITALS: BP 168/72
[2019-08-24 07:00] VITALS: BP 149/60
[2019-08-24] MEDS: INSULIN LISPRO 300 UNITS/3 ML VIAL. SQ SCH ×5 (08:00→17:00)
[2019-08-24] MEDS: metFORMIN 500 MG TABLET PO SCH ×2 (09:06→17:50)
[2019-08-24] MEDS: CLOPIDOGREL BISULFATE 75 MG TABLET PO SCH (09:06)
[2019-08-24] MEDS: CITALOPRAM 20 MG TABLET. PO SCH (09:06)
[2019-08-24] MEDS: amLODIPine BESYLATE 5 MG TABLET PO SCH (09:06)
[2019-08-24] MEDS: CALCIUM CARBONATE 500 MG TABLET PO SCH (09:06)
[2019-08-24] MEDS: CHOLECALCIFEROL (VITAMIN D3) 1,000 UNIT TABLET PO SCH (09:07)
[2019-08-24] MEDS: LISINOPRIL 10 MG TABLET PO SCH (09:07)
[2019-08-24] MEDS: ASPIRIN ENTERIC COATED 81 MG TABLET.DR. PO SCH (09:08)
--- NOTE | 2019-08-24 10:51 | PDOC3 ---
Discharge Summary Visit Information Date of Admission: Aug 22, 2019 Date of Discharge: Aug 24, 2019 Admitting Diagnosis Comment: TRAnsient confusion - neuro and infectious work up neg reported syncope, - normal echo NO evidence acute CVA or infection HTN, accelerated pOA - i resumed home bp meds and added prn cloniidine DM 2 on OHA plus insulin - resumed Depression nos on meds OA- chronic stable HYpomagnesemia FULL CODE Mild pulm htn - PA pressures 41 Final Diagnosis Problems Medical Problems: (1) Altered mental status Status: Acute (2) Anxiety Status: Acute (3) CAD (coronary artery disease) Status: Chronic (4) Depression Status: Chronic (5) Gait abnormality Status: Chronic (6) Gait disturbance Status: Acute (7) Generalized weakness Status: Acute (8) HLD (hyperlipidemia) Status: Chronic (9) HTN (hypertension) Status: Chronic (10) Metabolic encephalopathy Status: Chronic (11) Syncope Status: Acute (12) T2DM (type 2 diabetes mellitus) Status: Chronic (13) Transient confusion Status: Acute Brief Hospital Course Allergies Allergies Coded Allergies Type Severity Reaction Last Updated Verified No Known Drug Allergies 07/27/17 No Vital Signs Vital Signs Date Time Temp Pulse Resp B/P (MAP) Pulse Ox O2 Delivery O2 Flow Rate FiO2 08/24/19 09:07 74 149/60 08/24/19 07:00 97.8 16 96 Room Air 97.8 Lab Results Laboratory Tests Test 08/22/19 11:01 08/22/19 15:30 08/22/19 17:06 08/22/19 19:29 Glucose (Fingerstick) 264 mg/dL (70-99) 66 mg/dL (70-99) 140 mg/dL (70-99) Influenza Type A Antigen Negative (NEGATIVE) Influenza Type B Antigen Negative (NEGATIVE) Test 08/22/19 20:25 08/23/19 03:35 08/23/19 07:26 08/23/19 12:56 Glucose (Fingerstick) 151 mg/dL (70-99) 120 mg/dL (70-99) 155 mg/dL (70-99) Magnesium Level 1.8 mg/dL (1.8-2.4) Test 08/23/19 17:20 08/23/19 20:35 08/24/19 07:38 Glucose (Fingerstick) 175 mg/dL (70-99) 108 mg/dL (70-99) 129 mg/dL (70-99) Laboratory Tests Test 08/23/19 12:56 08/23/19 17:20 08/23/19 20:35 08/24/19 07:38 Glucose (Fingerstick) 155 mg/dL (70-99) 175 mg/dL (70-99) 108 mg/dL (70-99) 129 mg/dL (70-99) Brief Hospital Course Ms. Angelo is a 88 old al[place]ian descent lives at home with family and had what sounds like unprovoked syncope. SH eis not the best historian, echo, infectious and CT imaging MRI brain normal, SOme mild hypomagnesemia., BAck to baseline per family maybe on the next hospital stay,. Agreebale to SNU so pplace, FUll code Seen and examined MAR on chart consults: neuro Proc; none echo, CT brain, mri brain Discharge Information Condition at Discharge: Improved, Stable Disposition/Orders: Other (snu) Scheduled Amlodipine Besylate (Amlodipine Besylate) 5 Mg Tablet, 5 MG PO DAILY for , (Reported) Entered as Reported by: THERESA MOJICA RN on 06/07/19412 Last Action: Continued on 08/22/19802 by REGGIE JUAREZ Aspirin (Aspirin Ec) 81 Mg Tablet.dr 81 MG PO DAILYWBKFT for cva for 30 Days, #30 Prescribed by: KATHERYN HALL MD on 06/10/191543 Last Action: Continued on 08/22/19802 by REGGIE JUAREZ Atorvastatin Calcium (Atorvastatin Calcium) 20 Mg Tablet, 20 MG PO QHS for cholesterol for 30 Days, #30 Prescribed by: KATHERYN HALL MD on 06/10/19 154 Last Action: Continued on 08/22/19802 by REGGIE JUAREZ Calcium Carbonate (Calcium) 600 Mg Tablet, 600 MG PO DAILY for supplement, (Reported) Entered as Reported by: BROOKE FONG on 08/22/19 0716 Last Action: Converted on 08/22/19802 by REGGIE JUAREZ Cholecalciferol (Vitamin D3) (Vitamin D3) 1,000 Unit Capsule, 1 CAP PO DAILY for SUPPLEMENT for 30 Days, #30 Ref 0 (Reported) Entered as Reported by: BROOKE FONG on 08/22/19715 Last Action: Converted on 08/22/19802 by REGGIE JUAREZ Clopidogrel Bisulfate (Clopidogrel) 75 Mg Tablet, 75 MG PO DAILYWBKFT for cva for 30 Days, #30 Prescribed by: KATHERYN HALL MD on 06/10/19 1544 Last Action: Continued on 08/22/19802 by REGGIE JUAREZ Escitalopram Oxalate (Escitalopram Oxalate) 10 Mg Tablet, 1 TAB PO DAILY for depression, #30 Ref 3 (Reported) Entered as Reported by: BROOKE FONG on 08/22/19715 Last Action: Converted on 08/22/19802 by REGGIE JUAREZ Insulin Aspart (Novolog Flexpen) 100 Unit/1 Ml Insuln.pen, 4 UNIT SQ DAILYWBKFT for antidiabetic, (Reported) Entered as Reported by: BROOKE FONG on 08/22/19715 Last Action: Converted on 08/22/19802 by REGGIE JUAREZ Insulin Aspart (Novolog Flexpen) 100 Unit/1 Ml Insuln.pen, 7 UNIT SQ DAILYWSUP for antidiabetic, (Reported) Entered as Reported by: BROOKE FONG on 08/22/19715 Last Action: Converted on 08/22/19802 by REGGIE JUAREZ Insulin Glargine,Hum.rec.anlog (Lantus Solostar) 100 Unit/1 Ml Insuln.pen, 12 UNIT SQ QHS for antidiabetic, #15 Ref 3 (Reported) Entered as Reported by: BROOKE FONG on 08/22/19715 Last Action: Converted on 08/22/19802 by REGGIE JUAREZ Lisinopril (Lisinopril) 10 Mg Tablet, 1 TAB PO DAILY for HTN, #30 Ref 5 (Reported) Entered as Reported by: BROOKE FONG on 08/22/19715 Last Action: Continued on 08/22/19802 by REGGIE JUAREZ Magnesium Oxide (Magnesium Oxide) 400 Mg Tablet, 400 MG PO DAILY for low mag for 14 Days, #14 Prescribed by: REGGIE JUAREZ on 08/23/19813 Metformin Hcl (Metformin Hcl) 500 Mg Tablet, 500 MG PO BIDWMEALS for ANTI- DIABETIC, Ref 0 (Reported) Entered as Reported by: BROOKE FONG on 08/22/19715 Last Action: Continued on 08/22/19802 by REGGIE JUAREZ Ubidecarenone (Coq-10) 100 Mg Capsule, 100 MG PO DAILY for , (Reported) Entered as Reported by: THERESA MOJICA RN on 06/07/19418 Last Action: Converted on 08/22/19802 by REGGIE JUAREZ Scheduled PRN Cyclobenzaprine Hcl (Cyclobenzaprine Hcl) 10 Mg Tablet, 10 MG PO PRN Q6HRS PRN for MUSCLE SPASMS, #30 Prescribed by: REGGIE JUAREZ on 08/23/19813 Discontinued Medications Acetaminophen (Tylenol) 325 Mg Tablet, 325 MG PO DAILY for , (Reported) Entered as Reported by: THERESA MOJICA RN on 06/07/19418 Last Action: Discontinued on 08/22/19729 by Chana Frederick Calcium Carbonate/Vitamin D3 (Caltrate 600 + D Soft Chew Tab) 1 Each Tab.chew, 1 EACH PO DAILY for , (Reported) Entered as Reported by: THERESA MOJICA RN on 06/07/19418 Last Action: Discontinued on 08/22/19729 by Chana Frederick Insulin Aspart (Novolog Flexpen) 100 Unit/1 Ml Insuln.pen, 5 UNIT SQ DAILYWBKFT for , (Reported) Entered as Reported by: THERESA MOJICA RN on 06/07/19419 Last Action: Discontinued on 08/22/19729 by Chana Frederick Insulin Aspart (Novolog Flexpen) 100 Unit/1 Ml Insuln.pen, 10 UNIT SQ DAILYWSUP for , (Reported) Entered as Reported by: THERESA MOJICA RN on 06/07/19419 Last Action: Discontinued on 08/22/19729 by Chana Frederick Insulin Glargine,Hum.rec.anlog (Lantus Solostar) 100 Unit/1 Ml Insuln.pen, 17 UNIT SQ QHS for , #15 Ref 3 (Reported) Entered as Reported by: THERESA MOJICA RN on 06/07/19418 Last Action: Discontinued on 08/22/19729 by Chana Frederick Lisinopril (Zestril) 10 Mg Tablet, 10 MG PO BID for FOR HYPERTENSION, #30 Ref 0 (Reported) Entered as Reported by: THERESA MOJICA RN on 06/07/19412 Last Action: Discontinued on 08/22/19729 by Chana Frederick Multivitamins-Min/Fa/Ginkgo (One Daily For Women 50+ Adv Tb) 1 Each Tablet, 1 EACH PO DAILY for , (Reported) Entered as Reported by: THERESA MOJICA RN on 06/07/19418 Last Action: Discontinued on 08/22/19729 by Chana Frederick Vitamin E Acid Succinate (Vitamin E) 100 Unit Tablet, 100 UNIT PO DAILY for , (Reported) Entered as Reported by: THERESA MOJICA RN on 06/07/19418 Last Action: Discontinued on 08/22/19729 by REGGIE Steward MD Aug 24, 2019 10:51
[2019-08-24 11:00] VITALS: BP 157/56
--- NOTE | 2019-08-24 11:17 | NUR ---
SW following. Discussed with RN, pt accepted at [facility]. Plan to discharge to [facility] tomorrow (08/25/19) after third midnight. Voicemail left for pt's son, Devon. SW will continue to follow.
[2019-08-24 15:00] VITALS: BP 141/78
--- NOTE | 2019-08-24 16:03 | PDOC ---
PROGRESS NOTES Assessment Assessment Metabolic encephalopathy. Confusion. Gait problem. Generalized weakness. HTN. HLD. DM. CAD. Anxiety. Thyroid nodule. 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 RECOMMENDATIONS/PLAN: Continue Plavix 75 mg daily. Continue Lipitor HS. Thyroid nodule further evaluation per floor medical team and PCP. EEG pending. MRI: No acute CVA. History of Present Illness This is an 88-year-old Russian origin female patient with above medical disease s and stroke in 06/07. She was noted to have mental status changes, confusion, decreased speech and decreased activity for about 2 days to be brought to the ER of [facility] for further evaluation. She also was noted gait problems. She had stroke in 06/07 and had rehab and she covered well post stroke, but her mentation, speech and gait changed since the day before yesterday per her family. 08/24/19: MS further improved. Past Medical History Cardiovascular: HTN, Syncope, HLD, CAD. Hepatobiliary: No pertinent hx Psych: Anxiety, Depression Musculoskeletal: low back pain, Osteoarthritis Endocrine: Diabetes Past Surgical History Cholecystectomy, Cataract Removal Family History High Cholesterol ALLERGY: NKDA MEDICATIONS: Refer to MAR SOCIAL HISTORY: Lives at home with her son and vaemwenk-pf-rxo. Denies smoking, drinking, and illicit drug use. REVIEW OF SYSTEMS: Constitutional: No malnutrition, weight loss, cachexia. Head: No traumatic brain or head injury. Skin: No edema, or rash. Ear: No infection. Eyes: No vision loss or color blindness. Nose: No bleeding or purulent discharges. Hearing: No hearing decrease. Neck: No injury. Breast: No history of cancer, masses,or discharges. Cardiac: CAD, HTN, HLD. Pulmonary: No COPD. GI: No GI ulcer, GI bleeding. Urinary/genital: UTI. Endocrinologic: Diabetes Mellitus. Skeletomuscular: Generalized weakness. Neurological: see HP. Psychiatric: Denies drug use/abuse. Otherwise, not [id number]-fnxga review of systems. PHYSICAL EXAMINATION: General appearance is in no acute distress. HEENT: Normocephalic and nontraumatic. Eyes, nose, ears, and throat are unremarkable. Neck is supple. No lymphadenopathy. No bruits are heard over the carotid artery. No crepitus. Cardiovascular: S1, S2, regular rate and rhythm. Pulmonary: Clear to auscultation bilaterally. Abdomen: Bowel sounds are positive. Abdomen is soft, nontender, and nondistended. Extremities: No rash, lesions, or edema. No restriction of range of motion NEUROLOGICAL EXAMINATION: Alert Not fully oriented to time, but knew place and person. PERRL. EOMI. CN: no focal findings. Muscle tone: within normal. Muscle strength: 5- DTR: 2 Plantar reflex: Flexor response bilaterally Gait: not examined in bed. Sensory exam: no abnormal findings. No cerebellar signs elicited. F-T-N test fine. Objective Objective Vital Signs Date Time Temp Pulse Resp B/P (MAP) Pulse Ox O2 Delivery O2 Flow Rate FiO2 08/24/19 15:00 98.7 84 18 141/78 (99) 97 Room Air 98.7 Intake and Output 08/24/19 07:00 Intake Total 600 ml Output Total 200 ml Balance 400 ml Intake Oral 600 ml Stool Total 200 ml # Voids 4 # Bowel Movements 1 Vitals Signs Vitals VS - Last 72 Hours, by Label Date Time Temp Pulse Resp B/P (MAP) Pulse Ox O2 Delivery O2 Flow Rate FiO2 08/24/19 15:00 98.7 84 18 141/78 (99) 97 Room Air 98.7 08/24/19 11:00 98.1 100 18 157/56 (89) 96 Room Air 98.1 08/24/19 09:07 74 149/60 08/24/19 09:06 74 149/60 08/24/19 09:00 Room Air 08/24/19 07:00 97.8 74 16 149/60 (89) 96 Room Air 97.8 08/24/19 03:00 98.4 76 16 168/72 (104) 97 Room Air 98.4 08/23/19 23:00 97.8 81 18 156/64 (94) 98 Room Air 97.8 08/23/19 20:00 Room Air 08/23/19 19:00 98.4 85 16 148/85 (106) 97 98.4 08/23/19 15:00 99.0 87 18 146/62 (90) 95 Room Air 99.0 08/23/19 11:00 98.2 88 18 142/53 (82) 97 Room Air 98.2 08/23/19 10:27 84 149/62 08/23/19 10:27 84 149/62 08/23/19 07:10 Room Air 08/23/19 07:00 98.0 84 18 149/62 (91) 97 Room Air 98.0 Laboratory Laboratory Laboratory Tests Test 08/23/19 17:20 08/23/19 20:35 08/24/19 07:38 08/24/19 11:58 Glucose (Fingerstick) 175 mg/dL (70-99) 108 mg/dL (70-99) 129 mg/dL (70-99) 186 mg/dL (70-99) Comment Review of Relevant I have reviewed the following items randa (where applicable) has been applied. ANDI ZHANG MD Aug 24, 2019 16:03
[2019-08-24 19:55] VITALS: BP 145/59
[2019-08-24] MEDS: ATORVASTATIN CALCIUM 20 MG TABLET PO SCH (20:50)
[2019-08-24] MEDS: INSULIN GLARGINE SYRINGE. SQ SCH (20:54)
[2019-08-24 23:13] VITALS: BP 138/57
[2019-08-25 03:04] VITALS: BP 149/60
[2019-08-25 07:00] VITALS: BP 147/53
[2019-08-25] MEDS: INSULIN LISPRO 300 UNITS/3 ML VIAL. SQ SCH ×2 (08:00→08:29)
[2019-08-25] MEDS: metFORMIN 500 MG TABLET PO SCH (08:18)
[2019-08-25] MEDS: ASPIRIN ENTERIC COATED 81 MG TABLET.DR. PO SCH (08:18)
[2019-08-25] MEDS: CLOPIDOGREL BISULFATE 75 MG TABLET PO SCH (08:18)
[2019-08-25] MEDS: amLODIPine BESYLATE 5 MG TABLET PO SCH (08:19)
[2019-08-25] MEDS: CITALOPRAM 20 MG TABLET. PO SCH (08:20)
[2019-08-25] MEDS: CHOLECALCIFEROL (VITAMIN D3) 1,000 UNIT TABLET PO SCH (08:20)
[2019-08-25] MEDS: LISINOPRIL 10 MG TABLET PO SCH (08:23)
[2019-08-25] MEDS: CALCIUM CARBONATE 500 MG TABLET PO SCH (08:25)
--- NOTE | 2019-08-25 10:12 | NUR ---
SW following. Discussed with RN, pt will discharge to [facility] SNU at 11am today. SW left voicemail for pt's son, Devon. RN notified. No further SW needs.
--- NOTE | 2019-08-25 10:20 | NUR ---
Called and gave report to Philippe at [facility].
[2019-08-25 10:40] VITALS: BP 142/58
--- NOTE | 2019-08-25 11:49 | NUR ---
Pt discharged to [facility]. Report given to Philippe. IV removed. Belongings were packed and sent with transportation including walker and glasses. Assisted pt with dressing. Pt in wheelchair with transportation.
--- NOTE | 2019-08-25 13:35 | PDOC ---
[facility] [facility] PROGRESS NOTE Chief Complaint Chief Complaint TRAnsient confusion reported syncope gait disturbance NO evidence acute CVA on MRI HTN DM 2 Depression OA HYpomagnesemia FULL CODE History of Present Illness History of Present Illness 08/25/19 Pt seen and examined. Sitting up in bed and in no apparent distress. Transient confusion improved. MRI brain showed no acute stroke. Discussed with nurse. Will discharge to SNU. 08/23/19 Oriented to self and place, needed coaxing re time/day of the week [place] CT cervical spine unimpressive FOr EEG and mRI brain today per neuro. CT head ok PT resc SNU - i consulted FAmily requested some herbal mag supplements yesterday and that is fine MAg low yesterday - i replaced IV NOw mag is normal 1.,8 PLAN: [facility] MRI brain, EEG TRaget dc to u tmr FULL CODE COnt other supportive meds Fall risk Vitals/I&O Vitals/I&O: Vital Signs Date Time Temp Pulse Resp B/P (MAP) Pulse Ox O2 Delivery O2 Flow Rate FiO2 08/25/19 10:40 97.6 77 16 142/58 (86) 98 Room Air 97.6 08/25/19 07:00 Physical Exam General: Alert, Cooperative, No acute distress Heart: Regular rate, Normal S1, Other (systolic murmur 2/6) Lungs: Clear Abdomen: Normal bowel sounds, Soft, No tenderness Extremities: No clubbing, No cyanosis, No tenderness/swelling Skin: No rashes, No breakdown, No significant lesion Labs Labs: Laboratory Tests Test 08/24/19 16:53 08/24/19 20:23 08/25/19 07:20 08/25/19 11:20 Glucose (Fingerstick) 108 mg/dL (70-99) 197 mg/dL (70-99) 131 mg/dL (70-99) 187 mg/dL (70-99) Review of Systems Review of Systems: No headache No chest pain Assessment and Plan Assessmemt and Plan Problems Medical Problems: (1) Altered mental status Status: Acute (2) Anxiety Status: Acute (3) CAD (coronary artery disease) Status: Chronic (4) Depression Status: Chronic (5) Gait abnormality Status: Chronic (6) Gait disturbance Status: Acute (7) Generalized weakness Status: Acute (8) HLD (hyperlipidemia) Status: Chronic (9) HTN (hypertension) Status: Chronic (10) Metabolic encephalopathy Status: Chronic (11) Syncope Status: Acute (12) T2DM (type 2 diabetes mellitus) Status: Chronic (13) Transient confusion Status: Acute Transient confusion reported syncope gait disturbance NO evidence acute CVA on MRI head HTN DM 2 Depression OA HYpomagnesemia FULL CODE MRI brain 08/23 showed no acute stroke AMS improved Will discharge to SNU home meds Comment Review of Relevant I have reviewed the following items randa (where applicable) has been applied. MAN BARTLETT III DO Aug 25, 2019 13:35
--- NOTE | 2019-08-25 15:43 | PDOC ---
PROGRESS NOTES Assessment Assessment Metabolic encephalopathy. Confusion. Gait problem. Generalized weakness. HTN. HLD. DM. CAD. Anxiety. Thyroid nodule. 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 RECOMMENDATIONS/PLAN: Continue Plavix 75 mg daily. Continue Lipitor HS. Thyroid nodule further evaluation per floor medical team and PCP. FU with PCP. EEG pending. MRI: No acute CVA. History of Present Illness This is an 88-year-old Telugu origin female patient with above medical diseases and stroke in 06/07. She was noted to have mental status changes, confusion, decreased speech and decreased activity for about 2 days to be brought to the ER of [facility] for further evaluation. She also was noted gait problems. She had stroke in 06/07 and had rehab and she covered well post stroke, but her mentation, speech and gait changed since the day before yesterday per her family. 08/25/19: No complaints. Past Medical History Cardiovascular: HTN, Syncope, HLD, CAD. Hepatobiliary: No pertinent hx Psych: Anxiety, Depression Musculoskeletal: low back pain, Osteoarthritis Endocrine: Diabetes Past Surgical History Cholecystectomy, Cataract Removal Family History High Cholesterol ALLERGY: NKDA MEDICATIONS: Refer to MAR SOCIAL HISTORY: Lives at home with her son and [id number]. Denies smoking, drinking, and illicit drug use. REVIEW OF SYSTEMS: Constitutional: No malnutrition, weight loss, cachexia. Head: No traumatic brain or head injury. Skin: No edema, or rash. Ear: No infection. Eyes: No vision loss or color blindness. Nose: No bleeding or purulent discharges. Hearing: No hearing decrease. Neck: No injury. Breast: No history of cancer, masses,or discharges. Cardiac: CAD, HTN, HLD. Pulmonary: No COPD. GI: No GI ulcer, GI bleeding. Urinary/genital: UTI. Endocrinologic: Diabetes Mellitus. Skeletomuscular: Generalized weakness. Neurological: see HP. Psychiatric: Denies drug use/abuse. Otherwise, not [id number] review of systems. PHYSICAL EXAMINATION: General appearance is in no acute distress. HEENT: Normocephalic and nontraumatic. Eyes, nose, ears, and throat are unremarkable. Neck is supple. No lymphadenopathy. No bruits are heard over the carotid artery. No crepitus. Cardiovascular: S1, S2, regular rate and rhythm. Pulmonary: Clear to auscultation bilaterally. Abdomen: Bowel sounds are positive. Abdomen is soft, nontender, and nondistended. Extremities: No rash, lesions, or edema. No restriction of range of motion NEUROLOGICAL EXAMINATION: Alert Partially oriented to time, but knew place and person. PERRL. EOMI. CN: no focal findings. Muscle tone: within normal. Muscle strength: 5 DTR: 2 Plantar reflex: Flexor response bilaterally Gait: not examined in bed. Sensory exam: no abnormal findings. No cerebellar signs elicited. F-T-N test fine. Objective Objective Vital Signs Date Time Temp Pulse Resp B/P (MAP) Pulse Ox O2 Delivery O2 Flow Rate FiO2 08/25/19 10:40 97.6 77 16 142/58 (86) 98 Room Air 97.6 08/25/19 07:00 Intake and Output 08/25/19 07:00 # Voids 3 # Bowel Movements 1 Vitals Signs Vitals VS - Last 72 Hours, by Label Date Time Temp Pulse Resp B/P (MAP) Pulse Ox O2 Delivery O2 Flow Rate FiO2 08/25/19 10:40 97.6 77 16 142/58 (86) 98 Room Air 97.6 08/25/19 10:10 Room Air 08/25/19 08:23 77 147/53 08/25/19 08:19 77 147/53 08/25/19 07:00 97.6 77 16 147/53 (84) 97 Room Air 97.6 08/25/19 03:04 98.9 109 18 149/60 (89) 96 Room Air 98.9 08/24/19 23:13 98.3 81 18 138/57 (84) 97 Room Air 98.3 08/24/19 20:00 Room Air 08/24/19 19:55 98.3 75 18 145/59 (87) 97 Room Air 98.3 08/24/19 15:00 98.7 84 18 141/78 (99) 97 Room Air 98.7 08/24/19 11:00 98.1 100 18 157/56 (89) 96 Room Air 98.1 08/24/19 09:07 74 149/60 08/24/19 09:06 74 149/60 08/24/19 09:00 Room Air 08/24/19 07:00 97.8 74 16 149/60 (89) 96 Room Air 97.8 Laboratory Laboratory Laboratory Tests Test 08/24/19 16:53 08/24/19 20:23 08/25/19 07:20 08/25/19 11:20 Glucose (Fingerstick) 108 mg/dL (70-99) 197 mg/dL (70-99) 131 mg/dL (70-99) 187 mg/dL (70-99) Comment Review of Relevant I have reviewed the following items randa (where applicable) has been applied. ANDI ZHANG MD Aug 25, 2019 15:43
--- NOTE | 2019-08-26 22:22 | DS ---
DATE OF DISCHARGE: 08/25/2019 ADMISSION DIAGNOSES: Gait disturbance, mental status change, and old stroke in May of this year. DISCHARGE DIAGNOSES: Resolving mental status change, resolving gait disturbance, chronic dementia, and previous old stroke. HOSPITAL COURSE: The patient is a pleasant 88-year-old female who presented with mental status change, weakness, and gait disturbance. She had had an old stroke back in May of this year. We consulted Neurology, did physical therapy and occupational therapy. Her MRI did not show any acute events, returned to her baseline. [facility]. DISPOSITION: Skilled. ACTIVITY: As tolerated. DIET: Low sodium. MEDICATIONS: Please see MRAD. TOTAL TIME: 32 minutes. MAN BARTLETT DO DR: DEAN/keny JOB#: [id number] / [id number]
== END 2019-08-25 11:30 | DRG 640 ==
LOC: ER 01:36 → 4 NORTH 03:40
PROVIDERS: ADMIT Internal Medicine; ATTEND Internal Medicine
DX: E83.42 Hypomagnesemia (principal); G93.41 Metabolic encephalopathy; E87.1 Hypo-osmolality and hyponatremia; E04.1 Nontoxic single thyroid nodule; E11.9 Type 2 diabetes mellitus without complications; E78.00 Pure hypercholesterolemia, unspecified; E78.5 Hyperlipidemia, unspecified; F03.90 Unspecified dementia, unspecified severity, without behavioral disturbance, psychotic disturbance, mood disturbance, and anxiety; F32.9 Major depressive disorder, single episode, unspecified; F41.9 Anxiety disorder, unspecified; I10 Essential (primary) hypertension; I25.10 Atherosclerotic heart disease of native coronary artery without angina pectoris; Z79.02 Long term (current) use of antithrombotics/antiplatelets; Z86.73 Personal history of transient ischemic attack (TIA), and cerebral infarction without residual deficits
CPT/HCPCS: 36415; 70450; 70551; 72125; 80053; 81001; 82140; 82550; 82607; 82962; 83036; 83735; 84436; 84443; 84481; 85025; 85651; 87804; 93306; 95816; J1815; J3475; 97110; 97116; 97530; 97535; 99285-25; G0378

== ENCOUNTER 2019-09-18 22:21 | Emergency (ER) | payer MEDICARE, OTHER ==
[~2019-09-18] VITALS: Ht 152.4 cm; Wt 54.0 kg
[~2019-09-18 22:21] MED LIST changes: +CALC600T4 PO; +CHOL100014 PO; +CYCL10TA2 PO; +ESCITALOPRAM OX10 MG PO; +LISI10TA2 PO; +MAGN400T5 PO; +METF500T16 PO
--- NOTE | 2019-09-18 22:48 | PHYS DOC ---
Past Medical History Past Medical History: CAD, CVA, Depression, Diabetes-Type II, High Cholesterol, Hypertension, UTI Additional Past Medical Histor: HEART MURMUR, CVA 06/07 Past Surgical History: Cholecystectomy Alcohol Use: None Drug Use: None Adult General Chief Complaint Chief Complaint: MECHANICAL FALL HPI HPI 89-year-old female presents to the emergency department via EMS after a fall. Un known loss of consciousness unknown mechanism of injury. Unknown how long patient was on the ground. Patient is well-known to me, she is demented, underlying history of diabetes as well as hyponatremia. Patient has evidence of hematoma appreciated to her head no other appreciated injury on exam. She has no acute complaints of headache, visual change, chest pain, shortness breath, nausea, vomiting, abdominal pain. Review of Systems Review of Systems Constitutional: Denies fever or chills [] Eyes: Denies change in visual acuity, redness, or eye pain [] HENT: Denies nasal congestion or sore throat [] Respiratory: Denies cough or shortness of breath [] Cardiovascular: No additional information not addressed in HPI [] GI: Denies abdominal pain, nausea, vomiting, bloody stools or diarrhea [] Musculoskeletal: Denies back pain or joint pain [] Neurologic: Denies headache, focal weakness or sensory changes [] All other systems were reviewed and found to be within normal limits, except as documented in this note. Allergies Allergies Allergies Coded Allergies Type Severity Reaction Last Updated Verified No Known Drug Allergies 07/27/17 No Physical Exam Physical Exam Constitutional: Well developed, well nourished, no acute distress, non-toxic appearance. [] HENT: Normocephalic, hematoma to left occiput, bilateral external ears normal, oropharynx moist, no oral exudates, nose normal. [] Eyes: PERRLA, EOMI, conjunctiva normal, no discharge. [] Neck: Normal range of motion, no tenderness, supple, no stridor. [] Cardiovascular:Heart rate regular rhythm, no murmur [] Lungs & Thorax: Bilateral breath sounds clear to auscultation [] Abdomen: Bowel sounds normal, soft, no tenderness, no masses, no pulsatile masses. [] Skin: Warm, dry, no erythema, no rash. [] Back: No tenderness, no CVA tenderness. [] Extremities: No tenderness, no edema. [] Neurologic: Alert and oriented X 2, no focal deficits noted. [] Psychologic: Affect normal, judgement normal, mood normal. [] Current Patient Data Vital Signs Vital Signs Date Time Temp Pulse Resp B/P (MAP) Pulse Ox O2 Delivery O2 Flow Rate FiO2 09/18/19 22:22 98.9 87 14 124/57 (79) 92 Room Air 98.9 Lab Values Laboratory Tests Test 09/18/19 22:48 09/18/19 22:55 Urine Collection Type Unknown Urine Color Yellow Urine Clarity Hazy Urine pH 6.5 Urine Specific Francisco 1.010 Urine Protein Negative mg/dL (NEG-TRACE) Urine Glucose (UA) Negative mg/dL (NEG) Urine Ketones (Stick) Negative mg/dL (NEG) Urine Blood Moderate (NEG) Urine Nitrite Positive (NEG) Urine Bilirubin Negative (NEG) Urine Urobilinogen Dipstick 1.0 mg/dL (0.2 mg/dL) Urine Leukocyte Esterase Large (NEG) Urine RBC 1-2 /HPF (0-2) Urine WBC >40 /HPF (0-4) Urine Squamous Epithelial Cells Few /LPF Urine Bacteria Many /HPF (0-FEW) White Blood Count 9.6 x10^3/uL (4.0-11.0) Red Blood Count 3.47 x10^6/uL (3.50-5.40) L Hemoglobin 10.1 g/dL (12.0-15.5) L Hematocrit 29.4 % (36.0-47.0) L Mean Corpuscular Volume 85 fL (79-100) Mean Corpuscular Hemoglobin 29 pg (25-35) Mean Corpuscular Hemoglobin Concent 35 g/dL (31-37) Red Cell Distribution Width 14.4 % (11.5-14.5) Platelet Count 412 x10^3/uL (140-400) H Neutrophils (%) (Auto) 75 % (31-73) H Lymphocytes (%) (Auto) 17 % (24-48) L Monocytes (%) (Auto) 6 % (0-9) Eosinophils (%) (Auto) 2 % (0-3) Basophils (%) (Auto) 1 % (0-3) Neutrophils # (Auto) 7.2 x10^3/uL (1.8-7.7) Lymphocytes # (Auto) 1.6 x10^3/uL (1.0-4.8) Monocytes # (Auto) 0.6 x10^3/uL (0.0-1.1) Eosinophils # (Auto) 0.2 x10^3/uL (0.0-0.7) Basophils # (Auto) 0.1 x10^3/uL (0.0-0.2) Sodium Level 134 mmol/L (136-145) L Potassium Level 4.3 mmol/L (3.5-5.1) Chloride Level 97 mmol/L (98-107) L Carbon Dioxide Level 27 mmol/L (21-32) Anion Gap 10 (6-14) Blood Urea Nitrogen 33 mg/dL (7-20) H Creatinine 0.9 mg/dL (0.6-1.0) Estimated GFR (Cockcroft-Gault) 59.0 BUN/Creatinine Ratio 37 (6-20) H Glucose Level 188 mg/dL (70-99) H Calcium Level 9.0 mg/dL (8.5-10.1) Total Bilirubin 0.6 mg/dL (0.2-1.0) Aspartate Amino Transferase (AST) 37 U/L (15-37) Alanine Aminotransferase (ALT) 29 U/L (14-59) Alkaline Phosphatase 76 U/L (46-116) Total Protein 7.5 g/dL (6.4-8.2) Albumin 3.0 g/dL (3.4-5.0) L Albumin/Globulin Ratio 0.7 (1.0-1.7) L Laboratory Tests 09/18/19 22:55 Laboratory Tests 09/18/19 22:55 EKG EKG [] Radiology/Procedures Radiology/Procedures [facility] [address] [place] [address] IMAGING REPORT Signed PATIENT: JHONATAN VELOZ ACCOUNT: [id number] : 1930 LOCATION: ER AGE: 89 SEX: F EXAM STATUS: REG ER ORD. PHYSICIAN: DEBI HARPER MD REASON: fall, unknown LOC, dementia PROCEDURE: CT HEAD AND CERVICAL SPINE WO CT head without contrast. CT cervical spine without contrast PQRS statement: CT scans at this facility use dose reduction including either automated exposure control, iterative reconstructions, and /or weight based radiation dosing via mA and kV modification when appropriate to reduce radiation dose to as low as reasonably achievable. HISTORY: Fall, syncope, dementia. COMPARISON: CT head and cervical spine August 22, 2019. CT head findings: Generalized brain atrophy stable. Cerebral white matter hypoattenuation likely changes of chronic microvascular disease. No intracranial hemorrhage, mass, hydrocephalus or infarction. Left parietal scalp subcentimeter hematoma. Orbits, mastoids and bones are unremarkable. IMPRESSION: No acute intracranial CT normality. Small left parietal scalp hematoma. No skull fracture. CT cervical spine findings: Craniocervical junction intact. Cervical vertebral body height and alignment intact. No fracture of the cervical spine. Left apical scarring and calcified granulomas with a 8mm somewhat spiculated solid nodule. Cervical disc osteophytes and uncovertebral spurs with spinal canal and neural foraminal stenoses. 3 cm isodense left thyroid lobe nodule. IMPRESSION: No acute osseous injury of the cervical spine. Cervical disc disease 3 cm isodense left thyroid lobe nodule. Left apical nodules largest is 8 mm with mild spiculation. Consider correlation with outpatient CT chest imaging. Electronically signed by: Sharita Gaspar MD (09/18/2019 10:57 PM) [facility] DICTATED and SIGNED BY: SHARITA GASPAR MD DATE: 09/18/19 2257 [] Course & Med Decision Making Course & Med Decision Making Pertinent Labs and Imaging studies reviewed. (See chart for details) []89-year-old female presents to the emergency department via EMS after a fall. Unknown loss of consciousness unknown mechanism of injury. Unknown how long patient was on the ground. Patient is well-known to me, she is demented, underlying history of diabetes as well as hyponatremia. Patient has evidence of hematoma appreciated to her head no other appreciated injury on exam. She has no acute complaints of headache, visual change, chest pain, shortness breath, nausea, vomiting, abdominal pain. Nursing/Family reports patient not eating or drinking for several days Patient is planned for Hospice next week Labs/Imaging reviewed No CT evidence of acute process UAD reviewed - + RHONDA Rojas Disclaimer Dragon Disclaimer This electronic medical record was generated, in whole or in part, using a voice recognition dictation system. Departure Departure Impression: Primary Impression: Fall Additional Impression: UTI (urinary tract infection) Disposition: 03 TRANSFER SNF Condition: STABLE Referrals: YORDY HARTMAN MD (PCP) Patient Instructions: Urinary Tract Infection, [id number] Additional Instructions: Recommend follow up with PCP 3 - 5 days Return to the ER with worsening symptoms, intractable pain, fever, altered mental status Tylenol/Motrin as needed for pain Take antibiotics as directed Scripts Cephalexin (KEFLEX) 500 Mg Capsule 2 CAP PO Q12HR for 3 Days, #12 CAP Prov: DEBI HARPER MD 09/18/19 Problem Qualifiers Primary Impression: Fall Encounter type: initial encounter Qualified Codes: W19.XXXA - Unspecified fall, initial encounter Additional Impression: UTI (urinary tract infection) Urinary tract infection type: site unspecified Hematuria presence: without hematuria Qualified Codes: N39.0 - Urinary tract infection, site not specified DEBI HARPER MD Sep 18, 2019 22:48
--- NOTE | 2019-09-18 23:00 | RAD ---
CT head without contrast. CT cervical spine without contrast PQRS statement: CT scans at this facility use dose reduction including either automated exposure control, iterative reconstructions, and /or weight based radiation dosing via mA and kV modification when appropriate to reduce radiation dose to as low as reasonably achievable. HISTORY: Fall, syncope, dementia. COMPARISON: CT head and cervical spine August 22, 2019. CT head findings: Generalized brain atrophy stable. Cerebral white matter hypoattenuation likely changes of chronic microvascular disease. No intracranial hemorrhage, mass, hydrocephalus or infarction. Left parietal scalp subcentimeter hematoma. Orbits, mastoids and bones are unremarkable. IMPRESSION: No acute intracranial CT normality. Small left parietal scalp hematoma. No skull fracture. CT cervical spine findings: Craniocervical junction intact. Cervical vertebral body height and alignment intact. No fracture of the cervical spine. Left apical scarring and calcified granulomas with a 8mm somewhat spiculated solid nodule. Cervical disc osteophytes and uncovertebral spurs with spinal canal and neural foraminal stenoses. 3 cm isodense left thyroid lobe nodule. IMPRESSION: No acute osseous injury of the cervical spine. Cervical disc disease 3 cm isodense left thyroid lobe nodule. Left apical nodules largest is 8 mm with mild spiculation. Consider correlation with outpatient CT chest imaging. Electronically signed by: Luc Gaspar MD (09/18/2019 10:57 PM) [facility]
[2019-09-18 23:10] LABS: BASO # 0.1 x10^3/uL (0.0-0.2); BASO % 1 % (0-3); EOS # 0.2 x10^3/uL (0.0-0.7); EOS % 2 % (0-3); HEMATOCRIT 29.4 % (36.0-47.0); HEMOGLOBIN 10.1 g/dL (12.0-15.5); LYMPH # 1.6 x10^3/uL (1.0-4.8); LYMPH % 17 % (24-48); MEAN CORPUSCULAR HEMOGLOBIN 29 pg (25-35); MEAN CORPUSCULAR HGB CONC 35 g/dL (31-37); MEAN CORPUSCULAR VOLUME 85 fL (79-100); MONO # 0.6 x10^3/uL (0.0-1.1); MONO % 6 % (0-9); NEUT # 7.2 x10^3/uL (1.8-7.7); NEUT % 75 % (31-73); PLATELET COUNT 412 x10^3/uL (140-400); RED BLOOD COUNT 3.47 x10^6/uL (3.50-5.40); RED CELL DISTRIBUTION WIDTH 14.4 % (11.5-14.5); WHITE BLOOD COUNT 9.6 x10^3/uL (4.0-11.0)
[2019-09-18 23:17] LABS: CREATININE 0.9 mg/dL (0.6-1.0); POTASSIUM 4.3 mmol/L (3.5-5.1)
[2019-09-18 23:24] LABS: ALBUMIN/GLOBULIN RATIO 0.7 (1.0-1.7); TOTAL BILIRUBIN 0.6 mg/dL (0.2-1.0); TOTAL PROTEIN 7.5 g/dL (6.4-8.2)
[2019-09-18 23:30] LABS: BILIRUBIN,URINE NEGATIVE (NEG); COLOR,URINE YELLOW; NITRITE,URINE POSITIVE (NEG); PH,URINE 6.5; PROTEIN,URINE NEGATIVE (NEG-TRACE)
[2019-09-18 23:34] LABS: CLARITY,URINE HAZY
[2019-09-18 23:35] LABS: BACTERIA,URINE MANY /HPF (0-FEW); WBC,URINE >40 /HPF (0-4)
[2019-09-18 23:36] LABS: SQUAMOUS EPITHELIAL CELL,UR FEW /LPF
[2019-09-18] MEDS ORDERED: CEPH-264 PO (23:39)
[2019-09-19] VITALS: BP 126/57
== END 2019-09-19 00:20 | disposition home or self-care (01) ==
LOC: ER 22:21
DX: S00.93XA Contusion of unspecified part of head, initial encounter (principal); N39.0 Urinary tract infection, site not specified; E78.00 Pure hypercholesterolemia, unspecified; I10 Essential (primary) hypertension; E11.9 Type 2 diabetes mellitus without complications; E87.1 Hypo-osmolality and hyponatremia; I25.10 Atherosclerotic heart disease of native coronary artery without angina pectoris; Z86.73 Personal history of transient ischemic attack (TIA), and cerebral infarction without residual deficits; W18.39XA Other fall on same level, initial encounter; Y93.89 Activity, other specified; Y92.89 Other specified places as the place of occurrence of the external cause; Y99.8 Other external cause status
CPT/HCPCS: 36415; 70450; 72125; 80053; 81001; 85025; 87086; 99285-25